=== PATIENT | male | born 1960 | race Caucasian/White ===

== ENCOUNTER 2023-08-02 09:00 | Outpatient (RCR) | payer MEDICARE, MEDICAID, SELFPAY ==
[2023-07-26 09:16] VITALS: BP 128/76; PULSE 76; TEMP 35.7; BMI 31.1
--- NOTE | 2023-07-26 10:10 | HP.PCM_ITS ---
History of Present Illness Date of Service: 07/26/23 Chief Complaint: Bilateral leg ulcerations History of Wound: Mr. Ramirez is a 63-year-old male presenting to the wound care center today at [facility] with a chief complaint of bilateral leg ulcerations. Patient resides at a nursing facility where he is cared for 24 hours a day. Patient has a bit of cognitive dysfunction and is well medicated today with 2 mg of Ativan. Patient has seen wound care in the past but presents with worsening larger wound to the left leg/ankle area. Patient denies of any trauma. Patient denies any constitutional symptoms. No other pedal complaints at this time. Progress of Wound: Mr. Ramirez is a 63-year-old male presenting for wound care center today visit for second opinion evaluation of his bilateral lower extremity ulcerations. Treatment has been done by outside wound care center with not much progress. Patient presents today for second opinion. He denies trauma. Denies constitutional symptoms. No other pedal complaints at this time. [facility] Home Medications albuterol sulfate 90 mcg/actuation breath activated powder inhaler 2 inh inhalation Q6H PRN shortness of breath 07/26/23 [History Last Taken Unknown] aripiprazole 5 mg tablet (Abilify) 5 mg PO QHS 07/26/23 [History Last Taken Unknown] buspirone 10 mg tablet 10 mg PO TID 07/26/23 [History Last Taken Unknown] donepezil 5 mg tablet (Aricept) 5 mg PO DAILY 07/26/23 [History Last Taken Unknown] hydroxyzine HCl 50 mg tablet 50 mg PO Q6H PRN agitation 07/26/23 [History Last Taken Unknown] lorazepam 1 mg tablet (Ativan) 1 mg PO BID 07/26/23 [History Last Taken Unknown] sertraline 100 mg tablet 100 mg PO DAILY 07/26/23 [History Last Taken Unknown] trazodone 50 mg tablet 50 mg PO DAILY 07/26/23 [History Last Taken Unknown] Allergy/AdvReac Type Severity Reaction Status Date / Time acetaminophen [From Tylenol] Allergy Intermediate unknown Verified 07/26/23 09:38 aspirin Allergy Intermediate unknown Verified 07/26/23 09:38 peanut Allergy Intermediate unknown Verified 07/26/23 09:38 Vital Signs Vital Signs Vital Signs: 07/26/23 09:16 Temperature 96.2 F L Temperature Source Temporal Pulse Rate 76 Blood Pressure 128/76 H Blood Pressure Mean 93 Blood Pressure Source Monitor Blood Pressure Position Sitting Blood Pressure Location Left Arm Oxygen Delivery Method Room Air Weight Weight: 107.048 kg Body Mass Index (BMI) 31.1 Physical Exam Narrative Vascular: DP and PT pulses are faintly palpable. CFT is brisk. Skin temperature is warm to warm from proximal ankle to distal digits. Neurological: Light touch intact. Patient responds to painful stimuli. Dermatological: Full-thickness ulceration appreciated to the right lateral ankle measuring 1.3 x 0.8 x 0.2 cm. Wound base is granular in nature. No sanguinous drainage is appreciated. No sign of infection. Full-thickness ulceration appreciated to the left lateral ankle measuring 11.0 x 3.0 x 0.2 cm. Wound base is fibrogranular nature. No sign of infection. Both wounds show no evidence of tunneling or undermining. No evidence of probe to bone bilateral. Toenails 1 through 5 bilateral are thickened, elongated, discolored with evidence of subungual debris. Excisional debridement down to and including subcutaneous tissue with a number 5 mm dermal curette to the right lateral ankle without incident. Predebridement measurement is 1.2 x 0.7 x 0.1 cm. Postdebridement measurement is 1.3 x 0.8 x 0.2 cm. Excision debridement down to and including subcutaneous tissue with a number 5 mm dermal curette to the left lateral ankle without incident. Predebridement measurement is 10.5 x 2.5 x 0.1 cm. Postdebridement measurement is 11.0 x 3.0 x 0.2 cm. Musculoskeletal: Mild posterior tenderness appreciated to both full-thickness ulcerations. No pain with calf compression. Debridement Note Debridement Note Debridement Free Text: Excisional debridement down to and including subcutaneous tissue with a number 5 mm dermal curette to the right lateral ankle without incident. Predebridement measurement is 1.2 x 0.7 x 0.1 cm. Postdebridement measurement is 1.3 x 0.8 x 0.2 cm. Excision debridement down to and including subcutaneous tissue with a number 5 mm dermal curette to the left lateral ankle without incident. Predebridement measurement is 10.5 x 2.5 x 0.1 cm. Postdebridement measurement is 11.0 x 3.0 x 0.2 cm. Post-Debridement Measurements and Additional Note: Post-Debridement Measurements/Treatment WC - Nurse 1 - General Ulcer Assessment Start: 07/26/23 09:16 Freq: Status: Active Protocol: SURY Activity Type Activity Date Activity User E-sign Co-sign Detail Recorded Client Recorded Date Recorded By Document 07/26/23 09:16 Desktop 07/26/23 09:32 GM 07/26/23 09:16 WC - Today's Visit Information Type of service Initial Visit Arrival Mode Wheelchair Transfer Assistance Manual Patient Identification Verified (Name & Yes ) Patient Requires Transmission-Based No Precautions Height and Weight Height 6 ft 1 in Weight 107.048 kg Weight in Pounds 236.0 lbs Weight Measurement Method Stated by Patient Body Mass Index (BMI) 31.1 BMI Classification Obese BSA - Calista 2.31 Vital Signs Temperature (97.8 F-99.1 F) 96.2 F L Temperature Source Temporal Pulse Rate (60-100) 76 Pulse Location Monitor Oxygen Delivery Method Room Air Blood Pressure (90/60-120/80) 128/76 H Blood Pressure Mean 93 Source Monitor Position Sitting Blood Pressure Location Left Arm History Since Last Visit- (Skip if this is Patient's initial visit) Left Footwear Regular Shoe Right Footwear Regular Shoe Pain Scale: 0-10 Numeric Is Patient Pain Free? Yes Lower Extremity Assessment/ Foot Assessment/ Toe Nail Assessment Left -Posterior Tibial Palpable No -Posterior Tibial Doppler Multiphasic -Dorsalis Pedis Palpable Yes -Dorsalis Pedis Doppler Multiphasic -Extremity Color Hyperpigmented -Hair Growth on Legs Yes -Hair Growth on Toes No -Temperature of Extremity Warm -Capillary Refill Less than 3 Seconds -Dependent Rubor No -Blanched when Elevated No -Lipodermatosclerosis No -Other Deformity No -Prior Foot Ulcer No -Charcot Joint No -Prior Amputation No -Thick Yes -Discolored Yes -Deformed No -Improper Length & Hygeine No Right -Posterior Tibial Palpable Yes -Posterior Tibial Doppler Multiphasic -Dorsalis Pedis Palpable Yes -Dorsalis Pedis Doppler Multiphasic -Extremity Color Hyperpigmented -Hair Growth on Legs Yes -Hair Growth on Toes No -Temperature of Extremity Warm -Capillary Refill Less than 3 Seconds -Dependent Rubor No -Other Deformity No -Prior Foot Ulcer No -Charcot Joint No -Prior Amputation No -Thick Yes -Discolored No -Deformed No -Improper Length & Hygeine Yes Communication Assessment Preferred language Turkish Administrative Officer Required No Able to Read Yes Able to Write Yes Right Hearing Abillity Normal Left Hearing Abillity Normal Visual Assistive Devices None Functional Assessment Recent Decline in Ability to Perform Bathing,Lower Body Dressing, Transferring, Upper Body Dressing Assistive Device With Patient Yes Culture/Mormonism/Audio Experience Expert Cultural/Mormonism Needs that may affect No Treatment Plan Would you allow our hospital currency exchange specialist to No meet you for the purpose of spiritual/ emotional support? Audio Experience Expert to contact place of restorationism No WC - Nurse 1 - General Ulcer Measurement Start: 07/26/23 09:16 Freq: Status: Active Protocol: Activity Type Activity Date Activity User E-sign Co-sign Detail Recorded Client Recorded Date Recorded By Document 07/26/23 09:16 Desktop 07/26/23 09:32 GM 07/26/23 09:16 Wound Center Nurse 1 Right lateral Ankle -Current Size (cm) - Length 1.5 -Current Size (cm) - Width 1.5 -Current Size (cm) - Depth 0.3 -Total Square Cm 2.25 -Date of Last Picture (Recall this 07/26/23 field) -Photo Taken Yes -Epithelialization Medium 34-66% -Tunneling No -Undermining/Tunneling No -Circular Undermining No -Exudate Amt Medium -Exudate Type Yellow/Green -Wound Margin Distinct, Outline Attached -Granulation Amt Medium (34-66%) -Necrosis Amt Small (1-33%) -Structure Exposed N/A -Texture (Reyna-wound Skin Appearance) Assessed -Moisture (Reyna-wound Skin Appearance) Assessed -Color (Reyna-wound Skin Appearance) Assessed -Temperature (Reyna-wound Skin No Abnormality Appearance) (Pt Warm) -Tenderness on Palpation (Reyna-wound No Skin Appearance) -Ulcer Cleansing Not Cleansed -Foul Odor after Cleansing No -Anesthetic Used 4% Lidocaine Solution Left Medial LE -Combined with other wound No -Current Size (cm) - Length 10.5 -Current Size (cm) - Width 3.9 -Current Size (cm) - Depth 0.2 -Total Square Cm 40.95 -Date of Last Picture (Recall this 07/26/23 field) -Photo Taken Yes -Epithelialization Medium 34-66% -Tunneling No -Undermining/Tunneling No -Circular Undermining No -Exudate Type Yellow/Green -Wound Margin Distinct, Outline Attached -Granulation Amt Medium (34-66%) -Granulation Quality N/A -Slough/Fibrin Yes -Necrosis Amt Large (67-100%) -Necrotic Tissue Type Adherent Slough -Structure Exposed N/A -Texture (Reyna-wound Skin Appearance) Assessed -Moisture (Reyna-wound Skin Appearance) Assessed -Color (Reyna-wound Skin Appearance) Assessed -Temperature (Reyna-wound Skin No Abnormality Appearance) (Pt Warm) -Tenderness on Palpation (Reyna-wound No Skin Appearance) -Ulcer Cleansing Soap and Water -Foul Odor after Cleansing No -Anesthetic Used 4% Lidocaine Solution Lower Limb Edema Present Yes Right Calf (cm) 40.2 Right Ankle (cm) 25.3 Left Calf (cm) 40.3 Left Ankle (cm) 26.7 WC - Nurse 2 - General Ulcer CM Notes Start: 07/26/23 09:16 Freq: Status: Active Protocol: Activity Type Activity Date Activity User E-sign Co-sign Detail Recorded Client Recorded Date Recorded By Document 07/26/23 10:05 PL Tablet 07/26/23 10:09 PL 07/26/23 10:05 Wound Center Nurse 2 Right lateral Ankle -Time 09:45 -Correct Patient Yes -Correct Side, Site, Position Yes -Correct Procedure Yes -Procedure Performed Yes -Type of Procedure Debridement -Clinical Debridement Subcutaneous -Tissue Removed Subcutaneous -Post Debridement (cm) - Length 1.3 -Post Debridement (cm) - Width 0.8 -Post Debridement (cm) - Depth 0.2 -Total Square (Post) (cm) 1.04 -Area of Debridement (cm) - Length 1.3 -Area of Debridement (cm) - Width 0.8 -Total Square (Area) (cm) 1.04 -Tunneling No -Undermining/Tunneling No -Circular Undermining No -Wound/Ulcer Outcome Not Healed -Ulcer Cleansing Rinsed/ Irrigated with Saline -Foul Odor after Cleansing No -Bioengineered Tissue No -Bleeding Controlled with Pressure -Treatment Response Procedure Tolerated Well -Debridement - Subq, 1st 20sq cm No Left Medial LE -Time 09:45 -Correct Patient Yes -Correct Side, Site, Position Yes -Correct Procedure Yes -Procedure Performed Yes -Type of Procedure Debridement -Clinical Debridement Subcutaneous -Tissue Removed Subcutaneous -Post Debridement (cm) - Length 11.0 -Post Debridement (cm) - Width 3.0 -Post Debridement (cm) - Depth 0.2 -Total Square (Post) (cm) 33.00 -Area of Debridement (cm) - Length 11.0 -Area of Debridement (cm) - Width 3.0 -Total Square (Area) (cm) 33.00 -Tunneling No -Undermining/Tunneling No -Circular Undermining No -Wound/Ulcer Outcome Not Healed -Ulcer Cleansing Rinsed/ Irrigated with Saline -Foul Odor after Cleansing No -Bioengineered Tissue No -Bleeding Controlled with Pressure -Treatment Response Procedure Tolerated Well -Debridement - Subq, 1st 20sq cm Yes -Debridement, SubQ, ea addt'l 20sq cm 1 or part thereof Pain Scale: 0-10 Numeric Is Patient Pain Free? Yes Assessment/Plan Assessment/Plan (1) Non-pressure ulcer of left lower extremity with fat layer exposed: CODE(S): L97.922 - Non-pressure chronic ulcer of unspecified part of left lower leg with fat layer exposed PLAN: Patient was examined evaluated. All findings were discussed with the patient. All questions were answered to the patient satisfaction. Excisional debridement down to and including subcutaneous tissue with a number 5 mm dermal curette to the right lateral ankle without incident. Predebridement measurement is 1.2 x 0.7 x 0.1 cm. Postdebridement measurement is 1.3 x 0.8 x 0.2 cm. Excision debridement down to and including subcutaneous tissue with a number 5 mm dermal curette to the left lateral ankle without incident. Predebridement measurement is 10.5 x 2.5 x 0.1 cm. Postdebridement measurement is 11.0 x 3.0 x 0.2 cm. At this time we will begin authorization for peripheral arterial disease as well as venous duplex studies for baseline evaluation. The patient is left ulceration was cultured and will be sent off for microbiology culture and sensitivity. We will give her antibiotic treatment when results return. The patient's toenails 1 through 5 bilateral were debrided down to and including normal levels with a sterile double-action nail nipper without incident. Patient expressed relief after debridement. The patient's bilateral legs were dressed with Xeroform and dry sterile dressing. No compression was applied. Bathing instructions: The patient is to wash from head to toe as regularly doing so daily. Nursing staff is to separately wash his wounds with warm water and orange Dial antibacterial soap, dry well and apply bilateral ulcerations with Xeroform and dry sterile dressing and secure with tape. Patient will follow-up in 1 week for Masonic's debridement to the left ankle with application of amnion skin graft substitute. (2) Non-pressure ulcer of right lower extremity with fat layer exposed: CODE(S): L97.912 - Non-pressure chronic ulcer of unspecified part of right lower leg with fat layer exposed (3) Peripheral arterial disease: CODE(S): I73.9 - Peripheral vascular disease, unspecified (4) Tinea unguium: CODE(S): B35.1 - Tinea unguium
--- NOTE | 2023-07-31 10:00 | WC ---
Torsten Devi from [facility] called inquiring about patient's positive wound culture which showed MRSA. Notified Dr Cadena regarding this and he prescribed Doxycycline 100mg PO BID x 14 days disp: 28 with no refills. Called Torsten at [phone] to give her a telephone order which she took. Patient is scheduled to be seen on by Dr Cadena.
[2023-08-02 08:44] VITALS: BP 162/73; PULSE 69; RESP 16; BMI 31.1
--- NOTE | 2023-08-02 09:21 | PCM.WC.PN ---
History of Present Illness Date of Service: 08/02/23 Chief Complaint: Bilateral leg ulcerations History of Wound: Mr. Ramirez is a 63-year-old male presenting to the wound care center today at with a chief complaint of bilateral leg ulcerations. Patient resides at a nursing facility where he is cared for 24 hours a day. Patient has a bit of cognitive dysfunction and is well medicated today with 2 mg of Ativan. Patient has seen wound care in the past but presents with worsening larger wound to the left leg/ankle area. Patient denies of any trauma. Patient denies any constitutional symptoms. No other pedal complaints at this time. Progress of Wound: Mr. Ramirez is a 63-year-old male presenting for wound care center today visit for second opinion evaluation of his bilateral lower extremity ulcerations. Treatment has been done by outside wound care center with not much progress. Patient presents today for second opinion. He denies trauma. Denies constitutional symptoms. No other pedal complaints at this time. Subjective Subjective Mr. Ramirez is a 63-year-old male presenting for follow-up of full-thickness ulceration to the bilateral lower extremity. He has kept his dressings clean dry and intact. He has been getting changed by the nursing facility that he currently resides at. He denies any trauma. Denies any pain. Denies any strikethrough to the dressing. He denies constitutional symptoms. No other pedal complaints at this time. Objective Data Objective Data Vital Signs: Vital Signs Temp Pulse Resp BP O2 Del Method 96.2 F L 69 16 162/73 H Room Air 07/26/23 09:16 08/02/23 08:44 08/02/23 08:44 08/02/23 08:44 08/02/23 08:44 Oxygen Delivery Method Room Air Weight: 107.048 kg Body Mass Index (BMI) 31.1 Lab / Micro Data Attestation: I reviewed the patient's lab results. Micro: Microbiology 07/26/23 09:55 Tissue Ulcer - Leg Gram Stain - Final 07/26/23 09:55 Tissue Ulcer - Leg Wound Culture - Final Meth. resistant Staph. aureus Corynebacterium striatum 07/26/23 09:55 Tissue Ulcer - Leg Anaerobic Culture - Final No anaerobic bacteria isolated. Physical Exam Narrative Vascular: DP and PT pulses are faintly palpable. CFT is brisk. Skin temperature is warm to warm from proximal ankle to distal digits. Neurological: Light touch intact. Patient responds to painful stimuli. Dermatological: Full-thickness ulceration appreciated to the right lateral ankle measuring 0.9 x 0.6 x 0.2 cm. Wound base is granular in nature. No sanguinous drainage is appreciated. No sign of infection. Full-thickness ulceration appreciated to the left lateral ankle measuring 11.5 x 2.5 x 0.4 cm. Wound base is fibrogranular nature. No sign of infection. Both wounds show no evidence of tunneling or undermining. No evidence of probe to bone bilateral. Toenails 1 through 5 bilateral are thickened, elongated, discolored with evidence of subungual debris. Excisional debridement down to and including subcutaneous tissue with a number 5 mm dermal curette to the right lateral ankle without incident. Predebridement measurement is 0.8 x 0.6 x 0.1 cm. Postdebridement measurement is 0.9 x 0.6 x 0.2 cm. Excisional debridement using the [employer]'s debrider down to and including muscle to the left medial full-thickness ulceration without incident. Predebridement measurement is 11.0 x 2.0 x 0.2 cm. Postdebridement measurement is 11.5 x 2.5 x 0.4 cm. EpiMesh 4 x 4.5 cm was applied to the left full-thickness ulceration with 100% use. First application. The graft site was free and clear of any infection. The wound/skin graft substitute was dressed with nonadherent bandage secured in place with Steri-Strips followed by bolster dressing as well as a double layer Tubigrip. Musculoskeletal: Mild posterior tenderness appreciated to both full-thickness ulcerations. No pain with calf compression. 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 ) Arrival Mode Wheelchair Ambulatory Transfer Assistance Manual None Accompanied by nurse Patient Identification Verified (Name & Yes Yes ) Patient Requires Transmission-Based No No Precautions Height and Weight Height 6 ft 1 in Weight 107.048 kg Weight in Pounds 236.0 lbs Weight Measurement Method Stated by Patient Body Mass Index (BMI) 31.1 31.1 BMI Classification Obese Obese BSA - Calista 2.31 Vital Signs Temperature (97.8 F-99.1 F) 96.2 F L Temperature Source Temporal Pulse Rate (60-100) 76 69 Pulse Location Monitor Monitor Respiratory Rate (12-18) 16 Respiratory rate source Observation Oxygen Delivery Method Room Air Room Air Blood Pressure (90/60-120/80) 128/76 H 162/73 H Blood Pressure Mean (mm Hg) 93 102 Source Monitor Monitor Position Sitting Sitting Blood Pressure Location Left Arm Left Arm History Since Last Visit- (Skip if this is Patient's initial visit) Have you changed medications since your No last visit? Any new allergies or adverse reactions No Had a fall/change in ADL's that may No increase risk of falls Signs or symptoms of abuse and/or No neglect since last visit Have you been in the hospital since your No last visit? Has dressing in place as prescribed Yes Has compression in place as prescribed N/A Has offloadiing in place as prescribed N/A Experienced any changes in pain level or No management Left Footwear Regular Shoe Regular Shoe Right Footwear Regular Shoe Regular Shoe Pain Scale: 0-10 Numeric Is Patient Pain Free? Yes Yes Lower Extremity Assessment/ Foot Assessment/ Toe Nail Assessment Left -Posterior Tibial Palpable No -Posterior Tibial Doppler Multiphasic -Dorsalis Pedis Palpable Yes -Dorsalis Pedis Doppler Multiphasic -Extremity Color Hyperpigmented -Hair Growth on Legs Yes -Hair Growth on Toes No -Temperature of Extremity Warm -Capillary Refill Less than 3 Seconds -Dependent Rubor No -Blanched when Elevated No -Lipodermatosclerosis No -Other Deformity No -Prior Foot Ulcer No -Charcot Joint No -Prior Amputation No -Thick Yes -Discolored Yes -Deformed No -Improper Length & Hygeine No Right -Posterior Tibial Palpable Yes -Posterior Tibial Doppler Multiphasic -Dorsalis Pedis Palpable Yes -Dorsalis Pedis Doppler Multiphasic -Extremity Color Hyperpigmented -Hair Growth on Legs Yes -Hair Growth on Toes No -Temperature of Extremity Warm -Capillary Refill Less than 3 Seconds -Dependent Rubor No -Other Deformity No -Prior Foot Ulcer No -Charcot Joint No -Prior Amputation No -Thick Yes -Discolored No -Deformed No -Improper Length & Hygeine Yes Communication Assessment Preferred language Salvadorean Geriatric Social Work Professor Required No Able to Read Yes Able to Write Yes Right Hearing Abillity Normal Left Hearing Abillity Normal Visual Assistive Devices None Functional Assessment Recent Decline in Ability to Perform Bathing,Lower Body Dressing, Transferring, Upper Body Dressing Assistive Device With Patient Yes Culture/Yazdanism/Casting Machine Control Board Operator Cultural/Yazdanism Needs that may affect No Treatment Plan Would you allow our hospital bilingual administrative assistant to No meet you for the purpose of spiritual/ emotional support? Casting Machine Control Board Operator to contact place of shinto No WC - Nurse 1 - General Ulcer Measurement Start: 07/26/23 09:16 Freq: Status: Active Protocol: Activity Type Activity Date Activity User E-sign Co-sign Detail Recorded Client Recorded Date Recorded By Document 07/26/23 09:16 Desktop 07/26/23 09:32 Document 08/02/23 08:44 [facility] Desktop 08/02/23 08:57 [facility] 07/26/23 08/02/23 09:16 08:44 Wound Center Nurse 1 Right lateral Ankle -Combined with other wound No -Current Size (cm) - Length 1.5 0.4 -Current Size (cm) - Width 1.5 0.4 -Current Size (cm) - Depth 0.3 0.2 -Total Square Cm 2.25 0.16 -Date of Last Picture (Recall this 07/26/23 08/02/23 field) -Photo Taken Yes Yes -Epithelialization Medium 34-66% None Present -Tunneling No No -Undermining/Tunneling No No -Circular Undermining No No -Exudate Amt Medium Medium -Exudate Type Yellow/Green Serosanguineous -Wound Margin Distinct, Distinct, Outline Outline Attached Attached -Granulation Amt Medium (34-66%) Medium (34-66%) -Granulation Quality Red -Slough/Fibrin Yes -Necrosis Amt Small (1-33%) Medium (34-66%) -Necrotic Tissue Type Adherent Slough -Structure Exposed N/A -Texture (Reyna-wound Skin Appearance) Assessed Assessed, Fluctuance -Moisture (Reyna-wound Skin Appearance) Assessed Assessed,Dry/ Scaly -Color (Reyna-wound Skin Appearance) Assessed Assessed -Temperature (Reyna-wound Skin No Abnormality No Abnormality Appearance) (Pt Warm) (Pt Warm) -Tenderness on Palpation (Reyna-wound No No Skin Appearance) -Ulcer Cleansing Not Cleansed Soap and Water -Foul Odor after Cleansing No No -Anesthetic Used 4% Lidocaine 5% Lidocaine Solution Gel Left Medial LE -Combined with other wound No No -Current Size (cm) - Length 10.5 11.2 -Current Size (cm) - Width 3.9 2.4 -Current Size (cm) - Depth 0.2 0.3 -Total Square Cm 40.95 26.88 -Date of Last Picture (Recall this 07/26/23 08/02/23 field) -Photo Taken Yes Yes -Epithelialization Medium 34-66% None Present -Tunneling No No -Undermining/Tunneling No No -Circular Undermining No No -Exudate Amt Large -Exudate Type Yellow/Green Serosanguineous -Wound Margin Distinct, Distinct, Outline Outline Attached Attached -Granulation Amt Medium (34-66%) Small (1-33%) -Granulation Quality N/A Red -Slough/Fibrin Yes Yes -Necrosis Amt Large (67-100%) Large (67-100%) -Necrotic Tissue Type Adherent Slough Adherent Slough -Structure Exposed N/A -Texture (Reyna-wound Skin Appearance) Assessed Assessed, Scarring -Moisture (Reyna-wound Skin Appearance) Assessed Assessed,Dry/ Scaly -Color (Reyna-wound Skin Appearance) Assessed Assessed, Erythema -Temperature (Reyna-wound Skin No Abnormality No Abnormality Appearance) (Pt Warm) (Pt Warm) -Tenderness on Palpation (Reyna-wound No No Skin Appearance) -Ulcer Cleansing Soap and Water Soap and Water -Foul Odor after Cleansing No No -Anesthetic Used 4% Lidocaine 5% Lidocaine Solution Gel Lower Limb Edema Present Yes Yes Right Calf (cm) 40.2 40.5 Right Ankle (cm) 25.3 25.7 Left Calf (cm) 40.3 41 Left Ankle (cm) 26.7 26.4 WC - Nurse 2 - General Ulcer CM Notes Start: 07/26/23 09:16 Freq: Status: Active Protocol: Activity Type Activity Date Activity User E-sign Co-sign Detail Recorded Client Recorded Date Recorded By Document 07/26/23 10:05 PL Tablet 07/26/23 10:09 PL Document 08/02/23 09:08 Laptop 08/02/23 09:18 07/26/23 08/02/23 10:05 09:08 Wound Center Nurse 2 Right lateral Ankle -Time 09:45 09:08 -Correct Patient Yes Yes -Correct Side, Site, Position Yes Yes -Correct Procedure Yes Yes -Procedure Performed Yes Yes -Type of Procedure Debridement Debridement -Clinical Debridement Subcutaneous Subcutaneous -Tissue Removed Subcutaneous Dermis -Post Debridement (cm) - Length 1.3 0.9 -Post Debridement (cm) - Width 0.8 0.6 -Post Debridement (cm) - Depth 0.2 0.2 -Total Square (Post) (cm) 1.04 0.54 -Area of Debridement (cm) - Length 1.3 0.9 -Area of Debridement (cm) - Width 0.8 0.6 -Total Square (Area) (cm) 1.04 0.54 -Tunneling No No -Undermining/Tunneling No No -Circular Undermining No No -Wound/Ulcer Outcome Not Healed Not Healed -Ulcer Cleansing Rinsed/ Rinsed/ Irrigated with Irrigated with Saline Saline -Foul Odor after Cleansing No No -Bioengineered Tissue No No -Bleeding Controlled with Pressure Pressure -Treatment Response Procedure Procedure Tolerated Well Tolerated Well -Offloading No -Debridement - Subq, 1st 20sq cm No Yes Left Medial LE -Time 09:45 09:08 -Correct Patient Yes Yes -Correct Side, Site, Position Yes Yes -Correct Procedure Yes Yes -Procedure Performed Yes Yes -Type of Procedure Debridement Debridement -Clinical Debridement Subcutaneous Muscle / Fascia -Tissue Removed Subcutaneous Muscle,Fascia -Post Debridement (cm) - Length 11.0 11.5 -Post Debridement (cm) - Width 3.0 2.5 -Post Debridement (cm) - Depth 0.2 0.4 -Total Square (Post) (cm) 33.00 28.75 -Area of Debridement (cm) - Length 11.0 11.5 -Area of Debridement (cm) - Width 3.0 2.5 -Total Square (Area) (cm) 33.00 28.75 -Tunneling No No -Undermining/Tunneling No No -Circular Undermining No No -Wound/Ulcer Outcome Not Healed Not Healed -Ulcer Cleansing Rinsed/ Rinsed/ Irrigated with Irrigated with Saline Saline -Foul Odor after Cleansing No No -Bioengineered Tissue No No -Type of Bioengineered Tissue Epifix Mesh -Expiration Date 03/04/28 -Product Lot Number [id number] -Percent Used 100 -Lot number of Saline Used [id number] -Bleeding Controlled with Pressure Pressure -Treatment Response Procedure Procedure Tolerated Well Tolerated Well -Offloading No -Debridement - Subq, 1st 20sq cm Yes -Debridement, SubQ, ea addt'l 20sq cm 1 or part thereof -Debridement - Muscle / Fascia, 1st No 20sq cm -Apply Skin Sub - 1st 25 sq cm - Legs 1 -Apply Skin Sub - each addt'l 25 sq cm 1 - Legs -Epifix Mesh (per sq cm) 11 Pain Scale: 0-10 Numeric Is Patient Pain Free? Yes Yes Assessment/Plan Assessment/Plan (1) Non-pressure chronic ulcer of other part of left lower leg with necrosis of muscle: CODE(S): L97.823 - Non-pressure chronic ulcer of other part of left lower leg with necrosis of muscle PLAN: Patient was examined and evaluated. All findings were discussed with the patient. All questions were answered to the patient's satisfaction. Excisional debridement down to and including subcutaneous tissue with a number 5 mm dermal curette to the right lateral ankle without incident. Predebridement measurement is 0.8 x 0.6 x 0.1 cm. Postdebridement measurement is 0.9 x 0.6 x 0.2 cm. Excisional debridement using the [employer]'s debrider down to and including muscle to the left medial full-thickness ulceration without incident. Predebridement measurement is 11.0 x 2.0 x 0.2 cm. Postdebridement measurement is 11.5 x 2.5 x 0.4 cm. EpiMesh 4 x 4.5 cm was applied to the left full-thickness ulceration with 100% use. First application. The graft site was free and clear of any infection. The wound/skin graft substitute was dressed with nonadherent bandage secured in place with Steri-Strips followed by bolster dressing as well as a double layer Tubigrip. Follow-up in 1 week for continued treatment and Masonic debridement. The patient will follow-up with vascular testing on 08/04. The patient's culture and sensitivity was reviewed today and shows sensitivity to doxycycline. Patient will be started on doxycycline to be taken twice daily for 2 weeks to control any soft tissue infection at the patient may have. The current ulcerations to the bilateral lower extremities show no evidence of sign of infection or deep infection at this time. (2) Non-pressure ulcer of right lower extremity with fat layer exposed: CODE(S): L97.912 - Non-pressure chronic ulcer of unspecified part of right lower leg with fat layer exposed (3) Peripheral vascular disease: CODE(S): I73.9 - Peripheral vascular disease, unspecified (4) Cellulitis of right leg: CODE(S): L03.115 - Cellulitis of right lower limb
== END 2023-08-03 23:59 | disposition home or self-care (01) ==
LOC: WC 09:00
PROVIDERS: PCP Internal Medicine Infectious Disease; Referring Provider Internal Medicine Infectious Disease; Visit Provider Podiatrist Foot & Ankle Surgery
DX: L97.823 Non-pressure chronic ulcer of other part of left lower leg with necrosis of muscle (principal); L97.912 Non-pressure chronic ulcer of unspecified part of right lower leg with fat layer exposed; I73.9 Peripheral vascular disease, unspecified; L03.115 Cellulitis of right lower limb; B35.1 Tinea unguium
CPT/HCPCS: 11042; 11045; 15271; 15272; 87070; 87075; 87077; 87101; 87186; 87205; 99213; Q4186; G0463

== ENCOUNTER 2023-08-30 09:00 | Outpatient (RCR) | payer MEDICARE, MEDICAID, SELFPAY ==
[2023-08-04 00:31] VITALS: BP 162/73; PULSE 69; RESP 16; TEMP 35.7; BMI 31.1
--- NOTE | 2023-08-04 08:56 | ART_ITS ---
Reason For Study: Edema Procedure A bilateral lower extremity continuous wave Doppler with analog waveform analysis,segmental pressures,and ankle brachial indexes without exercise. Left Segmental Pressures Left brachial= 104mmHg. Left dorsalis pedis artery = >254mmHg. Left digit = 58 mmHg. The left dorsalis pedis waveforms are triphasic. Unable to acquire LT HUMAN RELATIONS MANAGER waveform and pressure due to open wound. Right Segmental Pressures Right brachial= 91mmHg. Right posterior tibial artery = >254mmHg. Right dorsalis pedis artery = 126mmHg. Right digit = 74 mmHg. The right posterior tibial artery waveforms are triphasic. The right dorsalis pedis waveforms are triphasic. Indices The right ankle brachial index by the posterior tibial artery is N/C. The right ankle brachial index by the dorsalis pedis is 1.21. The right digital-brachial index is 0.71. The left ankle brachial index by the dorsalis pedis is N/C. The left digital-brachial index is 0.56. VL/Lower Ext Art Exam w/o Exercis Interpretation Summary Right NÉSTOR 1.21, normal. Doppler/PVR waveforms of the right leg normal at rest. TBI diminished, pedal/digit disease vs spasm Left NÉSTOR not able to be obtained due to non-compressible vessels. Doppler/PVR w aveforms of the left leg normal at rest. TBI diminished, pedal/digit disease vs spasm Ordering Physician: Gerry Cadena Referring Physician: Raj Dykes Performed By: Thomas Disla, RVT
--- NOTE | 2023-08-04 08:56 | VDLE_ITS ---
Reason For Study: Edema RIGHT LEFT CFV is compressible, phasic, and INCOMPETENT CFV is compressible, phasic, and INCOMPETENT for greater than 1.0 second. for greater than 1.0 second. FV is compressible, phasic, and INCOMPETENT FV is compressible, spontaneous, phasic, for greater than 1.0 second. competent and demonstrates normal POP V is compressible, phasic, and augmentation. INCOMPETENT for greater than 1.0 second. POP V is compressible, phasic, and SFJ is INCOMPETENT and measures 0.66 cm. INCOMPETENT for greater than 1.0 second. GSV proximal thigh measures 0.65 x 0.62 cm. SFJ is INCOMPETENT and measures 0.89 cm. GSV at knee measures 0.59 x 0.59 cm. GSV proximal thigh measures 0.98 x 0.90 cm. GSV INCOMPETENT throughout for greater than GSV at knee measures 0.96 x 1.01 cm. 0.5 seconds. GSV INCOMPETENT throughout for greater than ASV proximal calf is INCOMPETENT for greater 0.5 seconds. than 0.5 seconds and measures 0.34 x 0.31 cm. SSV proximal calf is INCOMPETENT for greater SSV proximal calf is competent and measures than 0.5 seconds and measures 0.40 x 0.44 cm. 0.29 x 0.27 cm. Perforating Vein Prox Thigh is INCOMPETENT for greater than 0.5 seconds and measures 0.37 cm. Perforating Vein Dist Calf is INCOMPETENT for greater than 0.5 seconds and measures 0.31 cm. Procedure This is a venous duplex using B-mode, color flow and spectral Doppler. Exam performed in department. The exam was diagnostic. VL/Venous Duplex US - Wagner Extrem Interpretation Summary Deep veins of the bilateral lower extremities are patent and compressible segme ntally. There is no evidence of right lower extremity deep vein thrombosis. The bilateral great sap henous veins appear patent and compressible segmentally. Positive for reflux in the right common femoral vein, femoral vein, popliteal v ein, saphenofemoral junction, great saphenous vein, accessory saphenous vein, thigh door trimmer, stephanie f door trimmer. Positive for reflux in the left common femoral vein, popliteal vein, saphenofem oral junction, great saphenous vein, small saphenous vein Ordering Physician: Gerry Cadena Referring Physician: Raj Dykes Performed By: Thomas Disla RVT
[2023-08-09 08:51] VITALS: BP 111/64; PULSE 74; RESP 18; TEMP 36.2; BMI 31.1
--- NOTE | 2023-08-09 09:55 | PN.PCM_ITS ---
History of Present Illness Date of Service: 08/09/23 Chief Complaint: Bilateral leg ulcerations History of Wound: Mr. Ramirez is a 63-year-old male presenting to the wound care center today at [facility] with a chief complaint of bilateral leg ulcerations. Patient resides at a nursing facility where he is cared for 24 hours a day. Patient has a bit of cognitive dysfunction and is well medicated today with 2 mg of Ativan. Patient has seen wound care in the past but presents with worsening larger wound to the left leg/ankle area. Patient denies of any trauma. Patient denies any constitutional symptoms. No other pedal complaints at this time. Subjective Subjective Mr. Ramirez is a 63-year-old male presenting to the wound care center for follow-up and evaluation for bilateral leg ulcerations. Patient is following up for graft placement left leg and debridement to the right ankle. Patient is nursing staff states that he took down his dressing yesterday after . Overall the patient denies any pain. He denies constitutional symptoms. No other pedal complaints at this time. Objective Data Objective Data Vital Signs: Vital Signs Temp Pulse Resp BP O2 Del Method 97.2 F L 74 18 111/64 Room Air 08/09/23 08:51 08/09/23 08:51 08/09/23 08:51 08/09/23 08:51 08/09/23 08:51 Oxygen Delivery Method Room Air Weight: 107.048 kg Body Mass Index (BMI) 31.1 Physical Exam Narrative Vascular: DP and PT pulses are faintly palpable. CFT is brisk. Skin temperature is warm to warm from proximal ankle to distal digits. Neurological: Light touch intact. Patient responds to painful stimuli. Dermatological: Full-thickness ulceration appreciated to the right lateral ankle measuring 0.9 x 0.6 x 0.2 cm. Wound base is granular in nature. No sanguinous drainage is appreciated. No sign of infection. Full-thickness ulceration appreciated to the left lateral ankle measuring 11.5 x 2.5 x 0.4 cm. Wound base is fibrogranular nature. No sign of infection. Both wounds show no evidence of tunneling or undermining. No evidence of probe to bone bilateral. Toenails 1 through 5 bilateral are thickened, elongated, discolored with evidence of subungual debris. Excisional debridement down to and including subcutaneous tissue with a number 5 mm dermal curette to the right lateral ankle without incident. Predebridement measurement is 0.9 x 0.5 x 0.1 cm. Postdebridement measurement is 0.9 x 0.6 x 0.2 cm. Excisional debridement using the [employer] debrider down to and including muscle to the left medial full-thickness ulceration without incident. Predebridement measurement is 11.2 x 2.2 x 0.2 cm. Postdebridement measurement is 11.5 x 2.5 x 0.4 cm. EpiMesh 4 x 4.5 cm was applied to the left full-thickness ulceration with 100% use. Second application. The graft site was free and clear of any infection. The wound/skin graft substitute was dressed with nonadherent bandage secured in place with Steri-Strips followed by bolster dressing as well as a double layer Tubigrip. Musculoskeletal: Mild posterior tenderness appreciated to both full-thickness ulcerations. No pain with calf compression. Debridement Note Debridement Note Debridement Free Text: Excisional debridement down to and including subcutaneous tissue with a number 5 mm dermal curette to the right lateral ankle without incident. Predebridement measurement is 0.9 x 0.5 x 0.1 cm. Postdebridement measurement is 0.9 x 0.6 x 0.2 cm. Excisional debridement using the [employer] debrider down to and including muscle to the left medial full-thickness ulceration without incident. Predebridement measurement is 11.2 x 2.2 x 0.2 cm. Postdebridement measurement is 11.5 x 2.5 x 0.4 cm. EpiMesh 4 x 4.5 cm was applied to the left full-thickness ulceration with 100% use. Second application. The graft site was free and clear of any infection. The wound/skin graft substitute was dressed with nonadherent bandage secured in place with Steri-Strips followed by bolster dressing as well as a double layer Tubigrip. Post-Debridement Measurements and Additional Note: Post-Debridement Measurements/Treatment WC - Nurse 1 - General Ulcer Assessment Start: 08/09/23 08:51 Freq: Status: Active Protocol: SURY Activity Type Activity Date Activity User E-sign Co-sign Detail Recorded Client Recorded Date Recorded By Document 08/09/23 08:51 KW Desktop 08/09/23 08:56 08/09/23 08:51 - Today's Visit Information Type of service Follow-up Visit (Physician/SEWER CONNECTOR ) Arrival Mode Ambulatory Accompanied by nurse Height and Weight Weight Measurement Method Estimated by Patient Body Mass Index (BMI) 31.1 BMI Classification Obese Vital Signs Temperature (97.8 F-99.1 F) 97.2 F L Temperature Source Temporal Pulse Rate (60-100) 74 Pulse Location Monitor Respiratory Rate (12-18) 18 Respiratory rate source Observation Oxygen Delivery Method Room Air Blood Pressure (90/60-120/80) 111/64 Blood Pressure Mean (mm Hg) 79 Position Semi-Fowlers Blood Pressure Location Left Arm History Since Last Visit- (Skip if this is Patient's initial visit) Have you changed medications since your No last visit? Any new allergies or adverse reactions No Had a fall/change in ADL's that may No increase risk of falls Signs or symptoms of abuse and/or No neglect since last visit Have you been in the hospital since your No last visit? Has dressing in place as prescribed Yes Has compression in place as prescribed Yes Has offloadiing in place as prescribed No Experienced any changes in pain level or No management Left Footwear Regular Shoe Right Footwear Regular Shoe Pain Scale: 0-10 Numeric Is Patient Pain Free? Yes - Nurse 1 - General Ulcer Measurement Start: 08/09/23 08:51 Freq: Status: Active Protocol: Activity Type Activity Date Activity User E-sign Co-sign Detail Recorded Client Recorded Date Recorded By Document 08/09/23 08:51 [employer] 08/09/23 08:56 08/09/23 08:51 Wound Center Nurse 1 Right lateral Ankle -Current Size (cm) - Length 0.9 -Current Size (cm) - Width 0.9 -Current Size (cm) - Depth 0.2 -Total Square Cm 0.81 -Wound Margin Thickened -Granulation Amt Small (1-33%) -Granulation Quality [place] -Necrosis Amt Large (67-100%) -Necrotic Tissue Type Adherent Slough -Texture (Reyna-wound Skin Appearance) Assessed -Moisture (Reyna-wound Skin Appearance) Assessed -Color (Reyna-wound Skin Appearance) Assessed -Temperature (Reyna-wound Skin No Abnormality Appearance) (Pt Warm) -Ulcer Cleansing Soap and Water -Anesthetic Used 4% Lidocaine Solution Left Medial LE -Current Size (cm) - Length 11.6 -Current Size (cm) - Width 2.9 -Current Size (cm) - Depth 0.3 -Total Square Cm 33.64 -Wound Margin Thickened -Granulation Quality [place] -Necrosis Amt Large (67-100%) -Necrotic Tissue Type Adherent Slough -Texture (Reyna-wound Skin Appearance) Assessed -Moisture (Reyna-wound Skin Appearance) Assessed -Color (Reyna-wound Skin Appearance) Not Assessed, Erythema -Temperature (Reyna-wound Skin No Abnormality Appearance) (Pt Warm) -Ulcer Cleansing Soap and Water -Anesthetic Used 4% Lidocaine Solution Right Calf (cm) 40.4 Right Ankle (cm) 24.8 Left Calf (cm) 41.3 Left Ankle (cm) 25.6 WC - Nurse 2 - General Ulcer CM Notes Start: 08/09/23 08:51 Freq: Status: Active Protocol: Activity Type Activity Date Activity User E-sign Co-sign Detail Recorded Client Recorded Date Recorded By Document 08/09/23 09:27 Laptop 08/09/23 09:32 08/09/23 09:27 Wound Center Nurse 2 Right lateral Ankle -Time 09:28 -Correct Patient Yes -Correct Side, Site, Position Yes -Correct Procedure Yes -Procedure Performed Yes -Type of Procedure Debridement -Clinical Debridement Subcutaneous -Tissue Removed Subcutaneous -Post Debridement (cm) - Length 1.0 -Post Debridement (cm) - Width 0.7 -Post Debridement (cm) - Depth 0.2 -Total Square (Post) (cm) 0.70 -Area of Debridement (cm) - Length 1.0 -Area of Debridement (cm) - Width 0.7 -Total Square (Area) (cm) 0.70 -Tunneling No -Undermining/Tunneling No -Circular Undermining No -Wound/Ulcer Outcome Not Healed -Ulcer Cleansing Rinsed/ Irrigated with Saline -Foul Odor after Cleansing No -Bioengineered Tissue No -Bleeding Controlled with Pressure -Treatment Response Procedure Tolerated Well -Offloading No -Debridement - Subq, 1st 20sq cm Yes Left Medial LE -Time 09:29 -Correct Patient Yes -Correct Side, Site, Position Yes -Correct Procedure Yes -Procedure Performed Yes -Type of Procedure Debridement -Clinical Debridement Muscle / Fascia -Tissue Removed Muscle -Post Debridement (cm) - Length 11.8 -Post Debridement (cm) - Width 2.5 -Post Debridement (cm) - Depth 0.2 -Total Square (Post) (cm) 29.50 -Area of Debridement (cm) - Length 11.8 -Area of Debridement (cm) - Width 2.5 -Total Square (Area) (cm) 29.50 -Tunneling No -Undermining/Tunneling No -Circular Undermining No -Wound/Ulcer Outcome Not Healed -Ulcer Cleansing Rinsed/ Irrigated with Saline -Foul Odor after Cleansing No -Bioengineered Tissue Yes -Type of Bioengineered Tissue Epifix Mesh -Expiration Date 04/04/28 -Product Lot Number [id number] -Percent Used 100 -Lot number of Saline Used [id number] -Bleeding Controlled with Pressure -Treatment Response Procedure Tolerated Well -Offloading No -Debridement - Subq, 1st 20sq cm No -Debridement - Muscle / Fascia, 1st No 20sq cm -Apply Skin Sub - 1st 25 sq cm - Legs 1 -Apply Skin Sub - each addt'l 25 sq cm 1 - Legs -Epifix Mesh (per sq cm) 11 Pain Scale: 0-10 Numeric Is Patient Pain Free? Yes - Nurse 3 - General Ulcer D/C NN Start: 08/09/23 08:51 Freq: Status: Active Protocol: Activity Type Activity Date Activity User E-sign Co-sign Detail Recorded Client Recorded Date Recorded By Document 08/09/23 09:40 KW Desktop 08/09/23 09:41 KW 08/09/23 09:40 Wound Care Center Nurse 3 Right lateral Ankle -Primary Dressing Applied Promogran Madeline Matter -Primary Dressing Covered/Secured with Dry Gauze & Roll Gauze, Secured with Tape -Promogran Madeline Matter 1 Left Medial LE -Primary Dressing Covered/Secured with Dry Gauze & Roll Gauze, Secured with Tape BLE -Tubular Bandage Single Layer -Size of Tubigrip Used Size F -Size F ($) 2 Pain Scale: 0-10 Numeric Is Patient Pain Free? Yes - Visit Discharge Discharge Condition Stable Ambulatory Status Ambulatory Transportation CUSTODIAL TRANSPORT Medication Reconcilliation completed & No provided to patient/care provider Clinical Summary of Care Provided Yes Assessment/Plan Assessment/Plan (1) Non-pressure chronic ulcer of other part of left lower leg with necrosis of muscle: CODE(S): L97.823 - Non-pressure chronic ulcer of other part of left lower leg with necrosis of muscle PLAN: Patient was examined and evaluated. All findings were discussed with the patient. All questions were answered to the patient satisfaction. Excisional debridement down to and including subcutaneous tissue with a number 5 mm dermal curette to the right lateral ankle without incident. Predebridement measurement is 0.9 x 0.5 x 0.1 cm. Postdebridement measurement is 0.9 x 0.6 x 0.2 cm. Excisional debridement using the [employer]'s debrider down to and including muscle to the left medial full-thickness ulceration without incident. Predebridement measurement is 11.2 x 2.2 x 0.2 cm. Postdebridement measurement is 11.5 x 2.5 x 0.4 cm. EpiMesh 4 x 4.5 cm was applied to the left full-thickness ulceration with 100% use. Second application. The graft site was free and clear of any infection. The wound/skin graft substitute was dressed with nonadherent bandage secured in place with Steri-Strips followed by bolster dressing as well as a double layer Tubigrip. Educated the patient as well as his nurse to keep the dressing clean dry and in tact. They were understanding of this. Follow-up in 1 week for Misonix debridement. After review of the patient's arterial studies there shows evidence of noncompressible vessels to the left lower extremity. The right lower extremity NÉSTOR is 1.21 which is normal Doppler and PVRs. We will make referral to the vascular surgeon at [facility] Dr. Gaston for consultation and possible evaluation. This was educated to the patient as well as the nursing staff. And they will follow-up with Dr. Gaston when appointment is made. (2) Non-pressure ulcer of right lower extremity with fat layer exposed: CODE(S): L97.912 - Non-pressure chronic ulcer of unspecified part of right lower leg with fat layer exposed (3) Peripheral vascular disease: CODE(S): I73.9 - Peripheral vascular disease, unspecified
[2023-08-16 09:02] VITALS: BP 111/70; PULSE 70; RESP 18; BMI 31.1
--- NOTE | 2023-08-16 09:57 | PCM.WC.PN ---
History of Present Illness Date of Service: 08/16/23 Chief Complaint: Bilateral leg ulcerations History of Wound: Mr. Ramirez is a 63-year-old male presenting to the wound care center today at [facility] with a chief complaint of bilateral leg ulcerations. Patient resides at a nursing facility where he is cared for 24 hours a day. Patient has a bit of cognitive dysfunction and is well medicated today with 2 mg of Ativan. Patient has seen wound care in the past but presents with worsening larger wound to the left leg/ankle area. Patient denies of any trauma. Patient denies any constitutional symptoms. No other pedal complaints at this time. Subjective Subjective Mr. Ramirez is a 63-year-old male presenting to the wound care center for follow-up and evaluation for bilateral leg ulcerations. Patient is following up for graft placement left leg and debridement to the right ankle. Patient is nursing staff states that he took down his dressing yesterday after . Overall the patient denies any pain. He denies constitutional symptoms. No other pedal complaints at this time. Objective Data Objective Data Vital Signs: Vital Signs Temp Pulse Resp BP O2 Del Method 97.2 F L 70 18 111/70 Room Air 08/09/23 08:51 08/16/23 09:02 08/16/23 09:02 08/16/23 09:02 08/16/23 09:02 Oxygen Delivery Method Room Air Weight: 107.048 kg Body Mass Index (BMI) 31.1 Physical Exam Narrative Vascular: DP and PT pulses are faintly palpable. CFT is brisk. Skin temperature is warm to warm from proximal ankle to distal digits. Neurological: Light touch intact. Patient responds to painful stimuli. Dermatological: Full-thickness ulceration appreciated to the right lateral ankle measuring 0.6 x 0.5 x 0.1 cm. Wound base is granular in nature. No sanguinous drainage is appreciated. No sign of infection. Full-thickness ulceration appreciated to the left lateral ankle measuring 11.5 x 2.8 x 0.1 cm. Wound base is fibrogranular nature. No sign of infection. Both wounds show no evidence of tunneling or undermining. No evidence of probe to bone bilateral. Excisional debridement down to and including subcutaneous tissue with a number 5 mm dermal curette to the right lateral ankle without incident. Predebridement measurement is 0.5 x 0.4 x 0.1 cm. Postdebridement measurement is 0.6 x 0.5 x 0.2 cm. Excisional debridement using the [employer] debrider down to and including muscle to the left medial full-thickness ulceration without incident. Predebridement measurement is 11.3 x 2.5 x 0.1 cm. Postdebridement measurement is 11.5 x 2.8 x 0.2 cm. EpiMesh 4 x 4.5 cm was applied to the left full-thickness ulceration with 100% use. Third application. The graft site was free and clear of any infection. The wound/skin graft substitute was dressed with nonadherent bandage secured in place with Steri-Strips followed by bolster dressing as well as a double layer Tubigrip. Musculoskeletal: Mild posterior tenderness appreciated to both full-thickness ulcerations. No pain with calf compression. Debridement Note Debridement Note Debridement Free Text: Excisional debridement down to and including subcutaneous tissue with a number 5 mm dermal curette to the right lateral ankle without incident. Predebridement measurement is 0.5 x 0.4 x 0.1 cm. Postdebridement measurement is 0.6 x 0.5 x 0.2 cm. Excisional debridement using the [employer] debrider down to and including muscle to the left medial full-thickness ulceration without incident. Predebridement measurement is 11.3 x 2.5 x 0.1 cm. Postdebridement measurement is 11.5 x 2.8 x 0.2 cm. EpiMesh 4 x 4.5 cm was applied to the left full-thickness ulceration with 100% use. Third application. The graft site was free and clear of any infection. The wound/skin graft substitute was dressed with nonadherent bandage secured in place with Steri-Strips followed by bolster dressing as well as a double layer Tubigrip. Post-Debridement Measurements and Additional Note: Post-Debridement Measurements/Treatment WC - Nurse 1 - General Ulcer Assessment Start: 08/09/23 08:51 Freq: Status: Active Protocol: RAINAEXConstanza Activity Type Activity Date Activity User E-sign Co-sign Detail Recorded Client Recorded Date Recorded By Document 08/09/23 08:51 KW Desktop 08/09/23 08:56 KW Document 08/16/23 09:02 BM Desktop 08/16/23 09:10 [facility] 08/09/23 08/16/23 08:51 09:02 - Today's Visit Information Type of service Follow-up Visit Follow-up Visit (Physician/FEDERAL AGENT (Physician/FEDERAL AGENT ) ) Arrival Mode Ambulatory Ambulatory Transfer Assistance None Accompanied by nurse caregiver Patient Identification Verified (Name & Yes ) Patient Requires Transmission-Based No Precautions Height and Weight Weight Measurement Method Estimated by Patient Body Mass Index (BMI) 31.1 31.1 BMI Classification Obese Obese Vital Signs Temperature (97.8 F-99.1 F) 97.2 F L Temperature Source Temporal Pulse Rate (60-100) 74 70 Pulse Location Monitor Monitor Respiratory Rate (12-18) 18 18 Respiratory rate source Observation Observation Oxygen Delivery Method Room Air Room Air Blood Pressure (90/60-120/80) 111/64 111/70 Blood Pressure Mean (mm Hg) 79 83 Source Monitor Position Semi-Fowlers Sitting Blood Pressure Location Left Arm Left Arm History Since Last Visit- (Skip if this is Patient's initial visit) Have you changed medications since your No Yes last visit? Any new allergies or adverse reactions No No Had a fall/change in ADL's that may No No increase risk of falls Signs or symptoms of abuse and/or No No neglect since last visit Have you been in the hospital since your No No last visit? Has dressing in place as prescribed Yes Yes Has compression in place as prescribed Yes Yes Has offloadiing in place as prescribed No No Experienced any changes in pain level or No No management Left Footwear Regular Shoe Regular Shoe Right Footwear Regular Shoe Regular Shoe Pain Scale: 0-10 Numeric Is Patient Pain Free? Yes Yes - Nurse 1 - General Ulcer Measurement Start: 08/09/23 08:51 Freq: Status: Active Protocol: Activity Type Activity Date Activity User E-sign Co-sign Detail Recorded Client Recorded Date Recorded By Document 08/09/23 08:51 KW [employer] 08/09/23 08:56 KW Document 08/16/23 09:02 [facility] Desktop 08/16/23 09:10 [facility] 08/09/23 08/16/23 08:51 09:02 Wound Center Nurse 1 Right lateral Ankle -Combined with other wound No -Current Size (cm) - Length 0.9 0.7 -Current Size (cm) - Width 0.9 0.4 -Current Size (cm) - Depth 0.2 0.2 -Total Square Cm 0.81 0.28 -Epithelialization Small 1-33% -Tunneling No -Undermining/Tunneling No -Circular Undermining No -Exudate Amt Medium -Exudate Type Serosanguineous -Wound Margin Thickened Distinct, Outline Attached -Granulation Amt Small (1-33%) Medium (34-66%) -Granulation Quality [place] Red -Slough/Fibrin Yes -Necrosis Amt Large (67-100%) Small (1-33%) -Necrotic Tissue Type Adherent Slough Adherent Slough -Texture (Reyna-wound Skin Appearance) Assessed Assessed, Scarring -Moisture (Reyna-wound Skin Appearance) Assessed Assessed,Dry/ Scaly -Color (Reyna-wound Skin Appearance) Assessed Assessed -Temperature (Reyna-wound Skin No Abnormality No Abnormality Appearance) (Pt Warm) (Pt Warm) -Tenderness on Palpation (Reyna-wound No Skin Appearance) -Ulcer Cleansing Soap and Water Soap and Water -Anesthetic Used 4% Lidocaine 4% Lidocaine Solution Solution Left Medial LE -Combined with other wound No -Current Size (cm) - Length 11.6 11.7 -Current Size (cm) - Width 2.9 2.8 -Current Size (cm) - Depth 0.3 0.3 -Total Square Cm 33.64 32.76 -Photo Taken No -Epithelialization Small 1-33% -Tunneling No -Undermining/Tunneling No -Circular Undermining No -Exudate Amt Large -Exudate Type Serosanguineous -Wound Margin Thickened Distinct, Outline Attached -Granulation Amt Medium (34-66%) -Granulation Quality [place] Red -Slough/Fibrin Yes -Necrosis Amt Large (67-100%) Medium (34-66%) -Necrotic Tissue Type Adherent Slough Adherent Slough -Texture (Reyna-wound Skin Appearance) Assessed Assessed, Scarring -Moisture (Reyna-wound Skin Appearance) Assessed Assessed,Dry/ Scaly -Color (Reyna-wound Skin Appearance) Not Assessed, Assessed Erythema -Temperature (Reyna-wound Skin No Abnormality No Abnormality Appearance) (Pt Warm) (Pt Warm) -Tenderness on Palpation (Reyna-wound No Skin Appearance) -Ulcer Cleansing Soap and Water Soap and Water -Anesthetic Used 4% Lidocaine 4% Lidocaine Solution Solution Right Calf (cm) 40.4 40.1 Right Ankle (cm) 24.8 24.3 Left Calf (cm) 41.3 39 Left Ankle (cm) 25.6 25.2 - Nurse 2 - General Ulcer CM Notes Start: 08/09/23 08:51 Freq: Status: Active Protocol: Activity Type Activity Date Activity User E-sign Co-sign Detail Recorded Client Recorded Date Recorded By Document 08/09/23 09:27 Laptop 08/09/23 09:32 Document 08/16/23 09:24 Laptop 08/16/23 09:27 08/09/23 08/16/23 09:27 09:24 Wound Center Nurse 2 Right lateral Ankle -Time 09:28 09:25 -Correct Patient Yes Yes -Correct Side, Site, Position Yes Yes -Correct Procedure Yes Yes -Procedure Performed Yes Yes -Type of Procedure Debridement Debridement -Clinical Debridement Subcutaneous Subcutaneous -Tissue Removed Subcutaneous Subcutaneous -Post Debridement (cm) - Length 1.0 0.6 -Post Debridement (cm) - Width 0.7 0.5 -Post Debridement (cm) - Depth 0.2 0.1 -Total Square (Post) (cm) 0.70 0.30 -Area of Debridement (cm) - Length 1.0 0.6 -Area of Debridement (cm) - Width 0.7 0.5 -Total Square (Area) (cm) 0.70 0.30 -Tunneling No No -Undermining/Tunneling No No -Circular Undermining No No -Wound/Ulcer Outcome Not Healed Not Healed -Ulcer Cleansing Rinsed/ Wound Cleanser Irrigated with Saline -Foul Odor after Cleansing No No -Bioengineered Tissue No No -Bleeding Controlled with Pressure Pressure -Treatment Response Procedure Procedure Tolerated Well Tolerated Well -Offloading No No -Debridement - Subq, 1st 20sq cm Yes Yes Left Medial LE -Time 09:29 09:25 -Correct Patient Yes Yes -Correct Side, Site, Position Yes Yes -Correct Procedure Yes Yes -Procedure Performed Yes Yes -Type of Procedure Debridement Debridement -Clinical Debridement Muscle / Fascia Subcutaneous -Tissue Removed Muscle Subcutaneous -Post Debridement (cm) - Length 11.8 11.5 -Post Debridement (cm) - Width 2.5 2.8 -Post Debridement (cm) - Depth 0.2 0.2 -Total Square (Post) (cm) 29.50 32.20 -Area of Debridement (cm) - Length 11.8 11.5 -Area of Debridement (cm) - Width 2.5 2.8 -Total Square (Area) (cm) 29.50 32.20 -Tunneling No No -Undermining/Tunneling No -Circular Undermining No No -Wound/Ulcer Outcome Not Healed Not Healed -Ulcer Cleansing Rinsed/ Wound Cleanser Irrigated with Saline -Foul Odor after Cleansing No No -Bioengineered Tissue Yes Yes -Type of Bioengineered Tissue Epifix Mesh Epifix Mesh -Expiration Date 04/04/28 03/04/28 -Product Lot Number [id number] -Percent Used 100 100 -Lot number of Saline Used [id number] -Bleeding Controlled with Pressure Pressure -Treatment Response Procedure Procedure Tolerated Well Tolerated Well -Offloading No No -Debridement - Subq, 1st 20sq cm No No -Debridement - Muscle / Fascia, 1st No 20sq cm -Apply Skin Sub - 1st 25 sq cm - Legs 1 1 -Apply Skin Sub - each addt'l 25 sq cm 1 1 - Legs -Epifix Mesh (per sq cm) 11 11 Pain Scale: 0-10 Numeric Is Patient Pain Free? Yes Yes WC - Nurse 3 - General Ulcer D/C NN Start: 08/09/23 08:51 Freq: Status: Active Protocol: Activity Type Activity Date Activity User E-sign Co-sign Detail Recorded Client Recorded Date Recorded By Document 08/09/23 09:40 Desktop 08/09/23 09:41 KW Document 08/16/23 09:39 [facility] Desktop 08/16/23 09:40 [facility] 08/09/23 08/16/23 09:40 09:39 Wound Care Center Nurse 3 Right lateral Ankle -Ulcer Cleansing Rinsed/ Irrigated with Saline -Foul Odor after Cleansing No -Primary Dressing Applied Promogran Promogran Madeline Matter Madeline Matter -Primary Dressing Covered/Secured with Dry Gauze & Dry Gauze & Roll Gauze, Roll Gauze, Secured with Secured with Tape Tape -Promogran Madeline Matter 1 1 Left Medial LE -Other Dressing epi -Primary Dressing Covered/Secured with Dry Gauze & Dry Gauze & Roll Gauze, Roll Gauze, Secured with Secured with Tape Tape -Other Covering abd BLE -Tubular Bandage Single Layer Single Layer -Size of Tubigrip Used Size F Size E -Size E ($) 2 -Size F ($) 2 Treatment Response Procedure Tolerated Well Pain Scale: 0-10 Numeric Is Patient Pain Free? Yes Yes WC - Visit Discharge Discharge Condition Stable Stable Ambulatory Status Ambulatory Ambulatory Transportation CORRECTION Private Auto TRANSPORT Accompanied by caregiver Medication Reconcilliation completed & No provided to patient/care provider Clinical Summary of Care Provided Yes Assessment/Plan Assessment/Plan (1) Non-pressure chronic ulcer of other part of left lower leg with necrosis of muscle: CODE(S): L97.823 - Non-pressure chronic ulcer of other part of left lower leg with necrosis of muscle PLAN: Patient was examined and evaluated. All findings were discussed with the patient. All questions were answered to the patient's satisfaction. Excisional debridement down to and including subcutaneous tissue with a number 5 mm dermal curette to the right lateral ankle without incident. Predebridement measurement is 0.5 x 0.4 x 0.1 cm. Postdebridement measurement is 0.6 x 0.5 x 0.2 cm. Excisional debridement using the [employer] debrider down to and including muscle to the left medial full-thickness ulceration without incident. Predebridement measurement is 11.3 x 2.5 x 0.1 cm. Postdebridement measurement is 11.5 x 2.8 x 0.2 cm. EpiMesh 4 x 4.5 cm was applied to the left full-thickness ulceration with 100% use. Third application. The graft site was free and clear of any infection. The wound/skin graft substitute was dressed with nonadherent bandage secured in place with Steri-Strips followed by bolster dressing as well as a double layer Tubigrip. Follow-up in 1 week. Patient will be seeing Dr. Gaston for appointment on 08/24/2023. (2) Non-pressure ulcer of right lower extremity with fat layer exposed: CODE(S): L97.912 - Non-pressure chronic ulcer of unspecified part of right lower leg with fat layer exposed (3) Peripheral arterial disease: CODE(S): I73.9 - Peripheral vascular disease, unspecified
[2023-08-23 08:58] VITALS: BP 110/69; PULSE 84; RESP 18; TEMP 36.4; BMI 31.1
--- NOTE | 2023-08-23 09:22 | PN.PCM_ITS ---
History of Present Illness Date of Service: 08/23/23 Chief Complaint: Bilateral leg ulcerations History of Wound: Mr. Ramirez is a 63-year-old male presenting to the wound care center today at [facility] with a chief complaint of bilateral leg ulcerations. Patient resides at a nursing facility where he is cared for 24 hours a day. Patient has a bit of cognitive dysfunction and is well medicated today with 2 mg of Ativan. Patient has seen wound care in the past but presents with worsening larger wound to the left leg/ankle area. Patient denies of any trauma. Patient denies any constitutional symptoms. No other pedal complaints at this time. Subjective Subjective Mr. Ramirez is a 63-year-old male presenting to the wound care center for follow-up and evaluation for bilateral leg ulcerations. Patient is following up for graft placement left leg and debridement to the right ankle. Patient is nursing staff states that he took down his dressing yesterday after . Overall the patient denies any pain. He denies constitutional symptoms. No other pedal complaints at this time. Objective Data Objective Data Vital Signs: Vital Signs Temp Pulse Resp BP O2 Del Method 97.6 F L 84 18 110/69 Room Air 08/23/23 08:58 08/23/23 08:58 08/23/23 08:58 08/23/23 08:58 08/23/23 08:58 Oxygen Delivery Method Room Air Weight: 107.048 kg Body Mass Index (BMI) 31.1 Physical Exam Narrative Vascular: DP and PT pulses are faintly palpable. CFT is brisk. Skin temperature is warm to warm from proximal ankle to distal digits. Neurological: Light touch intact. Patient responds to painful stimuli. Dermatological: Full-thickness ulceration appreciated to the right lateral ankle measuring 0.6 x 0.6 x 0.1 cm. Wound base is granular in nature. No sanguinous drainage is appreciated. No sign of infection. Full-thickness ulceration appreciated to the left lateral ankle measuring 11.6 x 2.5 x 0.1 cm. Wound base is fibrogranular nature. No sign of infection. Both wounds show no evidence of tunneling or undermining. No evidence of probe to bone bilateral. Excisional debridement down to and including subcutaneous tissue with a number 5 mm dermal curette to the right lateral ankle without incident. Predebridement measurement is 0.5 x 0.5 x 0.1 cm. Postdebridement measurement is 0.6 x 0.6 x 0.1 cm. Excisional debridement using the Masonic's debrider down to and including muscle to the left medial full-thickness ulceration without incident. Predebridement measurement is 11.2 x 2.3 x 0.1 cm. Postdebridement measurement is 11.6 x 2.5 x 0.2 cm. EpiMesh 4 x 4.5 cm was applied to the left full-thickness ulceration with 100% use. Fourth application. The graft site was free and clear of any infection. The wound/skin graft substitute was dressed with nonadherent bandage secured in place with Steri-Strips followed by bolster dressing as well as a double layer Tubigrip. Musculoskeletal: Mild posterior tenderness appreciated to both full-thickness ulcerations. No pain with calf compression. Debridement Note Debridement Note Debridement Free Text: Excisional debridement down to and including subcutaneous tissue with a number 5 mm dermal curette to the right lateral ankle without incident. Predebridement measurement is 0.5 x 0.5 x 0.1 cm. Postdebridement measurement is 0.6 x 0.6 x 0.1 cm. Excisional debridement using the Masonic's debrider down to and including muscle to the left medial full-thickness ulceration without incident. Predebridement measurement is 11.2 x 2.3 x 0.1 cm. Postdebridement measurement is 11.6 x 2.5 x 0.2 cm. EpiMesh 4 x 4.5 cm was applied to the left full-thickness ulceration with 100% use. Fourth application. The graft site was free and clear of any infection. The wound/skin graft substitute was dressed with nonadherent bandage secured in place with Steri-Strips followed by bolster dressing as well as a double layer Tubigrip. Post-Debridement Measurements and Additional Note: Post-Debridement Measurements/Treatment WC - Nurse 1 - General Ulcer Assessment Start: 08/09/23 08:51 Freq: Status: Active Protocol: [email or web address] Activity Type Activity Date Activity User E-sign Co-sign Detail Recorded Client Recorded Date Recorded By Document 08/09/23 08:51 KW Desktop 08/09/23 08:56 KW Document 08/16/23 09:02 BMF Desktop 08/16/23 09:10 BMF Document 08/23/23 08:58 KW Desktop 08/23/23 09:04 KW 08/09/23 08/16/23 08/23/23 08:51 09:02 08:58 - Today's Visit Information Type of service Follow-up Visit Follow-up Visit Follow-up Visit (Physician/BIG DATA SOLUTIONS ARCHITECT (Physician/BIG DATA SOLUTIONS ARCHITECT (Physician/BIG DATA SOLUTIONS ARCHITECT ) ) ) Arrival Mode Ambulatory Ambulatory Ambulatory Transfer Assistance None Accompanied by nurse caregiver nurse Patient Identification Verified (Name & Yes Yes ) Patient Requires Transmission-Based No Precautions Height and Weight Weight Measurement Method Estimated by Patient Body Mass Index (BMI) 31.1 31.1 31.1 BMI Classification Obese Obese Obese Vital Signs Temperature (97.8 F-99.1 F) 97.2 F L 97.6 F L Temperature Source Temporal Temporal Pulse Rate (60-100) 74 70 84 Pulse Location Monitor Monitor Monitor Respiratory Rate (12-18) 18 18 18 Respiratory rate source Observation Observation Observation Oxygen Delivery Method Room Air Room Air Room Air Blood Pressure (90/60-120/80) 111/64 111/70 110/69 Blood Pressure Mean (mm Hg) 79 83 82 Source Monitor Monitor Position Semi-Fowlers Sitting Sitting Blood Pressure Location Left Arm Left Arm Left Arm History Since Last Visit- (Skip if this is Patient's initial visit) Have you changed medications since your No Yes No last visit? Any new allergies or adverse reactions No No No Had a fall/change in ADL's that may No No No increase risk of falls Signs or symptoms of abuse and/or No No No neglect since last visit Have you been in the hospital since your No No No last visit? Has dressing in place as prescribed Yes Yes Yes Has compression in place as prescribed Yes Yes Yes Has offloadiing in place as prescribed No No No Experienced any changes in pain level or No No No management Left Footwear Regular Shoe Regular Shoe Regular Shoe Right Footwear Regular Shoe Regular Shoe Regular Shoe Pain Scale: 0-10 Numeric Is Patient Pain Free? Yes Yes Yes - Nurse 1 - General Ulcer Measurement Start: 08/09/23 08:51 Freq: Status: Active Protocol: Activity Type Activity Date Activity User E-sign Co-sign Detail Recorded Client Recorded Date Recorded By Document 08/09/23 08:51 KW Desktop 08/09/23 08:56 KW Document 08/16/23 09:02 [facility] Desktop 08/16/23 09:10 [facility] Document 08/23/23 08:58 KW Desktop 08/23/23 09:04 KW 08/09/23 08/16/23 08/23/23 08:51 09:02 08:58 Wound Center Nurse 1 Right lateral Ankle -Combined with other wound No -Current Size (cm) - Length 0.9 0.7 0.4 -Current Size (cm) - Width 0.9 0.4 0.5 -Current Size (cm) - Depth 0.2 0.2 0.3 -Total Square Cm 0.81 0.28 0.20 -Epithelialization Small 1-33% -Tunneling No -Undermining/Tunneling No -Circular Undermining No -Exudate Amt Medium Medium -Exudate Type Serosanguineous Serosanguineous -Wound Margin Thickened Distinct, Distinct, Outline Outline Attached Attached -Granulation Amt Small (1-33%) Medium (34-66%) Medium (34-66%) -Granulation Quality [employer] Red Red -Slough/Fibrin Yes -Necrosis Amt Large (67-100%) Small (1-33%) Small (1-33%) -Necrotic Tissue Type Adherent Slough Adherent Slough Adherent Slough -Texture (Reyna-wound Skin Appearance) Assessed Assessed, Assessed Scarring -Moisture (Reyna-wound Skin Appearance) Assessed Assessed,Dry/ Assessed Scaly -Color (Reyna-wound Skin Appearance) Assessed Assessed Assessed -Temperature (Reyna-wound Skin No Abnormality No Abnormality No Abnormality Appearance) (Pt Warm) (Pt Warm) (Pt Warm) -Tenderness on Palpation (Reyna-wound No Skin Appearance) -Ulcer Cleansing Soap and Water Soap and Water Soap and Water -Anesthetic Used 4% Lidocaine 4% Lidocaine 5% Lidocaine Solution Solution Gel Left Medial LE -Combined with other wound No -Current Size (cm) - Length 11.6 11.7 11.7 -Current Size (cm) - Width 2.9 2.8 2.5 -Current Size (cm) - Depth 0.3 0.3 0.3 -Total Square Cm 33.64 32.76 29.25 -Photo Taken No -Epithelialization Small 1-33% -Tunneling No -Undermining/Tunneling No -Circular Undermining No -Exudate Amt Large Medium -Exudate Type Serosanguineous Serosanguineous -Wound Margin Thickened Distinct, Distinct, Outline Outline Attached Attached -Granulation Amt Medium (34-66%) Large (67-100%) -Granulation Quality [employer] -Slough/Fibrin Yes -Necrosis Amt Large (67-100%) Medium (34-66%) Medium (34-66%) -Necrotic Tissue Type Adherent Slough Adherent Slough Adherent Slough -Texture (Reyna-wound Skin Appearance) Assessed Assessed, Assessed Scarring -Moisture (Reyna-wound Skin Appearance) Assessed Assessed,Dry/ Assessed Scaly -Color (Reyna-wound Skin Appearance) Not Assessed, Assessed Assessed Erythema -Temperature (Reyna-wound Skin No Abnormality No Abnormality No Abnormality Appearance) (Pt Warm) (Pt Warm) (Pt Warm) -Tenderness on Palpation (Reyna-wound No Skin Appearance) -Ulcer Cleansing Soap and Water Soap and Water Soap and Water -Anesthetic Used 4% Lidocaine 4% Lidocaine 4% Lidocaine Solution Solution Solution Right Calf (cm) 40.4 40.1 39 Right Ankle (cm) 24.8 24.3 23.8 Left Calf (cm) 41.3 39 39.4 Left Ankle (cm) 25.6 25.2 24.2 WC - Nurse 2 - General Ulcer CM Notes Start: 08/09/23 08:51 Freq: Status: Active Protocol: Activity Type Activity Date Activity User E-sign Co-sign Detail Recorded Client Recorded Date Recorded By Document 08/09/23 09:27 Laptop 08/09/23 09:32 Document 08/16/23 09:24 Laptop 08/16/23 09:27 Document 08/23/23 09:15 Laptop 08/23/23 09:19 08/09/23 08/16/23 08/23/23 09:27 09:24 09:15 Wound Center Nurse 2 Right lateral Ankle -Time 09:28 09:25 09:18 -Correct Patient Yes Yes Yes -Correct Side, Site, Position Yes Yes Yes -Correct Procedure Yes Yes Yes -Procedure Performed Yes Yes Yes -Type of Procedure Debridement Debridement Debridement -Clinical Debridement Subcutaneous Subcutaneous Subcutaneous -Tissue Removed Subcutaneous Subcutaneous Subcutaneous -Post Debridement (cm) - Length 1.0 0.6 0.6 -Post Debridement (cm) - Width 0.7 0.5 0.6 -Post Debridement (cm) - Depth 0.2 0.1 0.1 -Total Square (Post) (cm) 0.70 0.30 0.36 -Area of Debridement (cm) - Length 1.0 0.6 0.6 -Area of Debridement (cm) - Width 0.7 0.5 0.6 -Total Square (Area) (cm) 0.70 0.30 0.36 -Tunneling No No No -Undermining/Tunneling No No No -Circular Undermining No No No -Wound/Ulcer Outcome Not Healed Not Healed Not Healed -Ulcer Cleansing Rinsed/ Wound Cleanser Wound Cleanser Irrigated with Saline -Foul Odor after Cleansing No No No -Bioengineered Tissue No No No -Bleeding Controlled with Pressure Pressure Pressure -Treatment Response Procedure Procedure Procedure Tolerated Well Tolerated Well Tolerated Well -Offloading No No No -Debridement - Subq, 1st 20sq cm Yes Yes Yes Left Medial LE -Time 09:29 09:25 09:16 -Correct Patient Yes Yes Yes -Correct Side, Site, Position Yes Yes Yes -Correct Procedure Yes Yes Yes -Procedure Performed Yes Yes Yes -Type of Procedure Debridement Debridement Debridement -Clinical Debridement Muscle / Fascia Subcutaneous Muscle / Fascia -Tissue Removed Muscle Subcutaneous Muscle,Fascia -Post Debridement (cm) - Length 11.8 11.5 11.6 -Post Debridement (cm) - Width 2.5 2.8 2.5 -Post Debridement (cm) - Depth 0.2 0.2 0.2 -Total Square (Post) (cm) 29.50 32.20 29.00 -Area of Debridement (cm) - Length 11.8 11.5 11.6 -Area of Debridement (cm) - Width 2.5 2.8 2.5 -Total Square (Area) (cm) 29.50 32.20 29.00 -Tunneling No No No -Undermining/Tunneling No No -Circular Undermining No No No -Wound/Ulcer Outcome Not Healed Not Healed Not Healed -Ulcer Cleansing Rinsed/ Wound Cleanser Rinsed/ Irrigated with Irrigated with Saline Saline -Foul Odor after Cleansing No No No -Bioengineered Tissue Yes Yes Yes -Type of Bioengineered Tissue Epifix Mesh Epifix Mesh Epifix Mesh -Expiration Date 04/04/28 03/04/28 04/04/28 -Product Lot Number [id number] -Percent Used 100 100 100 -Lot number of Saline Used [id number] -Bleeding Controlled with Pressure Pressure Pressure -Treatment Response Procedure Procedure Procedure Tolerated Well Tolerated Well Tolerated Well -Offloading No No No -Debridement - Subq, 1st 20sq cm No No -Debridement - Muscle / Fascia, 1st No No 20sq cm -Apply Skin Sub - 1st 25 sq cm - Legs 1 1 1 -Apply Skin Sub - each addt'l 25 sq cm 1 1 1 - Legs -Epifix Mesh (per sq cm) 11 11 11 Pain Scale: 0-10 Numeric Is Patient Pain Free? Yes Yes Yes - Nurse 3 - General Ulcer D/C NN Start: 08/09/23 08:51 Freq: Status: Active Protocol: Activity Type Activity Date Activity User E-sign Co-sign Detail Recorded Client Recorded Date Recorded By Document 08/09/23 09:40 [employer] 08/09/23 09:41 [employer] Document 08/16/23 09:39 [facility] Desktop 08/16/23 09:40 [facility] 08/09/23 08/16/23 09:40 09:39 Wound Care Center Nurse 3 Right lateral Ankle -Ulcer Cleansing Rinsed/ Irrigated with Saline -Foul Odor after Cleansing No -Primary Dressing Applied Promogran Promogran Madeline Matter Madeline Matter -Primary Dressing Covered/Secured with Dry Gauze & Dry Gauze & Roll Gauze, Roll Gauze, Secured with Secured with Tape Tape -Promogran Madeline Matter 1 1 Left Medial LE -Other Dressing epi -Primary Dressing Covered/Secured with Dry Gauze & Dry Gauze & Roll Gauze, Roll Gauze, Secured with Secured with Tape Tape -Other Covering abd BLE -Tubular Bandage Single Layer Single Layer -Size of Tubigrip Used Size F Size E -Size E ($) 2 -Size F ($) 2 Treatment Response Procedure Tolerated Well Pain Scale: 0-10 Numeric Is Patient Pain Free? Yes Yes - Visit Discharge Discharge Condition Stable Stable Ambulatory Status Ambulatory Ambulatory Transportation SKILLED NURSING Private Auto TRANSPORT Accompanied by caregiver Medication Reconcilliation completed & No provided to patient/care provider Clinical Summary of Care Provided Yes Assessment/Plan Assessment/Plan (1) Non-pressure chronic ulcer of other part of left lower leg with necrosis of muscle: CODE(S): L97.823 - Non-pressure chronic ulcer of other part of left lower leg with necrosis of muscle PLAN: Patient was examined evaluated. All findings were discussed with the patient. All questions were answered to the patient's satisfaction. Excisional debridement down to and including subcutaneous tissue with a number 5 mm dermal curette to the right lateral ankle without incident. Predebridement measurement is 0.5 x 0.5 x 0.1 cm. Postdebridement measurement is 0.6 x 0.6 x 0.1 cm. Excisional debridement using the Kash's debrider down to and including muscle to the left medial full-thickness ulceration without incident. Predebridement measurement is 11.2 x 2.3 x 0.1 cm. Postdebridement measurement is 11.6 x 2.5 x 0.2 cm. EpiMesh 4 x 4.5 cm was applied to the left full-thickness ulceration with 100% use. Fourth application. The graft site was free and clear of any infection. The wound/skin graft substitute was dressed with nonadherent bandage secured in place with Steri-Strips followed by bolster dressing as well as a double layer Tubigrip. Right ulceration dressed with Madeline Betadine paint and dry sterile dressing with single-layer Tubigrip donned. Patient is finished his doxycycline at today's visit. The patient will be following up with Dr. Gaston for evaluation. Follow-up in 1 week (2) Non-pressure ulcer of right lower extremity with fat layer exposed: CODE(S): L97.912 - Non-pressure chronic ulcer of unspecified part of right lower leg with fat layer exposed (3) Peripheral vascular disease: CODE(S): I73.9 - Peripheral vascular disease, unspecified (4) Cellulitis of right leg: CODE(S): L03.115 - Cellulitis of right lower limb
[2023-08-30 08:51] VITALS: BP 129/77; PULSE 77; RESP 18; TEMP 36.6; BMI 31.1
--- NOTE | 2023-08-30 09:27 | PCM.WC.PN ---
History of Present Illness Date of Service: 08/30/23 Chief Complaint: Bilateral leg ulcerations History of Wound: Mr. Ramirez is a 63-year-old male presenting to the wound care center today at [facility] with a chief complaint of bilateral leg ulcerations. Patient resides at a nursing facility where he is cared for 24 hours a day. Patient has a bit of cognitive dysfunction and is well medicated today with 2 mg of Ativan. Patient has seen wound care in the past but presents with worsening larger wound to the left leg/ankle area. Patient denies of any trauma. Patient denies any constitutional symptoms. No other pedal complaints at this time. Progress of Wound: Bilateral chronic wounds. Subjective Subjective Mr. Ramirez is a 63-year-old male presenting to the wound care center for follow-up and evaluation for bilateral leg ulcerations. Patient is following up for graft placement left leg and debridement to the right ankle. Patient is nursing staff states that he took down his dressing yesterday after . Overall the patient denies any pain. He denies constitutional symptoms. No other pedal complaints at this time. Objective Data Objective Data Vital Signs: Vital Signs Temp Pulse Resp BP O2 Del Method 97.9 F 77 18 129/77 H Room Air 08/30/23 08:51 08/30/23 08:51 08/30/23 08:51 08/30/23 08:51 08/30/23 08:51 Oxygen Delivery Method Room Air Weight: 107.048 kg Body Mass Index (BMI) 31.1 Physical Exam Narrative Vascular: DP and PT pulses are faintly palpable. CFT is brisk. Skin temperature is warm to warm from proximal ankle to distal digits. Neurological: Light touch intact. Patient responds to painful stimuli. Dermatological: Full-thickness ulceration appreciated to the right lateral ankle measuring 0.4 x 0.3 x 0.1 cm. Wound base is granular in nature. No sanguinous drainage is appreciated. No sign of infection. Full-thickness ulceration appreciated to the left lateral ankle measuring 12.3 x 2.9 x 0.2 cm. Wound base is fibrogranular nature. No sign of infection. Both wounds show no evidence of tunneling or undermining. No evidence of probe to bone bilateral. Excisional debridement down to and including subcutaneous tissue with a number 5 mm dermal curette to the right lateral ankle without incident. Predebridement measurement is 0.3 x 0.3 x 0.1 cm. Postdebridement measurement is 0.4 x 0.3 x 0.1 cm. Excisional debridement using the Masonic's debrider down to and including muscle to the left medial full-thickness ulceration without incident. Predebridement measurement is 11.7 x 2.5 x 0.1 cm. Postdebridement measurement is 12.3 x 2.9 x 0.2 cm. EpiMesh 4 x 4.5 cm was applied to the left full-thickness ulceration with 100% use. Fifth application. The graft site was free and clear of any infection. The wound/skin graft substitute was dressed with nonadherent bandage secured in place with Steri-Strips followed by bolster dressing as well as a double layer Tubigrip. Musculoskeletal: Mild posterior tenderness appreciated to both full-thickness ulcerations. No pain with calf compression. Debridement Note Debridement Note Debridement Free Text: Excisional debridement down to and including subcutaneous tissue with a number 5 mm dermal curette to the right lateral ankle without incident. Predebridement measurement is 0.3 x 0.3 x 0.1 cm. Postdebridement measurement is 0.4 x 0.3 x 0.1 cm. Excisional debridement using the Masonic's debrider down to and including muscle to the left medial full-thickness ulceration without incident. Predebridement measurement is 11.7 x 2.5 x 0.1 cm. Postdebridement measurement is 12.3 x 2.9 x 0.2 cm. EpiMesh 4 x 4.5 cm was applied to the left full-thickness ulceration with 100% use. Fifth application. The graft site was free and clear of any infection. The wound/skin graft substitute was dressed with nonadherent bandage secured in place with Steri-Strips followed by bolster dressing as well as a double layer Tubigrip. Post-Debridement Measurements and Additional Note: Post-Debridement Measurements/Treatment WC - Nurse 1 - General Ulcer Assessment Start: 08/09/23 08:51 Freq: Status: Active Protocol: [email or web address] Activity Type Activity Date Activity User E-sign Co-sign Detail Recorded Client Recorded Date Recorded By Document 08/09/23 08:51 KW Desktop 08/09/23 08:56 KW Document 08/16/23 09:02 BMF Desktop 08/16/23 09:10 BMF Document 08/23/23 08:58 KW Desktop 08/23/23 09:04 KW Document 08/30/23 08:51 KW Desktop 08/30/23 09:03 KW 08/09/23 08/16/23 08/23/23 08:51 09:02 08:58 WC - Today's Visit Information Type of service Follow-up Visit Follow-up Visit Follow-up Visit (Physician/OFFICER CAPTAIN (Physician/OFFICER CAPTAIN (Physician/OFFICER CAPTAIN ) ) ) Arrival Mode Ambulatory Ambulatory Ambulatory Transfer Assistance None Accompanied by nurse caregiver nurse Patient Identification Verified (Name & Yes Yes ) Patient Requires Transmission-Based No Precautions Height and Weight Weight Measurement Method Estimated by Patient Body Mass Index (BMI) 31.1 31.1 31.1 BMI Classification Obese Obese Obese Vital Signs Temperature (97.8 F-99.1 F) 97.2 F L 97.6 F L Temperature Source Temporal Temporal Pulse Rate (60-100) 74 70 84 Pulse Location Monitor Monitor Monitor Respiratory Rate (12-18) 18 18 18 Respiratory rate source Observation Observation Observation Oxygen Delivery Method Room Air Room Air Room Air Blood Pressure (90/60-120/80) 111/64 111/70 110/69 Blood Pressure Mean (mm Hg) 79 83 82 Source Monitor Monitor Position Semi-Fowlers Sitting Sitting Blood Pressure Location Left Arm Left Arm Left Arm History Since Last Visit- (Skip if this is Patient's initial visit) Have you changed medications since your No Yes No last visit? Any new allergies or adverse reactions No No No Had a fall/change in ADL's that may No No No increase risk of falls Signs or symptoms of abuse and/or No No No neglect since last visit Have you been in the hospital since your No No No last visit? Has dressing in place as prescribed Yes Yes Yes Has compression in place as prescribed Yes Yes Yes Has offloadiing in place as prescribed No No No Experienced any changes in pain level or No No No management Left Footwear Regular Shoe Regular Shoe Regular Shoe Right Footwear Regular Shoe Regular Shoe Regular Shoe Pain Scale: 0-10 Numeric Is Patient Pain Free? Yes Yes Yes 08/30/23 08:51 WC - Today's Visit Information Type of service Follow-up Visit (Physician/OFFICER CAPTAIN ) Arrival Mode Ambulatory Transfer Assistance Accompanied by Patient Identification Verified (Name & Yes ) Patient Requires Transmission-Based Precautions Height and Weight Weight Measurement Method Body Mass Index (BMI) 31.1 BMI Classification Obese Vital Signs Temperature (97.8 F-99.1 F) 97.9 F Temperature Source Temporal Pulse Rate (60-100) 77 Pulse Location Monitor Respiratory Rate (12-18) 18 Respiratory rate source Observation Oxygen Delivery Method Room Air Blood Pressure (90/60-120/80) 129/77 H Blood Pressure Mean (mm Hg) 94 Source Monitor Position Sitting Blood Pressure Location Left Arm History Since Last Visit- (Skip if this is Patient's initial visit) Have you changed medications since your No last visit? Any new allergies or adverse reactions No Had a fall/change in ADL's that may No increase risk of falls Signs or symptoms of abuse and/or No neglect since last visit Have you been in the hospital since your No last visit? Has dressing in place as prescribed Yes Has compression in place as prescribed Yes Has offloadiing in place as prescribed No Experienced any changes in pain level or No management Left Footwear Regular Shoe Right Footwear Regular Shoe Pain Scale: 0-10 Numeric Is Patient Pain Free? Yes WC - Nurse 1 - General Ulcer Measurement Start: 08/09/23 08:51 Freq: Status: Active Protocol: Activity Type Activity Date Activity User E-sign Co-sign Detail Recorded Client Recorded Date Recorded By Document 08/09/23 08:51 KW Desktop 08/09/23 08:56 KW Document 08/16/23 09:02 [facility] Desktop 08/16/23 09:10 [facility] Document 08/23/23 08:58 KW Desktop 08/23/23 09:04 KW Document 08/30/23 08:51 KW Desktop 08/30/23 09:03 KW 08/09/23 08/16/23 08/23/23 08:51 09:02 08:58 Wound Center Nurse 1 Right lateral Ankle -Combined with other wound No -Current Size (cm) - Length 0.9 0.7 0.4 -Current Size (cm) - Width 0.9 0.4 0.5 -Current Size (cm) - Depth 0.2 0.2 0.3 -Total Square Cm 0.81 0.28 0.20 -Epithelialization Small 1-33% -Tunneling No -Undermining/Tunneling No -Circular Undermining No -Exudate Amt Medium Medium -Exudate Type Serosanguineous Serosanguineous -Wound Margin Thickened Distinct, Distinct, Outline Outline Attached Attached -Granulation Amt Small (1-33%) Medium (34-66%) Medium (34-66%) -Granulation Quality Kidder Red Red -Slough/Fibrin Yes -Necrosis Amt Large (67-100%) Small (1-33%) Small (1-33%) -Necrotic Tissue Type Adherent Slough Adherent Slough Adherent Slough -Texture (Reyna-wound Skin Appearance) Assessed Assessed, Assessed Scarring -Moisture (Reyna-wound Skin Appearance) Assessed Assessed,Dry/ Assessed Scaly -Color (Reyna-wound Skin Appearance) Assessed Assessed Assessed -Temperature (Reyna-wound Skin No Abnormality No Abnormality No Abnormality Appearance) (Pt Warm) (Pt Warm) (Pt Warm) -Tenderness on Palpation (Reyna-wound No Skin Appearance) -Ulcer Cleansing Soap and Water Soap and Water Soap and Water -Foul Odor after Cleansing -Anesthetic Used 4% Lidocaine 4% Lidocaine 5% Lidocaine Solution Solution Gel Left Medial LE -Combined with other wound No -Current Size (cm) - Length 11.6 11.7 11.7 -Current Size (cm) - Width 2.9 2.8 2.5 -Current Size (cm) - Depth 0.3 0.3 0.3 -Total Square Cm 33.64 32.76 29.25 -Photo Taken No -Epithelialization Small 1-33% -Tunneling No -Undermining/Tunneling No -Circular Undermining No -Exudate Amt Large Medium -Exudate Type Serosanguineous Serosanguineous -Wound Margin Thickened Distinct, Distinct, Outline Outline Attached Attached -Granulation Amt Medium (34-66%) Large (67-100%) -Granulation Quality Kidder Red Kidder -Slough/Fibrin Yes -Necrosis Amt Large (67-100%) Medium (34-66%) Medium (34-66%) -Necrotic Tissue Type Adherent Slough Adherent Slough Adherent Slough -Texture (Reyna-wound Skin Appearance) Assessed Assessed, Assessed Scarring -Moisture (Reyna-wound Skin Appearance) Assessed Assessed,Dry/ Assessed Scaly -Color (Reyna-wound Skin Appearance) Not Assessed, Assessed Assessed Erythema -Temperature (Reyna-wound Skin No Abnormality No Abnormality No Abnormality Appearance) (Pt Warm) (Pt Warm) (Pt Warm) -Tenderness on Palpation (Reyna-wound No Skin Appearance) -Ulcer Cleansing Soap and Water Soap and Water Soap and Water -Foul Odor after Cleansing -Anesthetic Used 4% Lidocaine 4% Lidocaine 4% Lidocaine Solution Solution Solution Right Calf (cm) 40.4 40.1 39 Right Ankle (cm) 24.8 24.3 23.8 Left Calf (cm) 41.3 39 39.4 Left Ankle (cm) 25.6 25.2 24.2 08/30/23 08:51 Wound Center Nurse 1 Right lateral Ankle -Combined with other wound -Current Size (cm) - Length 0.6 -Current Size (cm) - Width 0.7 -Current Size (cm) - Depth 0.2 -Total Square Cm 0.42 -Epithelialization -Tunneling -Undermining/Tunneling -Circular Undermining -Exudate Amt Small -Exudate Type Serosanguineous -Wound Margin Distinct, Outline Attached -Granulation Amt Small (1-33%) -Granulation Quality Kidder -Slough/Fibrin -Necrosis Amt Small (1-33%) -Necrotic Tissue Type Adherent Slough -Texture (Reyna-wound Skin Appearance) Assessed -Moisture (Reyna-wound Skin Appearance) Dry/Scaly -Color (Reyna-wound Skin Appearance) Assessed -Temperature (Reyna-wound Skin No Abnormality Appearance) (Pt Warm) -Tenderness on Palpation (Reyna-wound Skin Appearance) -Ulcer Cleansing Soap and Water -Foul Odor after Cleansing No -Anesthetic Used 4% Lidocaine Solution Left Medial LE -Combined with other wound -Current Size (cm) - Length 12 -Current Size (cm) - Width 3 -Current Size (cm) - Depth 0.5 -Total Square Cm 36 -Photo Taken -Epithelialization -Tunneling -Undermining/Tunneling -Circular Undermining -Exudate Amt -Exudate Type -Wound Margin -Granulation Amt Medium (34-66%) -Granulation Quality Kidder,Red -Slough/Fibrin -Necrosis Amt Medium (34-66%) -Necrotic Tissue Type Adherent Slough -Texture (Reyna-wound Skin Appearance) Assessed -Moisture (Reyna-wound Skin Appearance) Assessed -Color (Reyna-wound Skin Appearance) Erythema -Temperature (Reyna-wound Skin No Abnormality Appearance) (Pt Warm) -Tenderness on Palpation (Reyna-wound Skin Appearance) -Ulcer Cleansing Soap and Water -Foul Odor after Cleansing No -Anesthetic Used 4% Lidocaine Solution Right Calf (cm) 39.0 Right Ankle (cm) 24.5 Left Calf (cm) 39 Left Ankle (cm) 25.8 WC - Nurse 2 - General Ulcer CM Notes Start: 08/09/23 08:51 Freq: Status: Active Protocol: Activity Type Activity Date Activity User E-sign Co-sign Detail Recorded Client Recorded Date Recorded By Document 08/09/23 09:27 Laptop 08/09/23 09:32 Document 08/16/23 09:24 JF Laptop 08/16/23 09:27 Document 08/23/23 09:15 Laptop 08/23/23 09:19 Document 08/30/23 09:19 Laptop 08/30/23 09:21 08/09/23 08/16/23 08/23/23 09:27 09:24 09:15 Wound Center Nurse 2 Right lateral Ankle -Time 09:28 09:25 09:18 -Correct Patient Yes Yes Yes -Correct Side, Site, Position Yes Yes Yes -Correct Procedure Yes Yes Yes -Procedure Performed Yes Yes Yes -Type of Procedure Debridement Debridement Debridement -Clinical Debridement Subcutaneous Subcutaneous Subcutaneous -Tissue Removed Subcutaneous Subcutaneous Subcutaneous -Post Debridement (cm) - Length 1.0 0.6 0.6 -Post Debridement (cm) - Width 0.7 0.5 0.6 -Post Debridement (cm) - Depth 0.2 0.1 0.1 -Total Square (Post) (cm) 0.70 0.30 0.36 -Area of Debridement (cm) - Length 1.0 0.6 0.6 -Area of Debridement (cm) - Width 0.7 0.5 0.6 -Total Square (Area) (cm) 0.70 0.30 0.36 -Tunneling No No No -Undermining/Tunneling No No No -Circular Undermining No No No -Wound/Ulcer Outcome Not Healed Not Healed Not Healed -Ulcer Cleansing Rinsed/ Wound Cleanser Wound Cleanser Irrigated with Saline -Foul Odor after Cleansing No No No -Bioengineered Tissue No No No -Bleeding Controlled with Pressure Pressure Pressure -Treatment Response Procedure Procedure Procedure Tolerated Well Tolerated Well Tolerated Well -Offloading No No No -Debridement - Subq, 1st 20sq cm Yes Yes Yes Left Medial LE -Time 09: 09:25 09:16 -Correct Patient Yes Yes Yes -Correct Side, Site, Position Yes Yes Yes -Correct Procedure Yes Yes Yes -Procedure Performed Yes Yes Yes -Type of Procedure Debridement Debridement Debridement -Clinical Debridement Muscle / Fascia Subcutaneous Muscle / Fascia -Tissue Removed Muscle Subcutaneous Muscle,Fascia -Post Debridement (cm) - Length 11.8 11.5 11.6 -Post Debridement (cm) - Width 2.5 2.8 2.5 -Post Debridement (cm) - Depth 0.2 0.2 0.2 -Total Square (Post) (cm) 29.50 32.20 29.00 -Area of Debridement (cm) - Length 11.8 11.5 11.6 -Area of Debridement (cm) - Width 2.5 2.8 2.5 -Total Square (Area) (cm) 29.50 32.20 29.00 -Tunneling No No No -Undermining/Tunneling No No -Circular Undermining No No No -Wound/Ulcer Outcome Not Healed Not Healed Not Healed -Ulcer Cleansing Rinsed/ Wound Cleanser Rinsed/ Irrigated with Irrigated with Saline Saline -Foul Odor after Cleansing No No No -Bioengineered Tissue Yes Yes Yes -Type of Bioengineered Tissue Epifix Mesh Epifix Mesh Epifix Mesh -Expiration Date 04/04/28 03/04/28 04/04/28 -Product Lot Number [id number] -Percent Used 100 100 100 -Lot number of Saline Used [id number] -Bleeding Controlled with Pressure Pressure Pressure -Treatment Response Procedure Procedure Procedure Tolerated Well Tolerated Well Tolerated Well -Offloading No No No -Debridement - Subq, 1st 20sq cm No No -Debridement - Muscle / Fascia, 1st No No 20sq cm -Apply Skin Sub - 1st 25 sq cm - Legs 1 1 1 -Apply Skin Sub - each addt'l 25 sq cm 1 1 1 - Legs -Epifix Mesh (per sq cm) 11 11 11 Pain Scale: 0-10 Numeric Is Patient Pain Free? Yes Yes Yes 08/30/23 09:19 Wound Center Nurse 2 Right lateral Ankle -Time 09:19 -Correct Patient Yes -Correct Side, Site, Position Yes -Correct Procedure Yes -Procedure Performed Yes -Type of Procedure Debridement -Clinical Debridement Subcutaneous -Tissue Removed Subcutaneous -Post Debridement (cm) - Length 0.4 -Post Debridement (cm) - Width 0.3 -Post Debridement (cm) - Depth 0.1 -Total Square (Post) (cm) 0.12 -Area of Debridement (cm) - Length 0.4 -Area of Debridement (cm) - Width 0.3 -Total Square (Area) (cm) 0.12 -Tunneling No -Undermining/Tunneling No -Circular Undermining No -Wound/Ulcer Outcome Not Healed -Ulcer Cleansing Rinsed/ Irrigated with Saline -Foul Odor after Cleansing No -Bioengineered Tissue No -Bleeding Controlled with Pressure -Treatment Response Procedure Tolerated Well -Offloading No -Debridement - Subq, 1st 20sq cm Yes Left Medial LE -Time 09:20 -Correct Patient Yes -Correct Side, Site, Position Yes -Correct Procedure Yes -Procedure Performed Yes -Type of Procedure Debridement -Clinical Debridement Muscle / Fascia -Tissue Removed Muscle,Fascia -Post Debridement (cm) - Length 12.3 -Post Debridement (cm) - Width 2.9 -Post Debridement (cm) - Depth 0.2 -Total Square (Post) (cm) 35.67 -Area of Debridement (cm) - Length 12.3 -Area of Debridement (cm) - Width 2.9 -Total Square (Area) (cm) 35.67 -Tunneling No -Undermining/Tunneling No -Circular Undermining No -Wound/Ulcer Outcome Not Healed -Ulcer Cleansing Rinsed/ Irrigated with Saline -Foul Odor after Cleansing No -Bioengineered Tissue Yes -Type of Bioengineered Tissue Epifix Mesh -Expiration Date 05/05/28 -Product Lot Number [id number] -Percent Used 100 -Lot number of Saline Used [id number] -Bleeding Controlled with Pressure -Treatment Response Procedure Tolerated Well -Offloading No -Debridement - Subq, 1st 20sq cm -Debridement - Muscle / Fascia, 1st No 20sq cm -Apply Skin Sub - 1st 25 sq cm - Legs 1 -Apply Skin Sub - each addt'l 25 sq cm 1 - Legs -Epifix Mesh (per sq cm) 11 Pain Scale: 0-10 Numeric Is Patient Pain Free? Yes WC - Nurse 3 - General Ulcer D/C NN Start: 08/09/23 08:51 Freq: Status: Active Protocol: Activity Type Activity Date Activity User E-sign Co-sign Detail Recorded Client Recorded Date Recorded By Document 08/09/23 09:40 KW Desktop 08/09/23 09:41 KW Document 08/16/23 09:39 BMF Desktop 08/16/23 09:40 BMF Document 08/23/23 09:32 KW Desktop 08/23/23 09:32 KW 08/09/23 08/16/23 08/23/23 09:40 09:39 09:32 Wound Care Center Nurse 3 Right lateral Ankle -Ulcer Cleansing Rinsed/ Irrigated with Saline -Foul Odor after Cleansing No -Primary Dressing Applied Promogran Promogran Promogran Madeline Matter Madeline Matter Madeline Matter -Primary Dressing Covered/Secured with Dry Gauze & Dry Gauze & Dry Gauze & Roll Gauze, Roll Gauze, Roll Gauze, Secured with Secured with Secured with Tape Tape Tape -Promogran Madeline Matter 1 1 1 Left Medial LE -Other Dressing epi -Primary Dressing Covered/Secured with Dry Gauze & Dry Gauze & Dry Gauze & Roll Gauze, Roll Gauze, Roll Gauze, Secured with Secured with Secured with Tape Tape Tape -Other Covering abd BLE -Tubular Bandage Single Layer Single Layer -Size of Tubigrip Used Size F Size E Size E -Size E ($) 2 -Size F ($) 2 Treatment Response Procedure Tolerated Well Pain Scale: 0-10 Numeric Is Patient Pain Free? Yes Yes Yes WC - Visit Discharge Discharge Condition Stable Stable Stable Ambulatory Status Ambulatory Ambulatory Ambulatory Transportation [facility] TRANSPORT Accompanied by caregiver Medication Reconcilliation completed & No No provided to patient/care provider Clinical Summary of Care Provided Yes Yes Assessment/Plan Assessment/Plan (1) Non-pressure ulcer of right lower extremity with fat layer exposed: CODE(S): L97.912 - Non-pressure chronic ulcer of unspecified part of right lower leg with fat layer exposed PLAN: Patient was examined and evaluated. All findings were discussed with the patient. All questions were answered to the patient's satisfaction. Excisional debridement down to and including subcutaneous tissue with a number 5 mm dermal curette to the right lateral ankle without incident. Predebridement measurement is 0.3 x 0.3 x 0.1 cm. Postdebridement measurement is 0.4 x 0.3 x 0.1 cm. Excisional debridement using the Masonic's debrider down to and including muscle to the left medial full-thickness ulceration without incident. Predebridement measurement is 11.7 x 2.5 x 0.1 cm. Postdebridement measurement is 12.3 x 2.9 x 0.2 cm. EpiMesh 4 x 4.5 cm was applied to the left full-thickness ulceration with 100% use. Fifth application. The graft site was free and clear of any infection. The wound/skin graft substitute was dressed with nonadherent bandage secured in place with Steri-Strips followed by bolster dressing as well as a Unna boot.. Patient will be placed in bilateral Unna boots for compression control. Patient's clinical nursing instructor admits to a interventional date with Dr. Gaston in October 2023. Follow-up with the wound care center with Dr. Cadena in 1 week. (2) Non-pressure ulcer of left lower extremity with fat layer exposed: CODE(S): L97.922 - Non-pressure chronic ulcer of unspecified part of left lower leg with fat layer exposed (3) Peripheral vascular disease: CODE(S): I73.9 - Peripheral vascular disease, unspecified
== END 2023-09-03 23:59 ==
LOC: WC 09:00
PROVIDERS: PCP Internal Medicine Infectious Disease; Referring Provider Internal Medicine Infectious Disease; Visit Provider Podiatrist Foot & Ankle Surgery
DX: L97.912 Non-pressure chronic ulcer of unspecified part of right lower leg with fat layer exposed (principal); L97.823 Non-pressure chronic ulcer of other part of left lower leg with necrosis of muscle; L97.922 Non-pressure chronic ulcer of unspecified part of left lower leg with fat layer exposed; I73.9 Peripheral vascular disease, unspecified
CPT/HCPCS: 11042; 15271; 15272; 29580; 93923; 93970; Q4186

== ENCOUNTER 2023-09-13 08:25 | Day surgery (SDC) | payer MEDICARE, MEDICAID, SELFPAY ==
[2023-09-12 06:59] VITALS: BMI 31.9
[2023-09-13 08:45] LABS: Hematocrit 42.2 % (40-54); Hemoglobin 13.4 g/dL (13.0-16.5); Mean Corp Hgb Conc 31.8 g/dL (32-36); Mean Corpuscular Hgb 29.1 pg (27.0-32.0); Mean Corpuscular Volume 91.7 fL (80-94); Mean Platelet Vol. 10.2 fl (6.2-12.0); Platelet Count 254 K/mm3 (150-450); RBC Distribution Width SD 43.8 fl (35.1-43.9); White Blood Count 6.6 K/mm3 (4.4-11.0)
[2023-09-13 08:59] LABS: Anion Gap 3 (5-15); BUN 17 mg/dL (7-18); BUN/Creat Ratio 11.8 RATIO (10-20); Chloride 108 mmol/L (98-107); Creatinine, Serum 1.44 mg/dL (0.70-1.30); EST Glomerular Filtration Rate 52 mL/min (>60); Est Glom Filt Rate - Afr Amer 63 mL/min (>60); Estimated Creatinine Clearance 66.44 ml/min; Glucose 87 mg/dL (74-106); Potassium 4.3 mmol/L (3.5-5.1); Sodium Level 138 mmol/L (136-145)
--- NOTE | 2023-09-13 10:47 | PCM.OPRPT ---
Report of Operation Date of Procedure: 09/13/23 Pre-Operative Diagnosis: Venous insufficiency with ulceration Post-Operative Diagnosis: same Surgery/Procedure Performed:: Venogram IVC IVUS IVC, bilateral common/external iliac veins Angioplasty/stent right common/external iliac vein Type of Anesthesia: Local and Sedation,Conscious Estimated Blood Loss (mL): 5 Description of Procedure: HPI: Patient is a 63-year-old male with bilateral lower extremity venous insufficiency with ulcerations. He was found to have significant proximal and deep reflux as well as superficial reflux. Given the severity of his ulceration and venous disease as well as the proximal and deep reflux is felt to be appropriate for venogram to assess for central compression. He is taken now for venogram with possible invention. Description of procedure: Upon obtaining informed consent and verification correct patient procedure site patient taken to [facility] where he was positioned prepped and draped in usual fashion. Time was performed and sedation administered with fentanyl. Skin overlying the right common femoral vein anesthetized 1% lidocaine the vessel accessed antegrade fashion with a micropuncture needle wire. Through this a hand-injection ilio caval venogram was performed which revealed satisfactory position with extravasation dissection. Through the micropuncture sheath Bentson wire was advanced and the micropuncture sheath exchanged out for a 10 [place] sheath. Next skin overlying the left common femoral vein was has 1% lidocaine the vessel accessed under ultrasound guidance with micropuncture needle wire. This then extended for micropuncture sheath through which injection ilio caval venogram revealing satisfactory placement with no extravasation or dissection. This did reveal widened left common iliac vein. Through the micropuncture sheath a Bentson wire was advanced the micropuncture sheath exchanged over a 10 [place]ogolese sheath. Next intravascular sound probe was advanced via the right femoral access sheath and recorded pullback of the IVC, right common iliac vein, right external iliac vein was performed. This revealed a 58% compression of the right common iliac vein and a 33% compression of the right external leg vein. Ultrasound probe was then withdrawn and advanced to the left femoral access sheath and recorded pullback of the IVC, left common iliac vein, left external iliac vein was performed. This revealed 38% compression of the left common iliac vein. The compression on the left did not meet threshold for intervention however on the right and did. Patient was in heparinized allowed circuit for 3 minutes after which a Advanovalver Vena [id number] stent was brought in field prepped for manufactures instructions. This was advanced in the position just below the IVC confluence with satisfactory coverage of the length of compression. This was then deployed in position and postdilated with a 14 x 40 [place] XXL balloon. Intravascular sound probe was then readvanced and recorded pullback performed which revealed satisfactory stent positioning with no residual compression and good stent wall apposition. Completion venogram revealed brisk contrast transit no extravasation dissection. Wires and sheath were then withdrawn and pressure held for 5 minutes for which patient was taken recovery room for bedrest prior to discharge. Grafts/Implants Used: Cook Zilver Vena [id number]
== END 2023-09-13 13:45 | disposition home or self-care (01) ==
LOC: CLSP 08:29
PROVIDERS: PCP Internal Medicine Infectious Disease; Referring Provider Surgery Trauma Surgery; Visit Provider Surgery Trauma Surgery
DX: I73.9 Peripheral vascular disease, unspecified (principal); L97.919 Non-pressure chronic ulcer of unspecified part of right lower leg with unspecified severity; L97.929 Non-pressure chronic ulcer of unspecified part of left lower leg with unspecified severity; I83.019 Varicose veins of right lower extremity with ulcer of unspecified site; I83.029 Varicose veins of left lower extremity with ulcer of unspecified site; I87.1 Compression of vein; I87.2 Venous insufficiency (chronic) (peripheral); F41.9 Anxiety disorder, unspecified
CPT/HCPCS: 36010; 36415; 37238; 37252; 37253; 75825; 76937; 80048; 85027; 99152; 99153; C1753; C1769; C1894; J7040; C1725; C1876

== ENCOUNTER 2023-09-28 09:17 | Day surgery (SDC) | payer MEDICARE, MEDICAID, SELFPAY ==
[2023-09-28 09:48] VITALS: BMI 30.9
--- OUTSIDE RECORDS SUMMARY | 2023-09-28 09:52 | XMS RPT_ITS | CCD ---
Demographics Address [address] [place], [place] [id number] Preferred Language en Marital Status Single Orthodoxy Affiliation Unknown Race White Ethnic Group Not or Lati no Author Name Unknown Address [address] [place] [address] Organization [facility] Care Team Providers Care Crime Prevention Worker Name Role Phone Unavailable Primary Care Provider Laurie Grant MD, Oscar Dubose Primary Care Provider [phone] OSCAR GRANT Primary Care Unavailable PRESTON ROBERTS Admitting Unavailable PRESTON ROBERTS Referring Unavailable FANI SANTACRUZ Attending Unavailable SARAN DONG DO Admitting Unavailable KAYLANEREN OSORIO APRN Consulting Unavailabl e KAYLAN BENZENE WASHER OPERATOR, EREN Pacheco Primary Care Unavailabl e SARAN DONG DO Attending Unavailable SARAN DONG DO Consulting Unavailable HUYNH DO, REGLA K Consulting Unavailable BAYLEE REYNOLDS MD Consulting Unavailable KAYLANEREN OSORIO APRN Attending Unavailabl e KAYLAN BENZENE WASHER OPERATOR, EREN Pacheco Consulting Unavailabl e KAYLAN BENZENE WASHER OPERATOR, EREN A Primary Care Unavailabl e KAYLAN BENZENE WASHER OPERATOR, EREN A Admitting Unavailabl e KIRKHOPE BENZENE WASHER OPERATOR~[id number], KIRDALTONOPE ILEANA L Admitt ing Unavailable KIRKHOPE BENZENE WASHER OPERATOR~[id number], KIRDALTONOPE ILEANA L Attend ing Unavailable ARASH BECKFORD DR~[id number] ANGELES Mtz Primary Care U navailable ILEANA MUHAMMAD APRN Consulting Unavailkris e ILEANA MUHAMMAD APRN Consulting Unavailkris ANTOINE MD, DR ANGELES Mtz Consulting Unavailable ARASH BECKFORD, DR ANGELES Mtz Consulting Unavailable OSCAR NARAYAN~[id number] RUDY Admitting Unavailable OSCAR NARAYAN~[id number] RUDY Attending Unavailable ARASH BECKFORD DR~[id number] ANGELES Mtz Primary Care U navailable NONE, NONE Consulting Unavailable DECLINED, DR Consulting Unavailable MARIA ELENA ROSALES, OF [facility] Consulting [facility] RUDY OSCAR, OSCAR~[id number] RUDY Admitting Unavailable RUDY OSCAR, OSCAR~[id number] RUDY Attending Unavailable ARASH BECKFORD DR~[id number] ANGELES Mtz Primary Care [facility] [place] NONE, NONE Consulting Unavailable DECLINED, DR Consulting Unavailable MARIA ELENA ROSALES, OF [facility] Consulting [facility] poornima ANTOINE MD, DR~[id number] ANGELES Mtz Primary Care [facility] [place] RUDY OSCAR, OSCAR~[id number] RUDY Admitting Unavailable RDUY OSCAR, OSCAR~[id number] RUDY Attending Unavailable NONE, NONE Consulting Unavailable DECLINED, DR Consulting Unavailable MARIA ELENA ROSALES, OF [facility] Consulting [facility] poornima ANTOINE MD, DR~[id number] ANGELES Mtz Primary Care [facility] [place] RUDY OSCAR, OSCAR~[id number] RUDY Admitting Unavailable RUDY OSCAR, OSCAR~[id number] RUDY Attending Unavailable NONE, NONE Consulting Unavailable DECLINED, DR Consulting Unavailable MARIA ELENA ROSALES, OF [facility] NONE, NONE Consulting Unavailable RUDY OSCAR, OSCAR~[id number] RUDY Admitting Unavailable RUDY OSCAR, OSCAR~[id number] RUDY Attending Unavailable ARASH BECKFORD DR~[id number] ANGELES Mtz Primary Care [facility] [place] DECLINED, DR Consulting Unavailable RUDY OSCAR, OSCAR~[id number] RUDY Consulting Unavailable RUDY, OSCAR Consulting Unavailable NONE, NONE Consulting Unavailable RUDY OSCAR, OSCAR~[id number] RUDY Admitting Unavailable RUDY OSCAR, OSCAR~[id number] RUDY Attending Unavailable ARASH BECKFORD DR~[id number] ANGELES Mtz Primary Care [facility] [place] DECLINED, DR Consulting Unavailable MARIA ELENA ROSALES, OF [facility] Moraima CONTRERAS Cartwright MD Primary Care Unavailable CONTRERAS FLAHERTY MD Consulting Unavailable CONTRERAS FLAHERTY MD Attending Unavailable CONTRERAS FLAHERTY MD Admitting Unavailable PROVIDER, UNKNOWN Consulting Unavailable PROVIDER, UNKNOWN Consulting Unavailable PROVIDER, UNKNOWN Consulting Unavailable CONTRERAS FLAHERTY MD Consulting Unavailable CONTRERAS FLAHERTY MD Attending Unavailable CONTRERAS FLAHERTY MD Admitting Unavailable CONTRERAS FLAHERTY MD Primary Care Unavailable PROVIDER, UNKNOWN Consulting Unavailable PROVIDER, UNKNOWN Consulting Unavailable PROVIDER, UNKNOWN Consulting Unavailable SAMANTA RAZO DO Admitting Unavailable SAMANTA RAZO DO Primary Care Unavailable SAMANTA RAZO DO Attending Unavailable CONTRERAS FLAHERTY MD Consulting Unavailable CONTRERAS FLAHERTY MD Referring Unavailable PROVIDER, UNKNOWN Consulting Unavailable PROVIDER, UNKNOWN Consulting Unavailable PROVIDER, UNKNOWN Consulting Unavailable Allergies Allergy Classification Reported Allergen(s) Allergy Type Date of Onset Reaction(s) Facility (1 source) Aspirin Drug Allergy [facility] Repository (1 source) Codeine Drug Allergy [facility] Repository (1 source) peanut allergenic extract; Translations: [Peanut] Drug Allergy [facility] Repository Medications Current Medications Medication Drug Class(es) Dates Sig (Normalized) Sig (Original) 200 actuat albuterol 0.09 mg/actuat dry powder inhaler (1 source) beta2-Adrenergic Agonist take 180 ug by inhalation every four hours as needed albuterol sulfate (PROAIR RESPICLICK) 90 mcg/actuation AePB Inhale 2 (two) puffs (180 mcg total) every 4 to 6 hours as needed . 0 Active busPIRone hydrochloride 5 mg oral tablet (1 source) take 1 tablet by mouth twice daily busPIRone (BUSPAR) 5 MG tablet Take 1 (one) tablet (5 mg total) by mouth 2 (two) times a day . 0 Active lanolin ohwvuth-uo-z.pet-cere s (eucerin) Crea (1 source) lanolin qqnoxnt-lp-t.pet- ceres (eucerin) Crea Apply 5 (five) g topically daily 5-5% lotion . 0 Active LORazepam 1 mg oral tablet (1 source) Benzodiazepine take 1 tablet by mouth every six hours as needed for anxiety LORazepam (ATIVAN) 1 MG tablet Take 1 (one) tablet (1 mg total) by mouth every 6 (six) hours as needed for anxiety . 0 Active sertraline 100 mg oral tablet (1 source) Serotonin Reuptake Inhibitor take 1 tablet by mouth once daily sertraline (ZOLOFT) 100 MG tablet Take 1 (one) tablet (100 mg total) by mouth daily . 0 Active traZODone hydrochloride 50 mg oral tablet (1 source) Serotonin Reuptake Inhibitor take 1 tablet by mouth once daily as needed for sleep traZODone (DESYREL) 50 MG tablet Take 1 (one) tablet (50 mg total) by mouth nightly as needed for sleep . 0 Active Problems Active Problems Problem Classification Problem Date Documented Da te Episodic/Chronic Alcohol-related disorders (4 sources) Alcohol abuse with alcohol-induced mood disorder; Translations: [Other alcohol-induced mental disorders] Onset: 02-28-2023 12-09-2022 Chronic Alcohol-related disorders (1 source) Alcohol use, unspecified with alcohol-induced persisting dementia; Translations: [ALC USE UNS INDUCD PERSIST DEMENTIA] Onset: 02-01-2023 Episodic Bacterial infection; unspecified site (2 sources) Other specified bacterial agents as the cause of diseases classified elsewhere; Translations: [Methicillin susceptible Staphylococcus aureus infection as the cause of diseases classified elsewhere] Onset: 02-01-2023 Episodic Chronic ulcer of skin (10 sources) Non-pressure chronic ulcer of left ankle with fat layer exposed; Translations: [Non-pressure chronic ulcer of other part of left lower leg limited to breakdown of skin] Onset: 03-11-2022 Chronic Deficiency and other anemia (3 sources) Anemia, unspecified; Translations: [ANEMIA UNSPECIFIED] Onset: 11-19-2022 Episodic Delirium, dementia, and amnestic and other cognitive disorders (2 sources) Alzheimer's disease, unspecified; Translations: [Dementia in other diseases classified elsewhere without behavioral disturbance] Onset: 03-17-2022 Chronic Epilepsy; convulsions (1 source) Unspecified convulsions; Translations: [UNSPECIFIED CONVULSIONS] Onset: 02-01-2023 Episodic Essential hypertension (3 sources) Essential (primary) hypertension; Translations: [ESSENTIAL PRIMARY HYPERTENSION] Onset: 01-27-2023 Chronic Fluid and electrolyte disorders (3 sources) Hypo-osmolality and hyponatremia; Translations: [HYPO-OSMOLALITY AND HYPONATREMIA] Onset: 02-02-2023 Episodic Gout and other crystal arthropathies (1 source) Chronic gout, unspecified, without tophus (tophi); Translations: [CHRONIC GOUT UNSPECIFIED W/O TOPHUS] Onset: 02-01-2023 Chronic Miscellaneous mental health disorders (3 sources) Other dissociative and conversion disorders; Translations: [OTHER DISSOCIATIVE AND CONVERSION D/O] Onset: 03-09-2022 Chronic Other injuries and conditions due to external causes (3 sources) Other injury of unspecified body region, initial encounter; Translations: [OTHER INJURY UNS BODY REGION INIT] Onset: 02-03-2023 Episodic Other nervous system disorders (1 source) Cognitive deficit in communication skills; Translations: [Cognitive communication deficit] 12-09-2022 Chronic Other nervous system disorders (1 source) Impaired cognition; Translations: [Other symptoms and signs involving cognitive functions and awareness] 12-09-2022 Episodic Other nutritional; endocrine; and metabolic disorders (1 source) Obesity, unspecified; Translations: [OBESITY UNSPECIFIED] Onset: 01-27-2023 Chronic Peripheral and visceral atherosclerosis (1 source) Peripheral vascular disease, unspecified; Translations: [PERIPHERAL VASCULAR DISEASE UNS] Onset: 02-01-2023 Chronic Residual codes; unclassified (1 source) Amnesia; Translations: [Other amnesia] 02-24-2023 Episodic Residual codes; unclassified (2 sources) Other amnesia; Translations: [Other amnesia] Onset: 02-24-2023 Episodic Unclassified (1 source) PT NONCOMP OTH MED TX/REG UNS REASN; Translations: [PT NONCOMP OTH MED TX/REG UNS REASN] Onset: 02-01-2023 Past or Other Problems Problem Classification Problem Date Documented Date Episodic/Chronic Other aftercare (1 source) 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; Translations: [OTH CLOTH WINDING SUPERVISOR CURRENT DRUG THERAPY] Onset: 3 Episodic Other infections; including parasitic (1 source) Unspecified infectious disease; Translations: [UNSPECIFIED INFECTIOUS DISEASE] Onset: 3 Episodic Other screening for suspected conditions (not mental disorders or infectious disease) (4 sources) Abnormal electroencephalogram [EEG]; Translations: [Encounter for screening for malignant neoplasm of prostate] Onset: 2 Episodic Residual codes; unclassified (1 source) Patient's other noncompliance with medication regimen; Translations: [PT OTH NONCOMPLIANCE W/ MED REGIMEN] Onset: 2 Episodic Results Test Name Value Interpretation Reference Range Facil it Vital Signs Date Time Vital Sign Value Performing Clinician Dodie rojas 02-24-2023 08:03-0400 Diastolic blood pressure 78 mm[Hg] [facility] Work Phone: [facility] 02-24-2023 08:03-0400 Heart rate 72 /min Fani Marleyber PRINTING EQUIPMENT MECHANIC Work Phone: [facility] 02-24-2023 08:03-0400 Systolic blood pressure 117 mm[Hg] Fani Santacruz PRINTING EQUIPMENT MECHANIC Work Phone: [facility] Encounters Encounter Date Encounter Type Care Provider Facility Start: 09-04-2023 ambulatory CONTRERAS Stroud [facility] Start: 05-01-2023 End: 05-02-2023 Emergency department patient visit SAMANTA VAUGHAN [facility] Start: 03-20-2023 End: 09-03-2023 ambulatory CONTRERAS FLAHERTY [facility] Start: 02-28-2023 End: 03-01-2023 ambulatory [id number] ANGELES ANTOINE MD Facility:[facility] Start: 02-24-2023 End: 02-28-2023 ambulatory OSCAR DUBOSE RUDY [facility] Start: 02-24-2023 End: 02-24-2023 Office consultation new/estab patient 60 min Preston Roberts PRINTING EQUIPMENT MECHANIC Work Phone: [facility] Procedures Date Procedure Procedure Detail Performing Clinician Start: 03-20-2023 PSA screening CONTRERAS RIOS Plan of Treatment Date Care Activity Detail Author Start: 05-05-2023 Influenza vaccination Sequenti al Influenza Vaccine (Season Ended) [facility] Start: 2008 Administration of he rpes zoster vaccine Zoster Vaccines (1 of 2) [facility] Start: 2008 Screening for malign ant neoplasm of colon Flexible sigmoidoscopy [facility] Start: 1976 Hepatitis C screening Hepatitis C Sc reening [facility] Start: 1973 HIV screening HIV Screening [facility] Start: 1970 Depression screening using PHQ-9 (Patient Health Questionnaire 9) score Depression Screening (PHQ-2/9) [facility] Start: 1961 History and physical examination, annual for health maintenance Wellness Visit [facility] Start: 1958 COVID-19 Vaccine (#1) COVID-19 Vacci ne (#1) [facility] Start: 1958 Prostate specific an tigen measurement PSA Level [facility] Start: 1958 Screening for malign ant neoplasm of colon [facility] Start: 1958 Tetanus vaccination Tetanus: Every 1 0yrs [facility] Payers Date Payer Category Payer Medicaid [facility] MEDICAID [facility] MEDICAID [id number] 2013-Present [phone] [address] [place] [address] [id number] 1996 Self-pay 1959 Medicaid [id number] 1960 Unknown [id number] 1958 Unknown [id number] 1958 Unknown [id number] [id number] 1958 Unknown [id number] [id number] 1958 Unknown [id number] [id number] 1958 Unknown [id number] [id number] 1958 Unknown [id number] [id number] 1958 Unknown [id number] [id number] 1958 Unknown [id number] [id number] 1958 Unknown [id number] [id number] 1958 Unknown [id number] [id number] 1958 Unknown [id number] [id number] 1958 Unknown [id number] [id number] Unknown [id number] Social History Date Type Detail Facility Start: 02-24-2023 Tobacco smoking status NHIS To bacco smoking consumption unknown [facility] Start: 1960 Sex Assigned At Not on file [facility] Gender identity Not on file [facility] History of Present illness Narrative 02-24-2023 Kennedy Hopper MD - 02/24/2023 9:13 AM EDTFFani manzanares CNP - 02/24/2023 8:00 AM EDT Note Date & Type Note Facility 02-24-2023 History of Presen t illness Narrative I saw this patient with Fani Santacruz CNP today. I reviewed the history and physical exam findings with her and entered the room to discuss this with the patient. When I asked the patient if he noticed having any problems with memory he was very slow to respond and then said no. I asked him if he had any troubles keeping track of his finances or paying the bills and he said sometimes. Upon further questioning the patient refused to answer questions. I discussed with him that we would recommend MRI of the brain with TSH, B12 and methylmalonic acid level labs and he said that he would not undergo any of this testing. At that point the patient refused to speak with me or allow any physical examination and the appointment was ended. Please see the nurse practitioner's note for our recommendations. Images from the original note were not included. NEUROLOGY Outpatient CONSULT [facility] [address] [place] [phone] (office) / [phone] (fax) Patient Name: Barry Smith Date of Consult: 02/24/23 MR #: [id number] : 1960 Name of Neurologist: Fani Santacruz CNP Physicians: Oscar Grant MD (Family); Preston Roberts CNP (Referring) Assessment and Plan:Barry Smith is a 62 y.o. male patient of Dr. Hopper, with past medical history of asthma alcohol abuse, HTN, BPH, osteoarthritis, insomnia, anxiety/depression, presents with a several year history of memory loss. Unfortunately his POA did not accompany him to the visit today and he is a poor historian himself, so was unable to gather much detail. His MMSE score today was 18/30, and he does require assistance with medication management and other IADLs. I suspect that he has a dementing disease, of which type is not entirely clear. He does have a significant history of alcohol abuse and this could be contributing to his cognitive complaints. I recommended an MRI of the brain, labs and neuropsychological testing, however he refuses at this time. Discussed and formulated plan with collaborating clinic neurologist, Dr. Hopper who evaluated the patient in the room personally. Plan: Recommendations: Labs-TSH, vitamin B12, MMA. MRI brain without contrast, neuropsychological testing. Patient refuses at this time. 2. If he is interested in further evaluation or testing, I would recommend a referral to our dementia specialist who is currently located in [place], [place]. Signed, Fani Santacruz CNP Neurology This note was partially created using voice recognition software and is inherently subject to errors including those of syntax and sound-alike substitutions which may escape proofreading. In such instances, original meaning may be extrapolated by contextual derivation. Please call with questions. 60 minutes spent ghqd-ue-belr with the patient with greater than 50% spent in counseling and coordination of care. Chief Complaint Patient presents with Impaired memory History of Present Illness: Barry Smith is a 62 y.o. male on whom I have been asked to consult for evaluation and treatment of memory loss. He presents with staff from [facility]. He has been there less than a year. The aid reports they were told he has had memory problems for several years. He is a poor historian and is unable to tell me how he transitioned from living at home to the [facility]. They manage his medications but he is able to shower and dress himself. The aid mentions he get irritable and can get physical. He is eating and sleeping well. He socializes with other people but does not participate in any activities or exercise. He does try to wander out of the door. He recognizes family that comes to see him. He denies hallucinations. He feels his anxiety/depression is well managed. He denies any falls and does not drive. His aid mentions his family is wanting to move him to assisted living and he has never been diagnosed with dementia. POA: Devonte Franco ([id number]) Anxiety/depression/alcohol History: Past Medical History: Diagnosis Date Alcoholism (HCC) Anxiety and depression Asthma BPH (benign prostatic hyperplasia) Hypertension Osteoarthritis History reviewed. No pertinent surgical history. History reviewed. No pertinent family history. Social History Socioeconomic History Marital status: Single Social History Social History Narrative Not on file Allergy Information: I have reviewed the patient's allergies. Patient has no known allergies. Home Medications: has a current medication list which includes the following prescription(s): albuterol sulfate, buspirone, eucerin, lorazepam, sertraline, and trazodone. Review of Systems: The following system(s) were reviewed and pertinent findings noted: Ten systems were reviewed and all systems are negative other than mentioned in the HPI Physical Examination: BP 117/78 (BP Location: Right arm, Patient Position: Sitting, BP Cuff Size: X-large Adult) Pulse 72 GENERAL: General appearance: NAD and otherwise well, non-toxic appearing Extremities: No cyanosis Neck: supple EYES: Sclera clear EARS: Grossly intact RESPIRATORY: No accessory muscle use noted in respiratory effort SKIN: No rashes noted MENTAL STATUS/PSYCHIATRIC: Alertness, attention span & concentration: normal Speech: Minimal speaking and delayed responses. Recent and remote memory impaired Mood and affect normal MMSE testing Mini-Mental State Examination (MMS) - 02/24/23 0821 ORIENTATION What is the YEAR, SEASON, DATE, DAY, and MONTH? 1 Where are we? STATE, COUNTY, CITY, or TOWN, HOSPITAL, FLOOR? 5 Total for Orientation 6 REGISTRATION Name 3 common objects (APPLE, TABLE, and JOSE) 3 ATTENTION AND CALCULATION Spell WORLD backwards. 0 RECALL Ask for the 3 objects repeated above. 0 LANGUAGE Name a PENCIL and WATCH 2 Repeat the following: No ifs, ands, or buts. 1 Follow a 3 stage command: 3 Close your eyes 1 Write a sentence 1 Copying the design: (shown to patient) 1 (MMS) TOTAL SCORE 18 CRANIAL NERVES: III, IV, : Eye movements: normal (EOMI, No ptosis, No nystagmus) VII: Face symmetry & strength: normal Tongue midline with full movement Pupils PERRLA No nystagmus, no ptosis MOTOR - GROSS: Gait & stance: normal Gait aid used during exam: none or N/A Gait assistance required during exam: none or N/A Tone: normal Bulk: normal Abnormal movements: none Rapid alternating movements: normal Msnwav-jx-lqxk intact bilaterally Qrcm-wf-lggc intact bilaterally MOTOR - MUSCLE STRENGTH: Right Muscle Strength Left 5 Shoulder abduction 5 5 Elbow flexion 5 5 Elbow extension 5 5 Finger abduction 5 5 Hip flexion 5 5 Knee extension 5 5 Knee flexion 5 5 Dorsiflexion 5 5 Plantarflexion 5 REFLEXES: Right Reflexes Left 1+ Biceps 1+ 1+ Brachioradialis 1+ 1+ Patellar 1+ 1+ Achilles 1+ down Plantar response down Campbell's Carpal tunnel Jaw Jerk SENSORY: Fine Touch: normal DATA Review: documented in this encounter [facility] Evaluation note Note Date & Type Note Facility documented in this encounter [facility] Evaluation note Note Date & Type Note Facility documented in this encounter [facility] Reason for Referral Specialty Diagnoses / Procedures Referred By Sanaz hernandez Referred To Contact Neurology Diagnoses Cognitive deficits Cognitive communication deficit Alcohol abuse with alcohol-induced mood disorder (HCC) Preston Roberts, PRINTING EQUIPMENT MECHANIC [address] [place] [address] [facility] Neu[facility] Referral ID Status Reason Start Date Expiration Date V isits Requested Visits Authorized [id number] Authorized 12/09/2022 12/09/2023 1 1 Summary Purpose Family History No Family History Records FoundNo Family History Records FoundNo Family History Records Found Advance Directives No Advanced Directives Records FoundNo Advanced Directives Records FoundNo Advanced Directives Records Found Additional Source Comments Reason for Visit (unrecogniz ed section and content) Specialty Diagnoses / Procedures Referred By Sanaz t Referred To Contact Neurology Diagnoses Cognitive deficits Cognitive communication deficit Alcohol abuse with alcohol-induced mood disorder (HCC) Preston Roberts, PRINTING EQUIPMENT MECHANIC [address] [place] [address] [facility] [place] Referral ID Status Reason Start Date Expiration Date Visits Re quested Visits Authorized [id number] Closed 12/09/2022 12/09/2023 1 1 Care Teams (unrecognized sec tion and content) (unrecognized sect ion and content) No Status Records FoundNo Status Records FoundNo Status Records Found INFORMATION SOURCE (unrecogn ized section and content) DATE CREATED AUTHOR AUTHOR'S ORGANIZ ATION 03/01/2023 [facility] DATE CREATED AUTHOR AUTHOR'S ORGANIZ ATION 09/15/2023 [facility] FOR RECORDS PERTAINING TO PATIENTS WHO ARE OR HAVE BEEN ENROLLED IN A CHEMICAL DEPENDENCY/SUBSTANCEABUSE PROGRAM, SOME INFORMATION MAY BE OMITTED. This clinical summary was aggregated from multiple sources. Caution should be exercised in using it in the provision of clinical care. This summary normalizes information from multiple sources, and as a consequence, information in this document may materially change the coding, format and clinical context of patient data. In addition, data may be omitted in some cases. CLINICAL DECISIONS SHOULD BE BASED ON THE PRIMARY CLINICAL RECORDS. [employer] provides no warranty or guarantee of the accuracy or completeness of information in this document.
--- NOTE | 2023-09-28 11:00 | HP.PCM_ITS ---
HPI - General HPI Narrative BARRY SMITH, is a 63 M who presents with left lower extremity venous insufficiency with ulceration, refractory to compression and local wound care. He presents for chemical ablation [facility] Home Medications albuterol sulfate 90 mcg/actuation breath activated powder inhaler 2 inh inhalation Q6H PRN shortness of breath 07/26/23 [History Last Taken Unknown] aripiprazole 5 mg tablet (Abilify) 5 mg PO QHS 07/26/23 [History Last Taken Unknown] buspirone 10 mg tablet 10 mg PO TID 07/26/23 [History Last Taken 09/13/23] donepezil 5 mg tablet (Aricept) 5 mg PO DAILY 07/26/23 [History Last Taken Unknown] hydroxyzine HCl 50 mg tablet 50 mg PO Q6H PRN agitation 07/26/23 [History Last Taken Unknown] lorazepam 1 mg tablet (Ativan) 1 mg PO BID 07/26/23 [History Last Taken 09/13/23] sertraline 100 mg tablet 100 mg PO DAILY 07/26/23 [History Last Taken 09/13/23] trazodone 50 mg tablet 50 mg PO DAILY 07/26/23 [History Last Taken Unknown] Allergy/AdvReac Type Severity Reaction Status Date / Time acetaminophen [From Tylenol] Allergy Intermediate unknown Verified 08/24/23 15:41 aspirin Allergy Intermediate unknown Verified 08/24/23 15:41 peanut Allergy Intermediate unknown Verified 08/24/23 15:41 Social History Smoking Status: Never smoker ROS Review of Systems ROS Unobtainable: due to mental condition Vital Signs Vital Signs Vital Signs: Weight Weight: 234 lb 9.6 oz Body Mass Index (BMI) 30.9 Physical Exam Const alert, oriented x3, no apparent distress and healthy appearing General Appearance: cooperative; Negative for combative or lethargic Orientation / Consciousness: awake Exam Limitations: no limitations HEENT Head and Scalp: normocephalic and atraumatic Eyes EOMs intact bilaterally General Eye: normal appearance of both eyes Neck full ROM, no lymphadenopathy, thyroid normal and No no carotid bruits General: trachea midline; Negative for lymphadenopathy or tenderness Thyroid: thyroid normal Lymph Lymphatic: Negative for no lymphadenopathy noted Resp normal respiratory effort, no use of accessory muscles and clear to auscultation bilaterally Effort and Inspection: Negative for labored, stridor or audible wheezes Cardio regular rate, regular rhythm and no murmurs Peripheral Pulses: brachial pulses present, radial pulses present, femoral pulses present, popliteal pulses present, posterior tibial pulses present and dorsalis pedis pulses present Back/Spine Cervical Spine: cervical ROM normal Extremity full ROM, normal capillary refill and no clubbing, cyanosis or edema Skin no rashes or lesions noted Neuro oriented x3, CN's II-XII intact bilaterally, no focal motor deficits and no sensory deficits noted Psych thought process normal, cooperative, affect normal, speech normal and activity/motor behavior normal Assessment & Plan Assessment/Plan (1) Ulcer of extremity due to chronic venous insufficiency: PLAN: -left GSV chemical ablation
--- NOTE | 2023-09-28 11:59 | OP.PCM_ITS ---
Report of Operation Date of Procedure: 09/28/23 Pre-Operative Diagnosis: venous insufficiency with ulceration, left lower extre mity Post-Operative Diagnosis: same Surgery/Procedure Performed:: left great saphenous chemical ablation Surgeon: Aubrey Gaston Type of Anesthesia: Local and Sedation,Conscious Estimated Blood Loss (mL): 2
--- NOTE | 2023-09-28 11:59 | PCM.OPRPT ---
Report of Operation Date of Procedure: 09/28/23 Pre-Operative Diagnosis: venous insufficiency with ulceration, left lower extremity Post-Operative Diagnosis: same Surgery/Procedure Performed:: left great saphenous chemical ablation Surgeon: Aubrey Gaston Type of Anesthesia: Local and Sedation,Conscious Estimated Blood Loss (mL): 2 Description of Procedure: HPI: Patient is a 63-year-old male with longstanding venous insufficiency with severe ulceration of the left lower extremity refractory to local care and compression therapy. He is found to have significant great saphenous vein reflux throughout the extremity so is taken now for chemical ablation. Description of procedure: Upon obtaining form consent and verification correct patient procedure site patient taken to the Counter Manager where he was positioned prepped and draped in usual sterile fashion. Time was performed consultation administered with fentanyl; patient received Ativan at his care facility prior to arrival. Skin overlying the great saphenous vein was anesthetized and the vessel accessed at the ankle under ultrasound guidance with a micropuncture needle wire. This was then exchanged out for the glue delivery sheath which was advanced over the wire. Through the sheath a Anulex wire was advanced and under also guidance positioned at the saphenofemoral junction. The glue delivery guide was then advanced over the wire and positioned at the saphenofemoral junction after which the wire and dilator then withdrawn. The glue delivery catheter was advanced to the guide and positioned appropriately 5 cm below the saphenofemoral junction. Per oil inspector's instruction this was then deposited sequentially along the great saphenous vein down to the 5 cm above the sheath tip. After completion of glue deposition the guide and catheter withdrawn after which the sheath withdrawn a minute pressure held after which satisfactory stasis was noted. Dry sterile dressing and Kevin wrap then applied patient was taken recovery in the dissipated return to the [facility].
== END 2023-09-28 13:10 | disposition home or self-care (01) ==
PROVIDERS: PCP Internal Medicine Infectious Disease; Referring Provider Surgery Trauma Surgery; Visit Provider Surgery Trauma Surgery
DX: I83.028 Varicose veins of left lower extremity with ulcer other part of lower leg (principal); L97.829 Non-pressure chronic ulcer of other part of left lower leg with unspecified severity; I87.2 Venous insufficiency (chronic) (peripheral); I83.812 Varicose veins of left lower extremity with pain
CPT/HCPCS: 36482; 99152; 99153; C1894; J7040

== ENCOUNTER 2023-10-04 09:00 | Outpatient (RCR) | payer MEDICARE, MEDICAID, SELFPAY ==
[2023-09-04 00:40] VITALS: BP 129/77; PULSE 77; RESP 18; TEMP 36.6; BMI 31.1
[2023-09-06 08:59] VITALS: BP 133/83; PULSE 82; RESP 16; BMI 31.1
--- NOTE | 2023-09-06 09:44 | PCM.WC.PN ---
History of Present Illness Date of Service: 09/06/23 Chief Complaint: Bilateral leg ulcerations History of Wound: Mr. Ramirez is a 63-year-old male presenting to the wound care center today at [facility] with a chief complaint of bilateral leg ulcerations. Patient resides at a nursing facility where he is cared for 24 hours a day. Patient has a bit of cognitive dysfunction and is well medicated today with 2 mg of Ativan. Patient has seen wound care in the past but presents with worsening larger wound to the left leg/ankle area. Patient denies of any trauma. Patient denies any constitutional symptoms. No other pedal complaints at this time. Subjective Subjective Mr. Darby is a 63-year-old male presenting to wound care center today for follow-up evaluation of bilateral lower extremity leg ulcerations. Patient caregiver states that he was in his [place]na boot to left lower extremity for an additional 2 to 3 days secondary to the holiday. She states there is a bit of a odorous smell to the left leg. They are unsure if it is infected. Patient denies any constitutional symptoms. He denies trauma. No other pedal complaints at this time. Objective Data Objective Data Vital Signs: Vital Signs Temp Pulse Resp BP O2 Del Method 97.9 F 82 16 133/83 H Room Air 09/04/23 00:40 09/06/23 08:59 09/06/23 08:59 09/06/23 08:59 09/06/23 08:59 Oxygen Delivery Method Room Air Weight: 107.048 kg Body Mass Index (BMI) 31.1 Physical Exam Narrative Vascular: DP and PT pulses are faintly palpable. CFT is brisk. Skin temperature is warm to warm from proximal ankle to distal digits. Neurological: Light touch intact. Patient responds to painful stimuli. Dermatological: Full-thickness ulceration appreciated to the right lateral ankle is healed. Full-thickness ulceration appreciated to the left lateral ankle measuring 12.4 x 3.2 x 0.3 cm. Wound base is fibrogranular nature. Blanchable erythema appreciated to the periwound with mild proximal streaking is appreciated. No tunneling or undermining is appreciated to left lower extremity ankle wound. No evidence of probe to bone. Excisional debridement using number 5 mm dermal curette down to and including muscle to the left medial full-thickness ulceration without incident. Predebridement measurement is 12.0 x 3.0 x 0.2 cm. Postdebridement measurement is 12.4 x 3.2 x 0.3 cm. Musculoskeletal: Mild posterior tenderness appreciated to both full-thickness ulcerations. No pain with calf compression. Debridement Note Debridement Note Debridement Free Text: Excisional debridement using number 5 mm dermal curette down to and including muscle to the left medial full-thickness ulceration without incident. Predebridement measurement is 12.0 x 3.0 x 0.2 cm. Postdebridement measurement is 12.4 x 3.2 x 0.3 cm. Post-Debridement Measurements and Additional Note: Post-Debridement Measurements/Treatment - Nurse 1 - General Ulcer Assessment Start: 09/06/23 08:59 Freq: Status: Active Protocol: SURY Activity Type Activity Date Activity User E-sign Co-sign Detail Recorded Client Recorded Date Recorded By Document 09/06/23 08:59 [facility] Desktop 09/06/23 09:06 [facility] 09/06/23 08:59 - Today's Visit Information Type of service Follow-up Visit (Physician/[employer] ) Arrival Mode Ambulatory Transfer Assistance None Accompanied by 2 caregivers Patient Identification Verified (Name & Yes ) Patient Requires Transmission-Based No Precautions Height and Weight Body Mass Index (BMI) 31.1 BMI Classification Obese Vital Signs Pulse Rate (60-100) 82 Pulse Location Monitor Respiratory Rate (12-18) 16 Respiratory rate source Observation Oxygen Delivery Method Room Air Blood Pressure (90/60-120/80) 133/83 H Blood Pressure Mean (mm Hg) 99 Source Monitor Position Sitting Blood Pressure Location Right Arm History Since Last Visit- (Skip if this is Patient's initial visit) Have you changed medications since your No last visit? Any new allergies or adverse reactions No Had a fall/change in ADL's that may No increase risk of falls Signs or symptoms of abuse and/or No neglect since last visit Have you been in the hospital since your No last visit? Has dressing in place as prescribed Yes Has compression in place as prescribed Yes Has offloadiing in place as prescribed N/A Experienced any changes in pain level or No management Left Footwear Regular Shoe Right Footwear Regular Shoe Pain Scale: 0-10 Numeric Is Patient Pain Free? Yes - Nurse 1 - General Ulcer Measurement Start: 01/03/24 08:59 Freq: Status: Active Protocol: Activity Type Activity Date Activity User E-sign Co-sign Detail Recorded Client Recorded Date Recorded By Document 09/06/23 08:59 [facility] Desktop 09/06/23 09:06 [facility] 09/06/23 08:59 Wound Center Nurse 1 Right lateral Ankle -Combined with other wound No -Current Size (cm) - Length 0.1 -Current Size (cm) - Width 0.1 -Current Size (cm) - Depth 0.1 -Total Square Cm 0.01 -Date of Last Picture (Recall this 09/06/23 field) -Photo Taken Yes -Epithelialization None Present -Tunneling No -Undermining/Tunneling No -Circular Undermining No -Exudate Amt None Present -Wound Margin Distinct, Outline Attached -Granulation Amt None Present (0 %) -Slough/Fibrin Yes -Necrotic Tissue Type Eschar -Texture (Reyna-wound Skin Appearance) Assessed, Scarring -Moisture (Reyna-wound Skin Appearance) Assessed -Color (Reyna-wound Skin Appearance) Assessed -Temperature (Reyna-wound Skin No Abnormality Appearance) (Pt Warm) -Tenderness on Palpation (Reyna-wound No Skin Appearance) -Ulcer Cleansing Soap and Water -Foul Odor after Cleansing No -Anesthetic Used 4% Lidocaine Solution Left Medial LE -Combined with other wound No -Current Size (cm) - Length 13 -Current Size (cm) - Width 3 -Current Size (cm) - Depth 0.6 -Total Square Cm 39 -Date of Last Picture (Recall this 09/06/23 field) -Photo Taken No -Epithelialization None Present -Tunneling No -Undermining/Tunneling No -Circular Undermining No -Exudate Amt Large -Exudate Type Serosanguineous -Wound Margin Thickened -Granulation Amt Small (1-33%) -Granulation Quality Red -Slough/Fibrin Yes -Necrosis Amt Large (67-100%) -Necrotic Tissue Type Adherent Slough -Texture (Reyna-wound Skin Appearance) Assessed, Excoriation, Scarring -Moisture (Reyna-wound Skin Appearance) Assessed, Maceration -Color (Reyna-wound Skin Appearance) Assessed, Erythema -Temperature (Reyna-wound Skin No Abnormality Appearance) (Pt Warm) -Tenderness on Palpation (Reyna-wound No Skin Appearance) -Ulcer Cleansing Soap and Water -Foul Odor after Cleansing Yes -Anesthetic Used 4% Lidocaine Solution Right Calf (cm) 39.5 Right Ankle (cm) 24 Left Calf (cm) 41 Left Ankle (cm) 28 WC - Nurse 2 - General Ulcer CM Notes Start: 09/06/23 08:59 Freq: Status: Active Protocol: Activity Type Activity Date Activity User E-sign Co-sign Detail Recorded Client Recorded Date Recorded By Document 09/06/23 09:15 JF Laptop 09/06/23 09:22 09/06/23 09:15 Wound Center Nurse 2 Right lateral Ankle -Correct Patient No -Correct Side, Site, Position No -Correct Procedure No -Procedure Performed No -Tissue Removed Fascia -Post Debridement (cm) - Length 0 -Post Debridement (cm) - Width 0 -Post Debridement (cm) - Depth 0 -Total Square (Post) (cm) 0 -Area of Debridement (cm) - Length 0 -Area of Debridement (cm) - Width 0 -Total Square (Area) (cm) 0 -Wound/Ulcer Outcome Healed- Epithelialized Left Medial LE -Time 09:15 -Correct Patient Yes -Correct Side, Site, Position Yes -Correct Procedure Yes -Procedure Performed Yes -Type of Procedure Debridement -Clinical Debridement Muscle / Fascia -Tissue Removed Muscle,Fascia -Post Debridement (cm) - Length 12.4 -Post Debridement (cm) - Width 3.2 -Post Debridement (cm) - Depth 0.3 -Total Square (Post) (cm) 39.68 -Area of Debridement (cm) - Length 12.4 -Area of Debridement (cm) - Width 3.2 -Total Square (Area) (cm) 39.68 -Tunneling No -Undermining/Tunneling No -Circular Undermining No -Wound/Ulcer Outcome Not Healed -Ulcer Cleansing Rinsed/ Irrigated with Saline -Foul Odor after Cleansing No -Bioengineered Tissue No -Bleeding Controlled with Pressure -Treatment Response Procedure Tolerated Well -Offloading No -Debridement - Muscle / Fascia, 1st Yes 20sq cm -Debridement, Muscle/Fascia, ea addt'l 1 20sq cm or part thereof Pain Scale: 0-10 Numeric Is Patient Pain Free? Yes MARTA - Nurse 3 - General Ulcer D/C NN Start: 09/06/23 08:59 Freq: Status: Active Protocol: Activity Type Activity Date Activity User E-sign Co-sign Detail Recorded Client Recorded Date Recorded By Document 09/06/23 09:28 K[facility] Desktop 09/06/23 09:28 KW 09/06/23 09:28 Wound Care Center Nurse 3 Left Medial LE -Ulcer Cleansing Rinsed/ Irrigated with Saline -Primary Dressing Covered/Secured with Dry Gauze & Roll Gauze, Secured with Tape Pain Scale: 0-10 Numeric Is Patient Pain Free? Yes WC - Visit Discharge Discharge Condition Stable Ambulatory Status Ambulatory Medication Reconcilliation completed & No provided to patient/care provider Clinical Summary of Care Provided Yes Assessment/Plan Assessment/Plan (1) Non-pressure chronic ulcer of other part of left lower leg with necrosis of muscle: CODE(S): L97.823 - Non-pressure chronic ulcer of other part of left lower leg with necrosis of muscle PLAN: Patient was examined and evaluated. All findings were discussed with the patient. All questions were answered to the patient's satisfaction. Excisional debridement using number 5 mm dermal curette down to and including muscle to the left medial full-thickness ulceration without incident. Predebridement measurement is 12.0 x 3.0 x 0.2 cm. Postdebridement measurement is 12.4 x 3.2 x 0.3 cm. The left lower extremities were cleaned and patted dry. 4 x 4 soaked Dakin solution was applied to the full-thickness ulceration followed by a dry sterile dressing and double layer Tubigrip. Wound care orders were given to the long-term for daily dressing changes as well as as needed dressing changes secondary to drainage. Phone call made to the PA of the vascular surgeon at the hospital to see if we can move the patient's left lower extremity intervention. The vascular office will contact the patient's long-term to move up his appointment if able. Due to the concern of soft tissue cellulitis the patient will be placed on 2 antibiotics, doxycycline and Cipro to be taken twice daily for 2 weeks. Culture was also taken to make sure that correct antibiotics are geared to the specific bacteria that grow. Everything was to the patient's understanding as well as to the nursing staff understanding. Follow-up at the wound care center with Dr. Cadena in 1 week. (2) Peripheral vascular disease: CODE(S): I73.9 - Peripheral vascular disease, unspecified (3) Non-pressure ulcer of right lower extremity with fat layer exposed: CODE(S): L97.912 - Non-pressure chronic ulcer of unspecified part of right lower leg with fat layer exposed PLAN: Right lower extremity ulceration is now healed. (4) Cellulitis of left leg: CODE(S): L03.116 - Cellulitis of left lower limb
[2023-09-20 08:55] VITALS: BP 122/67; PULSE 82; RESP 16; TEMP 35.9; BMI 31.1
--- NOTE | 2023-09-20 09:26 | PCM.WC.PN ---
History of Present Illness Date of Service: 09/20/23 Chief Complaint: Bilateral leg ulcerations History of Wound: Mr. Ramirez is a 63-year-old male presenting to the wound care center today at [facility] with a chief complaint of bilateral leg ulcerations. Patient resides at a nursing facility where he is cared for 24 hours a day. Patient has a bit of cognitive dysfunction and is well medicated today with 2 mg of Ativan. Patient has seen wound care in the past but presents with worsening larger wound to the left leg/ankle area. Patient denies of any trauma. Patient denies any constitutional symptoms. No other pedal complaints at this time. Subjective Subjective Mr. Ramirez is a 63-year-old male presenting to the wound care center follow-up evaluation of left lower extremity full-thickness ulceration. Patient was seen by vascular surgery last week and had intervention on his right lower extremity. He has planned intervention for vein ablation to left lower extremity next . Patient's caregiver admits he has finished his oral antibiotic and has kept his dressing clean dry and intact with daily dressing changes as well as as needed dressing changes are needed. He presents today for graft placement since the infection is clear. Denies trauma. Denies constitutional symptoms. Other pedal complaint at this time. Objective Data Objective Data Vital Signs: Vital Signs Temp Pulse Resp BP O2 Del Method 96.7 F L 82 16 122/67 H Room Air 09/20/23 08:55 09/20/23 08:55 09/20/23 08:55 09/20/23 08:55 09/20/23 08:55 Oxygen Delivery Method Room Air Weight: 107.048 kg Body Mass Index (BMI) 31.1 Lab / Micro Data Micro: Microbiology 09/06/23 09:20 Wound - Leg, Left Gram Stain - Final 09/06/23 09:20 Wound - Leg, Left Wound Culture - Final Streptococcus group A 09/06/23 09:20 Wound - Leg, Left Anaerobic Culture - Final No anaerobic bacteria isolated. Physical Exam Narrative Vascular: DP and PT pulses are faintly palpable. CFT is brisk. Skin temperature is warm to warm from proximal ankle to distal digits. Neurological: Light touch intact. Patient responds to painful stimuli. Dermatological: Full-thickness ulceration appreciated to the left lateral ankle measuring 12.2 x 3.0 x 0.3 cm. Wound base is fibrogranular nature. No sign of infection. Both wounds show no evidence of tunneling or undermining. No evidence of probe to bone bilateral. Excisional debridement using the [employer] debrider down to and including muscle to the left medial full-thickness ulceration without incident. Predebridement measurement is 12.0x 2.8 x 0.2 cm. Postdebridement measurement is 12.2 x 3.0 x 0.3 cm. EpiMesh 4 x 4.5 cm was applied to the left full-thickness ulceration with 100% use. Sixth application. The graft site was free and clear of any infection. The wound/skin graft substitute was dressed with nonadherent bandage secured in place with Steri-Strips followed by bolster dressing as well as a double layer Tubigrip. Debridement Note Debridement Note Debridement Free Text: Excisional debridement using the [employer] debrider down to and including muscle to the left medial full-thickness ulceration without incident. Predebridement measurement is 12.0x 2.8 x 0.2 cm. Postdebridement measurement is 12.2 x 3.0 x 0.3 cm. EpiMesh 4 x 4.5 cm was applied to the left full-thickness ulceration with 100% use. Sixth application. The graft site was free and clear of any infection. The wound/skin graft substitute was dressed with nonadherent bandage secured in place with Steri-Strips followed by bolster dressing as well as a double layer Tubigrip. Post-Debridement Measurements and Additional Note: Post-Debridement Measurements/Treatment WC - Nurse 1 - General Ulcer Assessment Start: 09/06/23 08:59 Freq: Status: Active Protocol: [email or web address] Activity Type Activity Date Activity User E-sign Co-sign Detail Recorded Client Recorded Date Recorded By Document 09/06/23 08:[address] [facility] Desktop 09/06/23 09:06 BM Document 09/20/23 08:55 KW Desktop 09/20/23 09:10 KW 09/06/23 09/20/23 08:59 08:55 - Today's Visit Information Type of service Follow-up Visit Nurse-only (Physician/[employer]ERSON Visit ) Arrival Mode Ambulatory Ambulatory Transfer Assistance None Accompanied by 2 caregivers nursing staff Patient Identification Verified (Name & Yes Yes ) Patient Requires Transmission-Based No Precautions Height and Weight Body Mass Index (BMI) 31.1 31.1 BMI Classification Obese Obese Vital Signs Temperature (97.8 F-99.1 F) 96.7 F L Temperature Source Temporal Pulse Rate (60-100) 82 82 Pulse Location Monitor Monitor Respiratory Rate (12-18) 16 16 Respiratory rate source Observation Observation Oxygen Delivery Method Room Air Room Air Blood Pressure (90/60-120/80) 133/83 H 122/67 H Blood Pressure Mean (mm Hg) 99 85 Source Monitor Monitor Position Sitting Semi-Fowlers Blood Pressure Location Right Arm Right Forearm History Since Last Visit- (Skip if this is Patient's initial visit) Have you changed medications since your No Yes last visit? Any new allergies or adverse reactions No No Had a fall/change in ADL's that may No No increase risk of falls Signs or symptoms of abuse and/or No No neglect since last visit Have you been in the hospital since your No No last visit? Has dressing in place as prescribed Yes Yes Has compression in place as prescribed Yes Yes Has offloadiing in place as prescribed N/A No Experienced any changes in pain level or No No management Left Footwear Regular Shoe Regular Shoe Right Footwear Regular Shoe Regular Shoe Pain Scale: 0-10 Numeric Is Patient Pain Free? Yes Yes WC - Nurse 1 - General Ulcer Measurement Start: 09/06/23 08:59 Freq: Status: Active Protocol: Activity Type Activity Date Activity User E-sign Co-sign Detail Recorded Client Recorded Date Recorded By Document 09/06/23 08:[address] [facility] Desktop 09/06/23 09:06 BM Document 09/20/23 08:55 KW Desktop 09/20/23 09:10 KW 09/06/23 09/20/23 08:59 08:55 Wound Center Nurse 1 Right lateral Ankle -Combined with other wound No -Current Size (cm) - Length 0.1 -Current Size (cm) - Width 0.1 -Current Size (cm) - Depth 0.1 -Total Square Cm 0.01 -Date of Last Picture (Recall this 09/06/23 field) -Photo Taken Yes -Epithelialization None Present -Tunneling No -Undermining/Tunneling No -Circular Undermining No -Exudate Amt None Present -Wound Margin Distinct, Outline Attached -Granulation Amt None Present (0 %) -Slough/Fibrin Yes -Necrotic Tissue Type Eschar -Texture (Reyna-wound Skin Appearance) Assessed, Scarring -Moisture (Reyna-wound Skin Appearance) Assessed -Color (Reyna-wound Skin Appearance) Assessed -Temperature (Reyna-wound Skin No Abnormality Appearance) (Pt Warm) -Tenderness on Palpation (Reyna-wound No Skin Appearance) -Ulcer Cleansing Soap and Water -Foul Odor after Cleansing No -Anesthetic Used 4% Lidocaine Solution Left Medial LE -Combined with other wound No -Current Size (cm) - Length 13 12 -Current Size (cm) - Width 3 3.5 -Current Size (cm) - Depth 0.6 0.3 -Total Square Cm 39 42.0 -Date of Last Picture (Recall this 09/06/23 field) -Photo Taken No -Epithelialization None Present -Tunneling No -Undermining/Tunneling No -Circular Undermining No -Exudate Amt Large Medium -Exudate Type Serosanguineous Serosanguineous -Wound Margin Thickened Thickened -Granulation Amt Small (1-33%) Medium (34-66%) -Granulation Quality Red Red -Slough/Fibrin Yes -Necrosis Amt Large (67-100%) Medium (34-66%) -Necrotic Tissue Type Adherent Slough Adherent Slough -Texture (Reyna-wound Skin Appearance) Assessed, Assessed, Excoriation, Localized Edema Scarring -Moisture (Reyna-wound Skin Appearance) Assessed, Assessed Maceration -Color (Reyna-wound Skin Appearance) Assessed, Assessed, Erythema Erythema -Temperature (Reyna-wound Skin No Abnormality No Abnormality Appearance) (Pt Warm) (Pt Warm) -Tenderness on Palpation (Reyna-wound No Skin Appearance) -Ulcer Cleansing Soap and Water Soap and Water -Foul Odor after Cleansing Yes -Anesthetic Used 4% Lidocaine 4% Lidocaine Solution Solution Right Calf (cm) 39.5 Right Ankle (cm) 24 Left Calf (cm) 41 38.3 Left Ankle (cm) 28 26 - Nurse 2 - General Ulcer CM Notes Start: 09/06/23 08:59 Freq: Status: Active Protocol: Activity Type Activity Date Activity User E-sign Co-sign Detail Recorded Client Recorded Date Recorded By Document 09/06/23 09:15 Laptop 09/06/23 09:22 09/06/23 09:15 Wound Center Nurse 2 Right lateral Ankle -Correct Patient No -Correct Side, Site, Position No -Correct Procedure No -Procedure Performed No -Tissue Removed Fascia -Post Debridement (cm) - Length 0 -Post Debridement (cm) - Width 0 -Post Debridement (cm) - Depth 0 -Total Square (Post) (cm) 0 -Area of Debridement (cm) - Length 0 -Area of Debridement (cm) - Width 0 -Total Square (Area) (cm) 0 -Wound/Ulcer Outcome Healed- Epithelialized Left Medial LE -Time 09:15 -Correct Patient Yes -Correct Side, Site, Position Yes -Correct Procedure Yes -Procedure Performed Yes -Type of Procedure Debridement -Clinical Debridement Muscle / Fascia -Tissue Removed Muscle,Fascia -Post Debridement (cm) - Length 12.4 -Post Debridement (cm) - Width 3.2 -Post Debridement (cm) - Depth 0.3 -Total Square (Post) (cm) 39.68 -Area of Debridement (cm) - Length 12.4 -Area of Debridement (cm) - Width 3.2 -Total Square (Area) (cm) 39.68 -Tunneling No -Undermining/Tunneling No -Circular Undermining No -Wound/Ulcer Outcome Not Healed -Ulcer Cleansing Rinsed/ Irrigated with Saline -Foul Odor after Cleansing No -Bioengineered Tissue No -Bleeding Controlled with Pressure -Treatment Response Procedure Tolerated Well -Offloading No -Debridement - Muscle / Fascia, 1st Yes 20sq cm -Debridement, Muscle/Fascia, ea addt'l 1 20sq cm or part thereof Pain Scale: 0-10 Numeric Is Patient Pain Free? Yes - Nurse 3 - General Ulcer D/C NN Start: 09/06/23 08:59 Freq: Status: Active Protocol: Activity Type Activity Date Activity User E-sign Co-sign Detail Recorded Client Recorded Date Recorded By Document 09/06/23 09:28 KW Desktop 09/06/23 09:28 KW 09/06/23 09:28 Wound Care Center Nurse 3 Left Medial LE -Ulcer Cleansing Rinsed/ Irrigated with Saline -Primary Dressing Covered/Secured with Dry Gauze & Roll Gauze, Secured with Tape Pain Scale: 0-10 Numeric Is Patient Pain Free? Yes WC - Visit Discharge Discharge Condition Stable Ambulatory Status Ambulatory Medication Reconcilliation completed & No provided to patient/care provider Clinical Summary of Care Provided Yes Assessment/Plan Assessment/Plan (1) Non-pressure chronic ulcer of other part of left lower leg with necrosis of muscle: CODE(S): L97.823 - Non-pressure chronic ulcer of other part of left lower leg with necrosis of muscle PLAN: Patient was examined and evaluated. All findings were discussed with the patient. All questions were answered to the patient's satisfaction. Excisional debridement using the [employer]'s debrider down to and including muscle to the left medial full-thickness ulceration without incident. Predebridement measurement is 12.0x 2.8 x 0.2 cm. Postdebridement measurement is 12.2 x 3.0 x 0.3 cm. EpiMesh 4 x 4.5 cm was applied to the left full-thickness ulceration with 100% use. Sixth application. The graft site was free and clear of any infection. The wound/skin graft substitute was dressed with nonadherent bandage secured in place with Steri-Strips followed by bolster dressing as well as a double layer Tubigrip. Patient will follow-up next Monday for evaluation and replacement. Then on will see Dr. Gaston for intervention to left lower extremity. Wound care orders given to the nursing staff at the patient's home. Follow-up at the wound care center with Dr. Cadena in 1 week. (2) Peripheral vascular disease: CODE(S): I73.9 - Peripheral vascular disease, unspecified (3) Cellulitis of left leg: CODE(S): L03.116 - Cellulitis of left lower limb PLAN: Patient has finished his antibiotics and cellulitis is improved to left lower extremity.
[2023-09-27 08:49] VITALS: BP 108/67; PULSE 68; RESP 20; TEMP 36.2; BMI 31.1
--- NOTE | 2023-09-27 10:01 | PCM.WC.PN ---
History of Present Illness Date of Service: 09/27/23 Chief Complaint: Bilateral leg ulcerations History of Wound: Mr. Ramirez is a 63-year-old male presenting to the wound care center today at [facility] with a chief complaint of bilateral leg ulcerations. Patient resides at a nursing facility where he is cared for 24 hours a day. Patient has a bit of cognitive dysfunction and is well medicated today with 2 mg of Ativan. Patient has seen wound care in the past but presents with worsening larger wound to the left leg/ankle area. Patient denies of any trauma. Patient denies any constitutional symptoms. No other pedal complaints at this time. Progress of Wound: Mr. Ramirez is a 63-year-old male presenting to wound care center today for follow-up evaluation of left lower extremity leg ulceration. Patient's caregiver has been doing daily dressing changes as well as as needed dressing changes. She admits drainage and malodor is all improved. There is no sign of infection. Patient denies any constitutional symptoms. He denies trauma. No other pedal complaints at this time. Objective Data Objective Data Vital Signs: Vital Signs Temp Pulse Resp BP O2 Del Method 97.1 F L 68 20 H 108/67 Room Air 09/27/23 08:49 09/27/23 08:49 09/27/23 08:49 09/27/23 08:49 09/27/23 08:49 Oxygen Delivery Method Room Air Weight: 107.048 kg Body Mass Index (BMI) 31.1 Lab / Micro Data Micro: Microbiology 09/06/23 09:20 Wound - Leg, Left Gram Stain - Final 09/06/23 09:20 Wound - Leg, Left Wound Culture - Final Streptococcus group A 09/06/23 09:20 Wound - Leg, Left Anaerobic Culture - Final No anaerobic bacteria isolated. Physical Exam Narrative Vascular: DP and PT pulses are faintly palpable. CFT is brisk. Skin temperature is warm to warm from proximal ankle to distal digits. Neurological: Light touch intact. Patient responds to painful stimuli. Dermatological: Full-thickness ulceration appreciated to the left lateral ankle measuring 12.0 x 2.9 x 0.2 cm. Wound base is fibrogranular nature. No sign of infection. Both wounds show no evidence of tunneling or undermining. No evidence of probe to bone bilateral. Excisional debridement using the [employer]'s debrider down to and including muscle to the left medial full-thickness ulceration without incident. Predebridement measurement is 11.8 x 2.8 x 0.2 cm. Postdebridement measurement is 12.0 x 2.9 x 0.2 cm. EpiMesh 4 x 4.5 cm was applied to the left full-thickness ulceration with 100% use. Seventh application. The graft site was free and clear of any infection. The wound/skin graft substitute was dressed with nonadherent bandage secured in place with Steri-Strips followed by bolster dressing as well as a double layer Tubigrip. Debridement Note Debridement Note Debridement Free Text: Excisional debridement using the [employer]'s debrider down to and including muscle to the left medial full-thickness ulceration without incident. Predebridement measurement is 11.8 x 2.8 x 0.2 cm. Postdebridement measurement is 12.0 x 2.9 x 0.2 cm. EpiMesh 4 x 4.5 cm was applied to the left full-thickness ulceration with 100% use. Seventh application. The graft site was free and clear of any infection. The wound/skin graft substitute was dressed with nonadherent bandage secured in place with Steri-Strips followed by bolster dressing as well as a double layer Tubigrip. Post-Debridement Measurements and Additional Note: Post-Debridement Measurements/Treatment - Nurse 1 - General Ulcer Assessment Start: 09/06/23 08:59 Freq: Status: Active Protocol: WC.LOWSTALINT Activity Type Activity Date Activity User E-sign Co-sign Detail Recorded Client Recorded Date Recorded By Document 09/06/23 08:59 [facility] Desktop 09/06/23 09:06 [facility] Document 09/20/23 08:55 Desktop 09/20/23 09:10 KW Document 09/27/23 08:49 [id number] 09/27/23 08:58 09/06/23 09/20/23 09/27/23 08:59 08:55 08:49 - Today's Visit Information Type of service Follow-up Visit Nurse-only Follow-up Visit (Physician/VACUUM FRAME OPERATOR Visit (Physician/VACUUM FRAME OPERATOR ) ) Arrival Mode Ambulatory Ambulatory Ambulatory Transfer Assistance None None Accompanied by 2 caregivers nursing staff care home staff Patient Identification Verified (Name & Yes Yes Yes ) Patient Requires Transmission-Based No No Precautions Height and Weight Body Mass Index (BMI) 31.1 31.1 31.1 BMI Classification Obese Obese Obese Vital Signs Temperature (97.8 F-99.1 F) 96.7 F L 97.1 F L Temperature Source Temporal Temporal Pulse Rate (60-100) 82 82 68 Pulse Location Monitor Monitor Monitor Respiratory Rate (12-18) 16 16 20 H Respiratory rate source Observation Observation Observation Oxygen Delivery Method Room Air Room Air Room Air Blood Pressure (90/60-120/80) 133/83 H 122/67 H 108/67 Blood Pressure Mean (mm Hg) 99 85 80 Source Monitor Monitor Monitor Position Sitting Semi-Fowlers Semi-Fowlers Blood Pressure Location Right Arm Right Forearm Right Arm History Since Last Visit- (Skip if this is Patient's initial visit) Have you changed medications since your No Yes No last visit? Any new allergies or adverse reactions No No No Had a fall/change in ADL's that may No No No increase risk of falls Signs or symptoms of abuse and/or No No No neglect since last visit Have you been in the hospital since your No No No last visit? Has dressing in place as prescribed Yes Yes Yes Has compression in place as prescribed Yes Yes Yes Has offloadiing in place as prescribed N/A No No Experienced any changes in pain level or No No No management Left Footwear Regular Shoe Regular Shoe Regular Shoe Right Footwear Regular Shoe Regular Shoe Regular Shoe Pain Scale: 0-10 Numeric Is Patient Pain Free? Yes Yes Yes WC - Nurse 1 - General Ulcer Measurement Start: 09/06/23 08:59 Freq: Status: Active Protocol: Activity Type Activity Date Activity User E-sign Co-sign Detail Recorded Client Recorded Date Recorded By Document 09/06/23 08:59 [facility] Desktop 09/06/23 09:06 BM Document 09/20/23 08:55 KW Desktop 09/20/23 09:10 KW Document 09/27/23 08:49 [id number] 09/27/23 08:58 09/06/23 09/20/23 09/27/23 08:59 08:55 08:49 Wound Center Nurse 1 Right lateral Ankle -Combined with other wound No -Current Size (cm) - Length 0.1 -Current Size (cm) - Width 0.1 -Current Size (cm) - Depth 0.1 -Total Square Cm 0.01 -Date of Last Picture (Recall this 09/06/23 field) -Photo Taken Yes -Epithelialization None Present -Tunneling No -Undermining/Tunneling No -Circular Undermining No -Exudate Amt None Present -Wound Margin Distinct, Outline Attached -Granulation Amt None Present (0 %) -Slough/Fibrin Yes -Necrotic Tissue Type Eschar -Texture (Reyna-wound Skin Appearance) Assessed, Scarring -Moisture (Reyna-wound Skin Appearance) Assessed -Color (Reyna-wound Skin Appearance) Assessed -Temperature (Reyna-wound Skin No Abnormality Appearance) (Pt Warm) -Tenderness on Palpation (Reyna-wound No Skin Appearance) -Ulcer Cleansing Soap and Water -Foul Odor after Cleansing No -Anesthetic Used 4% Lidocaine Solution Left Medial LE -Combined with other wound No -Current Size (cm) - Length 13 12 11.5 -Current Size (cm) - Width 3 3.5 2.6 -Current Size (cm) - Depth 0.6 0.3 0.3 -Total Square Cm 39 42.0 29.90 -Date of Last Picture (Recall this 09/06/23 09/27/23 field) -Photo Taken No Yes -Epithelialization None Present Small 1-33% -Tunneling No No -Undermining/Tunneling No No -Circular Undermining No No -Exudate Amt Large Medium Medium -Exudate Type Serosanguineous Serosanguineous Yellow/Green -Wound Margin Thickened Thickened Distinct, Outline Attached -Granulation Amt Small (1-33%) Medium (34-66%) Medium (34-66%) -Granulation Quality Red Red Red -Slough/Fibrin Yes Yes -Necrosis Amt Large (67-100%) Medium (34-66%) Medium (34-66%) -Necrotic Tissue Type Adherent Slough Adherent Slough Adherent Slough -Structure Exposed N/A -Texture (Reyna-wound Skin Appearance) Assessed, Assessed, Assessed Excoriation, Localized Edema Scarring -Moisture (Reyna-wound Skin Appearance) Assessed, Assessed Assessed Maceration -Color (Reyna-wound Skin Appearance) Assessed, Assessed, Assessed Erythema Erythema -Temperature (Reyna-wound Skin No Abnormality No Abnormality No Abnormality Appearance) (Pt Warm) (Pt Warm) (Pt Warm) -Tenderness on Palpation (Reyna-wound No No Skin Appearance) -Ulcer Cleansing Soap and Water Soap and Water Soap and Water -Foul Odor after Cleansing Yes No -Anesthetic Used 4% Lidocaine 4% Lidocaine 4% Lidocaine Solution Solution Solution Right Calf (cm) 39.5 Right Ankle (cm) 24 Left Calf (cm) 41 38.3 38.5 Left Ankle (cm) 28 26 24.3 WC - Nurse 2 - General Ulcer CM Notes Start: 09/06/23 08:59 Freq: Status: Active Protocol: Activity Type Activity Date Activity User E-sign Co-sign Detail Recorded Client Recorded Date Recorded By Document 09/06/23 09:15 [facility] Laptop 09/06/23 09:22 [facility] Document 09/20/23 09:18 [facility] 09/20/23 09:28 [facility] Document 09/27/23 09:22 [facility] Laptop 09/27/23 09:24 JF 09/06/23 09/20/23 09/27/23 09:15 09:18 09:22 Wound Center Nurse 2 Right lateral Ankle -Correct Patient No -Correct Side, Site, Position No -Correct Procedure No -Procedure Performed No -Tissue Removed Fascia -Post Debridement (cm) - Length 0 -Post Debridement (cm) - Width 0 -Post Debridement (cm) - Depth 0 -Total Square (Post) (cm) 0 -Area of Debridement (cm) - Length 0 -Area of Debridement (cm) - Width 0 -Total Square (Area) (cm) 0 -Wound/Ulcer Outcome Healed- Epithelialized Left Medial LE -Time 09:15 09:18 09:22 -Correct Patient Yes Yes Yes -Correct Side, Site, Position Yes Yes Yes -Correct Procedure Yes Yes Yes -Procedure Performed Yes Yes Yes -Type of Procedure Debridement Debridement Debridement -Clinical Debridement Muscle / Fascia Bone Subcutaneous -Tissue Removed Muscle,Fascia Slough Subcutaneous -Post Debridement (cm) - Length 12.4 12.2 12.0 -Post Debridement (cm) - Width 3.2 3.0 2.9 -Post Debridement (cm) - Depth 0.3 0.3 0.2 -Total Square (Post) (cm) 39.68 36.60 34.80 -Area of Debridement (cm) - Length 12.4 12.2 12 -Area of Debridement (cm) - Width 3.2 3.0 2.9 -Total Square (Area) (cm) 39.68 36.60 34.8 -Tunneling No No No -Undermining/Tunneling No No -Circular Undermining No No No -Wound/Ulcer Outcome Not Healed Not Healed Not Healed -Ulcer Cleansing Rinsed/ Rinsed/ Rinsed/ Irrigated with Irrigated with Irrigated with Saline Saline Saline -Foul Odor after Cleansing No No No -Bioengineered Tissue No Yes Yes -Type of Bioengineered Tissue Epifix Mesh -Type of Bioengineered Tissue Epifix Mesh -Expiration Date 05/05/28 05/05/28 -Product Lot Number [id number] -Percent Used 100 100 -Lot number of Saline Used [id number] -Bleeding Controlled with Pressure Pressure NA -Treatment Response Procedure Procedure Procedure Tolerated Well Tolerated Well Tolerated Well -Offloading No No No -Debridement - Subq, 1st 20sq cm No -Debridement - Muscle / Fascia, 1st Yes 20sq cm -Debridement, Muscle/Fascia, ea addt'l 1 20sq cm or part thereof -Debridement - Bone, 1st 20sq cm Yes -Apply Skin Sub - 1st 25 sq cm - Legs 1 1 -Apply Skin Sub - each addt'l 25 sq cm 1 1 - Legs -Epifix Mesh (per sq cm) 11 11 Pain Scale: 0-10 Numeric Is Patient Pain Free? Yes Yes Yes WC - Nurse 3 - General Ulcer D/C NN Start: 09/06/23 08:59 Freq: Status: Active Protocol: Activity Type Activity Date Activity User E-sign Co-sign Detail Recorded Client Recorded Date Recorded By Document 09/06/23 09:28 KW Desktop 09/06/23 09:28 KW Document 09/20/23 09:29 KW Desktop 09/20/23 09:30 KW Document 09/27/23 09:20 KW Desktop 09/27/23 09:21 KW 09/06/23 09/20/23 09/27/23 09:28 09:29 09:20 Wound Care Center Nurse 3 Left Medial LE -Ulcer Cleansing Rinsed/ Irrigated with Saline -Primary Dressing Covered/Secured with Dry Gauze & Dry Gauze & Dry Gauze & Roll Gauze, Roll Gauze, Roll Gauze, Secured with Secured with Secured with Tape Tape Tape Left -Tubular Bandage Double Layer -Size of Tubigrip Used Size E -Size E ($) 2 Pain Scale: 0-10 Numeric Is Patient Pain Free? Yes Yes Yes WC - Visit Discharge Discharge Condition Stable Stable Stable Ambulatory Status Ambulatory Ambulatory Ambulatory Transportation care home transport Medication Reconcilliation completed & No No No provided to patient/care provider Clinical Summary of Care Provided Yes Yes Yes Assessment/Plan Assessment/Plan (1) Non-pressure chronic ulcer of other part of left lower leg with necrosis of muscle: CODE(S): L97.823 - Non-pressure chronic ulcer of other part of left lower leg with necrosis of muscle PLAN: Patient was examined and evaluated. All findings were discussed with the patient. All questions were answered to the patient's satisfaction. Excisional debridement using the [employer]'s debrider down to and including muscle to the left medial full-thickness ulceration without incident. Predebridement measurement is 11.8 x 2.8 x 0.2 cm. Postdebridement measurement is 12.0 x 2.9 x 0.2 cm. EpiMesh 4 x 4.5 cm was applied to the left full-thickness ulceration with 100% use. Seventh application. The graft site was free and clear of any infection. The wound/skin graft substitute was dressed with nonadherent bandage secured in place with Steri-Strips followed by bolster dressing as well as a double layer Tubigrip. Patient will see Dr. Gaston tomorrow for vein ablation to left lower extremity. Due to the chronicity of the full-thickness wound to the left leg we will book the patient for surgery consisting of surgical skin graft prep with application of skin graft substitute to the left leg to electric welder helper in speeding up his healing. After surgical delay application of skin graft substitute in the wound care center for approximately 2 weeks and then reapply if graft remained. Follow-up at the wound care center with Dr. Cadena in 1 week. (2) Peripheral vascular disease: CODE(S): I73.9 - Peripheral vascular disease, unspecified
[2023-10-04 08:50] VITALS: BP 118/68; PULSE 77; RESP 18; TEMP 36.4; BMI 31.1
--- NOTE | 2023-10-04 09:18 | PCM.WC.PN ---
History of Present Illness Date of Service: 10/04/23 Chief Complaint: Bilateral leg ulcerations History of Wound: Mr. Ramirez is a 63-year-old male presenting to the wound care center today at [facility] with a chief complaint of bilateral leg ulcerations. Patient resides at a nursing facility where he is cared for 24 hours a day. Patient has a bit of cognitive dysfunction and is well medicated today with 2 mg of Ativan. Patient has seen wound care in the past but presents with worsening larger wound to the left leg/ankle area. Patient denies of any trauma. Patient denies any constitutional symptoms. No other pedal complaints at this time. Progress of Wound: Mr. Ramirez is a 63-year-old male presenting to wound care center today for follow-up evaluation of left lower extremity leg ulceration. Patient's caregiver has been doing daily dressing changes as well as as needed dressing changes. She admits drainage and malodor is all improved. There is no sign of infection. Patient denies any constitutional symptoms. He denies trauma. No other pedal complaints at this time. Subjective Subjective Mr. Ramirez is a 63-year-old male presenting to wound care center today for follow-up evaluation of left lower extremity leg ulceration. Patient's caregiver has been doing daily dressing changes as well as as needed dressing changes. Patient is status post left great saphenous chemical ablation by Dr. Aubrey Gaston. Date of procedure was 09/28/2023. Patient has follow-up tomorrow with Dr. Gaston for evaluation and Doppler of the left lower extremity. Patient denies any constitutional symptoms. He denies trauma. No other pedal complaints at this time. Objective Data Objective Data Vital Signs: Vital Signs Temp Pulse Resp BP O2 Del Method 97.6 F L 77 18 118/68 Room Air 10/04/23 08:50 10/04/23 08:50 10/04/23 08:50 10/04/23 08:50 10/04/23 08:50 Oxygen Delivery Method Room Air Weight: 107.048 kg Body Mass Index (BMI) 31.1 Lab / Micro Data Micro: Microbiology 09/06/23 09:20 Wound - Leg, Left Gram Stain - Final 09/06/23 09:20 Wound - Leg, Left Wound Culture - Final Streptococcus group A 09/06/23 09:20 Wound - Leg, Left Anaerobic Culture - Final No anaerobic bacteria isolated. Physical Exam Narrative Vascular: DP and PT pulses are faintly palpable. CFT is brisk. Skin temperature is warm to warm from proximal ankle to distal digits. Blanchable erythema to periwound. No sign of infection. Neurological: Light touch intact. Patient responds to painful stimuli. Dermatological: Full-thickness ulceration appreciated to the left lateral ankle measuring 11.7 x 2.4 x 0.2 cm. Wound base is fibrogranular nature. No sign of infection. Both wounds show no evidence of tunneling or undermining. No evidence of probe to bone bilateral. Excisional debridement using the Masonic's debrider down to and including muscle to the left medial full-thickness ulceration without incident. Predebridement measurement is 11.5 x 2.3 x 0.2 cm. Postdebridement measurement is 11.7 x 2.4 x 0.2 cm. EpiMesh 4 x 4.5 cm was applied to the left full-thickness ulceration with 100% use. Eighth application. The graft site was free and clear of any infection. The wound/skin graft substitute was dressed with nonadherent bandage secured in place with Steri-Strips followed by bolster dressing as well as a double layer Tubigrip. Musculoskeletal: No pain to palpation of full-thickness ulceration with no pain with calf pressure. Debridement Note Debridement Note Debridement Free Text: Excisional debridement using the Masonic's debrider down to and including muscle to the left medial full-thickness ulceration without incident. Predebridement measurement is 11.5 x 2.3 x 0.2 cm. Postdebridement measurement is 11.7 x 2.4 x 0.2 cm. EpiMesh 4 x 4.5 cm was applied to the left full-thickness ulceration with 100% use. Eighth application. The graft site was free and clear of any infection. The wound/skin graft substitute was dressed with nonadherent bandage secured in place with Steri-Strips followed by bolster dressing as well as a double layer Tubigrip. Post-Debridement Measurements and Additional Note: Post-Debridement Measurements/Treatment MARTA - Nurse 1 - General Ulcer Assessment Start: 09/06/23 08:59 Freq: Status: Active Protocol: SURY Activity Type Activity Date Activity User E-sign Co-sign Detail Recorded Client Recorded Date Recorded By Document 09/06/23 08:59 BMF Desktop 09/06/23 09:06 BMF Document 09/20/23 08:55 KW Desktop 09/20/23 09:10 KW Document 09/27/23 08:49 GM [id number] 09/27/23 08:58 GM Document 10/04/23 08:50 KW Desktop 10/04/23 08:58 KW 09/06/23 09/20/23 09/27/23 08:59 08:55 08:49 WC - Today's Visit Information Type of service Follow-up Visit Nurse-only Follow-up Visit (Physician/DIRECTOR RADIATION ONCOLOGY Visit (Physician/DIRECTOR RADIATION ONCOLOGY ) ) Arrival Mode Ambulatory Ambulatory Ambulatory Transfer Assistance None None Accompanied by 2 caregivers nursing staff intermediate staff Patient Identification Verified (Name & Yes Yes Yes ) Patient Requires Transmission-Based No No Precautions Height and Weight Body Mass Index (BMI) 31.1 31.1 31.1 BMI Classification Obese Obese Obese Vital Signs Temperature (97.8 F-99.1 F) 96.7 F L 97.1 F L Temperature Source Temporal Temporal Pulse Rate (60-100) 82 82 68 Pulse Location Monitor Monitor Monitor Respiratory Rate (12-18) 16 16 20 H Respiratory rate source Observation Observation Observation Oxygen Delivery Method Room Air Room Air Room Air Blood Pressure (90/60-120/80) 133/83 H 122/67 H 108/67 Blood Pressure Mean (mm Hg) 99 85 80 Source Monitor Monitor Monitor Position Sitting Semi-Fowlers Semi-Fowlers Blood Pressure Location Right Arm Right Forearm Right Arm History Since Last Visit- (Skip if this is Patient's initial visit) Have you changed medications since your No Yes No last visit? Any new allergies or adverse reactions No No No Had a fall/change in ADL's that may No No No increase risk of falls Signs or symptoms of abuse and/or No No No neglect since last visit Have you been in the hospital since your No No No last visit? Has dressing in place as prescribed Yes Yes Yes Has compression in place as prescribed Yes Yes Yes Has offloadiing in place as prescribed N/A No No Experienced any changes in pain level or No No No management Left Footwear Regular Shoe Regular Shoe Regular Shoe Right Footwear Regular Shoe Regular Shoe Regular Shoe Pain Scale: 0-10 Numeric Is Patient Pain Free? Yes Yes Yes 10/04/23 08:50 - Today's Visit Information Type of service Follow-up Visit (Physician/DIRECTOR RADIATION ONCOLOGY ) Arrival Mode Ambulatory Transfer Assistance Accompanied by nurse Patient Identification Verified (Name & Yes ) Patient Requires Transmission-Based Precautions Height and Weight Body Mass Index (BMI) 31.1 BMI Classification Obese Vital Signs Temperature (97.8 F-99.1 F) 97.6 F L Temperature Source Temporal Pulse Rate (60-100) 77 Pulse Location Monitor Respiratory Rate (12-18) 18 Respiratory rate source Observation Oxygen Delivery Method Room Air Blood Pressure (90/60-120/80) 118/68 Blood Pressure Mean (mm Hg) 84 Source Monitor Position Sitting Blood Pressure Location Left Arm History Since Last Visit- (Skip if this is Patient's initial visit) Have you changed medications since your No last visit? Any new allergies or adverse reactions No Had a fall/change in ADL's that may No increase risk of falls Signs or symptoms of abuse and/or No neglect since last visit Have you been in the hospital since your No last visit? Has dressing in place as prescribed Yes Has compression in place as prescribed Yes Has offloadiing in place as prescribed N/A Experienced any changes in pain level or No management Left Footwear Regular Shoe Right Footwear Regular Shoe Pain Scale: 0-10 Numeric Is Patient Pain Free? Yes - Nurse 1 - General Ulcer Measurement Start: 09/06/23 08:59 Freq: Status: Active Protocol: Activity Type Activity Date Activity User E-sign Co-sign Detail Recorded Client Recorded Date Recorded By Document 09/06/23 08:59 [facility] Desktop 09/06/23 09:06 [facility] Document 09/20/23 08:55 KW Desktop 09/20/23 09:10 KW Document 09/27/23 08:49 [id number] 09/27/23 08:58 GM Document 10/04/23 08:50 KW Desktop 10/04/23 08:58 KW 09/06/23 09/20/23 09/27/23 08:59 08:55 08:49 Wound Center Nurse 1 Right lateral Ankle -Combined with other wound No -Current Size (cm) - Length 0.1 -Current Size (cm) - Width 0.1 -Current Size (cm) - Depth 0.1 -Total Square Cm 0.01 -Date of Last Picture (Recall this 09/06/23 field) -Photo Taken Yes -Epithelialization None Present -Tunneling No -Undermining/Tunneling No -Circular Undermining No -Exudate Amt None Present -Wound Margin Distinct, Outline Attached -Granulation Amt None Present (0 %) -Slough/Fibrin Yes -Necrotic Tissue Type Eschar -Texture (Reyna-wound Skin Appearance) Assessed, Scarring -Moisture (Reyna-wound Skin Appearance) Assessed -Color (Reyna-wound Skin Appearance) Assessed -Temperature (Reyna-wound Skin No Abnormality Appearance) (Pt Warm) -Tenderness on Palpation (Reyna-wound No Skin Appearance) -Ulcer Cleansing Soap and Water -Foul Odor after Cleansing No -Anesthetic Used 4% Lidocaine Solution Left Medial LE -Combined with other wound No -Current Size (cm) - Length 13 12 11.5 -Current Size (cm) - Width 3 3.5 2.6 -Current Size (cm) - Depth 0.6 0.3 0.3 -Total Square Cm 39 42.0 29.90 -Date of Last Picture (Recall this 09/06/23 09/27/23 field) -Photo Taken No Yes -Epithelialization None Present Small 1-33% -Tunneling No No -Undermining/Tunneling No No -Circular Undermining No No -Exudate Amt Large Medium Medium -Exudate Type Serosanguineous Serosanguineous Yellow/Green -Wound Margin Thickened Thickened Distinct, Outline Attached -Granulation Amt Small (1-33%) Medium (34-66%) Medium (34-66%) -Granulation Quality Red Red Red -Slough/Fibrin Yes Yes -Necrosis Amt Large (67-100%) Medium (34-66%) Medium (34-66%) -Necrotic Tissue Type Adherent Slough Adherent Slough Adherent Slough -Structure Exposed N/A -Texture (Reyna-wound Skin Appearance) Assessed, Assessed, Assessed Excoriation, Localized Edema Scarring -Moisture (Reyna-wound Skin Appearance) Assessed, Assessed Assessed Maceration -Color (Reyna-wound Skin Appearance) Assessed, Assessed, Assessed Erythema Erythema -Temperature (Reyna-wound Skin No Abnormality No Abnormality No Abnormality Appearance) (Pt Warm) (Pt Warm) (Pt Warm) -Tenderness on Palpation (Reyna-wound No No Skin Appearance) -Ulcer Cleansing Soap and Water Soap and Water Soap and Water -Foul Odor after Cleansing Yes No -Anesthetic Used 4% Lidocaine 4% Lidocaine 4% Lidocaine Solution Solution Solution Right Calf (cm) 39.5 Right Ankle (cm) 24 Left Calf (cm) 41 38.3 38.5 Left Ankle (cm) 28 26 24.3 10/04/23 08:50 Wound Center Nurse 1 Right lateral Ankle -Combined with other wound -Current Size (cm) - Length -Current Size (cm) - Width -Current Size (cm) - Depth -Total Square Cm -Date of Last Picture (Recall this field) -Photo Taken -Epithelialization -Tunneling -Undermining/Tunneling -Circular Undermining -Exudate Amt -Wound Margin -Granulation Amt -Slough/Fibrin -Necrotic Tissue Type -Texture (Reyna-wound Skin Appearance) -Moisture (Reyna-wound Skin Appearance) -Color (Reyna-wound Skin Appearance) -Temperature (Reyna-wound Skin Appearance) -Tenderness on Palpation (Reyna-wound Skin Appearance) -Ulcer Cleansing -Foul Odor after Cleansing -Anesthetic Used Left Medial LE -Combined with other wound -Current Size (cm) - Length 11.7 -Current Size (cm) - Width 2.4 -Current Size (cm) - Depth 0.3 -Total Square Cm 28.08 -Date of Last Picture (Recall this 10/04/23 field) -Photo Taken Yes -Epithelialization -Tunneling -Undermining/Tunneling -Circular Undermining -Exudate Amt -Exudate Type -Wound Margin -Granulation Amt Medium (34-66%) -Granulation Quality [place],Red -Slough/Fibrin -Necrosis Amt Medium (34-66%) -Necrotic Tissue Type Adherent Slough -Structure Exposed -Texture (Reyna-wound Skin Appearance) Assessed -Moisture (Reyna-wound Skin Appearance) Assessed -Color (Reyna-wound Skin Appearance) Assessed, Erythema -Temperature (Reyna-wound Skin No Abnormality Appearance) (Pt Warm) -Tenderness on Palpation (Reyna-wound Skin Appearance) -Ulcer Cleansing Soap and Water -Foul Odor after Cleansing No -Anesthetic Used 4% Lidocaine Solution Right Calf (cm) Right Ankle (cm) Left Calf (cm) 39.2 Left Ankle (cm) 24.6 WC - Nurse 2 - General Ulcer CM Notes Start: 09/06/23 08:59 Freq: Status: Active Protocol: Activity Type Activity Date Activity User E-sign Co-sign Detail Recorded Client Recorded Date Recorded By Document 09/06/23 09:15 Laptop 09/06/23 09:22 Document 09/20/23 09:18 Laptop 09/20/23 09:28 Document 09/27/23 09:22 JF Laptop 09/27/23 09:24 Document 10/04/23 09:12 Laptop 10/04/23 09:16 09/06/23 09/20/23 09/27/23 09:15 09:18 09:22 Wound Center Nurse 2 Right lateral Ankle -Correct Patient No -Correct Side, Site, Position No -Correct Procedure No -Procedure Performed No -Tissue Removed Fascia -Post Debridement (cm) - Length 0 -Post Debridement (cm) - Width 0 -Post Debridement (cm) - Depth 0 -Total Square (Post) (cm) 0 -Area of Debridement (cm) - Length 0 -Area of Debridement (cm) - Width 0 -Total Square (Area) (cm) 0 -Wound/Ulcer Outcome Healed- Epithelialized Left Medial LE -Time 09:15 09:18 09:22 -Correct Patient Yes Yes Yes -Correct Side, Site, Position Yes Yes Yes -Correct Procedure Yes Yes Yes -Procedure Performed Yes Yes Yes -Type of Procedure Debridement Debridement Debridement -Clinical Debridement Muscle / Fascia Bone Subcutaneous -Tissue Removed Muscle,Fascia Slough Subcutaneous -Post Debridement (cm) - Length 12.4 12.2 12.0 -Post Debridement (cm) - Width 3.2 3.0 2.9 -Post Debridement (cm) - Depth 0.3 0.3 0.2 -Total Square (Post) (cm) 39.68 36.60 34.80 -Area of Debridement (cm) - Length 12.4 12.2 12 -Area of Debridement (cm) - Width 3.2 3.0 2.9 -Total Square (Area) (cm) 39.68 36.60 34.8 -Tunneling No No No -Undermining/Tunneling No No -Circular Undermining No No No -Wound/Ulcer Outcome Not Healed Not Healed Not Healed -Ulcer Cleansing Rinsed/ Rinsed/ Rinsed/ Irrigated with Irrigated with Irrigated with Saline Saline Saline -Foul Odor after Cleansing No No No -Bioengineered Tissue No Yes Yes -Type of Bioengineered Tissue Epifix Mesh -Type of Bioengineered Tissue Epifix Mesh -Expiration Date 05/05/28 05/05/28 -Product Lot Number [id number] -Percent Used 100 100 -Lot number of Saline Used [id number] -Bleeding Controlled with Pressure Pressure NA -Treatment Response Procedure Procedure Procedure Tolerated Well Tolerated Well Tolerated Well -Offloading No No No -Debridement - Subq, 1st 20sq cm No -Debridement - Muscle / Fascia, 1st Yes 20sq cm -Debridement, Muscle/Fascia, ea addt'l 1 20sq cm or part thereof -Debridement - Bone, 1st 20sq cm Yes -Apply Skin Sub - 1st 25 sq cm - Legs 1 1 -Apply Skin Sub - each addt'l 25 sq cm 1 1 - Legs -Epifix Mesh (per sq cm) 11 11 Pain Scale: 0-10 Numeric Is Patient Pain Free? Yes Yes Yes 10/04/23 09:12 Wound Center Nurse 2 Right lateral Ankle -Correct Patient -Correct Side, Site, Position -Correct Procedure -Procedure Performed -Tissue Removed -Post Debridement (cm) - Length -Post Debridement (cm) - Width -Post Debridement (cm) - Depth -Total Square (Post) (cm) -Area of Debridement (cm) - Length -Area of Debridement (cm) - Width -Total Square (Area) (cm) -Wound/Ulcer Outcome Left Medial LE -Time 09:14 -Correct Patient Yes -Correct Side, Site, Position Yes -Correct Procedure Yes -Procedure Performed Yes -Type of Procedure Debridement -Clinical Debridement Subcutaneous -Tissue Removed Subcutaneous -Post Debridement (cm) - Length 11.7 -Post Debridement (cm) - Width 2.4 -Post Debridement (cm) - Depth 0.2 -Total Square (Post) (cm) 28.08 -Area of Debridement (cm) - Length 11.7 -Area of Debridement (cm) - Width 2.4 -Total Square (Area) (cm) 28.08 -Tunneling No -Undermining/Tunneling No -Circular Undermining No -Wound/Ulcer Outcome Not Healed -Ulcer Cleansing Rinsed/ Irrigated with Saline -Foul Odor after Cleansing No -Bioengineered Tissue Yes -Type of Bioengineered Tissue Epifix Mesh -Type of Bioengineered Tissue -Expiration Date 05/05/28 -Product Lot Number [id number] -Percent Used 100 -Lot number of Saline Used [id number] -Bleeding Controlled with Pressure -Treatment Response Procedure Tolerated Well -Offloading No -Debridement - Subq, 1st 20sq cm No -Debridement - Muscle / Fascia, 1st 20sq cm -Debridement, Muscle/Fascia, ea addt'l 20sq cm or part thereof -Debridement - Bone, 1st 20sq cm -Apply Skin Sub - 1st 25 sq cm - Legs 1 -Apply Skin Sub - each addt'l 25 sq cm 1 - Legs -Epifix Mesh (per sq cm) 11 Pain Scale: 0-10 Numeric Is Patient Pain Free? Yes - Nurse 3 - General Ulcer D/C NN Start: 09/06/23 08:59 Freq: Status: Active Protocol: Activity Type Activity Date Activity User E-sign Co-sign Detail Recorded Client Recorded Date Recorded By Document 09/06/23 09:28 KW Desktop 09/06/23 09:28 KW Document 09/20/23 09:29 KW Desktop 09/20/23 09:30 KW Document 09/27/23 09:20 KW Desktop 09/27/23 09:21 KW Document 10/04/23 09:17 KW Desktop 10/04/23 09:18 KW 09/06/23 09/20/23 09/27/23 09:28 09:29 09:20 Wound Care Center Nurse 3 Left Medial LE -Ulcer Cleansing Rinsed/ Irrigated with Saline -Primary Dressing Covered/Secured with Dry Gauze & Dry Gauze & Dry Gauze & Roll Gauze, Roll Gauze, Roll Gauze, Secured with Secured with Secured with Tape Tape Tape Left -Tubular Bandage Double Layer -Size of Tubigrip Used Size E -Size E ($) 2 Pain Scale: 0-10 Numeric Is Patient Pain Free? Yes Yes Yes WC - Visit Discharge Discharge Condition Stable Stable Stable Ambulatory Status Ambulatory Ambulatory Ambulatory Transportation intermediate transport Medication Reconcilliation completed & No No No provided to patient/care provider Clinical Summary of Care Provided Yes Yes Yes 10/04/23 09:17 Wound Care Center Nurse 3 Left Medial LE -Ulcer Cleansing -Primary Dressing Covered/Secured with Dry Gauze & Roll Gauze, Secured with Tape Left -Tubular Bandage Double Layer -Size of Tubigrip Used Size E -Size E ($) 2 Pain Scale: 0-10 Numeric Is Patient Pain Free? Yes WC - Visit Discharge Discharge Condition Stable Ambulatory Status Ambulatory Transportation Medication Reconcilliation completed & No provided to patient/care provider Clinical Summary of Care Provided Yes Assessment/Plan Assessment/Plan (1) Non-pressure chronic ulcer of other part of left lower leg with necrosis of muscle: CODE(S): L97.823 - Non-pressure chronic ulcer of other part of left lower leg with necrosis of muscle PLAN: Patient was examined and evaluated. All findings were discussed with the patient. All questions were answered to the patient's satisfaction. Excisional debridement using the webme's debrider down to and including muscle to the left medial full-thickness ulceration without incident. Predebridement measurement is 11.5 x 2.3 x 0.2 cm. Postdebridement measurement is 11.7 x 2.4 x 0.2 cm. EpiMesh 4 x 4.5 cm was applied to the left full-thickness ulceration with 100% use. Eighth application. The graft site was free and clear of any infection. The wound/skin graft substitute was dressed with nonadherent bandage secured in place with Steri-Strips followed by bolster dressing as well as a double layer Tubigrip. Follow-up at the wound care center with Dr. Cadena in 1 week. (2) Peripheral vascular disease: CODE(S): I73.9 - Peripheral vascular disease, unspecified PLAN: Patient is status post left great saphenous chemical ablation with vascular surgery. Date of procedure was 09/28/2023. He will follow-up with vascular for evaluation secondary to surgery tomorrow and office.
== END 2023-10-04 23:59 | disposition home or self-care (01) ==
LOC: WC 09:00
PROVIDERS: PCP Internal Medicine Infectious Disease; Referring Provider Internal Medicine Infectious Disease; Visit Provider Podiatrist Foot & Ankle Surgery
DX: L97.823 Non-pressure chronic ulcer of other part of left lower leg with necrosis of muscle (principal); I73.9 Peripheral vascular disease, unspecified; L03.116 Cellulitis of left lower limb
CPT/HCPCS: 11043; 11044; 11046; 15271; 15272; 87070; 87075; 87077; 87102; 87205; 87206; Q4186

== ENCOUNTER 2023-11-01 09:00 | Outpatient (RCR) | payer MEDICARE, MEDICAID, SELFPAY ==
[2023-10-05 00:25] VITALS: BP 118/68; PULSE 77; RESP 18; TEMP 36.4; BMI 31.1
[2023-10-11 09:00] VITALS: BP 120/70; PULSE 74; RESP 18; TEMP 36.6; BMI 31.1
--- NOTE | 2023-10-11 09:24 | PCM.WC.PN ---
History of Present Illness Date of Service: 10/11/23 Chief Complaint: Bilateral leg ulcerations History of Wound: Mr. Ramirez is a 63-year-old male presenting to the wound care center today at [facility] with a chief complaint of bilateral leg ulcerations. Patient resides at a nursing facility where he is cared for 24 hours a day. Patient has a bit of cognitive dysfunction and is well medicated today with 2 mg of Ativan. Patient has seen wound care in the past but presents with worsening larger wound to the left leg/ankle area. Patient denies of any trauma. Patient denies any constitutional symptoms. No other pedal complaints at this time. Subjective Subjective Mr. Ramirez is a 63-year-old male presenting to wound care center today for follow-up evaluation of left lower extremity leg ulceration. Patient's caregiver has been doing daily dressing changes as well as as needed dressing changes. Patient has been scheduled to follow-up with Dr. Gaston next week. He is still pending surgical approval for debridement of the left lower extremity full-thickness ulceration. He has kept his dressing clean dry and intact. Denies trauma. Denies constitutional symptoms. Other pedal complaints at this time. Objective Data Objective Data Vital Signs: Vital Signs Temp Pulse Resp BP 97.8 F 74 18 120/70 10/11/23 09:00 10/11/23 09:00 10/11/23 09:00 10/11/23 09:00 Weight: 107.048 kg Body Mass Index (BMI) 31.1 Physical Exam Narrative Vascular: DP and PT pulses are faintly palpable. CFT is brisk. Skin temperature is warm to warm from proximal ankle to distal digits. Blanchable erythema to periwound. No sign of infection. Neurological: Light touch intact. Patient responds to painful stimuli. Dermatological: Full-thickness ulceration appreciated to the left lateral ankle measuring 12.0 x 2.0 x 0.3 cm. Wound base is fibrogranular nature. No sign of infection. Both wounds show no evidence of tunneling or undermining. No evidence ofprobe to bone bilateral. Excisional debridement using the [employer]'s debrider down to and including muscle to the left medial full-thickness ulceration without incident. Predebridement measurement is 11.6 x 1.9 x 0.2 cm. Postdebridement measurement is 12.0 x 2.0 x 0.3 cm. EpiMesh 4 x 4.5 cm was applied to the left full-thickness ulceration with 100% use. Gwen application. The graft site was free and clear of any infection. The wound/skin graft substitute was dressed with nonadherent bandage secured in place with Steri-Strips followed by bolster dressing as well as a double layer Tubigrip. Musculoskeletal: No pain to palpation of full-thickness ulceration with no pain with calf pressure. Debridement Note Debridement Note Debridement Free Text: Excisional debridement using the [employer]'s debrider down to and including muscle to the left medial full-thickness ulceration without incident. Predebridement measurement is 11.6 x 1.9 x 0.2 cm. Postdebridement measurement is 12.0 x 2.0 x 0.3 cm. EpiMesh 4 x 4.5 cm was applied to the left full-thickness ulceration with 100% use. Gwen application. The graft site was free and clear of any infection. The wound/skin graft substitute was dressed with nonadherent bandage secured in place with Steri-Strips followed by bolster dressing as well as a double layer Tubigrip. 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 Any new allergies or adverse reactions No Had a fall/change in ADL's that may No increase risk of falls Signs or symptoms of abuse and/or No neglect since last visit Have you been in the hospital since your No last visit? Has dressing in place as prescribed Yes Has compression in place as prescribed Yes Has offloadiing in place as prescribed N/A Experienced any changes in pain level or No management Pain Scale: 0-10 Numeric Is Patient Pain Free? Yes WC - Nurse 1 - General Ulcer Measurement Start: 10/11/23 09:00 Freq: Status: Active Protocol: Activity Type Activity Date Activity User E-sign Co-sign Detail Recorded Client Recorded Date Recorded By Document 10/11/23 09:00 PL Tablet 10/11/23 09:09 PL 10/11/23 09:00 Wound Center Nurse 1 Left Medial LE -Combined with other wound No -Current Size (cm) - Length 12.0 -Current Size (cm) - Width 2.0 -Current Size (cm) - Depth 0.3 -Total Square Cm 24.00 -Photo Taken No -Epithelialization Medium 34-66% -Tunneling No -Undermining/Tunneling No -Circular Undermining No -Classification - Thickness Full Thickness without Exposed Support Structure -Exudate Amt Medium -Exudate Type Serosanguineous -Granulation Amt Medium (34-66%) -Granulation Quality [place] -Slough/Fibrin Yes -Necrosis Amt Medium (34-66%) -Necrotic Tissue Type Adherent Slough -Ulcer Cleansing Soap and Water -Anesthetic Used 5% Lidocaine Gel Assessment/Plan Assessment/Plan (1) Non-pressure chronic ulcer of other part of left lower leg with necrosis of muscle: CODE(S): L97.823 - Non-pressure chronic ulcer of other part of left lower leg with necrosis of muscle PLAN: Patient was examined and evaluated. All findings were discussed with the patient. All questions were answered to the patient's satisfaction. Excisional debridement using the [employer]'s debrider down to and including muscle to the left medial full-thickness ulceration without incident. Predebridement measurement is 11.6 x 1.9 x 0.2 cm. Postdebridement measurement is 12.0 x 2.0 x 0.3 cm. EpiMesh 4 x 4.5 cm was applied to the left full-thickness ulceration with 100% use. Gwen application. The graft site was free and clear of any infection. The wound/skin graft substitute was dressed with nonadherent bandage secured in place with Steri-Strips followed by bolster dressing as well as a double layer Tubigrip. Follow-up at the wound care center with Dr. Cadena in 1 week. (2) Peripheral vascular disease: CODE(S): I73.9 - Peripheral vascular disease, unspecified
[2023-10-18 09:12] VITALS: BP 116/65; PULSE 67; RESP 16; TEMP 36.1; BMI 31.1
--- NOTE | 2023-10-18 09:34 | PCM.WC.PN ---
History of Present Illness Date of Service: 10/18/23 Chief Complaint: Bilateral leg ulcerations History of Wound: Mr. Ramirez is a 63-year-old male presenting to the wound care center today at [facility] with a chief complaint of bilateral leg ulcerations. Patient resides at a nursing facility where he is cared for 24 hours a day. Patient has a bit of cognitive dysfunction and is well medicated today with 2 mg of Ativan. Patient has seen wound care in the past but presents with worsening larger wound to the left leg/ankle area. Patient denies of any trauma. Patient denies any constitutional symptoms. No other pedal complaints at this time. Subjective Subjective Mr. Ramirez is a 63-year-old male presenting to wound care center today for follow-up evaluation of left lower extremity leg ulceration. Patient's caregiver has been doing daily dressing changes as well as as needed dressing changes. He is still pending surgical approval for debridement of the left lower extremity full-thickness ulceration. He has kept his dressing clean dry and intact. Denies trauma. Denies constitutional symptoms. Other pedal complaints at this time. Objective Data Objective Data Vital Signs: Vital Signs Temp Pulse Resp BP O2 Del Method 97.0 F L 67 16 116/65 Room Air 10/18/23 09:12 10/18/23 09:12 10/18/23 09:12 10/18/23 09:12 10/18/23 09:12 Oxygen Delivery Method Room Air Weight: 107.048 kg Body Mass Index (BMI) 31.1 Physical Exam Narrative Vascular: DP and PT pulses are faintly palpable. CFT is brisk. Skin temperature is warm to warm from proximal ankle to distal digits. Blanchable erythema to periwound. No sign of infection. Neurological: Light touch intact. Patient responds to painful stimuli. Dermatological: Full-thickness ulceration appreciated to the left lateral ankle measuring 11.5 x 1.9 x 0.2 cm. Wound base is fibrogranular nature. No sign of infection. Both wounds show no evidence of tunneling or undermining. No evidence ofprobe to bone bilateral. Excisional debridement using the [employer]'s debrider down to and including muscle to the left medial full-thickness ulceration without incident. Predebridement measurement is 11.7 x 1.7 x 0.2 cm. Postdebridement measurement is 11.5 x 1.9 x 0.2 cm EpiMesh 4 x 4.5 cm was applied to the left full-thickness ulceration with 100% use. 10th application. The graft site was free and clear of any infection. The wound/skin graft substitute was dressed with nonadherent bandage secured in place with Steri-Strips followed by bolster dressing as well as a double layer Tubigrip. Musculoskeletal: No pain to palpation of full-thickness ulceration with no pain with calf pressure. Debridement Note Debridement Note Debridement Free Text: Excisional debridement using the [employer]'s debrider down to and including muscle to the left medial full-thickness ulceration without incident. Predebridement measurement is 11.7 x 1.7 x 0.2 cm. Postdebridement measurement is 11.5 x 1.9 x 0.2 cm EpiMesh 4 x 4.5 cm was applied to the left full-thickness ulceration with 100% use. 10th application. The graft site was free and clear of any infection. The wound/skin graft substitute was dressed with nonadherent bandage secured in place with Steri-Strips followed by bolster dressing as well as a double layer Tubigrip. 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 (Physician/TANK HOUSE OPERATOR HELPER ) ) Arrival Mode Ambulatory Ambulatory Transfer Assistance None Accompanied by nurse Patient Identification Verified (Name & Yes Yes ) Patient Requires Transmission-Based No Precautions Safety Precautions NA Height and Weight Body Mass Index (BMI) 31.1 31.1 BMI Classification Obese Obese Vital Signs Temperature (97.8 F-99.1 F) 97.8 F 97.0 F L Temperature Source Temporal Temporal Pulse Rate (60-100) 74 67 Pulse Location Monitor Respiratory Rate (12-18) 18 16 Respiratory rate source Observation Oxygen Delivery Method Room Air Blood Pressure (90/60-120/80) 120/70 116/65 Blood Pressure Mean (mm Hg) 86 82 Source Monitor Position Semi-Fowlers Blood Pressure Location Left Arm History Since Last Visit- (Skip if this is Patient's initial visit) Have you changed medications since your No No last visit? Any new allergies or adverse reactions No No Had a fall/change in ADL's that may No No increase risk of falls Signs or symptoms of abuse and/or No No neglect since last visit Have you been in the hospital since your No No last visit? Has dressing in place as prescribed Yes Yes Has compression in place as prescribed Yes Yes Has offloadiing in place as prescribed N/A N/A Experienced any changes in pain level or No No management Left Footwear Regular Shoe Right Footwear Regular Shoe Pain Scale: 0-10 Numeric Is Patient Pain Free? Yes Yes WC - Nurse 1 - General Ulcer Measurement Start: 10/11/23 09:00 Freq: Status: Active Protocol: Activity Type Activity Date Activity User E-sign Co-sign Detail Recorded Client Recorded Date Recorded By Document 10/11/23 09:00 PL Tablet 10/11/23 09:09 PL Document 10/18/23 09:12 KW Desktop 10/18/23 09:21 KW 10/11/23 10/18/23 09:00 09:12 Wound Center Nurse 1 Left Medial LE -Combined with other wound No -Current Size (cm) - Length 12.0 11.7 -Current Size (cm) - Width 2.0 1.9 -Current Size (cm) - Depth 0.3 0.3 -Total Square Cm 24.00 22.23 -Date of Last Picture (Recall this 10/18/23 field) -Photo Taken No Yes -Epithelialization Medium 34-66% -Tunneling No -Undermining/Tunneling No -Circular Undermining No -Classification - Thickness Full Thickness without Exposed Support Structure -Exudate Amt Medium Medium -Exudate Type Serosanguineous Serosanguineous -Wound Margin Distinct, Outline Attached -Granulation Amt Medium (34-66%) Medium (34-66%) -Granulation Quality [place] Red -Slough/Fibrin Yes -Necrosis Amt Medium (34-66%) Small (1-33%) -Necrotic Tissue Type Adherent Slough Adherent Slough -Texture (Reyna-wound Skin Appearance) Assessed -Moisture (Reyan-wound Skin Appearance) Assessed -Color (Reyna-wound Skin Appearance) Assessed -Temperature (Reyna-wound Skin No Abnormality Appearance) (Pt Warm) -Ulcer Cleansing Soap and Water Soap and Water -Foul Odor after Cleansing No -Anesthetic Used 5% Lidocaine 5% Lidocaine Gel Gel Left Calf (cm) 38.5 Left Ankle (cm) 24.5 WC - Nurse 2 - General Ulcer CM Notes Start: 10/11/23 09:00 Freq: Status: Active Protocol: Activity Type Activity Date Activity User E-sign Co-sign Detail Recorded Client Recorded Date Recorded By Document 10/11/23 09:20 JF Laptop 10/11/23 09:26 JF Edit Result 10/11/23 09:20 JF (1) [id number] 10/12/23 06:43 PL Document 10/18/23 09:31 JF Laptop 10/18/23 09:32 JF (1) Right lateral Ankle - Apply Skin Sub - 1st 25 sq cm - Legs 1 => - Epifix Mesh (per sq cm) 11 => 10/11/23 10/18/23 09:20 09:31 Wound Center Nurse 2 Right lateral Ankle -Time 09:21 -Correct Patient No -Correct Side, Site, Position No -Correct Procedure No -Procedure Performed No -Tunneling No -Undermining/Tunneling No -Circular Undermining No -Wound/Ulcer Outcome Not Healed -Ulcer Cleansing Rinsed/ Irrigated with Saline -Foul Odor after Cleansing No -Bioengineered Tissue Yes -Type of Bioengineered Tissue Epifix Mesh -Expiration Date 05/05/28 -Product Lot Number [id number] -Percent Used 100 -Bleeding Controlled with Pressure -Treatment Response Procedure Tolerated Well -Offloading No -Debridement - Subq, 1st 20sq cm No Left Medial LE -Time 09:25 09:31 -Correct Patient Yes Yes -Correct Side, Site, Position Yes Yes -Correct Procedure Yes Yes -Procedure Performed Yes Yes -Type of Procedure Debridement Debridement -Clinical Debridement Subcutaneous Muscle / Fascia -Tissue Removed Subcutaneous Muscle -Post Debridement (cm) - Length 12 11.5 -Post Debridement (cm) - Width 2 1.9 -Post Debridement (cm) - Depth 0.3 0.2 -Total Square (Post) (cm) 24 21.85 -Area of Debridement (cm) - Length 12 11.5 -Area of Debridement (cm) - Width 2.0 1.9 -Total Square (Area) (cm) 24.0 21.85 -Tunneling No No -Undermining/Tunneling No No -Circular Undermining No No -Wound/Ulcer Outcome Not Healed Not Healed -Ulcer Cleansing Rinsed/ Rinsed/ Irrigated with Irrigated with Saline Saline -Foul Odor after Cleansing No No -Bioengineered Tissue Yes Yes -Type of Bioengineered Tissue Epifix Mesh Epifix Mesh -Expiration Date 05/05/28 05/05/28 -Product Lot Number [id number] -Percent Used 100 100 -Lot number of Saline Used [id number] -Bleeding Controlled with Pressure Pressure -Treatment Response Procedure Procedure Tolerated Well Tolerated Well -Offloading No No -Debridement - Subq, 1st 20sq cm No No -Debridement - Muscle / Fascia, 1st No 20sq cm -Apply Skin Sub - 1st 25 sq cm - Legs 1 1 -Epifix Mesh (per sq cm) 11 11 Pain Scale: 0-10 Numeric Is Patient Pain Free? Yes Yes - Nurse 3 - General Ulcer D/C NN Start: 10/11/23 09:00 Freq: Status: Active Protocol: Activity Type Activity Date Activity User E-sign Co-sign Detail Recorded Client Recorded Date Recorded By Document 10/11/23 09:37 PL Tablet 10/11/23 09:39 PL 10/11/23 09:37 Wound Care Center Nurse 3 Left Medial LE -Ulcer Cleansing Not Cleansed -Foul Odor after Cleansing No -Other Dressing ABD,Kerlix -Primary Dressing Covered/Secured with Secured with Tape Left -Tubular Bandage Double Layer -Size of Tubigrip Used Size F -Size F ($) 2 Pain Scale: 0-10 Numeric Is Patient Pain Free? Yes WC - Visit Discharge Discharge Condition Stable Ambulatory Status Ambulatory Transportation Private Auto Assessment/Plan Assessment/Plan (1) Non-pressure chronic ulcer of other part of left lower leg with necrosis of muscle: CODE(S): L97.823 - Non-pressure chronic ulcer of other part of left lower leg with necrosis of muscle PLAN: Patient was examined and evaluated. All findings were discussed with the patient. All questions were answered to the patient's satisfaction. Excisional debridement using the [employer]'s debrider down to and including muscle to the left medial full-thickness ulceration without incident. Predebridement measurement is 11.7 x 1.7 x 0.2 cm. Postdebridement measurement is 11.5 x 1.9 x 0.2 cm EpiMesh 4 x 4.5 cm was applied to the left full-thickness ulceration with 100% use. 10th application. The graft site was free and clear of any infection. The wound/skin graft substitute was dressed with nonadherent bandage secured in place with Steri-Strips followed by bolster dressing as well as a double layer Tubigrip. Still waiting on approval for surgical intervention to left lower extremity. Educated the patient to have his caregiver call the office for scheduled appointment time for the case. I recommended Monday mornings. They are understanding of this. We are all done with the application skin graft substitute as we have shown improvement with ulceration. We will plan for surgical debridement with application of skin graft substitute in the operating room when approved. Patient will continue to follow the wound care center weekly. He was Pleased with this. Follow-up at the wound care center with Dr. Cadena in 1 week. (2) Ulcer of extremity due to chronic venous insufficiency: CODE(S): L98.499 - Non-pressure chronic ulcer of skin of other sites with unspecified severity; I87.2 - Venous insufficiency (chronic) (peripheral) (3) Peripheral vascular disease: CODE(S): I73.9 - Peripheral vascular disease, unspecified
[2023-10-25 09:06] VITALS: BP 148/86; PULSE 75; RESP 18; TEMP 35.8; BMI 31.1
--- NOTE | 2023-10-25 09:39 | PCM.WC.PN ---
History of Present Illness Date of Service: 10/25/23 Chief Complaint: Bilateral leg ulcerations History of Wound: Mr. Ramirez is a 63-year-old male presenting to the wound care center today at [facility] with a chief complaint of bilateral leg ulcerations. Patient resides at a nursing facility where he is cared for 24 hours a day. Patient has a bit of cognitive dysfunction and is well medicated today with 2 mg of Ativan. Patient has seen wound care in the past but presents with worsening larger wound to the left leg/ankle area. Patient denies of any trauma. Patient denies any constitutional symptoms. No other pedal complaints at this time. Progress of Wound: Left lower extremity wound is stable with no infection. Subjective Subjective Mr. Ramirez is a 63-year-old male presenting to wound care center today for follow-up evaluation of left lower extremity leg ulceration. Patient's caregiver has been doing daily dressing changes as well as as needed dressing changes. Surgery is planned for November 05, 2023. He has kept his dressing clean dry and intact. Denies trauma. Denies constitutional symptoms. Other pedal complaints at this time. Objective Data Objective Data Vital Signs: Vital Signs Temp Pulse Resp BP O2 Del Method 96.4 F L 75 18 148/86 H Room Air 10/25/23 09:06 10/25/23 09:06 10/25/23 09:06 10/25/23 09:06 10/25/23 09:06 Oxygen Delivery Method Room Air Weight: 107.048 kg Body Mass Index (BMI) 31.1 Physical Exam Narrative Vascular: DP and PT pulses are faintly palpable. CFT is brisk. Skin temperature is warm to warm from proximal ankle to distal digits. Blanchable erythema to periwound. No sign of infection. Neurological: Light touch intact. Patient responds to painful stimuli. Dermatological: Full-thickness ulceration appreciated to the left lateral ankle measuring 11.4 x 1.9 x 0.2 cm. Wound base is fibrogranular nature. No sign of infection. Both wounds show no evidence of tunneling or undermining. No evidence ofprobe to bone bilateral. Excisional debridement using a #7 mm dermal curette down to and including muscle to the left medial full-thickness ulceration without incident. Predebridement measurement is 11.0 x 1.8 x 0.2 cm. Postdebridement measurement is 11.4 x 1.9 x 0.2 cm. Musculoskeletal: No pain to palpation of full-thickness ulceration with no pain with calf pressure Debridement Note Debridement Note Debridement Free Text: Excisional debridement using a #7 mm dermal curette down to and including muscle to the left medial full-thickness ulceration without incident. Predebridement measurement is 11.0 x 1.8 x 0.2 cm. Postdebridement measurement is 11.4 x 1.9 x 0.2 cm. Post-Debridement Measurements and Additional Note: Post-Debridement Measurements/Treatment - Nurse 1 - General Ulcer Assessment Start: 10/11/23 09:00 Freq: Status: Active Protocol: [email or web address] Activity Type Activity Date Activity User E-sign Co-sign Detail Recorded Client Recorded Date Recorded By Document 10/11/23 09:00 PL Tablet 10/11/23 09:09 PL Document 10/18/23 09:12 KW Desktop 10/18/23 09:21 KW Document 10/25/23 09:06 KW Desktop 10/25/23 09:11 KW 10/11/23 10/18/23 10/25/23 09:00 09:12 09:06 - Today's Visit Information Type of service Follow-up Visit Follow-up Visit Follow-up Visit (Physician/HIGH VOLTAGE ELECTRICIAN (Physician/HIGH VOLTAGE ELECTRICIAN (Physician/HIGH VOLTAGE ELECTRICIAN ) ) ) Arrival Mode Ambulatory Ambulatory Ambulatory Transfer Assistance None Accompanied by nurse nurse Patient Identification Verified (Name & Yes Yes Yes ) Patient Requires Transmission-Based No Precautions Safety Precautions NA Height and Weight Body Mass Index (BMI) 31.1 31.1 31.1 BMI Classification Obese Obese Obese Vital Signs Temperature (97.8 F-99.1 F) 97.8 F 97.0 F L 96.4 F L Temperature Source Temporal Temporal Temporal Pulse Rate (60-100) 74 67 75 Pulse Location Monitor Monitor Respiratory Rate (12-18) 18 16 18 Respiratory rate source Observation Observation Oxygen Delivery Method Room Air Room Air Blood Pressure (90/60-120/80) 120/70 116/65 148/86 H Blood Pressure Mean (mm Hg) 86 82 106 Source Monitor Monitor Position Semi-Fowlers Semi-Fowlers Blood Pressure Location Left Arm Left Arm History Since Last Visit- (Skip if this is Patient's initial visit) Have you changed medications since your No No No last visit? Any new allergies or adverse reactions No No No Had a fall/change in ADL's that may No No No increase risk of falls Signs or symptoms of abuse and/or No No No neglect since last visit Have you been in the hospital since your No No No last visit? Has dressing in place as prescribed Yes Yes Yes Has compression in place as prescribed Yes Yes Yes Has offloadiing in place as prescribed N/A N/A N/A Experienced any changes in pain level or No No No management Left Footwear Regular Shoe Regular Shoe Right Footwear Regular Shoe Regular Shoe Pain Scale: 0-10 Numeric Is Patient Pain Free? Yes Yes Yes WC - Nurse 1 - General Ulcer Measurement Start: 10/11/23 09:00 Freq: Status: Active Protocol: Activity Type Activity Date Activity User E-sign Co-sign Detail Recorded Client Recorded Date Recorded By Document 10/11/23 09:00 PL Tablet 10/11/23 09:09 PL Document 10/18/23 09:12 KW Desktop 10/18/23 09:21 KW Document 10/25/23 09:06 KW Desktop 10/25/23 09:11 KW 10/11/23 10/18/23 10/25/23 09:00 09:12 09:06 Wound Center Nurse 1 Left Medial LE -Combined with other wound No -Current Size (cm) - Length 12.0 11.7 12 -Current Size (cm) - Width 2.0 1.9 2 -Current Size (cm) - Depth 0.3 0.3 0.3 -Total Square Cm 24.00 22.23 24 -Date of Last Picture (Recall this 10/18/23 10/25/23 field) -Photo Taken No Yes Yes -Epithelialization Medium 34-66% Small 1-33% -Tunneling No -Undermining/Tunneling No -Circular Undermining No -Classification - Thickness Full Thickness without Exposed Support Structure -Exudate Amt Medium Medium Medium -Exudate Type Serosanguineous Serosanguineous Serosanguineous -Wound Margin Distinct, Distinct, Outline Outline Attached Attached -Granulation Amt Medium (34-66%) Medium (34-66%) Medium (34-66%) -Granulation Quality Revloc Red Red -Slough/Fibrin Yes -Necrosis Amt Medium (34-66%) Small (1-33%) Small (1-33%) -Necrotic Tissue Type Adherent Slough Adherent Slough Adherent Slough -Texture (Reyna-wound Skin Appearance) Assessed Assessed -Moisture (Reyna-wound Skin Appearance) Assessed Assessed -Color (Reyna-wound Skin Appearance) Assessed Assessed -Temperature (Reyna-wound Skin No Abnormality No Abnormality Appearance) (Pt Warm) (Pt Warm) -Ulcer Cleansing Soap and Water Soap and Water Soap and Water -Foul Odor after Cleansing No No -Anesthetic Used 5% Lidocaine 5% Lidocaine 4% Lidocaine Gel Gel Solution Right Calf (cm) 39.2 Right Ankle (cm) 24 Left Calf (cm) 38.5 Left Ankle (cm) 24.5 WC - Nurse 2 - General Ulcer CM Notes Start: 10/11/23 09:00 Freq: Status: Active Protocol: Activity Type Activity Date Activity User E-sign Co-sign Detail Recorded Client Recorded Date Recorded By Document 10/11/23 09:20 JF Laptop 10/11/23 09:26 JF Edit Result 10/11/23 09:20 JF (1) [id number] 10/12/23 06:43 PL Document 10/18/23 09:31 JF Laptop 10/18/23 09:32 JF Document 10/25/23 09:19 JF Laptop 10/25/23 09:21 JF (1) Right lateral Ankle - Apply Skin Sub - 1st 25 sq cm - Legs 1 => - Epifix Mesh (per sq cm) 11 => 10/11/23 10/18/23 10/25/23 09:20 09:31 09:19 Wound Center Nurse 2 Right lateral Ankle -Time 09:21 -Correct Patient No -Correct Side, Site, Position No -Correct Procedure No -Procedure Performed No -Tunneling No -Undermining/Tunneling No -Circular Undermining No -Wound/Ulcer Outcome Not Healed -Ulcer Cleansing Rinsed/ Irrigated with Saline -Foul Odor after Cleansing No -Bioengineered Tissue Yes -Type of Bioengineered Tissue Epifix Mesh -Expiration Date 05/05/28 -Product Lot Number [id number] -Percent Used 100 -Bleeding Controlled with Pressure -Treatment Response Procedure Tolerated Well -Offloading No -Debridement - Subq, 1st 20sq cm No Left Medial LE -Time 09:25 09:31 09:20 -Correct Patient Yes Yes Yes -Correct Side, Site, Position Yes Yes Yes -Correct Procedure Yes Yes Yes -Procedure Performed Yes Yes Yes -Type of Procedure Debridement Debridement Debridement -Clinical Debridement Subcutaneous Muscle / Fascia Subcutaneous -Tissue Removed Subcutaneous Muscle Subcutaneous -Post Debridement (cm) - Length 12 11.5 11.4 -Post Debridement (cm) - Width 2 1.9 1.9 -Post Debridement (cm) - Depth 0.3 0.2 0.2 -Total Square (Post) (cm) 24 21.85 21.66 -Area of Debridement (cm) - Length 12 11.5 11.4 -Area of Debridement (cm) - Width 2.0 1.9 1.9 -Total Square (Area) (cm) 24.0 21.85 21.66 -Tunneling No No No -Undermining/Tunneling No No No -Circular Undermining No No No -Wound/Ulcer Outcome Not Healed Not Healed Not Healed -Ulcer Cleansing Rinsed/ Rinsed/ Rinsed/ Irrigated with Irrigated with Irrigated with Saline Saline Saline -Foul Odor after Cleansing No No No -Bioengineered Tissue Yes Yes No -Type of Bioengineered Tissue Epifix Mesh Epifix Mesh -Expiration Date 05/05/28 05/05/28 -Product Lot Number [id number] -Percent Used 100 100 -Lot number of Saline Used [id number] -Bleeding Controlled with Pressure Pressure Pressure -Treatment Response Procedure Procedure Procedure Tolerated Well Tolerated Well Tolerated Well -Offloading No No No -Debridement - Subq, 1st 20sq cm No No Yes -Debridement, SubQ, ea addt'l 20sq cm 1 or part thereof -Debridement - Muscle / Fascia, 1st No 20sq cm -Apply Skin Sub - 1st 25 sq cm - Legs 1 1 -Epifix Mesh (per sq cm) 11 11 Pain Scale: 0-10 Numeric Is Patient Pain Free? Yes Yes Yes WC - Nurse 3 - General Ulcer D/C NN Start: 10/11/23 09:00 Freq: Status: Active Protocol: Activity Type Activity Date Activity User E-sign Co-sign Detail Recorded Client Recorded Date Recorded By Document 10/11/23 09:37 PL Tablet 10/11/23 09:39 PL Document 10/18/23 09:44 KW Desktop 10/18/23 09:45 KW Document 10/25/23 09:33 JF Laptop 10/25/23 09:34 JF 10/11/23 10/18/23 10/25/23 09:37 09:44 09:33 Wound Care Center Nurse 3 Left Medial LE -Ulcer Cleansing Not Cleansed Rinsed/ Irrigated with Saline -Foul Odor after Cleansing No No -Primary Dressing Applied Promogran Madeline Matter -Other Dressing ABD,Kerlix betadine- periulcer -Primary Dressing Covered/Secured with Secured with Dry Gauze & Dry Gauze & Tape Roll Gauze, Roll Gauze Secured with Tape -Promogran Madeline Matter 1 Left -Tubular Bandage Double Layer Double Layer Double Layer -Size of Tubigrip Used Size F Size E Size E -Size E ($) 2 2 -Size F ($) 2 Pain Scale: 0-10 Numeric Is Patient Pain Free? 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 All findings were discussed with the patient. All questions were answered to the patient's satisfaction. Excisional debridement using a #7 mm dermal curette down to and including muscle to the left medial full-thickness ulceration without incident. Predebridement measurement is 11.0 x 1.8 x 0.2 cm. Postdebridement measurement is 11.4 x 1.9 x 0.2 cm. Left lower extremities were cleaned and patted dry. The ulceration was dressed with Madeline, Betadine paint periwound, dry sterile dressing and double layer Tubigrip was donned to left lower extremity. Wound care orders were given to the her daily dressing changes as at as well as as needed changes. Will plan for OR debridement and application of skin graft substitute left lower extremity on November 05, 2023. Follow-up at the wound care center with Dr. Cadena in 1 week. (2) Peripheral vascular disease: CODE(S): I73.9 - Peripheral vascular disease, unspecified
[2023-11-01 09:05] VITALS: BP 107/70; PULSE 69; RESP 18; TEMP 36.1; BMI 31.1
--- NOTE | 2023-11-01 09:33 | PN.PCM_ITS ---
History of Present Illness Date of Service: 11/01/23 Chief Complaint: Bilateral leg ulcerations History of Wound: Mr. Ramirez is a 63-year-old male presenting to the wound care center today at [facility] with a chief complaint of bilateral leg ulcerations. Patient resides at a nursing facility where he is cared for 24 hours a day. Patient has a bit of cognitive dysfunction and is well medicated today with 2 mg of Ativan. Patient has seen wound care in the past but presents with worsening larger wound to the left leg/ankle area. Patient denies of any trauma. Patient denies any constitutional symptoms. No other pedal complaints at this time. Progress of Wound: Left lower extremity wound is stable with no infection. Subjective Subjective Mr. Ramirez is a 63-year-old male presenting to wound care center today for follow- up evaluation of left lower extremity leg ulceration. Patient's caregiver has been doing daily dressing changes as well as as needed dressing changes. Surgery is planned for November 05, 2023. He has kept his dressing clean dry and intact. Denies trauma. Denies constitutional symptoms. Other pedal complaints at this time. Objective Data Objective Data Vital Signs: Vital Signs Temp Pulse Resp BP O2 Del Method 96.9 F L 69 18 107/70 Room Air 11/01/23 09:05 11/01/23 09:05 11/01/23 09:05 11/01/23 09:05 11/01/23 09:05 Oxygen Delivery Method Room Air Weight: 107.048 kg Body Mass Index (BMI) 31.1 Physical Exam Narrative Vascular: DP and PT pulses are faintly palpable. CFT is brisk. Skin temperature is warm to warm from proximal ankle to distal digits. Blanchable erythema to periwound. No sign of infection. Neurological: Light touch intact. Patient responds to painful stimuli. Dermatological: Full-thickness ulceration appreciated to the left lateral ankle measuring 11.3 x 1.5 x 0.2 cm. Wound base is fibrogranular nature. No sign of infection. Both wounds show no evidence of tunneling or undermining. No evidence ofprobe to bone bilateral. Excisional debridement using a #7 mm dermal curette down to and including muscle to the left medial full-thickness ulceration without incident. Predebridement measurement is 11.1 x 1.3 x 0.2 cm. Postdebridement measurement is 11.3 x 1.5 x 0.2 cm. Musculoskeletal: No pain to palpation of full-thickness ulceration with no pain with calf pressure Debridement Note Debridement Note Debridement Free Text: Excisional debridement using a #7 mm dermal curette down to and including muscle to the left medial full-thickness ulceration without incident. Predebridement measurement is 11.1 x 1.3 x 0.2 cm. Postdebridement measurement is 11.3 x 1.5 x 0.2 cm. Post-Debridement Measurements and Additional Note: Post-Debridement Measurements/Treatment WC - Nurse 1 - General Ulcer Assessment Start: 10/11/23 09:00 Freq: Status: Active Protocol: WC.[employer] Activity Type Activity Date Activity User E-sign Co-sign Detail Recorded Client Recorded Date Recorded By Document 10/11/23 09:00 PL Tablet 10/11/23 09:09 PL Document 10/18/23 09:12 KW Desktop 10/18/23 09:21 KW Document 10/25/23 09:06 KW Desktop 10/25/23 09:11 KW Document 11/01/23 09:05 KW Desktop 11/01/23 09:11 KW 10/11/23 10/18/23 10/25/23 09:00 09:12 09:06 WC - Today's Visit Information Type of service Follow-up Visit Follow-up Visit Follow-up Visit (Physician/EXTERIOR DOOR INSTALLER (Physician/EXTERIOR DOOR INSTALLER (Physician/EXTERIOR DOOR INSTALLER ) ) ) Arrival Mode Ambulatory Ambulatory Ambulatory Transfer Assistance None Accompanied by nurse nurse Patient Identification Verified (Name & Yes Yes Yes ) Patient Requires Transmission-Based No Precautions Safety Precautions NA Height and Weight Body Mass Index (BMI) 31.1 31.1 31.1 BMI Classification Obese Obese Obese Vital Signs Temperature (97.8 F-99.1 F) 97.8 F 97.0 F L 96.4 F L Temperature Source Temporal Temporal Temporal Pulse Rate (60-100) 74 67 75 Pulse Location Monitor Monitor Respiratory Rate (12-18) 18 16 18 Respiratory rate source Observation Observation Oxygen Delivery Method Room Air Room Air Blood Pressure (90/60-120/80) 120/70 116/65 148/86 H Blood Pressure Mean (mm Hg) 86 82 106 Source Monitor Monitor Position Semi-Fowlers Semi-Fowlers Blood Pressure Location Left Arm Left Arm History Since Last Visit- (Skip if this is Patient's initial visit) Have you changed medications since your No No No last visit? Any new allergies or adverse reactions No No No Had a fall/change in ADL's that may No No No increase risk of falls Signs or symptoms of abuse and/or No No No neglect since last visit Have you been in the hospital since your No No No last visit? Has dressing in place as prescribed Yes Yes Yes Has compression in place as prescribed Yes Yes Yes Has offloadiing in place as prescribed N/A N/A N/A Experienced any changes in pain level or No No No management Left Footwear Regular Shoe Regular Shoe Right Footwear Regular Shoe Regular Shoe Pain Scale: 0-10 Numeric Is Patient Pain Free? Yes Yes Yes 11/01/23 09:05 WC - Today's Visit Information Type of service Follow-up Visit (Physician/EXTERIOR DOOR INSTALLER ) Arrival Mode Ambulatory Transfer Assistance Accompanied by nurse Patient Identification Verified (Name & Yes ) Patient Requires Transmission-Based Precautions Safety Precautions Height and Weight Body Mass Index (BMI) 31.1 BMI Classification Obese Vital Signs Temperature (97.8 F-99.1 F) 96.9 F L Temperature Source Temporal Pulse Rate (60-100) 69 Pulse Location Monitor Respiratory Rate (12-18) 18 Respiratory rate source Observation Oxygen Delivery Method Room Air Blood Pressure (90/60-120/80) 107/70 Blood Pressure Mean (mm Hg) 82 Source Monitor Position Semi-Fowlers Blood Pressure Location Left Arm History Since Last Visit- (Skip if this is Patient's initial visit) Have you changed medications since your No last visit? Any new allergies or adverse reactions No Had a fall/change in ADL's that may No increase risk of falls Signs or symptoms of abuse and/or No neglect since last visit Have you been in the hospital since your No last visit? Has dressing in place as prescribed Yes Has compression in place as prescribed Yes Has offloadiing in place as prescribed N/A Experienced any changes in pain level or No management Left Footwear Regular Shoe Right Footwear Regular Shoe Pain Scale: 0-10 Numeric Is Patient Pain Free? Yes WC - Nurse 1 - General Ulcer Measurement Start: 10/11/23 09:00 Freq: Status: Active Protocol: Activity Type Activity Date Activity User E-sign Co-sign Detail Recorded Client Recorded Date Recorded By Document 10/11/23 09:00 PL Tablet 10/11/23 09:09 PL Document 10/18/23 09:12 KW Desktop 10/18/23 09:21 KW Document 10/25/23 09:06 KW Desktop 10/25/23 09:11 KW Document 11/01/23 09:05 KW Desktop 11/01/23 09:11 KW 10/11/23 10/18/23 10/25/23 09:00 09:12 09:06 Wound Center Nurse 1 Left Medial LE -Combined with other wound No -Current Size (cm) - Length 12.0 11.7 12 -Current Size (cm) - Width 2.0 1.9 2 -Current Size (cm) - Depth 0.3 0.3 0.3 -Total Square Cm 24. 24 -Date of Last Picture (Recall this 10/18/23 10/25/23 field) -Photo Taken No Yes Yes -Epithelialization Medium 34-66% Small 1-33% -Tunneling No -Undermining/Tunneling No -Circular Undermining No -Classification - Thickness Full Thickness without Exposed Support Structure -Exudate Amt Medium Medium Medium -Exudate Type Serosanguineous Serosanguineous Serosanguineous -Wound Margin Distinct, Distinct, Outline Outline Attached Attached -Granulation Amt Medium (34-66%) Medium (34-66%) Medium (34-66%) -Granulation Quality [place] Red Red -Slough/Fibrin Yes -Necrosis Amt Medium (34-66%) Small (1-33%) Small (1-33%) -Necrotic Tissue Type Adherent Slough Adherent Slough Adherent Slough -Texture (Reyna-wound Skin Appearance) Assessed Assessed -Moisture (Reyna-wound Skin Appearance) Assessed Assessed -Color (Reyna-wound Skin Appearance) Assessed Assessed -Temperature (Reyna-wound Skin No Abnormality No Abnormality Appearance) (Pt Warm) (Pt Warm) -Ulcer Cleansing Soap and Water Soap and Water Soap and Water -Foul Odor after Cleansing No No -Anesthetic Used 5% Lidocaine 5% Lidocaine 4% Lidocaine Gel Gel Solution Right Calf (cm) 39.2 Right Ankle (cm) 24 Left Calf (cm) 38.5 Left Ankle (cm) 24.5 11/01/23 09:05 Wound Center Nurse 1 Left Medial LE -Combined with other wound -Current Size (cm) - Length 11.2 -Current Size (cm) - Width 1.4 -Current Size (cm) - Depth 0.2 -Total Square Cm 15.68 -Date of Last Picture (Recall this 11/01/23 field) -Photo Taken Yes -Epithelialization -Tunneling -Undermining/Tunneling -Circular Undermining -Classification - Thickness -Exudate Amt Medium -Exudate Type Serosanguineous -Wound Margin Distinct, Outline Attached -Granulation Amt Large (67-100%) -Granulation Quality Red -Slough/Fibrin -Necrosis Amt Small (1-33%) -Necrotic Tissue Type Adherent Slough -Texture (Reyna-wound Skin Appearance) Assessed -Moisture (Reyna-wound Skin Appearance) Assessed -Color (Reyna-wound Skin Appearance) Assessed -Temperature (Reyna-wound Skin No Abnormality Appearance) (Pt Warm) -Ulcer Cleansing Soap and Water -Foul Odor after Cleansing No -Anesthetic Used 5% Lidocaine Gel Right Calf (cm) Right Ankle (cm) Left Calf (cm) 38.5 Left Ankle (cm) 23.6 WC - Nurse 2 - General Ulcer CM Notes Start: 10/11/23 09:00 Freq: Status: Active Protocol: Activity Type Activity Date Activity User E-sign Co-sign Detail Recorded Client Recorded Date Recorded By Document 10/11/23 09:20 Laptop 10/11/23 09:26 JF Edit Result 10/11/23 09:20 JF (1) [id number] 10/12/23 06:43 PL Document 10/18/23 09:31 JF Laptop 10/18/23 09:32 JF Document 10/25/23 09:19 JF Laptop 10/25/23 09:21 JF Document 11/01/23 09:19 JF Laptop 11/01/23 09:20 JF (1) Right lateral Ankle - Apply Skin Sub - 1st 25 sq cm - Legs 1 => - Epifix Mesh (per sq cm) 11 => 10/11/23 10/18/23 10/25/23 09:20 09:31 09:19 Wound Center Nurse 2 Right lateral Ankle -Time 09:21 -Correct Patient No -Correct Side, Site, Position No -Correct Procedure No -Procedure Performed No -Tunneling No -Undermining/Tunneling No -Circular Undermining No -Wound/Ulcer Outcome Not Healed -Ulcer Cleansing Rinsed/ Irrigated with Saline -Foul Odor after Cleansing No -Bioengineered Tissue Yes -Type of Bioengineered Tissue Epifix Mesh -Expiration Date 05/05/28 -Product Lot Number [id number] -Percent Used 100 -Bleeding Controlled with Pressure -Treatment Response Procedure Tolerated Well -Offloading No -Debridement - Subq, 1st 20sq cm No Left Medial LE -Time 09:25 09:31 09:20 -Correct Patient Yes Yes Yes -Correct Side, Site, Position Yes Yes Yes -Correct Procedure Yes Yes Yes -Procedure Performed Yes Yes Yes -Type of Procedure Debridement Debridement Debridement -Clinical Debridement Subcutaneous Muscle / Fascia Subcutaneous -Tissue Removed Subcutaneous Muscle Subcutaneous -Post Debridement (cm) - Length 12 11.5 11.4 -Post Debridement (cm) - Width 2 1.9 1.9 -Post Debridement (cm) - Depth 0.3 0.2 0.2 -Total Square (Post) (cm) 24 21.85 21.66 -Area of Debridement (cm) - Length 12 11.5 11.4 -Area of Debridement (cm) - Width 2.0 1.9 1.9 -Total Square (Area) (cm) 24.0 21.85 21.66 -Tunneling No No No -Undermining/Tunneling No No No -Circular Undermining No No No -Wound/Ulcer Outcome Not Healed Not Healed Not Healed -Ulcer Cleansing Rinsed/ Rinsed/ Rinsed/ Irrigated with Irrigated with Irrigated with Saline Saline Saline -Foul Odor after Cleansing No No No -Bioengineered Tissue Yes Yes No -Type of Bioengineered Tissue Epifix Mesh Epifix Mesh -Expiration Date 05/05/28 05/05/28 -Product Lot Number [id number] -Percent Used 100 100 -Lot number of Saline Used [id number] -Bleeding Controlled with Pressure Pressure Pressure -Treatment Response Procedure Procedure Procedure Tolerated Well Tolerated Well Tolerated Well -Offloading No No No -Debridement - Subq, 1st 20sq cm No No Yes -Debridement, SubQ, ea addt'l 20sq cm 1 or part thereof -Debridement - Muscle / Fascia, 1st No 20sq cm -Apply Skin Sub - 1st 25 sq cm - Legs 1 1 -Epifix Mesh (per sq cm) 11 11 Pain Scale: 0-10 Numeric Is Patient Pain Free? Yes Yes Yes 11/01/23 09:19 Wound Center Nurse 2 Right lateral Ankle -Time -Correct Patient -Correct Side, Site, Position -Correct Procedure -Procedure Performed -Tunneling -Undermining/Tunneling -Circular Undermining -Wound/Ulcer Outcome -Ulcer Cleansing -Foul Odor after Cleansing -Bioengineered Tissue -Type of Bioengineered Tissue -Expiration Date -Product Lot Number -Percent Used -Bleeding Controlled with -Treatment Response -Offloading -Debridement - Subq, 1st 20sq cm Left Medial LE -Time 09:20 -Correct Patient Yes -Correct Side, Site, Position Yes -Correct Procedure Yes -Procedure Performed Yes -Type of Procedure Debridement -Clinical Debridement Subcutaneous -Tissue Removed Subcutaneous -Post Debridement (cm) - Length 11.3 -Post Debridement (cm) - Width 1.5 -Post Debridement (cm) - Depth 0.2 -Total Square (Post) (cm) 16.95 -Area of Debridement (cm) - Length 11.3 -Area of Debridement (cm) - Width 1.5 -Total Square (Area) (cm) 16.95 -Tunneling No -Undermining/Tunneling No -Circular Undermining No -Wound/Ulcer Outcome Not Healed -Ulcer Cleansing Rinsed/ Irrigated with Saline -Foul Odor after Cleansing No -Bioengineered Tissue No -Type of Bioengineered Tissue -Expiration Date -Product Lot Number -Percent Used -Lot number of Saline Used -Bleeding Controlled with Pressure -Treatment Response Procedure Tolerated Well -Offloading No -Debridement - Subq, 1st 20sq cm Yes -Debridement, SubQ, ea addt'l 20sq cm or part thereof -Debridement - Muscle / Fascia, 1st 20sq cm -Apply Skin Sub - 1st 25 sq cm - Legs -Epifix Mesh (per sq cm) Pain Scale: 0-10 Numeric Is Patient Pain Free? Yes - Nurse 3 - General Ulcer D/C NN Start: 10/11/23 09:00 Freq: Status: Active Protocol: Activity Type Activity Date Activity User E-sign Co-sign Detail Recorded Client Recorded Date Recorded By Document 10/11/23 09:37 PL Tablet 10/11/23 09:39 PL Document 10/18/23 09:44 KW Desktop 10/18/23 09:45 KW Document 10/25/23 09:33 JF Laptop 10/25/23 09:34 JF Document 11/01/23 09:27 KW Desktop 11/01/23 09:28 KW 10/11/23 10/18/23 10/25/23 09:37 09:44 09:33 Wound Care Center Nurse 3 Left Medial LE -Ulcer Cleansing Not Cleansed Rinsed/ Irrigated with Saline -Foul Odor after Cleansing No No -Primary Dressing Applied Promogran Madeline Matter -Other Dressing ABD,Kerlix betadine- periulcer -Primary Dressing Covered/Secured with Secured with Dry Gauze & Dry Gauze & Tape Roll Gauze, Roll Gauze Secured with Tape -Promogran Madeline Matter 1 Left -Tubular Bandage Double Layer Double Layer Double Layer -Size of Tubigrip Used Size F Size E Size E -Size E ($) 2 2 -Size F ($) 2 Pain Scale: 0-10 Numeric Is Patient Pain Free? Yes Yes Yes WC - Visit Discharge Discharge Condition Stable Stable Stable Ambulatory Status Ambulatory Ambulatory Ambulatory Transportation Private Auto Private Auto Accompanied by Medication Reconcilliation completed & No Yes provided to patient/care provider Clinical Summary of Care Provided Yes Yes 11/01/23 09:27 Wound Care Center Nurse 3 Left Medial LE -Ulcer Cleansing -Foul Odor after Cleansing -Primary Dressing Applied Promogran Madeline Matter -Other Dressing -Primary Dressing Covered/Secured with Dry Gauze & Roll Gauze, Secured with Tape -Promogran Madeline Matter 1 Left -Tubular Bandage Double Layer -Size of Tubigrip Used Size E -Size E ($) 2 -Size F ($) Pain Scale: 0-10 Numeric Is Patient Pain Free? Yes WC - Visit Discharge Discharge Condition Stable Ambulatory Status Ambulatory Transportation Accompanied by nurse Medication Reconcilliation completed & No provided to patient/care provider Clinical Summary of Care Provided Yes Assessment/Plan Assessment/Plan (1) Non-pressure chronic ulcer of other part of left lower leg with necrosis of muscle: CODE(S): L97.823 - Non-pressure chronic ulcer of other part of left lower leg with necrosis of muscle PLAN: Patient was examined and evaluated. All findings were discussed with the patient. All questions were answered to the patient's satisfaction. Excisional debridement using a #7 mm dermal curette down to and including muscle to the left medial full-thickness ulceration without incident. Predebridement measurement is 11.1 x 1.3 x 0.2 cm. Postdebridement measurement is 11.3 x 1.5 x 0.2 cm. Left lower extremity ulcer was white clean and patted dry. The ulceration was dressed with Madeline, dry sterile dressing and a double layer Tubigrip. Patient will follow-up next Monday in the operating room for surgical debridement and graft placement. Follow-up at the wound care center with Dr. Cadena in 1 week. (2) Peripheral vascular disease: CODE(S): I73.9 - Peripheral vascular disease, unspecified
--- NOTE | 2023-11-10 13:22 | WC ---
2.28.24 LT MED LE
== END 2023-11-02 23:59 | disposition home or self-care (01) ==
LOC: WC 09:00
PROVIDERS: PCP Internal Medicine Infectious Disease; Referring Provider Internal Medicine Infectious Disease; Visit Provider Podiatrist Foot & Ankle Surgery
DX: L97.823 Non-pressure chronic ulcer of other part of left lower leg with necrosis of muscle (principal); I73.9 Peripheral vascular disease, unspecified
CPT/HCPCS: 11042; 11045; 15271; Q4186

== ENCOUNTER → 2023-11-07 | Outpatient (CLI) | payer MEDICARE, MEDICAID, SELFPAY ==
--- NOTE | 2023-11-07 08:46 | VDLE_ITS ---
Reason For Study: HX Lt GSV chemical ablation RIGHT LEFT CFV is compressible, spontaneous, phasic, GSV is dilated and NONCOMPRESSIBLE with competent and demonstrates normal intraluminal echoes noted from ankle to augmentation. approximately 4.75cm distal to SFJ. Finding Procedure is consistent with recent chemical ablation. This is a venous duplex using B-mode, color CFV is compressible, spontaneous, phasic, flow and spectral Doppler. competent, and demonstrates normal Exam performed in department. augmentation. The exam was diagnostic. FV is compressible, phasic, and INCOMPETENT for greater than 1.0 second. POP V is compressible, phasic, and INCOMPETENT for greater than 1.0 second. T/P Trunk is compressible. PTV is compressible. LT PerV is compressible. VL/Venous Duplex US, Unilateral Interpretation Summary Deep veins of the left lower extremity are patent and compressible segmentally. There is no evidence of left lower extremity deep vein thrombosis. Left great saphenous vein occluded consistent with recent ablation Ordering Physician: Bianca Schmitz Referring Physician: Madhu Fitzgerald Performed By: Thomas Disla, RVT
--- OUTSIDE RECORDS SUMMARY | 2023-11-07 09:16 | XMS RPT_ITS | CCD ---
Demographics Address [address] [place], [place] [id number] Preferred Language en Marital Status Single Tenriism Affiliation Unknown Race White Ethnic Group Not or Lati no Author Name Unknown Address [address] [place] [address] Organization [facility] Care Team Providers Care Blacking Wheel Tender Name Role Phone Unavailable Primary Care Provider Laurie Grant MD, Oscar Dubose Primary Care Provider [phone] OSCAR GRANT Primary Care Unavailable PRESTON ROBERTS Admitting Unavailable PRESTON ROBERTS Referring Unavailable FANI SANTACRUZ Attending Unavailable SARAN DONG DO Admitting Unavailable KAYLANEREN OSORIO APRN Consulting Unavailabl e KAYLAN STOCK CONTROL CLERK, EREN Pacheco Primary Care Unavailabl e SARAN DONG DO Attending Unavailable SARAN DONG DO Consulting Unavailable HUYNH DO, REGLA K Consulting Unavailable BAYLEE REYNOLDS MD Consulting Unavailable KAYLANEREN OSORIO APRN Attending Unavailabl e KAYLAN STOCK CONTROL CLERK, EREN Pacheco Consulting Unavailabl e KAYLAN STOCK CONTROL CLERK, EREN A Primary Care Unavailabl e KAYLAN STOCK CONTROL CLERK, EREN A Admitting Unavailabl e KIRKHOPE STOCK CONTROL CLERK~[id number], KIRDALTONOPE ILEANA L Admitt ing Unavailable KIRKHOPE STOCK CONTROL CLERK~[id number], KIRDALTONOPE ILEANA L Attend ing Unavailable ARASH BECKFORD DR~[id number] ANGELES Mtz Primary Care U navailable ILEANA MUHAMMAD APRN Consulting Unavailkris e ILEANA MUHAMMAD APRN Consulting Unavailkris ANTOINE MD, DR ANGELES Mtz Consulting Unavailable ARASH BECKFORD, DR ANGELES Mtz Consulting Unavailable OSCAR NARAYAN~[id number] RUDY Admitting Unavailable OSCAR NARAYAN~[id number] RUDY Attending Unavailable ARASH BECKFORD DR~[id number] ANGELES Mtz Primary Care U navailable NONE, NONE Consulting Unavailable DECLINED, DR Consulting Unavailable MARIA ELENA ROSALES, OF [facility] Consulting [facility] RUDY OSCAR, OSCAR~[id number] RUDY Admitting Unavailable RUDY OSCAR, OSCAR~[id number] RUDY Attending Unavailable ARASH BECKFORD DR~[id number] ANGELES Mtz Primary Care [facility] NONE, NONE Consulting Unavailable DECLINED, DR Consulting Unavailable MARIA ELENA ROSALES, OF [facility] Consulting [facility] poornima ANTOINE MD, DR~[id number] ANGELES Mtz Primary Care [facility] RUDY OSCAR, OSCAR~[id number] RUDY Admitting Unavailable RUDY OSCAR, OSCAR~[id number] RUDY Attending Unavailable NONE, NONE Consulting Unavailable DECLINED, DR Consulting Unavailable MARIA ELENA ROSALES, OF [facility] Consulting [facility] poornima ANTOINE MD, DR~[id number] ANGELES Mtz Primary Care [facility] RUDY OSCAR, OSCAR~[id number] RUDY Admitting Unavailable RUDY OSCAR, OSCAR~[id number] RUDY Attending Unavailable NONE, NONE Consulting Unavailable DECLINED, DR Consulting Unavailable MARIA ELENA ROSALES, OF [facility] NONE, NONE Consulting Unavailable RUDY OSCAR, OSCAR~[id number] RUDY Admitting Unavailable RUDY OSCAR, OSCAR~[id number] RUDY Attending Unavailable ARASH BECKFORD DR~[id number] ANGELES Mtz Primary Care [facility] DECLINED, DR Consulting Unavailable RUDY OSCAR, OSCAR~[id number] RUDY Consulting Unavailable RUDY, OSCAR Consulting Unavailable NONE, NONE Consulting Unavailable RUDY OSCAR, OSCAR~[id number] RUDY Admitting Unavailable RDUY OSCAR, OSCAR~[id number] RUDY Attending Unavailable ARASH BECKFORD DR~[id number] ANGELES Mtz Primary Care [facility] DECLINED, DR Consulting Unavailable MARIA ELENA ROSALES, OF [facility] Moraima CONTRERAS Cartwright MD Primary Care [...] Reaction(s) Facility (1 source) Aspirin Drug Allergy [facility] Repository (1 source) Codeine Drug Allergy [facility] Repository (1 source) peanut allergenic extract; Translations: [Peanut] Drug Allergy [facility] Repository Medications Current Medications Medication Drug Class(es) [...] times a day . 0 Active lanolin gjofgym-tq-n.pet-cere s (eucerin) Crea (1 source) lanolin uyrctet-wf-z.pet- ceres (eucerin) Crea Apply 5 (five) g [...] Date Episodic/Chronic Other aftercare (1 source) Other usp (current) drug therapy; Translations: [[employer] CURRENT DRUG THERAPY] Onset: 3 Episodic Other [...] 02-24-2023 08:03-0400 Diastolic blood pressure 78 mm[Hg] [facility] Work Phone: [facility] 02-24-2023 08:03-0400 Heart rate 72 /min Fani Marleyber BOILER CONTROL ROOM OPERATOR Work Phone: [facility] 02-24-2023 08:03-0400 Systolic blood pressure 117 mm[Hg] Fani Santacruz BOILER CONTROL ROOM OPERATOR Work Phone: [facility] Encounters Encounter Date Encounter Type Care Provider Facility Start: 09-04-2023 ambulatory CONTRERAS Struod [facility] Start: 05-01-2023 End: 05-02-2023 Emergency department patient visit SAMANTA VAUGHAN [facility] Start: 03-20-2023 End: 09-03-2023 ambulatory CONTRERAS FLAHERTY [facility] Start: 02-28-2023 End: 03-01-2023 ambulatory [id number] ANGELES ANTOINE MD Facility:[facility] Start: 02-24-2023 End: 02-28-2023 ambulatory OSCAR DUBOSE RUDY [facility] Start: 02-24-2023 End: 02-24-2023 Office consultation new/estab patient 60 min Preston Roberts BOILER CONTROL ROOM OPERATOR Work Phone: [facility] Procedures Date Procedure Procedure Detail Performing Clinician Start: 03-20-2023 PSA screening CONTRERAS RIOS Plan of Treatment Date Care Activity Detail Author Start: 05-05-2023 Influenza vaccination Sequenti al Influenza Vaccine (Season Ended) [facility] Start: 2008 Administration of he rpes zoster vaccine Zoster Vaccines (1 of 2) [facility] Start: 2008 Screening for malign ant neoplasm of colon Flexible sigmoidoscopy [facility] Start: 1976 Hepatitis C screening Hepatitis C Sc reening [facility] Start: 1973 HIV screening HIV Screening [facility] Start: 1970 Depression screening using PHQ-9 (Patient Health Questionnaire 9) score Depression Screening (PHQ-2/9) [facility] Start: 1961 History and physical examination, annual for health maintenance Wellness Visit [facility] Start: 1958 COVID-19 Vaccine (#1) COVID-19 Vacci ne (#1) [facility] Start: 1958 Prostate specific an tigen measurement PSA Level [facility] Start: 1958 Screening for malign ant neoplasm of colon [facility] Start: 1958 Tetanus vaccination Tetanus: Every 1 0yrs [facility] Payers Date Payer Category Payer [facility] MEDICA[facility] MEDICAID [id number] 2013-Present [phone] [address] [place] [address] [id number] 1996 Self-pay 1959 Medicaid [id number] 1958 Unknown [id number] 1958 Unknown [id number] [id number] 1958 Unknown [id number] 2.16.840.1.169305.3.579.2.419 1958 Unknown [id number] 2.16.840.1.483004.3.579.2.419 1958 Unknown [id number] 2.16.840.1.401806.3.579.2.419 1958 Unknown [id number] 2.16.840.1.953920.3.579.2.419 1958 Unknown [id number] 2.16.840.1.556292.3.579.2.419 1958 Unknown [id number] 2.16.840.1.864101.3.579.2.419 1958 Unknown [id number] 2.16.840.1.260668.3.579.2.419 1958 Unknown [id number] 2.16.840.1.253746.3.579.2.419 1958 Unknown [id number] 2.16.840.1.244921.3.579.2.651 1958 Unknown [id number] 2.16.840.1.212457.3.579.2.651 1958 Unknown [id number] 2.16.840.1.586325.3.579.2.651 Unknown [id number] Social History Date Type Detail Facility Start: 02-24-2023 Tobacco smoking status NHIS To bacco smoking consumption unknown [facility] Start: 1960 Sex Assigned At Not on file [facility] Gender identity Not on file [facility] History of Present illness Narrative 02-24-2023 [...] note were not included. NEUROLOGY Outpatient CONSULT [facility] [address] [place] [id number] (office) / [phone] (fax) Patient Name: Barry Smith Date of Consult: 02/24/23 MR #: [id number] : 1960 Name of Neurologist: Fani Santacruz [...] dementia specialist who is currently located in [place], [place]. Signed, Fani Santacruz CNP Neurology This note was partially created using voice recognition software and is inherently subject to errors including those of syntax and sound-alike substitutions which may escape proofreading. In such instances, original meaning may be extrapolated by contextual derivation. Please call with questions. 60 minutes spent qeke-ec-wyfp with the patient with greater than 50% spent in counseling and coordination of care. Chief Complaint Patient presents with Impaired memory History of Present Illness: Barry Smith is a 62 y.o. male on whom I have been asked to consult for evaluation and treatment of memory loss. He presents with staff from [facility]. He has been there less than a year. The aid reports they were told he has had memory problems for several years. He is a poor historian and is unable to tell me how he transitioned from living at home to the [facility]. They manage his medications but he is [...] been diagnosed with dementia. POA: Devonte Franco ([id number]) Anxiety/depression/alcohol History: Past Medical History: Diagnosis Date [...] Abnormal movements: none Rapid alternating movements: normal Fluuuv-lq-ggze intact bilaterally Nlgp-gw-sieb intact bilaterally MOTOR - MUSCLE STRENGTH: Right [...] normal DATA Review: documented in this encounter [facility] Evaluation note Note Date & Type Note Facility documented in this encounter [facility] Evaluation note Note Date & Type Note Facility documented in this encounter [facility] Reason for Referral Specialty Diagnoses / Procedures Referred By Sanaz hernandez Referred To Contact Neurology Diagnoses Cognitive deficits Cognitive communication deficit Alcohol abuse with alcohol-induced mood disorder (HCC) Preston Roberts, BOILER CONTROL ROOM OPERATOR [address] [place] [address] [facility] Referral ID Status Reason Start Date Expiration Date V isits Requested Visits Authorized [id number] Authorized 12/09/2022 12/09/2023 1 1 Summary Purpose [...] with alcohol-induced mood disorder (HCC) Preston Roberts, BOILER CONTROL ROOM OPERATOR [address] [place] [address] [facility] [place] Referral ID Status Reason Start Date Expiration Date Visits Re quested Visits Authorized [id number] Closed 12/09/2022 12/09/2023 1 1 Care Teams (unrecognized sec tion and content) (unrecognized sect ion and content) No Status Records FoundNo Status Records FoundNo Status Records Found INFORMATION SOURCE (unrecogn ized section and content) DATE CREATED AUTHOR AUTHOR'S ORGANIZ ATION 03/01/2023 [facility] DATE CREATED AUTHOR AUTHOR'S ORGANIZ ATION 09/15/2023 [facility] FOR RECORDS PERTAINING TO PATIENTS WHO ARE [...] BE BASED ON THE PRIMARY CLINICAL RECORDS. [employer] provides no warranty or guarantee of the accuracy or completeness of information in this document.
== END | disposition home or self-care (01) ==
PROVIDERS: PCP Internal Medicine Infectious Disease; Referring Provider Physician Assistant; Visit Provider Physician Assistant
DX: I73.9 Peripheral vascular disease, unspecified (principal); L97.823 Non-pressure chronic ulcer of other part of left lower leg with necrosis of muscle; M79.605 Pain in left leg
CPT/HCPCS: 93971

== ENCOUNTER 2023-11-08 05:42 | Day surgery (SDC) | payer MEDICARE, MEDICAID, SELFPAY ==
[2023-11-08] VITALS (7 sets, daily range): BP systolic 86–110; BP diastolic 61–76; PULSE 49–60; RESP 16–18; TEMP 36.4–36.6; O2SAT 96–99; BMI 31.4
[2023-11-08] MEDS: Lactated Ringers 1,000 ML 15 ML IV (06:41)
--- NOTE | 2023-11-08 06:57 | EKG12_ITS ---
Test Reason : PREOP Blood Pressure : / mmHG Vent. Rate : 050 BPM Atrial Rate : 050 BPM P-R Int : 206 ms QRS Dur : 102 ms QT Int : 462 ms P-R-T Axes : 061 -47 005 degrees QTc Int : 421 ms Sinus bradycardia Left axis deviation Abnormal ECG Confirmed by Eliseo Espinoza ([id number]), food expeditor DEANDRA RAMOS ([id number]) on 11/14/2023 8:20:31 AM Referred By: Gerry Cadena Confirmed By:Eliseo Espinoza
[2023-11-08] MEDS: Cefazolin 2 GM in 0.9% Normal Saline (100mL Bag) 100 ML IV (07:26)
--- NOTE | 2023-11-08 07:27 | PCM.OPRPT ---
Problems Associated Problem List Diagnoses (1) Non-pressure chronic ulcer of other part of left lower leg with necrosis of muscle: (2) Peripheral vascular disease: Report of Operation Date of Procedure: 11/08/23 Pre-Operative Diagnosis: 1. Nonpressure ulcer with exposed muscle, left lower extremity 2. Peripheral vascular disease, left lower extremity Post-Operative Diagnosis: 1. Nonpressure ulcer with exposed muscle, left lower extremity 2. Peripheral vascular disease, left lower extremity Surgery/Procedure Performed:: 1. Surgical skin graft site preparation, left lower extremity 2. Application of skin graft substitute, left lower extremity Description of Surgical Findings:: Indications For Operation: Mr. Ramirez is a 63-year-old male who was admitted to [facility] for elective left lower extremity surgery consisting of surgical skin graft site preparation with application of skin graft substitute. Patient currently resides in a facility and has been cleared for elective surgery today. His brother has agreed for elective surgery to the patient's chronic ulceration as the brother is the patient's current POA. Chart reviewed consent signed. Everything was explained to the patient's brother, the patient caregiver in great detail and they will agree to move forward with elective surgery. Patient is well-known to me from the wound care center at [facility] patient has been participating in outpatient treatment and has exhausted all outpatient conservative treatment consisting of excision debridement down to muscle and bone with application of skin graft substitute which has been a great deal of help to get the patient's full-thickness ulceration to left lower extremity improved. Due to chronicity of the wound it had deemed necessary at this time to take the patient to the operating room to perform the above procedure to help speed the process of healing the patient's wound and relieve his constant pain. The nature of the problem, anticipated procedures, postop recovery/convalences and risk/complications include but not limited to infection, wound healing complications, digital amputation, hypertrophic scarring, numbness, tingling, chronic pain, CRPS, over and under correction, recurrence of deformity, DVT and or PE and the need for further surgery have been discussed in great detail with the patient. All questions have been answered to the patient's satisfaction. There are no guarantees given as to the outcome of the procedure. Description of Procedure: Under mild sedation, the patient was brought into the operating room and placed on the operating table in supine position. Once the patient was under monitored anesthesia care anesthesia, the left lower extremity was blocked using approximately 10 cc 0.5% Marcaine plain. No tourniquet was used for this case. Next, the left lower extremity was prepped and draped in normal aseptic manner. Next, a timeout was then undertaken verifying the correct patient, extremity, visibility of preoperative markings, availability of the equipment. Procedure #1, surgical skin graft site preparation, left lower extremity Next, attention was directed to the full-thickness ulceration of the left lower extremity. The predebridement measurements are 11.2 x 1.3 x 0.2 cm. There is evidence of exposed muscle with no sign of infection at this time. Using the Dragon [employer] ultrasonic debrider the full-thickness ulceration was surgically prepped down to and including muscle with no evidence of exposed bone after debridement. Postdebridement measurements are 12.4 x 2.0 x 0.3 cm. There is evidence of sanguinous drainage. No malodor. No probe to bone. The left lower extremity ulceration was flushed with copious months normal saline. The left lower extremities were cleaned and patted dry. Procedure #2, application of skin graft substitute, left lower extremity Next, attention was directed to the postdebridement full-thickness ulceration to the left lower extremity. Using 1000 mg of axiofill, a slurry was made using sterile saline on the back table. Once a slurry was prepared, application of skin graft substitute was applied to the full-thickness ulceration of the left lower extremity. The left lower extremity was wiped clean and patted dry. The skin graft substitute was covered with Adaptic followed by Steri-Strips, moist saline gauze was applied over the Adaptic, followed by 4 x 4 and Kerlix, followed by a single layer Jose compression bandage at 90 degrees. The patient tolerated the procedure and anesthesia well and apparent satisfactory condition and was transported to the PACU for further monitoring prior to discharge [home / back to the floor]. Vital signs stable and vascular status intact to all digits bilateral. Post Operative Plan: Weightbearing: Patient may be full weightbearing to bilateral lower extremity. Antibiotics: 2 g Ancef through the IV DVT Prophylaxis: None needed for this case Rodriguez: None Dressin mg axiofill, Adaptic, Steri-Strips, saline moist gauze, 4 x 4's, Kerlix single-layer Jose compression bandage left lower extremity. Pain Medication: Pain medication on board at facility Follow-up: Patient will follow-up with Dr. Cadena 1 week post surgery at the wound care center next Monday. Surgeon: Gerry Cadena instructional technology teacher: None Type of Anesthesia: Local and MAC Anesthesiologist: Alden Yeboah Special Medications: Per anesthesia Specimen's removed: None Drains: None Estimated Blood Loss (mL): 10 mL Fluids Replaced: Per anesthesia Grafts/Implants Used: 1000 mg Axiofill Complications None Admit VTE Documentation VTE Present on Admission: No VTE Mechan Device Prophylaxis: SCD's VTE Pharm Prophylaxis ordered?: No Reason prophylaxis not ordered:: Procedure Not Indicated
[2023-11-08] MEDS: Bupivacaine Mpf 0.5% 30 ML VIAL (07:41)
== END 2023-11-08 09:00 | disposition intermediate care facility (04) ==
LOC: SDC 05:44 → AC 05:45
PROVIDERS: PCP Internal Medicine Infectious Disease; Referring Provider Podiatrist Foot & Ankle Surgery; Visit Provider Podiatrist Foot & Ankle Surgery
PROC: (CPT 15002; principal; 2023-11-08 07:15)
DX: L97.823 Non-pressure chronic ulcer of other part of left lower leg with necrosis of muscle (principal); I73.9 Peripheral vascular disease, unspecified; F41.9 Anxiety disorder, unspecified; I10 Essential (primary) hypertension; Z87.448 Personal history of other diseases of urinary system
CPT/HCPCS: 00400; 15002 ×2; 15271; 93005; J7120; J2405

== ENCOUNTER 2023-11-22 10:00 | Outpatient (RCR) | payer MEDICARE, MEDICAID, SELFPAY ==
[2023-11-03 00:12] VITALS: BP 107/70; PULSE 69; RESP 18; TEMP 36.1; BMI 31.1
[2023-11-15 10:06] VITALS: BP 117/73; PULSE 76; RESP 18; BMI 31.1
--- NOTE | 2023-11-15 12:06 | PCM.WC.PN ---
History of Present Illness Date of Service: 11/15/23 Chief Complaint: Bilateral leg ulcerations History of Wound: Mr. Ramirez is a 63-year-old male presenting to the wound care center today at [facility] with a chief complaint of bilateral leg ulcerations. Patient resides at a nursing facility where he is cared for 24 hours a day. Patient has a bit of cognitive dysfunction and is well medicated today with 2 mg of Ativan. Patient has seen wound care in the past but presents with worsening larger wound to the left leg/ankle area. Patient denies of any trauma. Patient denies any constitutional symptoms. No other pedal complaints at this time. Subjective Subjective Mr. Ramirez is a 63-year-old male presenting to the wound care center for follow-up and evaluation of surgical skin graft prep site with application of skin graft substitute to the left lower extremity approximately 1 week ago. After surgery the patient removed his dressing the left the graft clean dry and intact. He has been getting dressing changes by his facility. He denies any pain to the area. Denies trauma. Denies constitutional symptoms. No other pedal complaints at this time. Objective Data Objective Data Vital Signs: Vital Signs Temp Pulse Resp BP O2 Del Method 96.9 F L 76 18 117/73 Room Air 11/03/23 00:12 11/15/23 10:06 11/15/23 10:06 11/15/23 10:06 11/15/23 10:06 Oxygen Delivery Method Room Air Weight: 107.048 kg Body Mass Index (BMI) 31.1 Physical Exam Narrative Vascular: DP and PT pulses are faintly palpable. CFT is brisk. Skin temperature is warm to warm from proximal ankle to distal digits. Blanchable erythema to periwound. No sign of infection. Neurological: Light touch intact. Patient responds to painful stimuli. Dermatological: Full-thickness ulceration appreciated to the left lateral ankle measuring 12.0 x 2.0 x 0.2 cm. Wound base is fibrogranular nature. No sign of infection. Both wounds show no evidence of tunneling or undermining. No evidence ofprobe to bone bilateral. Excisional debridement using a #7 mm dermal curette down to and including muscle to the left medial full-thickness ulceration without incident. Predebridement measurement is 11.8 x 1.7 x 0.2 cm. Postdebridement measurement is 12.0 x 2.0 x 0.2 cm. Musculoskeletal: No pain to palpation of full-thickness ulceration with no pain with calf pressure Debridement Note Debridement Note Debridement Free Text: Excisional debridement using a #7 mm dermal curette down to and including muscle to the left medial full-thickness ulceration without incident. Predebridement measurement is 11.8 x 1.7 x 0.2 cm. Postdebridement measurement is 12.0 x 2.0 x 0.2 cm. Post-Debridement Measurements and Additional Note: Post-Debridement Measurements/Treatment - Nurse 1 - General Ulcer Assessment Start: 11/15/23 10:05 Freq: Status: Active Protocol: SURY Activity Type Activity Date Activity User E-sign Co-sign Detail Recorded Client Recorded Date Recorded By Document 11/15/23 10:06 Desktop 11/15/23 10:09 11/15/23 10:06 - Today's Visit Information Type of service Follow-up Visit (Physician/PEDIATRIC DENTAL HYGIENIST ) Arrival Mode Ambulatory Transfer Assistance None Accompanied by [facility] staff Patient Identification Verified (Name & Yes ) Patient Requires Transmission-Based No Precautions Height and Weight Body Mass Index (BMI) 31.1 BMI Classification Obese Vital Signs Pulse Rate (60-100) 76 Pulse Location Monitor Respiratory Rate (12-18) 18 Respiratory rate source Observation Oxygen Delivery Method Room Air Blood Pressure (90/60-120/80) 117/73 Blood Pressure Mean (mm Hg) 87 Source Monitor Position Sitting Blood Pressure Location Left Arm History Since Last Visit- (Skip if this is Patient's initial visit) Have you changed medications since your No last visit? Any new allergies or adverse reactions No Had a fall/change in ADL's that may No increase risk of falls Signs or symptoms of abuse and/or No neglect since last visit Has dressing in place as prescribed No Has compression in place as prescribed No Has offloadiing in place as prescribed N/A Experienced any changes in pain level or Yes management Left Footwear Surgical Shoe with pressure relief insole Right Footwear Surgical Shoe with pressure relief insole Pain Scale: 0-10 Numeric Is Patient Pain Free? Yes - Nurse 1 - General Ulcer Measurement Start: 11/15/23 10:05 Freq: Status: Active Protocol: Activity Type Activity Date Activity User E-sign Co-sign Detail Recorded Client Recorded Date Recorded By Document 11/15/23 10:06 Desktop 11/15/23 10:09 11/15/23 10:06 Wound Center Nurse 1 Left Medial LE -Current Size (cm) - Length 12.3 -Current Size (cm) - Width 2.5 -Current Size (cm) - Depth 0.1 -Total Square Cm 30.75 -Photo Taken No -Tunneling No -Undermining/Tunneling No -Circular Undermining No -Exudate Amt Medium -Exudate Type Serous -Wound Margin Distinct, Outline Attached -Granulation Amt Medium (34-66%) -Granulation Quality Red -Slough/Fibrin Yes -Necrosis Amt Medium (34-66%) -Necrotic Tissue Type Adherent Slough -Structure Exposed N/A -Texture (Reyna-wound Skin Appearance) Assessed -Moisture (Reyna-wound Skin Appearance) Assessed -Color (Reyna-wound Skin Appearance) Assessed, Erythema -Temperature (Reyna-wound Skin No Abnormality Appearance) (Pt Warm) -Tenderness on Palpation (Reyna-wound No Skin Appearance) -Ulcer Cleansing Soap and Water -Foul Odor after Cleansing No -Anesthetic Used 4% Lidocaine Solution Left Calf (cm) 40 Left Ankle (cm) 25 WC - Nurse 2 - General Ulcer CM Notes Start: 11/15/23 10:05 Freq: Status: Active Protocol: Activity Type Activity Date Activity User E-sign Co-sign Detail Recorded Client Recorded Date Recorded By Document 11/15/23 10:35 Laptop 11/15/23 10:35 11/15/23 10:35 Wound Center Nurse 2 Left Medial LE -Time 10:35 -Correct Patient Yes -Correct Side, Site, Position Yes -Correct Procedure Yes -Procedure Performed Yes -Type of Procedure Debridement -Clinical Debridement Subcutaneous -Tissue Removed Subcutaneous -Post Debridement (cm) - Length 12 -Post Debridement (cm) - Width 2 -Post Debridement (cm) - Depth 0.2 -Total Square (Post) (cm) 24 -Area of Debridement (cm) - Length 12 -Area of Debridement (cm) - Width 2 -Total Square (Area) (cm) 24 -Tunneling No -Undermining/Tunneling No -Circular Undermining No -Wound/Ulcer Outcome Not Healed -Ulcer Cleansing Rinsed/ Irrigated with Saline -Foul Odor after Cleansing No -Bioengineered Tissue No -Bleeding Controlled with Pressure -Treatment Response Procedure Tolerated Well -Offloading No -Debridement - Subq, 1st 20sq cm Yes -Debridement, SubQ, ea addt'l 20sq cm 1 or part thereof Pain Scale: 0-10 Numeric Is Patient Pain Free? Yes - Nurse 3 - General Ulcer D/C NN Start: 11/15/23 10:05 Freq: Status: Active Protocol: Activity Type Activity Date Activity User E-sign Co-sign Detail Recorded Client Recorded Date Recorded By Document 11/15/23 10:40 KW Desktop 11/15/23 10:41 KW 11/15/23 10:40 Wound Care Center Nurse 3 Left Medial LE -Primary Dressing Applied Promogran Madeline Matter -Primary Dressing Covered/Secured with Dry Gauze & Roll Gauze, Secured with Tape -Promogran Madeline Matter 1 Left -Tubular Bandage Double Layer -Size of Tubigrip Used Size F -Size F ($) 2 Pain Scale: 0-10 Numeric Is Patient Pain Free? 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 All findings were discussed with the patient. All questions were answered to the patient's satisfaction. Excisional debridement using a #7 mm dermal curette down to and including muscle to the left medial full-thickness ulceration without incident. Predebridement measurement is 11.8 x 1.7 x 0.2 cm. Postdebridement measurement is 12.0 x 2.0 x 0.2 cm. Patient left lower extremities were cleaned and patted dry. Madeline was applied to the full-thickness ulceration followed by dry sterile dressing and double layer Tubigrip. Orders given for the nursing staff at the patient's facility to change his dressing daily as well as as needed if needed. Follow-up at the wound care center with Dr. Cadena in 1 week. (2) Peripheral vascular disease: CODE(S): I73.9 - Peripheral vascular disease, unspecified
[2023-11-22 10:15] VITALS: BP 122/79; PULSE 71; RESP 18; TEMP 35.8; BMI 31.1
--- NOTE | 2023-11-22 13:07 | PN.PCM_ITS ---
History of Present Illness Date of Service: 11/22/23 Chief Complaint: Bilateral leg ulcerations History of Wound: Mr. Ramirez is a 63-year-old male presenting to the wound care center today at [facility] with a chief complaint of bilateral leg ulcerations. Patient resides at a nursing facility where he is cared for 24 hours a day. Patient has a bit of cognitive dysfunction and is well medicated today with 2 mg of Ativan. Patient has seen wound care in the past but presents with worsening larger wound to the left leg/ankle area. Patient denies of any trauma. Patient denies any constitutional symptoms. No other pedal complaints at this time. Subjective Subjective Mr. Ramirez is a 63-year-old male presenting to the wound care center for follow-up and evaluation of surgical skin graft prep site with application of skin graft substitute to the left lower extremity approximately 1 week ago. After surgery the patient removed his dressing the left the graft clean dry and intact. He has been getting dressing changes by his facility. He denies any pain to the area. Denies trauma. Denies constitutional symptoms. No other pedal complaints at this time. Objective Data Objective Data Vital Signs: Vital Signs Temp Pulse Resp BP O2 Del Method 96.4 F L 71 18 122/79 H Room Air 11/22/23 10:15 11/22/23 10:15 11/22/23 10:15 11/22/23 10:15 11/22/23 10:15 Oxygen Delivery Method Room Air Weight: 107.048 kg Body Mass Index (BMI) 31.1 Physical Exam Narrative Vascular: DP and PT pulses are faintly palpable. CFT is brisk. Skin temperature is warm to warm from proximal ankle to distal digits. Blanchable erythema to periwound. No sign of infection. Neurological: Light touch intact. Patient responds to painful stimuli. Dermatological: Full-thickness ulceration appreciated to the left lateral ankle measuring 12.0 x 2.0 x 0.2 cm. Wound base is fibrogranular nature. No sign of infection. Both wounds show no evidence of tunneling or undermining. No evidence ofprobe to bone bilateral. Excisional debridement using a #5 mm dermal curette down to and including muscle to the left medial full-thickness ulceration without incident. Predebridement measurement is 11.9 x 1.9 x 0.2 cm. Postdebridement measurement is 12.0 x 2.0 x 0.2 cm. Musculoskeletal: No pain to palpation of full-thickness ulceration with no pain with calf pressure Debridement Note Debridement Note Debridement Free Text: Excisional debridement using a #5 mm dermal curette down to and including muscle to the left medial full-thickness ulceration without incident. Predebridement measurement is 11.9 x 1.9 x 0.2 cm. Postdebridement measurement is 12.0 x 2.0 x 0.2 cm. Post-Debridement Measurements and Additional Note: Post-Debridement Measurements/Treatment - Nurse 1 - General Ulcer Assessment Start: 11/15/23 10:05 Freq: Status: Active Protocol: [email or web address] Activity Type Activity Date Activity User E-sign Co-sign Detail Recorded Client Recorded Date Recorded By Document 11/15/23 10:06 Desktop 11/15/23 10:09 GM Document 11/22/23 10:15 KW Desktop 11/22/23 10:23 KW 11/15/23 11/22/23 10:06 10:15 - Today's Visit Information Type of service Follow-up Visit Nurse-only (Physician/IT INTEGRATION ARCHITECT Visit ) Arrival Mode Ambulatory Ambulatory Transfer Assistance None Accompanied by [facility] staff nurse Patient Identification Verified (Name & Yes Yes ) Patient Requires Transmission-Based No Precautions Height and Weight Body Mass Index (BMI) 31.1 31.1 BMI Classification Obese Obese Vital Signs Temperature (97.8 F-99.1 F) 96.4 F L Temperature Source Temporal Pulse Rate (60-100) 76 71 Pulse Location Monitor Monitor Respiratory Rate (12-18) 18 18 Respiratory rate source Observation Observation Oxygen Delivery Method Room Air Room Air Blood Pressure (90/60-120/80) 117/73 122/79 H Blood Pressure Mean (mm Hg) 87 93 Source Monitor Monitor Position Sitting Semi-Fowlers Blood Pressure Location Left Arm Left Forearm History Since Last Visit- (Skip if this is Patient's initial visit) Have you changed medications since your No No last visit? Any new allergies or adverse reactions No No Had a fall/change in ADL's that may No No increase risk of falls Signs or symptoms of abuse and/or No No neglect since last visit Have you been in the hospital since your No last visit? Has dressing in place as prescribed No Yes Has compression in place as prescribed No Yes Has offloadiing in place as prescribed N/A Yes Experienced any changes in pain level or Yes No management Left Footwear Surgical Shoe Surgical Shoe with pressure with pressure relief insole relief insole Right Footwear Surgical Shoe Surgical Shoe with pressure with pressure relief insole relief insole Pain Scale: 0-10 Numeric Is Patient Pain Free? Yes Yes WC - Nurse 1 - General Ulcer Measurement Start: 11/15/23 10:05 Freq: Status: Active Protocol: Activity Type Activity Date Activity User E-sign Co-sign Detail Recorded Client Recorded Date Recorded By Document 11/15/23 10:06 GM Desktop 11/15/23 10:09 GM Document 11/22/23 10:15 KW Desktop 11/22/23 10:23 KW 11/15/23 11/22/23 10:06 10:15 Wound Center Nurse 1 Left Medial LE -Current Size (cm) - Length 12.3 12.5 -Current Size (cm) - Width 2.5 2.3 -Current Size (cm) - Depth 0.1 0.2 -Total Square Cm 30.75 28.75 -Photo Taken No -Tunneling No -Undermining/Tunneling No -Circular Undermining No -Exudate Amt Medium Medium -Exudate Type Serous Serosanguineous -Wound Margin Distinct, Thickened Outline Attached -Granulation Amt Medium (34-66%) Small (1-33%) -Granulation Quality Red Red -Slough/Fibrin Yes -Necrosis Amt Medium (34-66%) Large (67-100%) -Necrotic Tissue Type Adherent Slough Adherent Slough -Structure Exposed N/A -Texture (Reyna-wound Skin Appearance) Assessed Assessed, Localized Edema -Moisture (Reyna-wound Skin Appearance) Assessed Assessed -Color (Reyna-wound Skin Appearance) Assessed, Assessed, Erythema Erythema -Temperature (Reyna-wound Skin No Abnormality No Abnormality Appearance) (Pt Warm) (Pt Warm) -Tenderness on Palpation (Reyna-wound No No Skin Appearance) -Ulcer Cleansing Soap and Water Soap and Water -Foul Odor after Cleansing No No -Anesthetic Used 4% Lidocaine 4% Lidocaine Solution Solution Left Calf (cm) 40 37.8 Left Ankle (cm) 25 25 WC - Nurse 2 - General Ulcer CM Notes Start: 11/15/23 10:05 Freq: Status: Active Protocol: Activity Type Activity Date Activity User E-sign Co-sign Detail Recorded Client Recorded Date Recorded By Document 11/15/23 10:35 Laptop 11/15/23 10:35 Document 11/22/23 10:34 Laptop 11/22/23 10:35 11/15/23 11/22/23 10:35 10:34 Wound Center Nurse 2 Left Medial LE -Time 10:35 10:34 -Correct Patient Yes Yes -Correct Side, Site, Position Yes Yes -Correct Procedure Yes Yes -Procedure Performed Yes Yes -Type of Procedure Debridement Debridement -Clinical Debridement Subcutaneous Subcutaneous -Tissue Removed Subcutaneous Subcutaneous -Post Debridement (cm) - Length 12 12 -Post Debridement (cm) - Width 2 2 -Post Debridement (cm) - Depth 0.2 0.2 -Total Square (Post) (cm) 24 24 -Area of Debridement (cm) - Length 12 12 -Area of Debridement (cm) - Width 2 2 -Total Square (Area) (cm) 24 24 -Tunneling No No -Undermining/Tunneling No No -Circular Undermining No No -Wound/Ulcer Outcome Not Healed Not Healed -Ulcer Cleansing Rinsed/ Rinsed/ Irrigated with Irrigated with Saline Saline -Foul Odor after Cleansing No No -Bioengineered Tissue No No -Bleeding Controlled with Pressure Pressure -Treatment Response Procedure Procedure Tolerated Well Tolerated Well -Offloading No No -Debridement - Subq, 1st 20sq cm Yes Yes -Debridement, SubQ, ea addt'l 20sq cm 1 1 or part thereof Pain Scale: 0-10 Numeric Is Patient Pain Free? Yes Yes WC - Nurse 3 - General Ulcer D/C NN Start: 11/15/23 10:05 Freq: Status: Active Protocol: Activity Type Activity Date Activity User E-sign Co-sign Detail Recorded Client Recorded Date Recorded By Document 11/15/23 10:40 KW [employer] 11/15/23 10:41 KW Document 11/22/23 10:53 Desktop 11/22/23 10:54 11/15/23 11/22/23 10:40 10:53 Wound Care Center Nurse 3 Left Medial LE -Ulcer Cleansing Not Cleansed -Foul Odor after Cleansing No -Primary Dressing Applied Promogran Madeline Matter -Other Dressing betadine soaked gauze, abd and kerlix -Primary Dressing Covered/Secured with Dry Gauze & Dry Gauze & Roll Gauze, Roll Gauze, Secured with Secured with Tape Tape -Promogran Madeline Matter 1 Left -Lotion applied to leg before No compression wrap -Tubular Bandage Double Layer Double Layer -Size of Tubigrip Used Size F Size E -Size E ($) 2 -Size F ($) 2 Pain Scale: 0-10 Numeric Is Patient Pain Free? Yes Yes Teaching: Wound Center Compression -Person Taught Patient -Teaching Method Discussion -Response to teaching Verbalize understanding Dressing Your Wound -Person Taught Patient -Teaching Method Discussion -Response to teaching Verbalize understanding WC - Visit Discharge Discharge Condition Stable Stable Ambulatory Status Ambulatory Ambulatory Transportation Private Auto Accompanied by [facility] staff Medication Reconcilliation completed & No Yes provided to patient/care provider Clinical Summary of Care Provided Yes Yes Assessment/Plan Assessment/Plan (1) Non-pressure ulcer of right lower extremity with fat layer exposed: CODE(S): L97.912 - Non-pressure chronic ulcer of unspecified part of right lower leg with fat layer exposed PLAN: Patient was examined and evaluated. All findings were discussed with the patient. All questions were answered to the patient's satisfaction. Excisional debridement using a #5 mm dermal curette down to and including muscle to the left medial full-thickness ulceration without incident. Predebridement measurement is 11.9 x 1.9 x 0.2 cm. Postdebridement measurement is 12.0 x 2.0 x 0.2 cm. Ulceration was dressed with Betadine wet-to-dry dry sterile dressing and a double layer Tubigrip. Orders were given to be changed every other day as well as as needed dressing changes if needed. Follow-up at the wound care center with Dr. Cadena in 2 week. (2) Peripheral vascular disease: CODE(S): I73.9 - Peripheral vascular disease, unspecified
== END 2023-12-03 23:59 | disposition home or self-care (01) ==
LOC: WC 10:00
PROVIDERS: PCP Internal Medicine Infectious Disease; Referring Provider Internal Medicine Infectious Disease; Visit Provider Podiatrist Foot & Ankle Surgery
DX: L97.922 Non-pressure chronic ulcer of unspecified part of left lower leg with fat layer exposed (principal); L97.912 Non-pressure chronic ulcer of unspecified part of right lower leg with fat layer exposed; I73.9 Peripheral vascular disease, unspecified
CPT/HCPCS: 11042; 11045

== ENCOUNTER 2023-12-20 09:00 | Outpatient (RCR) | payer MEDICARE, MEDICAID, SELFPAY ==
[2023-12-04 00:37] VITALS: BP 122/79; PULSE 71; RESP 18; TEMP 35.8; BMI 31.1
[2023-12-06 09:05] VITALS: BP 117/68; PULSE 94; RESP 18; BMI 31.1
--- NOTE | 2023-12-06 09:33 | PCM.WC.PN ---
History of Present Illness Date of Service: 12/06/23 Chief Complaint: Bilateral leg ulcerations History of Wound: Mr. Ramirez is a 63-year-old male presenting to the wound care center today at [facility] with a chief complaint of bilateral leg ulcerations. Patient resides at a nursing facility where he is cared for 24 hours a day. Patient has a bit of cognitive dysfunction and is well medicated today with 2 mg of Ativan. Patient has seen wound care in the past but presents with worsening larger wound to the left leg/ankle area. Patient denies of any trauma. Patient denies any constitutional symptoms. No other pedal complaints at this time. Subjective Subjective Mr. Ramirez is a 63-year-old male presenting to the wound care center for follow-up and evaluation of surgical skin graft prep site with application of skin graft substitute to the left lower extremity approximately 1 week ago. After surgery the patient removed his dressing the left the graft clean dry and intact. He has been getting dressing changes by his facility. He denies any pain to the area. Denies trauma. Denies constitutional symptoms. No other pedal complaints at this time. Objective Data Objective Data Vital Signs: Vital Signs Temp Pulse Resp BP O2 Del Method 96.4 F L 94 18 117/68 Room Air 12/04/23 00:37 12/06/23 09:05 12/06/23 09:05 12/06/23 09:05 12/06/23 09:05 Oxygen Delivery Method Room Air Weight: 107.048 kg Body Mass Index (BMI) 31.1 Physical Exam Narrative Vascular: DP and PT pulses are faintly palpable. CFT is brisk. Skin temperature is warm to warm from proximal ankle to distal digits. Blanchable erythema to periwound. No sign of infection. Neurological: Light touch intact. Patient responds to painful stimuli. Dermatological: Full-thickness ulceration appreciated to the left lateral ankle measuring 12.0 x 2.0 x 0.2 cm. Wound base is fibrogranular nature. No sign of infection. Both wounds show no evidence of tunneling or undermining. No evidence ofprobe to bone bilateral. Excisional debridement using the Misonix ultrasonic debridement down to and including muscle to the left medial full-thickness ulceration without incident. Predebridement measurement is 11.3 x 1.3 x 0.2 cm. Postdebridement measurement is 11.6 x 1.5 x 0.2 cm. Musculoskeletal: No pain to palpation of full-thickness ulceration with no pain with calf pressure Debridement Note Debridement Note Debridement Free Text: Excisional debridement using the Misonix ultrasonic debridement down to and including muscle to the left medial full-thickness ulceration without incident. Predebridement measurement is 11.3 x 1.3 x 0.2 cm. Postdebridement measurement is 11.6 x 1.5 x 0.2 cm. Post-Debridement Measurements and Additional Note: Post-Debridement Measurements/Treatment - Nurse 1 - General Ulcer Assessment Start: 12/06/23 09:05 Freq: Status: Active Protocol: SURY Activity Type Activity Date Activity User E-sign Co-sign Detail Recorded Client Recorded Date Recorded By Document 12/06/23 09:05 Soundvampop 12/06/23 09:09 KW 12/06/23 09:05 WC - Today's Visit Information Type of service Follow-up Visit (Physician/SOFTWARE DEVELOPMENT TEST ENGINEER ) Arrival Mode Ambulatory Accompanied by nurse Patient Identification Verified (Name & Yes ) Height and Weight Body Mass Index (BMI) 31.1 BMI Classification Obese Vital Signs Pulse Rate (60-100) 94 Pulse Location Monitor Respiratory Rate (12-18) 18 Respiratory rate source Observation Oxygen Delivery Method Room Air Blood Pressure (90/60-120/80) 117/68 Blood Pressure Mean (mm Hg) 84 Source Monitor Position Semi-Fowlers Blood Pressure Location Right Arm History Since Last Visit- (Skip if this is Patient's initial visit) Have you changed medications since your No last visit? Any new allergies or adverse reactions No Had a fall/change in ADL's that may No increase risk of falls Signs or symptoms of abuse and/or No neglect since last visit Have you been in the hospital since your No last visit? Has dressing in place as prescribed Yes Has compression in place as prescribed No Has offloadiing in place as prescribed N/A Experienced any changes in pain level or No management Left Footwear Regular Shoe Right Footwear Regular Shoe Pain Scale: 0-10 Numeric Is Patient Pain Free? Yes - Nurse 1 - General Ulcer Measurement Start: 12/06/23 09:05 Freq: Status: Active Protocol: Activity Type Activity Date Activity User E-sign Co-sign Detail Recorded Client Recorded Date Recorded By Document 12/06/23 09:05 KW Desktop 12/06/23 09:09 KW 12/06/23 09:05 Wound Center Nurse 1 Left Medial LE -Current Size (cm) - Length 11.5 -Current Size (cm) - Width 2 -Current Size (cm) - Depth 0.3 -Total Square Cm 23.0 -Exudate Amt Small -Exudate Type Serosanguineous -Wound Margin Thickened & Rolled Under -Granulation Amt Medium (34-66%) -Granulation Quality Red -Necrosis Amt Medium (34-66%) -Necrotic Tissue Type Adherent Slough -Texture (Reyna-wound Skin Appearance) Assessed -Moisture (Reyna-wound Skin Appearance) Assessed -Color (Reyna-wound Skin Appearance) Assessed -Temperature (Reyna-wound Skin No Abnormality Appearance) (Pt Warm) -Ulcer Cleansing Soap and Water -Foul Odor after Cleansing No -Anesthetic Used 4% Lidocaine Solution Left Calf (cm) 38.5 Left Ankle (cm) 24.1 WC - Nurse 2 - General Ulcer CM Notes Start: 12/06/23 09:05 Freq: Status: Active Protocol: Activity Type Activity Date Activity User E-sign Co-sign Detail Recorded Client Recorded Date Recorded By Document 12/06/23 09:17 Laptop 12/06/23 09:19 12/06/23 09:17 Wound Center Nurse 2 Left Medial LE -Time 09:17 -Correct Patient Yes -Correct Side, Site, Position Yes -Correct Procedure Yes -Procedure Performed Yes -Type of Procedure Debridement -Clinical Debridement Subcutaneous -Tissue Removed Subcutaneous -Post Debridement (cm) - Length 11.6 -Post Debridement (cm) - Width 1.5 -Post Debridement (cm) - Depth 0.2 -Total Square (Post) (cm) 17.40 -Area of Debridement (cm) - Length 11.6 -Area of Debridement (cm) - Width 1.5 -Total Square (Area) (cm) 17.40 -Tunneling No -Undermining/Tunneling No -Circular Undermining No -Wound/Ulcer Outcome Not Healed -Ulcer Cleansing Rinsed/ Irrigated with Saline -Foul Odor after Cleansing No -Bioengineered Tissue No -Bleeding Controlled with Pressure -Treatment Response Procedure Tolerated Well -Offloading No -Debridement - Subq, 1st 20sq cm Yes Pain Scale: 0-10 Numeric Is Patient Pain Free? Yes WC - Nurse 3 - General Ulcer D/C NN Start: 12/06/23 09:05 Freq: Status: Active Protocol: Activity Type Activity Date Activity User E-sign Co-sign Detail Recorded Client Recorded Date Recorded By Document 12/06/23 09:28 KW Desktop 12/06/23 09:29 KW 12/06/23 09:28 Wound Care Center Nurse 3 Left Medial LE -Primary Dressing Applied Other -Other Dressing betadine -Primary Dressing Covered/Secured with Dry Gauze & Roll Gauze, Secured with Tape Left -Tubular Bandage Double Layer -Size of Tubigrip Used Size E -Size E ($) 2 Pain Scale: 0-10 Numeric Is Patient Pain Free? 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 All findings were discussed with the patient. All questions were answered to the patient's satisfaction. Excisional debridement using the Misonix ultrasonic debridement down to and including muscle to the left medial full-thickness ulceration without incident. Predebridement measurement is 11.3 x 1.3 x 0.2 cm. Postdebridement measurement is 11.6 x 1.5 x 0.2 cm. The ulceration of the left extremity were cleaned and patted dry. The ulceration was dressed with Betadine soaked Adaptic dry sterile dressing and single-layer Tubigrip was donned to the left extremity. Wound care instructions were given to the facility to change the dressing daily as well as as needed if needed. The patient will follow-up in 2 weeks or for nursing visit in 1 week intervals if needed. All of this was expressed and I discussed to the patient's caregiver and she was understanding. Follow-up at the wound care center with Dr. Cadena in 2 week. (2) Ulcer of extremity due to chronic venous insufficiency: CODE(S): L98.499 - Non-pressure chronic ulcer of skin of other sites with unspecified severity; I87.2 - Venous insufficiency (chronic) (peripheral)
[2023-12-20 08:56] VITALS: BP 126/75; PULSE 78; RESP 18; TEMP 36.6; BMI 31.1
--- NOTE | 2023-12-20 09:19 | PCM.WC.PN ---
History of Present Illness Date of Service: 12/20/23 Chief Complaint: Bilateral leg ulcerations History of Wound: Mr. Ramirez is a 63-year-old male presenting to the wound care center today at [facility] with a chief complaint of bilateral leg ulcerations. Patient resides at a nursing facility where he is cared for 24 hours a day. Patient has a bit of cognitive dysfunction and is well medicated today with 2 mg of Ativan. Patient has seen wound care in the past but presents with worsening larger wound to the left leg/ankle area. Patient denies of any trauma. Patient denies any constitutional symptoms. No other pedal complaints at this time. Subjective Subjective Mr. Ramirez is a 63-year-old male presenting to clinic today at the wound care center for follow-up evaluation of the full-thickness ulceration to the left ankle. Patient has been getting dressing changes per nursing staff. Things have been uneventful. He admits improvement to the wound. He denies any trauma. Denies constitutional symptoms. No other complaints at this time. Objective Data Objective Data Vital Signs: Vital Signs Temp Pulse Resp BP O2 Del Method 97.8 F 78 18 126/75 H Room Air 12/20/23 08:56 12/20/23 08:56 12/20/23 08:56 12/20/23 08:56 12/06/23 09:05 Oxygen Delivery Method Room Air Weight: 107.048 kg Body Mass Index (BMI) 31.1 Physical Exam Narrative Vascular: DP and PT pulses are faintly palpable. CFT is brisk. Skin temperature is warm to warm from proximal ankle to distal digits. Blanchable erythema to periwound. No sign of infection. Neurological: Light touch intact. Patient responds to painful stimuli. Dermatological: Full-thickness ulceration appreciated to the left lateral ankle measuring 11.1 x 1.1 x 0.2 cm. Wound base is fibrogranular nature. No sign of infection. Both wounds show no evidence of tunneling or undermining. No evidence of probe to bone bilateral. Excisional debridement using the number 5 mm dermal curette down to and including subcutaneous tissue to the left medial full-thickness ulceration without incident. Predebridement measurement is 10.9 x 0.9 x 0.2 cm. Postdebridement measurement is 11.1 x 1.1 x 0.2 cm. Musculoskeletal: No pain to palpation of full-thickness ulceration with no pain with calf pressure Debridement Note Debridement Note Debridement Free Text: Excisional debridement using the number 5 mm dermal curette down to and including subcutaneous tissue to the left medial full-thickness ulceration without incident. Predebridement measurement is 10.9 x 0.9 x 0.2 cm. Postdebridement measurement is 11.1 x 1.1 x 0.2 cm. Post-Debridement Measurements and Additional Note: Post-Debridement Measurements/Treatment WC - Nurse 1 - General Ulcer Assessment Start: 12/06/23 09:05 Freq: Status: Active Protocol: [email or web address] Activity Type Activity Date Activity User E-sign Co-sign Detail Recorded Client Recorded Date Recorded By Document 12/06/23 09:05 KW Desktop 12/06/23 09:09 KW Document 12/20/23 08:56 RB Desktop 12/20/23 08:59 RB 12/06/23 12/20/23 09:05 08:56 WC - Today's Visit Information Type of service Follow-up Visit Follow-up Visit (Physician/SENIOR SERVICE TECHNICIAN (Physician/SENIOR SERVICE TECHNICIAN ) ) Arrival Mode Ambulatory Ambulatory Transfer Assistance None Accompanied by nurse Patient Identification Verified (Name & Yes Yes ) Patient Requires Transmission-Based No Precautions Height and Weight Body Mass Index (BMI) 31.1 31.1 BMI Classification Obese Obese Vital Signs Temperature (97.8 F-99.1 F) 97.8 F Temperature Source Oral Pulse Rate (60-100) 94 78 Pulse Location Monitor Monitor Respiratory Rate (12-18) 18 18 Respiratory rate source Observation Observation Oxygen Delivery Method Room Air Blood Pressure (90/60-120/80) 117/68 126/75 H Blood Pressure Mean (mm Hg) 84 92 Source Monitor Monitor Position Semi-Fowlers Sitting Blood Pressure Location Right Arm Left Arm History Since Last Visit- (Skip if this is Patient's initial visit) Have you changed medications since your No No last visit? Any new allergies or adverse reactions No No Had a fall/change in ADL's that may No No increase risk of falls Signs or symptoms of abuse and/or No No neglect since last visit Have you been in the hospital since your No No last visit? Has dressing in place as prescribed Yes Yes Has compression in place as prescribed No Yes Has offloadiing in place as prescribed N/A No Experienced any changes in pain level or No No management Left Footwear Regular Shoe Regular Shoe Right Footwear Regular Shoe Regular Shoe Pain Scale: 0-10 Numeric Is Patient Pain Free? Yes Yes WC - Nurse 1 - General Ulcer Measurement Start: 12/06/23 09:05 Freq: Status: Active Protocol: Activity Type Activity Date Activity User E-sign Co-sign Detail Recorded Client Recorded Date Recorded By Document 12/06/23 09:05 KW Desktop 12/06/23 09:09 KW Document 12/20/23 08:56 RB Desktop 12/20/23 08:59 RB 12/06/23 12/20/23 09:05 08:56 Wound Center Nurse 1 Left Medial LE -Combined with other wound No -Current Size (cm) - Length 11.5 10.4 -Current Size (cm) - Width 2 0.9 -Current Size (cm) - Depth 0.3 0.1 -Total Square Cm 23.0 9.36 -Tunneling No -Undermining/Tunneling No -Circular Undermining No -Exudate Amt Small Medium -Exudate Type Serosanguineous Serosanguineous -Wound Margin Thickened & Thickened & Rolled Under Rolled Under -Granulation Amt Medium (34-66%) Large (67-100%) -Granulation Quality Red Red -Slough/Fibrin Yes -Necrosis Amt Medium (34-66%) Small (1-33%) -Necrotic Tissue Type Adherent Slough Adherent Slough -Structure Exposed N/A -Texture (Reyna-wound Skin Appearance) Assessed Assessed -Moisture (Reyna-wound Skin Appearance) Assessed Dry/Scaly -Color (Reyna-wound Skin Appearance) Assessed Assessed -Temperature (Reyna-wound Skin No Abnormality No Abnormality Appearance) (Pt Warm) (Pt Warm) -Tenderness on Palpation (Reyna-wound No Skin Appearance) -Ulcer Cleansing Soap and Water Wound Cleanser -Foul Odor after Cleansing No No -Anesthetic Used 4% Lidocaine 5% Lidocaine Solution Gel Left Calf (cm) 38.5 38.1 Left Ankle (cm) 24.1 24.5 WC - Nurse 2 - General Ulcer CM Notes Start: 12/06/23 09:05 Freq: Status: Active Protocol: Activity Type Activity Date Activity User E-sign Co-sign Detail Recorded Client Recorded Date Recorded By Document 12/06/23 09:17 Laptop 12/06/23 09:19 JF Document 12/20/23 09:12 JF Laptop 12/20/23 09:14 JF 12/06/23 12/20/23 09:17 09:12 Wound Center Nurse 2 Left Medial LE -Time 09:17 09:13 -Correct Patient Yes Yes -Correct Side, Site, Position Yes Yes -Correct Procedure Yes Yes -Procedure Performed Yes Yes -Type of Procedure Debridement Debridement -Clinical Debridement Subcutaneous Subcutaneous -Tissue Removed Subcutaneous Subcutaneous -Post Debridement (cm) - Length 11.6 11.1 -Post Debridement (cm) - Width 1.5 1.1 -Post Debridement (cm) - Depth 0.2 0.2 -Total Square (Post) (cm) 17.40 12.21 -Area of Debridement (cm) - Length 11.6 11.1 -Area of Debridement (cm) - Width 1.5 1.1 -Total Square (Area) (cm) 17.40 12.21 -Tunneling No No -Undermining/Tunneling No No -Circular Undermining No No -Wound/Ulcer Outcome Not Healed Not Healed -Ulcer Cleansing Rinsed/ Rinsed/ Irrigated with Irrigated with Saline Saline -Foul Odor after Cleansing No No -Bioengineered Tissue No No -Bleeding Controlled with Pressure Pressure -Treatment Response Procedure Procedure Tolerated Well Tolerated Well -Offloading No No -Debridement - Subq, 1st 20sq cm Yes Yes Pain Scale: 0-10 Numeric Is Patient Pain Free? Yes Yes - Nurse 3 - General Ulcer D/C NN Start: 12/06/23 09:05 Freq: Status: Active Protocol: Activity Type Activity Date Activity User E-sign Co-sign Detail Recorded Client Recorded Date Recorded By Document 12/06/23 09:28 KW Desktop 12/06/23 09:29 KW 12/06/23 09:28 Wound Care Center Nurse 3 Left Medial LE -Primary Dressing Applied Other -Other Dressing betadine -Primary Dressing Covered/Secured with Dry Gauze & Roll Gauze, Secured with Tape Left -Tubular Bandage Double Layer -Size of Tubigrip Used Size E -Size E ($) 2 Pain Scale: 0-10 Numeric Is Patient Pain Free? 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 All findings were discussed with the patient. All questions were answered to the patient's satisfaction. Excisional debridement using the number 5 mm dermal curette down to and including subcutaneous tissue to the left medial full-thickness ulceration without incident. Predebridement measurement is 10.9 x 0.9 x 0.2 cm. Postdebridement measurement is 11.1 x 1.1 x 0.2 cm. Left extremity were cleaned and patted dry. Madeline/collagen was applied to the full-thickness ulceration followed by dry sterile dressing and Kevin wrap. [facility] will change daily and as needed. Follow-up at the wound care center with Dr. Cadena in 1 week.
== END 2024-01-02 23:59 | disposition home or self-care (01) ==
LOC: WC 09:00
PROVIDERS: PCP Internal Medicine Infectious Disease; Referring Provider Internal Medicine Infectious Disease; Visit Provider Podiatrist Foot & Ankle Surgery
DX: L97.922 Non-pressure chronic ulcer of unspecified part of left lower leg with fat layer exposed (principal); I87.2 Venous insufficiency (chronic) (peripheral)
CPT/HCPCS: 11042

== ENCOUNTER 2024-01-31 09:00 | Outpatient (RCR) | payer MEDICARE, MEDICAID, SELFPAY ==
[2024-01-03 00:23] VITALS: BP 126/75; PULSE 78; RESP 18; TEMP 36.6; BMI 31.1
[2024-01-03 09:12] VITALS: BP 125/70; PULSE 72; RESP 18; BMI 31.1
--- NOTE | 2024-01-03 09:23 | PN.PCM_ITS ---
History of Present Illness Date of Service: 01/03/24 Chief Complaint: Bilateral leg ulcerations History of Wound: Mr. Ramirez is a 63-year-old male presenting to the wound care center today at [facility] with a chief complaint of bilateral leg ulcerations. Patient resides at a nursing facility where he is cared for 24 hours a day. Patient has a bit of cognitive dysfunction and is well medicated today with 2 mg of Ativan. Patient has seen wound care in the past but presents with worsening larger wound to the left leg/ankle area. Patient denies of any trauma. Patient denies any constitutional symptoms. No other pedal complaints at this time. Subjective Subjective Mr. Ramirez is a 63-year-old male presenting to clinic today at the wound care center for follow-up evaluation of the full-thickness ulceration to the left ankle. Patient has been getting dressing changes per nursing staff. Things have been uneventful. He admits improvement to the wound. He denies any trauma. Denies constitutional symptoms. No other complaints at this time. Objective Data Objective Data Vital Signs: Vital Signs Temp Pulse Resp BP 97.8 F 72 18 125/70 H 01/03/24 00:23 01/03/24 09:12 01/03/24 09:12 01/03/24 09:12 Weight: 107.048 kg Body Mass Index (BMI) 31.1 Physical Exam Narrative Vascular: DP and PT pulses are faintly palpable. CFT is brisk. Skin temperature is warm to warm from proximal ankle to distal digits. Blanchable erythema to periwound. No sign of infection. Neurological: Light touch intact. Patient responds to painful stimuli. Dermatological: Full-thickness ulceration appreciated to the left lateral ankle measuring 10.0 x 0.8 x 0.2 cm. Wound base is fibrogranular nature. No sign of infection. Both wounds show no evidence of tunneling or undermining. No evidence of probe to bone bilateral. Excisional debridement using the ultrasonic Misonix debrider down to and including subcutaneous tissue to the left medial full-thickness ulceration without incident. Predebridement measurement is 9.8 x 0.5 x 0.1 cm. Postdebridement measurement is 10.0 x 0.8 x 0.2 cm. Musculoskeletal: No pain to palpation of full-thickness ulceration with no pain with calf pressure Debridement Note Debridement Note Debridement Free Text: Excisional debridement using the ultrasonic Misonix debrider down to and including subcutaneous tissue to the left medial full- thickness ulceration without incident. Predebridement measurement is 9.8 x 0.5 x 0.1 cm. Postdebridement measurement is 10.0 x 0.8 x 0.2 cm. Post-Debridement Measurements and Additional Note: Post-Debridement Measurements/Treatment MARTA - Nurse 1 - General Ulcer Assessment Start: 01/03/24 09:12 Freq: Status: Active Protocol: SURY Activity Type Activity Date Activity User E-sign Co-sign Detail Recorded Client Recorded Date Recorded By Document 01/03/24 09:12 Laptop 01/03/24 09:17 01/03/24 09:12 - Today's Visit Information Type of service Follow-up Visit (Physician/GARMENT SEWER HAND ) Arrival Mode Ambulatory Patient Identification Verified (Name & Yes ) Patient Requires Transmission-Based No Precautions Height and Weight Body Mass Index (BMI) 31.1 BMI Classification Obese Vital Signs Pulse Rate (60-100) 72 Pulse Location Monitor Respiratory Rate (12-18) 18 Respiratory rate source Observation Blood Pressure (90/60-120/80) 125/70 H Blood Pressure Mean (mm Hg) 88 Source Monitor Position Sitting Blood Pressure Location Right Arm History Since Last Visit- (Skip if this is Patient's initial visit) Have you changed medications since your No last visit? Any new allergies or adverse reactions No Had a fall/change in ADL's that may No increase risk of falls Signs or symptoms of abuse and/or No neglect since last visit Have you been in the hospital since your No last visit? Has dressing in place as prescribed Yes Has compression in place as prescribed Yes Has offloadiing in place as prescribed N/A Experienced any changes in pain level or No management Left Footwear Regular Shoe Right Footwear Regular Shoe Pain Scale: 0-10 Numeric Is Patient Pain Free? Yes - Nurse 1 - General Ulcer Measurement Start: 01/03/24 09:12 Freq: Status: Active Protocol: Activity Type Activity Date Activity User E-sign Co-sign Detail Recorded Client Recorded Date Recorded By Document 01/03/24 09:12 Laptop 01/03/24 09:17 01/03/24 09:12 Wound Center Nurse 1 Left Medial LE -Combined with other wound No -Current Size (cm) - Length 9.8 -Current Size (cm) - Width 0.5 -Current Size (cm) - Depth 0.1 -Total Square Cm 4.90 -Photo Taken Yes -Epithelialization Medium 34-66% -Tunneling No -Undermining/Tunneling No -Circular Undermining No -Exudate Amt Small -Exudate Type Serosanguineous -Wound Margin Flat & Intact -Granulation Amt Large (67-100%) -Granulation Quality Red -Slough/Fibrin Yes -Necrosis Amt Small (1-33%) -Necrotic Tissue Type Adherent Slough -Structure Exposed N/A -Texture (Reyna-wound Skin Appearance) Assessed, Localized Edema ,Scarring -Moisture (Reyna-wound Skin Appearance) Assessed, Weeping -Color (Reyna-wound Skin Appearance) Assessed -Temperature (Reyna-wound Skin No Abnormality Appearance) (Pt Warm) -Tenderness on Palpation (Reyna-wound No Skin Appearance) -Ulcer Cleansing Rinsed/ Irrigated with Saline -Foul Odor after Cleansing No -Anesthetic Used 5% Lidocaine Gel Lower Limb Edema Present Yes Left Calf (cm) 38.5 Left Ankle (cm) 23.3 WC - Nurse 2 - General Ulcer CM Notes Start: 01/03/24 09:12 Freq: Status: Active Protocol: Activity Type Activity Date Activity User E-sign Co-sign Detail Recorded Client Recorded Date Recorded By Document 01/03/24 09:18 Laptop 01/03/24 09:20 01/03/24 09:18 Wound Center Nurse 2 Left Medial LE -Time 09:19 -Correct Patient Yes -Correct Side, Site, Position Yes -Correct Procedure Yes -Procedure Performed Yes -Type of Procedure Debridement -Clinical Debridement Subcutaneous -Tissue Removed Subcutaneous -Post Debridement (cm) - Length 10 -Post Debridement (cm) - Width 0.8 -Post Debridement (cm) - Depth 0.2 -Total Square (Post) (cm) 8.0 -Area of Debridement (cm) - Length 10 -Area of Debridement (cm) - Width 0.8 -Total Square (Area) (cm) 8.0 -Tunneling No -Undermining/Tunneling No -Circular Undermining No -Wound/Ulcer Outcome Not Healed -Ulcer Cleansing Rinsed/ Irrigated with Saline -Foul Odor after Cleansing No -Bioengineered Tissue No -Bleeding Controlled with Pressure -Treatment Response Procedure Tolerated Well -Offloading No -Debridement - Subq, 1st 20sq cm Yes Pain Scale: 0-10 Numeric Is Patient Pain Free? Yes WC - Nurse 3 - General Ulcer D/C NN Start: 01/03/24 09:12 Freq: Status: Active Protocol: Activity Type Activity Date Activity User E-sign Co-sign Detail Recorded Client Recorded Date Recorded By Document 01/03/24 09:20 Laptop 01/03/24 09:21 01/03/24 09:20 Wound Care Center Nurse 3 Left Medial LE -Ulcer Cleansing Rinsed/ Irrigated with Saline -Foul Odor after Cleansing No -Primary Dressing Applied Promogran Madeline Matter -Primary Dressing Covered/Secured with Dry Gauze & Roll Gauze, Secured with Tape -Promogran Madeline Matter 1 Left -Compression Wrap Kevin Wrap Pain Scale: 0-10 Numeric Is Patient Pain Free? Yes WC - Visit Discharge Discharge Condition Stable Ambulatory Status Ambulatory Transportation Private Auto Accompanied by caregiver Medication Reconcilliation completed & Yes provided to patient/care provider Clinical Summary of Care Provided Yes Assessment/Plan Assessment/Plan (1) Non-pressure ulcer of right lower extremity with fat layer exposed: CODE(S): L97.912 - Non-pressure chronic ulcer of unspecified part of right lower leg with fat layer exposed PLAN: Patient was examined and evaluated. All findings were discussed with the patient. All questions were answered to the patient's satisfaction. Excisional debridement using the ultrasonic Misonix debrider down to and including subcutaneous tissue to the left medial full-thickness ulceration without incident. Predebridement measurement is 9.8 x 0.5 x 0.1 cm. Postdebridement measurement is 10.0 x 0.8 x 0.2 cm. Left lower extremities were cleaned patted dry. Madeline was applied followed by dry sterile dressing and Kevin bandage. Patient nursing staff will do daily or every other day dressing changes as well as as needed changes when needed. Patient has been grateful for his care and is showing great improvement. Follow-up at the wound care center with Dr. Cadena in 2 week for ultrasonic debridement.
--- NOTE | 2024-01-04 11:47 | WC ---
01/03/2024 LEFT LOWER LEG
[2024-01-17 09:20] VITALS: BP 112/72; PULSE 75; RESP 16; TEMP 36.9; BMI 31.1
--- NOTE | 2024-01-17 10:07 | PCM.WC.PN ---
History of Present Illness Date of Service: 01/17/24 Chief Complaint: Bilateral leg ulcerations History of Wound: Mr. Ramirez is a 63-year-old male presenting to the wound care center today at [facility] with a chief complaint of bilateral leg ulcerations. Patient resides at a nursing facility where he is cared for 24 hours a day. Patient has a bit of cognitive dysfunction and is well medicated today with 2 mg of Ativan. Patient has seen wound care in the past but presents with worsening larger wound to the left leg/ankle area. Patient denies of any trauma. Patient denies any constitutional symptoms. No other pedal complaints at this time. Subjective Subjective Mr. Ramirez is a 63-year-old male presenting to clinic today at the wound care center for follow-up evaluation of the full-thickness ulceration to the left ankle. Patient has been getting dressing changes per nursing staff. Things have been uneventful. He admits improvement to the wound. He denies any trauma. Denies constitutional symptoms. No other complaints at this time. Objective Data Objective Data Vital Signs: Vital Signs Temp Pulse Resp BP O2 Del Method 98.5 F 75 16 112/72 Room Air 01/17/24 09:20 01/17/24 09:20 01/17/24 09:20 01/17/24 09:20 01/17/24 09:20 Oxygen Delivery Method Room Air Weight: 107.048 kg Body Mass Index (BMI) 31.1 Physical Exam Narrative Vascular: DP and PT pulses are faintly palpable. CFT is brisk. Skin temperature is warm to warm from proximal ankle to distal digits. Blanchable erythema to periwound. No sign of infection. Neurological: Light touch intact. Patient responds to painful stimuli. Dermatological: Full-thickness ulceration appreciated to the left lateral ankle measuring 10.2 x 1.0 x 0.2 cm. Wound base is fibrogranular nature. No sign of infection. Both wounds show no evidence of tunneling or undermining. No evidence of probe to bone bilateral. Excisional debridement using the ultrasonic Misonix debrider down to and including subcutaneous tissue to the left medial full-thickness ulceration without incident. Predebridement measurement is 10. x 0.8 x 0.1 cm. Postdebridement measurement is 10.2 x 1.0 x 0.2 cm. Musculoskeletal: No pain to palpation of full-thickness ulceration with no pain with calf pressure Debridement Note Debridement Note Debridement Free Text: Excisional debridement using the ultrasonic Misonix debrider down to and including subcutaneous tissue to the left medial full-thickness ulceration without incident. Predebridement measurement is 10. x 0.8 x 0.1 cm. Postdebridement measurement is 10.2 x 1.0 x 0.2 cm. Post-Debridement Measurements and Additional Note: Post-Debridement Measurements/Treatment - Nurse 1 - General Ulcer Assessment Start: 01/03/24 09:12 Freq: Status: Active Protocol: SUYR Activity Type Activity Date Activity User E-sign Co-sign Detail Recorded Client Recorded Date Recorded By Document 01/03/24 09:12 Laptop 01/03/24 09:17 Document 01/17/24 09:20 [id number] 01/17/24 09:22 01/03/24 01/17/24 09:12 09:20 - Today's Visit Information Type of service Follow-up Visit Follow-up Visit (Physician/SCHOOL SECRETARY (Physician/SCHOOL SECRETARY ) ) Arrival Mode Ambulatory Ambulatory Transfer Assistance None Accompanied by long term staff Patient Identification Verified (Name & Yes Yes ) Patient Requires Transmission-Based No Precautions Height and Weight Body Mass Index (BMI) 31.1 31.1 BMI Classification Obese Obese Vital Signs Temperature (97.8 F-99.1 F) 98.5 F Temperature Source Temporal Pulse Rate (60-100) 72 75 Pulse Location Monitor Monitor Respiratory Rate (12-18) 18 16 Respiratory rate source Observation Oxygen Delivery Method Room Air Blood Pressure (90/60-120/80) 125/70 H 112/72 Blood Pressure Mean (mm Hg) 88 85 Source Monitor Monitor Position Sitting Sitting Blood Pressure Location Right Arm Left Arm History Since Last Visit- (Skip if this is Patient's initial visit) Have you changed medications since your No No last visit? Any new allergies or adverse reactions No No Had a fall/change in ADL's that may No No increase risk of falls Signs or symptoms of abuse and/or No No neglect since last visit Have you been in the hospital since your No last visit? Has dressing in place as prescribed Yes Yes Has compression in place as prescribed Yes Yes Has offloadiing in place as prescribed N/A N/A Experienced any changes in pain level or No No management Left Footwear Regular Shoe Regular Shoe Right Footwear Regular Shoe Regular Shoe Pain Scale: 0-10 Numeric Is Patient Pain Free? Yes Yes WC - Nurse 1 - General Ulcer Measurement Start: 01/03/24 09:12 Freq: Status: Active Protocol: Activity Type Activity Date Activity User E-sign Co-sign Detail Recorded Client Recorded Date Recorded By Document 01/03/24 09:12 JF Laptop 01/03/24 09:17 JF Document 01/17/24 09:20 [id number] 01/17/24 09:22 01/03/24 01/17/24 09:12 09:20 Wound Center Nurse 1 Left Medial LE -Combined with other wound No No -Current Size (cm) - Length 9.8 10.5 -Current Size (cm) - Width 0.5 0.8 -Current Size (cm) - Depth 0.1 0.2 -Total Square Cm 4.90 8.40 -Photo Taken Yes No -Epithelialization Medium 34-66% Small 1-33% -Tunneling No No -Undermining/Tunneling No No -Circular Undermining No No -Exudate Amt Small Small -Exudate Type Serosanguineous Yellow/Green -Wound Margin Flat & Intact Distinct, Outline Attached -Granulation Amt Large (67-100%) Medium (34-66%) -Granulation Quality Red Red -Slough/Fibrin Yes Yes -Necrosis Amt Small (1-33%) Small (1-33%) -Necrotic Tissue Type Adherent Slough Adherent Slough -Structure Exposed N/A -Texture (Reyna-wound Skin Appearance) Assessed, Assessed Localized Edema ,Scarring -Moisture (Reyna-wound Skin Appearance) Assessed, Assessed Weeping -Color (Reyna-wound Skin Appearance) Assessed Assessed -Temperature (Reyna-wound Skin No Abnormality No Abnormality Appearance) (Pt Warm) (Pt Warm) -Tenderness on Palpation (Reyna-wound No No Skin Appearance) -Ulcer Cleansing Rinsed/ Soap and Water Irrigated with Saline -Foul Odor after Cleansing No No -Anesthetic Used 5% Lidocaine 5% Lidocaine Gel Gel Lower Limb Edema Present Yes No Left Calf (cm) 38.5 39 Left Ankle (cm) 23.3 25.5 WC - Nurse 2 - General Ulcer CM Notes Start: 01/03/24 09:12 Freq: Status: Active Protocol: Activity Type Activity Date Activity User E-sign Co-sign Detail Recorded Client Recorded Date Recorded By Document 01/03/24 09:18 Laptop 01/03/24 09:20 JF Document 01/17/24 09:30 [place] [id number] 01/17/24 09:31 DS 01/03/24 01/17/24 09:18 09:30 Wound Center Nurse 2 Left Medial LE -Time 09:19 09:30 -Correct Patient Yes Yes -Correct Side, Site, Position Yes Yes -Correct Procedure Yes Yes -Procedure Performed Yes Yes -Type of Procedure Debridement Debridement -Clinical Debridement Subcutaneous Subcutaneous -Tissue Removed Subcutaneous Subcutaneous -Post Debridement (cm) - Length 10 10.2 -Post Debridement (cm) - Width 0.8 1.0 -Post Debridement (cm) - Depth 0.2 0.2 -Total Square (Post) (cm) 8.0 10.20 -Area of Debridement (cm) - Length 10 10.2 -Area of Debridement (cm) - Width 0.8 1.0 -Total Square (Area) (cm) 8.0 10.20 -Tunneling No No -Undermining/Tunneling No No -Circular Undermining No No -Wound/Ulcer Outcome Not Healed Not Healed -Ulcer Cleansing Rinsed/ Rinsed/ Irrigated with Irrigated with Saline Saline -Foul Odor after Cleansing No -Bioengineered Tissue No -Bleeding Controlled with Pressure Pressure -Treatment Response Procedure Procedure Tolerated Well Tolerated Well -Offloading No -Debridement - Subq, 1st 20sq cm Yes Yes Pain Scale: 0-10 Numeric Is Patient Pain Free? Yes Yes WC - Nurse 3 - General Ulcer D/C NN Start: 01/03/24 09:12 Freq: Status: Active Protocol: Activity Type Activity Date Activity User E-sign Co-sign Detail Recorded Client Recorded Date Recorded By Document 01/03/24 09:20 Laptop 01/03/24 09:21 Document 01/17/24 09:41 [id number] 01/17/24 09:41 01/03/24 01/17/24 09:20 09:41 Wound Care Center Nurse 3 Left Medial LE -Ulcer Cleansing Rinsed/ Rinsed/ Irrigated with Irrigated with Saline Saline -Foul Odor after Cleansing No No -Primary Dressing Applied Promogran Promogran Madeline Matter Madeline Matter -Primary Dressing Covered/Secured with Dry Gauze & Dry Gauze & Roll Gauze, Roll Gauze, Secured with Secured with Tape Tape -Promogran Madeline Matter 1 1 Left -Compression Wrap Kevin Wrap Kevin Wrap Pain Scale: 0-10 Numeric Is Patient Pain Free? Yes Yes WC - Visit Discharge Discharge Condition Stable Stable Ambulatory Status Ambulatory Ambulatory Transportation Private Auto Private Auto Accompanied by caregiver Medication Reconcilliation completed & Yes Yes provided to patient/care provider Clinical Summary of Care Provided Yes Yes Assessment/Plan Assessment/Plan (1) Non-pressure ulcer of right lower extremity with fat layer exposed: CODE(S): L97.912 - Non-pressure chronic ulcer of unspecified part of right lower leg with fat layer exposed PLAN: Patient was examined and evaluated. All findings were discussed with the patient. All questions were answered to the patient's satisfaction. Excisional debridement using the ultrasonic Misonix debrider down to and including subcutaneous tissue to the left medial full-thickness ulceration without incident. Predebridement measurement is 10. x 0.8 x 0.1 cm. Postdebridement measurement is 10.2 x 1.0 x 0.2 cm. Left lower extremities were cleaned patted dry. Madeline was applied followed by dry sterile dressing and Kevin bandage. Patient nursing staff will do daily or every other day dressing changes as well as as needed changes when needed. Patient has been grateful for his care and is showing great improvement. Follow-up at the wound care center with Dr. Cadena in 2 week for ultrasonic debridement. (2) Ulcer of extremity due to chronic venous insufficiency: CODE(S): L98.499 - Non-pressure chronic ulcer of skin of other sites with unspecified severity; I87.2 - Venous insufficiency (chronic) (peripheral) (3) Peripheral vascular disease: CODE(S): I73.9 - Peripheral vascular disease, unspecified (4) Dermatitis: CODE(S): L30.9 - Dermatitis, unspecified
[2024-01-31 08:56] VITALS: BP 123/64; PULSE 78; RESP 18; TEMP 36; BMI 31.1
--- NOTE | 2024-01-31 09:39 | PN.PCM_ITS ---
History of Present Illness Date of Service: 01/31/24 Chief Complaint: Bilateral leg ulcerations History of Wound: Mr. Ramirez is a 63-year-old male presenting to the wound care center today at [facility] with a chief complaint of bilateral leg ulcerations. Patient resides at a nursing facility where he is cared for 24 hours a day. Patient has a bit of cognitive dysfunction and is well medicated today with 2 mg of Ativan. Patient has seen wound care in the past but presents with worsening larger wound to the left leg/ankle area. Patient denies of any trauma. Patient denies any constitutional symptoms. No other pedal complaints at this time. Subjective Subjective Mr. Ramirez is a 63-year-old male presenting to clinic today at the wound care center for follow-up evaluation of the full-thickness ulceration to the left ankle. Patient has been getting dressing changes per nursing staff. Things have been uneventful. He admits improvement to the wound. He denies any trauma. Denies constitutional symptoms. No other complaints at this time. Objective Data Objective Data Vital Signs: Vital Signs Temp Pulse Resp BP O2 Del Method 96.8 F L 78 18 123/64 H Room Air 01/31/24 08:56 01/31/24 08:56 01/31/24 08:56 01/31/24 08:56 01/31/24 08:56 Oxygen Delivery Method Room Air Weight: 107.048 kg Body Mass Index (BMI) 31.1 Physical Exam Narrative Vascular: DP and PT pulses are faintly palpable. CFT is brisk. Skin temperature is warm to warm from proximal ankle to distal digits. Blanchable erythema to periwound. No sign of infection. Neurological: Light touch intact. Patient responds to painful stimuli. Dermatological: Full-thickness ulceration appreciated to the left lateral ankle measuring 10.6 x 1.4 x 0.2 cm. Wound base is fibrogranular nature. No sign of infection. Both wounds show no evidence of tunneling or undermining. No evidence of probe to bone bilateral. Excisional debridement using the ultrasonic Misonix debrider down to and including subcutaneous tissue to the left medial full-thickness ulceration without incident. Predebridement measurement is 9.7 x 1.0 x 0.1 cm. Postdebridement measurement is 10.6 x 1.4 x 0.2 cm. Musculoskeletal: No pain to palpation of full-thickness ulceration with no pain with calf pressure Debridement Note Debridement Note Debridement Free Text: Excisional debridement using the ultrasonic Misonix debrider down to and including subcutaneous tissue to the left medial full- thickness ulceration without incident. Predebridement measurement is 9.7 x 1.0 x 0.1 cm. Postdebridement measurement is 10.6 x 1.4 x 0.2 cm. Post-Debridement Measurements and Additional Note: Post-Debridement Measurements/Treatment - Nurse 1 - General Ulcer Assessment Start: 01/03/24 09:12 Freq: Status: Active Protocol: SURY Activity Type Activity Date Activity User E-sign Co-sign Detail Recorded Client Recorded Date Recorded By Document 01/03/24 09:12 Laptop 01/03/24 09:17 Document 01/17/24 09:20 [id number] 01/17/24 09:22 Document 01/31/24 08:56 [facility] 01/31/24 09:11 01/03/24 01/17/24 01/31/24 09:12 09:20 08:56 - Today's Visit Information Type of service Follow-up Visit Follow-up Visit (Physician/SYSTEMS DESIGN ENGINEER (Physician/SYSTEMS DESIGN ENGINEER ) ) Arrival Mode Ambulatory Ambulatory Ambulatory Transfer Assistance None Accompanied by [facility] staff nurse Patient Identification Verified (Name & Yes Yes Yes ) Patient Requires Transmission-Based No No Precautions Height and Weight Body Mass Index (BMI) 31.1 31.1 31.1 BMI Classification Obese Obese Obese Vital Signs Temperature (97.8 F-99.1 F) 98.5 F 96.8 F L Temperature Source Temporal Temporal Pulse Rate (60-100) 72 75 78 Pulse Location Monitor Monitor Monitor Respiratory Rate (12-18) 18 16 18 Respiratory rate source Observation Observation Oxygen Delivery Method Room Air Room Air Blood Pressure (90/60-120/80) 125/70 H 112/72 123/64 H Blood Pressure Mean (mm Hg) 88 85 83 Source Monitor Monitor Monitor Position Sitting Sitting Sitting Blood Pressure Location Right Arm Left Arm Left Arm History Since Last Visit- (Skip if this is Patient's initial visit) Have you changed medications since your No No No last visit? Any new allergies or adverse reactions No No No Had a fall/change in ADL's that may No No No increase risk of falls Signs or symptoms of abuse and/or No No No neglect since last visit Have you been in the hospital since your No last visit? Has dressing in place as prescribed Yes Yes Yes Has compression in place as prescribed Yes Yes Yes Has offloadiing in place as prescribed N/A N/A Experienced any changes in pain level or No No management Left Footwear Regular Shoe Regular Shoe Regular Shoe Right Footwear Regular Shoe Regular Shoe Regular Shoe Pain Scale: 0-10 Numeric Is Patient Pain Free? Yes Yes Yes - Nurse 1 - General Ulcer Measurement Start: 01/03/24 09:12 Freq: Status: Active Protocol: Activity Type Activity Date Activity User E-sign Co-sign Detail Recorded Client Recorded Date Recorded By Document 01/03/24 09:12 Laptop 01/03/24 09:17 JF Document 01/17/24 09:20 [id number] 01/17/24 09:22 Document 01/31/24 08:56 [facility] 01/31/24 09:11 01/03/24 01/17/24 01/31/24 09:12 09:20 08:56 Wound Center Nurse 1 Left Medial LE -Combined with other wound No No -Current Size (cm) - Length 9.8 10.5 9.7 -Current Size (cm) - Width 0.5 0.8 1.0 -Current Size (cm) - Depth 0.1 0.2 0.4 -Total Square Cm 4.90 8.40 9.70 -Photo Taken Yes No No -Epithelialization Medium 34-66% Small 1-33% Small 1-33% -Tunneling No No No -Undermining/Tunneling No No No -Circular Undermining No No -Exudate Amt Small Small Medium -Exudate Type Serosanguineous Yellow/Green Purulent -Wound Margin Flat & Intact Distinct, Distinct, Outline Outline Attached Attached -Granulation Amt Large (67-100%) Medium (34-66%) Medium (34-66%) -Granulation Quality Red Red [place] -Slough/Fibrin Yes Yes Yes -Necrosis Amt Small (1-33%) Small (1-33%) Small (1-33%) -Necrotic Tissue Type Adherent Slough Adherent Slough Adherent Slough -Structure Exposed N/A -Texture (Reyna-wound Skin Appearance) Assessed, Assessed Assessed Localized Edema ,Scarring -Moisture (Reyna-wound Skin Appearance) Assessed, Assessed Assessed Weeping -Color (Reyna-wound Skin Appearance) Assessed Assessed Assessed, Erythema -Temperature (Reyna-wound Skin No Abnormality No Abnormality No Abnormality Appearance) (Pt Warm) (Pt Warm) (Pt Warm) -Tenderness on Palpation (Reyna-wound No No No Skin Appearance) -Ulcer Cleansing Rinsed/ Soap and Water Soap and Water Irrigated with Saline -Foul Odor after Cleansing No No No -Anesthetic Used 5% Lidocaine 5% Lidocaine 4% Lidocaine Gel Gel Solution Lower Limb Edema Present Yes No Left Calf (cm) 38.5 39 Left Ankle (cm) 23.3 25.5 WC - Nurse 2 - General Ulcer CM Notes Start: 01/03/24 09:12 Freq: Status: Active Protocol: Activity Type Activity Date Activity User E-sign Co-sign Detail Recorded Client Recorded Date Recorded By Document 01/03/24 09:18 [employer] Laptop 01/03/24 09:20 JF Document 01/17/24 09:30 [place] [id number] 01/17/24 09:31 DS Document 01/31/24 09:22 JF [id number] 01/31/24 09:23 JF 01/03/24 01/17/24 01/31/24 09:18 09:30 09:22 Wound Center Nurse 2 Left Medial LE -Time 09:19 09:30 09:22 -Correct Patient Yes Yes Yes -Correct Side, Site, Position Yes Yes Yes -Correct Procedure Yes Yes Yes -Procedure Performed Yes Yes Yes -Type of Procedure Debridement Debridement Debridement -Clinical Debridement Subcutaneous Subcutaneous Subcutaneous -Tissue Removed Subcutaneous Subcutaneous Subcutaneous -Post Debridement (cm) - Length 10 10.2 10.6 -Post Debridement (cm) - Width 0.8 1.0 1.4 -Post Debridement (cm) - Depth 0.2 0.2 0.2 -Total Square (Post) (cm) 8.0 10.20 14.84 -Area of Debridement (cm) - Length 10 10.2 10.6 -Area of Debridement (cm) - Width 0.8 1.0 1.4 -Total Square (Area) (cm) 8.0 10.20 14.84 -Tunneling No No No -Undermining/Tunneling No No No -Circular Undermining No No No -Wound/Ulcer Outcome Not Healed Not Healed Not Healed -Ulcer Cleansing Rinsed/ Rinsed/ Rinsed/ Irrigated with Irrigated with Irrigated with Saline Saline Saline -Foul Odor after Cleansing No No -Bioengineered Tissue No No -Bleeding Controlled with Pressure Pressure Pressure -Treatment Response Procedure Procedure Procedure Tolerated Well Tolerated Well Tolerated Well -Offloading No No -Debridement - Subq, 1st 20sq cm Yes Yes Yes Pain Scale: 0-10 Numeric Is Patient Pain Free? Yes Yes Yes - Nurse 3 - General Ulcer D/C NN Start: 01/03/24 09:12 Freq: Status: Active Protocol: Activity Type Activity Date Activity User E-sign Co-sign Detail Recorded Client Recorded Date Recorded By Document 01/03/24 09:20 Laptop 01/03/24 09:21 Document 01/17/24 09:41 [id number] 01/17/24 09:41 Document 01/31/24 09:26 wound center 01/31/24 09:27 01/03/24 01/17/24 01/31/24 09:20 09:41 09:26 Wound Care Center Nurse 3 Left Medial LE -Ulcer Cleansing Rinsed/ Rinsed/ Irrigated with Irrigated with Saline Saline -Foul Odor after Cleansing No No -Primary Dressing Applied Promogran Promogran Madeline Matter Madeline Matter -Other Dressing DAKINS -Primary Dressing Covered/Secured with Dry Gauze & Dry Gauze & Dry Gauze & Roll Gauze, Roll Gauze, Roll Gauze, Secured with Secured with Secured with Tape Tape Tape -Promogran Madeline Matter 1 1 Left -Compression Wrap Kevin Wrap Kevin Wrap Kevin Wrap Pain Scale: 0-10 Numeric Is Patient Pain Free? Yes Yes Yes - Visit Discharge Discharge Condition Stable Stable Stable Ambulatory Status Ambulatory Ambulatory Ambulatory Transportation Private Auto Private Auto Accompanied by caregiver Medication Reconcilliation completed & Yes Yes No provided to patient/care provider Clinical Summary of Care Provided Yes Yes Yes Assessment/Plan Assessment/Plan (1) Non-pressure ulcer of right lower extremity with fat layer exposed: CODE(S): L97.912 - Non-pressure chronic ulcer of unspecified part of right lower leg with fat layer exposed PLAN: Patient was examined and evaluated. All findings were discussed with the patient. All questions were answered to the patient's satisfaction. Excisional debridement using the ultrasonic Misonix debrider down to and including subcutaneous tissue to the left medial full-thickness ulceration without incident. Predebridement measurement is 9.7 x 1.0 x 0.1 cm. Postdebridement measurement is 10.6 x 1.4 x 0.2 cm. Left extremity were cleaned and patted dry. Patient wound was packed with 0.25% Dakin solution dry sterile dressing and Tubigrip. Dressing changes will be done at the [facility] with Dakin's dry sterile dressing and compression wrap. Prior to debridement there was discussion regarding increased drainage. After debridement culture was taken. Will follow microbiology culture and sensitivity and will give antibiotics if necessary. Follow-up at the wound care center with Dr. Cadena in 1 week. (2) Peripheral vascular disease: CODE(S): I73.9 - Peripheral vascular disease, unspecified
== END 2024-02-02 23:59 | disposition home or self-care (01) ==
LOC: WC 09:00
PROVIDERS: PCP Internal Medicine Infectious Disease; Referring Provider Internal Medicine Infectious Disease; Visit Provider Podiatrist Foot & Ankle Surgery
DX: L97.822 Non-pressure chronic ulcer of other part of left lower leg with fat layer exposed (principal); L97.912 Non-pressure chronic ulcer of unspecified part of right lower leg with fat layer exposed; L98.499 Non-pressure chronic ulcer of skin of other sites with unspecified severity; I87.2 Venous insufficiency (chronic) (peripheral); L30.9 Dermatitis, unspecified; I73.9 Peripheral vascular disease, unspecified
CPT/HCPCS: 11042; 87070; 87075; 87077; 87101; 87186; 87205

== ENCOUNTER 2024-02-21 09:00 | Outpatient (RCR) | payer MEDICARE, MEDICAID, SELFPAY ==
[2024-02-03 01:48] VITALS: BP 126/75; PULSE 78; RESP 18; TEMP 36.6; BMI 31.1
[2024-02-07 09:05] VITALS: BP 120/66; PULSE 93; RESP 18; TEMP 36.2; BMI 31.1
--- NOTE | 2024-02-07 11:49 | PN.PCM_ITS ---
History of Present Illness Date of Service: 02/07/24 Chief Complaint: Bilateral leg ulcerations History of Wound: Mr. Ramirez is a 63-year-old male presenting to the wound care center today at [facility] with a chief complaint of bilateral leg ulcerations. Patient resides at a nursing facility where he is cared for 24 hours a day. Patient has a bit of cognitive dysfunction and is well medicated today with 2 mg of Ativan. Patient has seen wound care in the past but presents with worsening larger wound to the left leg/ankle area. Patient denies of any trauma. Patient denies any constitutional symptoms. No other pedal complaints at this time. Subjective Subjective Mr. Ramirez is a 63-year-old male presenting to clinic today at the wound care center for follow-up evaluation of the full-thickness ulceration to the left ankle. Patient has been getting dressing changes per nursing staff. Things have been uneventful. His last cultures were MRSA on doxycycline as tolerated. He admits improvement to the wound. He denies any trauma. Denies constitutional symptoms. No other complaints at this time. Objective Data Objective Data Vital Signs: Vital Signs Temp Pulse Resp BP O2 Del Method 97.1 F L 93 18 120/66 Room Air 02/07/24 09:05 02/07/24 09:05 02/07/24 09:05 02/07/24 09:05 02/07/24 09:05 Oxygen Delivery Method Room Air Weight: 107.048 kg Body Mass Index (BMI) 31.1 Physical Exam Narrative Vascular: DP and PT pulses are faintly palpable. CFT is brisk. Skin temperature is warm to warm from proximal ankle to distal digits. Blanchable erythema to periwound. No sign of infection. Neurological: Light touch intact. Patient responds to painful stimuli. Dermatological: Full-thickness ulceration appreciated to the left lateral ankle measuring 10.3 x 1.7 x 0.2 cm. Wound base is fibrogranular nature. No sign of infection. Both wounds show no evidence of tunneling or undermining. No evidence of probe to bone bilateral. Excisional debridement using the ultrasonic Misonix debrider down to and including subcutaneous tissue to the left medial full-thickness ulceration without incident. Predebridement measurement is 10.0 x 1.5 x 0.1 cm. Postdebridement measurement is 10.3 x 1.7 x 0.2 cm Musculoskeletal: No pain to palpation of full-thickness ulceration with no pain with calf pressure Debridement Note Debridement Note Debridement Free Text: Excisional debridement using the ultrasonic Misonix debrider down to and including subcutaneous tissue to the left medial full-thickness ulceration without incident. Predebridement measurement is 10.0 x 1.5 x 0.1 cm. Postdebridement measurement is 10.3 x 1.7 x 0.2 cm Post-Debridement Measurements and Additional Note: Post-Debridement Measurements/Treatment - Nurse 1 - General Ulcer Assessment Start: 02/07/24 09:05 Freq: Status: Active Protocol: SURY Activity Type Activity Date Activity User E-sign Co-sign Detail Recorded Client Recorded Date Recorded By Document 02/07/24 09:05 [facility] 02/07/24 09:17 02/07/24 09:05 - Today's Visit Information Type of service Follow-up Visit (Physician/HAND TOOL FILER ) Arrival Mode Ambulatory Accompanied by nurse from [place] Patient Identification Verified (Name & Yes ) Height and Weight Body Mass Index (BMI) 31.1 BMI Classification Obese Vital Signs Temperature (97.8 F-99.1 F) 97.1 F L Temperature Source Temporal Pulse Rate (60-100) 93 Pulse Location Monitor Respiratory Rate (12-18) 18 Respiratory rate source Observation Oxygen Delivery Method Room Air Blood Pressure (90/60-120/80) 120/66 Blood Pressure Mean (mm Hg) 84 Source Monitor Position Sitting Blood Pressure Location Left Arm History Since Last Visit- (Skip if this is Patient's initial visit) Have you changed medications since your Yes last visit? Any new allergies or adverse reactions No Had a fall/change in ADL's that may No increase risk of falls Signs or symptoms of abuse and/or No neglect since last visit Have you been in the hospital since your No last visit? Has dressing in place as prescribed Yes Has compression in place as prescribed Yes Has offloadiing in place as prescribed N/A Experienced any changes in pain level or No management Pain Scale: 0-10 Numeric Is Patient Pain Free? Yes - Nurse 1 - General Ulcer Measurement Start: 02/07/24 09:05 Freq: Status: Active Protocol: Activity Type Activity Date Activity User E-sign Co-sign Detail Recorded Client Recorded Date Recorded By Document 02/07/24 09:05 [facility] 02/07/24 09:17 02/07/24 09:05 Wound Center Nurse 1 Left Medial LE -Current Size (cm) - Length 10.5 -Current Size (cm) - Width 1.4 -Current Size (cm) - Depth 0.2 -Total Square Cm 14.70 -Date of Last Picture (Recall this 02/07/24 field) -Photo Taken Yes -Epithelialization Small 1-33% -Tunneling No -Undermining/Tunneling No -Exudate Amt Medium -Exudate Type Yellow/Green -Wound Margin Distinct, Outline Attached -Granulation Amt Large (67-100%) -Granulation Quality Red -Slough/Fibrin Yes -Necrosis Amt Small (1-33%) -Texture (Reyna-wound Skin Appearance) Assessed -Moisture (Reyna-wound Skin Appearance) Assessed -Color (Reyna-wound Skin Appearance) Assessed -Temperature (Reyna-wound Skin No Abnormality Appearance) (Pt Warm) -Ulcer Cleansing Soap and Water -Foul Odor after Cleansing No -Anesthetic Used 5% Lidocaine Gel Left Calf (cm) 39.7 Left Ankle (cm) 26.0 WC - Nurse 2 - General Ulcer CM Notes Start: 02/07/24 09:05 Freq: Status: Active Protocol: Activity Type Activity Date Activity User E-sign Co-sign Detail Recorded Client Recorded Date Recorded By Document 02/07/24 09:38 [id number] 02/07/24 09:40 02/07/24 09:38 Wound Center Nurse 2 Left [facility] LE -Time 09:38 -Correct Patient Yes -Correct Side, Site, Position Yes -Correct Procedure Yes -Procedure Performed Yes -Type of Procedure Debridement -Clinical Debridement Subcutaneous -Tissue Removed Subcutaneous -Post Debridement (cm) - Length 10.3 -Post Debridement (cm) - Width 1.7 -Post Debridement (cm) - Depth 0.2 -Total Square (Post) (cm) 17.51 -Area of Debridement (cm) - Length 10.3 -Area of Debridement (cm) - Width 1.7 -Total Square (Area) (cm) 17.51 -Tunneling No -Undermining/Tunneling No -Circular Undermining No -Wound/Ulcer Outcome Not Healed -Ulcer Cleansing Rinsed/ Irrigated with Saline -Foul Odor after Cleansing No -Bioengineered Tissue No -Bleeding Controlled with Pressure -Treatment Response Procedure Tolerated Well -Offloading No -Debridement - Subq, 1st 20sq cm Yes Pain Scale: 0-10 Numeric Is Patient Pain Free? Yes WC - Nurse 3 - General Ulcer D/C NN Start: 02/07/24 09:05 Freq: Status: Active Protocol: Activity Type Activity Date Activity User E-sign Co-sign Detail Recorded Client Recorded Date Recorded By Document 02/07/24 09:51 Wound center 02/07/24 09:53 02/07/24 09:51 Wound Care Center Nurse 3 Left Medial LE -Other Dressing ATB OINTMENT -Primary Dressing Covered/Secured with Secured with Tape Left -Tubular Bandage Single Layer -Size of Tubigrip Used Size D -Size D ($) 1 Pain Scale: 0-10 Numeric Is Patient Pain Free? Yes WC - Visit Discharge Discharge Condition Stable Ambulatory Status Ambulatory Accompanied by NURSE Medication Reconcilliation completed & No provided to patient/care provider Clinical Summary of Care Provided Yes Assessment/Plan Assessment/Plan (1) Non-pressure ulcer of right lower extremity with fat layer exposed: CODE(S): L97.912 - Non-pressure chronic ulcer of unspecified part of right lower leg with fat layer exposed PLAN: Patient was examined and evaluated. All findings were discussed with the patient. All questions were answered to the patient's satisfaction. Excisional debridement using the ultrasonic Misonix debrider down to and including subcutaneous tissue to the left medial full-thickness ulceration without incident. Predebridement measurement is 10.0 x 1.5 x 0.1 cm. Postdebridement measurement is 10.3 x 1.7 x 0.2 cm. Ulceration was dressed with Dakin's dry sterile dressing and Tubigrip. Patient will use mupirocin ointment with dressing changes at the alf facility followed by dry sterile dressing and Tubigrip. Follow-up at the wound care center with Dr. Cadena in 2 week. (2) Peripheral vascular disease: CODE(S): I73.9 - Peripheral vascular disease, unspecified
--- NOTE | 2024-02-09 09:08 | WC ---
02/07/2024 LEFT MEDIAL ANKLE
[2024-02-21 09:12] VITALS: BP 122/79; PULSE 82; RESP 18; TEMP 36.4; BMI 31.1
--- NOTE | 2024-02-21 11:02 | PN.PCM_ITS ---
History of Present Illness Date of Service: 02/21/24 Chief Complaint: Bilateral leg ulcerations History of Wound: Mr. Ramirez is a 63-year-old male presenting to the wound care center today at [facility] with a chief complaint of bilateral leg ulcerations. Patient resides at a nursing facility where he is cared for 24 hours a day. Patient has a bit of cognitive dysfunction and is well medicated today with 2 mg of Ativan. Patient has seen wound care in the past but presents with worsening larger wound to the left leg/ankle area. Patient denies of any trauma. Patient denies any constitutional symptoms. No other pedal complaints at this time. Subjective Subjective Mr. Ramirez is a 63-year-old male presenting to clinic today at the wound care center for follow-up evaluation of the full-thickness ulceration to the left ankle. Patient has been getting dressing changes per nursing staff. He admits improvement to the wound. He denies any trauma. Denies constitutional symptoms. No other complaints at this time Objective Data Objective Data Vital Signs: Vital Signs Temp Pulse Resp BP O2 Del Method 97.6 F L 82 18 122/79 H Room Air 02/21/24 09:12 02/21/24 09:12 02/21/24 09:12 02/21/24 09:12 02/21/24 09:12 Oxygen Delivery Method Room Air Weight: 107.048 kg Body Mass Index (BMI) 31.1 Physical Exam Narrative scular: DP and PT pulses are faintly palpable. CFT is brisk. Skin temperature is warm to warm from proximal ankle to distal digits. Blanchable erythema to periwound. No sign of infection. Neurological: Light touch intact. Patient responds to painful stimuli. Dermatological: Full-thickness ulceration appreciated to the left lateral ankle measuring 9.3 x 1.5 x 0.2 cm. Wound base is fibrogranular nature. No sign of infection. Both wounds show no evidence of tunneling or undermining. No evidence of probe to bone bilateral. Excisional debridement using the ultrasonic Misonix debrider down to and including subcutaneous tissue to the left medial full-thickness ulceration without incident. Predebridement measurement is 9.2 x 0.7 x 0.1 cm. Postdebridement measurement is 9.3 x 1.5 x 0.2 cm Musculoskeletal: No pain to palpation of full-thickness ulceration with no pain with calf pressure Debridement Note Debridement Note Debridement Free Text: Excisional debridement using the ultrasonic Misonix debrider down to and including subcutaneous tissue to the left medial full- thickness ulceration without incident. Predebridement measurement is 9.2 x 0.7 x 0.1 cm. Postdebridement measurement is 9.3 x 1.5 x 0.2 cm Post-Debridement Measurements and Additional Note: Post-Debridement Measurements/Treatment - Nurse 1 - General Ulcer Assessment Start: 02/07/24 09:05 Freq: Status: Active Protocol: SURY Activity Type Activity Date Activity User E-sign Co-sign Detail Recorded Client Recorded Date Recorded By Document 02/07/24 09:05 [facility] 02/07/24 09:17 Document 02/21/24 09:12 [facility] 02/21/24 09:14 02/07/24 02/21/24 09:05 09:12 - Today's Visit Information Type of service Follow-up Visit Follow-up Visit (Physician/[facility] (Physician/[facility] ) ) Arrival Mode Ambulatory Ambulatory Transfer Assistance None Accompanied by nurse from [facility] Nurse Patient Identification Verified (Name & Yes Yes ) Height and Weight Body Mass Index (BMI) 31.1 31.1 BMI Classification Obese Obese Vital Signs Temperature (97.8 F-99.1 F) 97.1 F L 97.6 F L Temperature Source Temporal Temporal Pulse Rate (60-100) 93 82 Pulse Location Monitor Respiratory Rate (12-18) 18 18 Respiratory rate source Observation Observation Oxygen Delivery Method Room Air Room Air Blood Pressure (90/60-120/80) 120/66 122/79 H Blood Pressure Mean (mm Hg) 84 93 Source Monitor Monitor Position Sitting Sitting Blood Pressure Location Left Arm Left Arm History Since Last Visit- (Skip if this is Patient's initial visit) Have you changed medications since your Yes No last visit? Any new allergies or adverse reactions No No Had a fall/change in ADL's that may No No increase risk of falls Signs or symptoms of abuse and/or No No neglect since last visit Have you been in the hospital since your No No last visit? Has dressing in place as prescribed Yes Yes Has compression in place as prescribed Yes Yes Has offloadiing in place as prescribed N/A N/A Experienced any changes in pain level or No No management Right Footwear Regular Shoe Pain Scale: 0-10 Numeric Is Patient Pain Free? Yes Yes WC - Nurse 1 - General Ulcer Measurement Start: 02/07/24 09:05 Freq: Status: Active Protocol: Activity Type Activity Date Activity User E-sign Co-sign Detail Recorded Client Recorded Date Recorded By Document 02/07/24 09:05 [facility] 02/07/24 09:17 Document 02/21/24 09:12 [facility] 02/21/24 09:14 02/07/24 02/21/24 09:05 09:12 Wound Center Nurse 1 Left Medial LE -Current Size (cm) - Length 10.5 9.2 -Current Size (cm) - Width 1.4 0.7 -Current Size (cm) - Depth 0.2 0.3 -Total Square Cm 14.70 6.44 -Date of Last Picture (Recall this 02/07/24 02/21/24 field) -Photo Taken Yes Yes -Epithelialization Small 1-33% None Present -Tunneling No No -Undermining/Tunneling No No -Circular Undermining No -Exudate Amt Medium -Exudate Type Yellow/Green -Wound Margin Distinct, Distinct, Outline Outline Attached Attached -Granulation Amt Large (67-100%) Medium (34-66%) -Granulation Quality Red [place] -Slough/Fibrin Yes -Necrosis Amt Small (1-33%) Medium (34-66%) -Necrotic Tissue Type Adherent Slough -Texture (Reyna-wound Skin Appearance) Assessed Assessed -Moisture (Reyna-wound Skin Appearance) Assessed Assessed -Color (Reyna-wound Skin Appearance) Assessed Assessed -Temperature (Reyna-wound Skin No Abnormality No Abnormality Appearance) (Pt Warm) (Pt Warm) -Ulcer Cleansing Soap and Water Soap and Water -Foul Odor after Cleansing No -Anesthetic Used 5% Lidocaine 5% Lidocaine Gel Gel Lower Limb Edema Present No Left Calf (cm) 39.7 37 Left Ankle (cm) 26.0 23.5 WC - Nurse 2 - General Ulcer CM Notes Start: 02/07/24 09:05 Freq: Status: Active Protocol: Activity Type Activity Date Activity User E-sign Co-sign Detail Recorded Client Recorded Date Recorded By Document 02/07/24 09:38 JF [id number] 02/07/24 09:40 JF Document 02/21/24 09:23 DS 1 06/19/24 09:24 DS 02/07/24 02/21/24 09:38 09:23 Wound Center Nurse 2 Left Medial LE -Time 09:38 09:23 -Correct Patient Yes Yes -Correct Side, Site, Position Yes Yes -Correct Procedure Yes Yes -Procedure Performed Yes Yes -Type of Procedure Debridement Debridement -Clinical Debridement Subcutaneous Subcutaneous -Tissue Removed Subcutaneous Subcutaneous -Post Debridement (cm) - Length 10.3 9.3 -Post Debridement (cm) - Width 1.7 1.5 -Post Debridement (cm) - Depth 0.2 0.2 -Total Square (Post) (cm) 17.51 13.95 -Area of Debridement (cm) - Length 10.3 9.3 -Area of Debridement (cm) - Width 1.7 1.5 -Total Square (Area) (cm) 17.51 13.95 -Tunneling No No -Undermining/Tunneling No No -Circular Undermining No No -Wound/Ulcer Outcome Not Healed Not Healed -Ulcer Cleansing Rinsed/ Rinsed/ Irrigated with Irrigated with Saline Saline -Foul Odor after Cleansing No -Bioengineered Tissue No -Bleeding Controlled with Pressure Pressure -Treatment Response Procedure Procedure Tolerated Well Tolerated Well -Offloading No -Debridement - Subq, 1st 20sq cm Yes Yes Pain Scale: 0-10 Numeric Is Patient Pain Free? Yes Yes - Nurse 3 - General Ulcer D/C NN Start: 02/07/24 09:05 Freq: Status: Active Protocol: Activity Type Activity Date Activity User E-sign Co-sign Detail Recorded Client Recorded Date Recorded By Document 02/07/24 09:51 Wound center 02/07/24 09:53 KW Document 02/21/24 10:02 KW j 02/21/24 10:02 KW 02/07/24 02/21/24 09:51 10:02 Wound Care Center Nurse 3 Left Medial LE -Other Dressing ATB OINTMENT dakins soaked gauze -Primary Dressing Covered/Secured with Secured with Dry Gauze & Tape Roll Gauze, Secured with Tape Left -Compression Wrap Kevin Wrap -Tubular Bandage Single Layer -Size of Tubigrip Used Size D -Size D ($) 1 Pain Scale: 0-10 Numeric Is Patient Pain Free? Yes Yes - Visit Discharge Discharge Condition Stable Ambulatory Status Ambulatory Accompanied by NURSE Medication Reconcilliation completed & No provided to patient/care provider Clinical Summary of Care Provided Yes Assessment/Plan Assessment/Plan (1) Non-pressure chronic ulcer of other part of left lower leg with fat layer exposed: CODE(S): L97.822 - Non-pressure chronic ulcer of other part of left lower leg with fat layer exposed PLAN: Patient was examined and evaluated. All findings were discussed with the patient. All questions were answered to the patient's satisfaction. Excisional debridement using the ultrasonic Misonix debrider down to and including subcutaneous tissue to the left medial full-thickness ulceration without incident. Predebridement measurement is 9.2 x 0.7 x 0.1 cm. Postdebridement measurement is 9.3 x 1.5 x 0.2 cm. Patient will continue hydrocortisone periwound cream. Ulceration was dressed with Dakin's dry sterile dressing and Tubigrip. Patient will continue daily dressing changes as well as as needed dressing changes at the [facility] facility. Follow-up at the wound care center with Dr. Cadena in 2 week.
== END 2024-03-03 23:59 | disposition home or self-care (01) ==
LOC: WC 09:00
PROVIDERS: PCP Internal Medicine Infectious Disease; Referring Provider Internal Medicine Infectious Disease; Visit Provider Podiatrist Foot & Ankle Surgery
DX: L97.822 Non-pressure chronic ulcer of other part of left lower leg with fat layer exposed (principal); I73.9 Peripheral vascular disease, unspecified
CPT/HCPCS: 11042

== ENCOUNTER → 2024-04-01 | Outpatient (CLI) | payer MEDICARE, MEDICAID, SELFPAY ==
--- NOTE | 2024-04-01 09:03 | AAVD_ITS ---
Reason For Study: s/p Rt Iliac Vein Stent Inferior Vena Cava Proximal inferior vena cava measures 1.30cm x 1.30 cm. in the cross-sectional axis. Proximal inferior vena cava measures 1.04 cm. in the longitudinal axis. Mid inferior vena cava measures 1.43cm x 1.96 cm. in the cross-sectional axis. Mid inferior vena cava measures 1.31 cm. in the longitudinal axis. Distal inferior vena cava measures 1.59cm x 2.27 cm. in the cross-sectional axis. Distal inferior vena cava measures 1.57 cm. in the longitudinal axis. Left Common Iliac Vein Left common iliac vein measures 1.11cm x 1.29 cm. in the cross-sectional axis. Left common iliac vein measures 1.13 cm. in the longitudinal axis. The left common iliac vein has spontaneous, phasic flow throughout. Right Common Iliac Vein Right common iliac vein measures 1.22cm x 1.24 cm. in the cross-sectional axis. Right common iliac vein measures 1.17 cm. in the longitudinal axis. The right common iliac vein has spontaneous, phasic flow throughout. VL/Abd Aortic/IVC Duplex scan Interpretation Summary Patent inferior vena cava and bilateral iliac veins with normal venous flow pat tern. Ordering Physician: Bianca Schmitz Referring Physician: Raj Dykes Performed By: Marie Barreto, BRAYAN, RVT
== END | disposition home or self-care (01) ==
PROVIDERS: PCP Internal Medicine Infectious Disease; Referring Provider Surgery Trauma Surgery; Visit Provider Surgery Trauma Surgery
DX: Z48.812 Encounter for surgical aftercare following surgery on the circulatory system (principal); I87.1 Compression of vein
CPT/HCPCS: 93978

== ENCOUNTER 2024-04-03 09:00 | Outpatient (RCR) | payer MEDICARE, MEDICAID, SELFPAY ==
[2024-03-04 00:20] VITALS: BP 126/75; PULSE 78; RESP 18; TEMP 36.6; BMI 31.1
[2024-03-06 09:15] VITALS: BP 119/68; PULSE 67; RESP 18; TEMP 36.7; BMI 31.1
--- NOTE | 2024-03-06 10:01 | PCM.WC.PN ---
History of Present Illness Date of Service: 03/06/24 Chief Complaint: Bilateral leg ulcerations History of Wound: Mr. Ramirez is a 63-year-old male presenting to the wound care center today at [facility] with a chief complaint of bilateral leg ulcerations. Patient resides at a nursing facility where he is cared for 24 hours a day. Patient has a bit of cognitive dysfunction and is well medicated today with 2 mg of Ativan. Patient has seen wound care in the past but presents with worsening larger wound to the left leg/ankle area. Patient denies of any trauma. Patient denies any constitutional symptoms. No other pedal complaints at this time. Subjective Subjective Mr. Ramirez is a 63-year-old male presenting to clinic today at the wound care center for follow-up evaluation of the full-thickness ulceration to the left ankle. Patient has been getting dressing changes per nursing staff. He admits improvement to the wound. He denies any trauma. Denies constitutional symptoms. No other complaints at this time Objective Data Objective Data Vital Signs: Vital Signs Temp Pulse Resp BP O2 Del Method 98.1 F 67 18 119/68 Room Air 03/06/24 09:15 03/06/24 09:15 03/06/24 09:15 03/06/24 09:15 03/06/24 09:15 Oxygen Delivery Method Room Air Weight: 107.048 kg Body Mass Index (BMI) 31.1 Physical Exam Narrative Vascular: DP and PT pulses are faintly palpable. CFT is brisk. Skin temperature is warm to warm from proximal ankle to distal digits. Blanchable erythema to periwound. No sign of infection. Neurological: Light touch intact. Patient responds to painful stimuli. Dermatological: Full-thickness ulceration appreciated to the left lateral ankle measuring 8.8 x 0.9 x 0.2 cm. Wound base is fibrogranular nature. No sign of infection. Both wounds show no evidence of tunneling or undermining. No evidence of probe to bone bilateral. Excisional debridement using a number 5 mm dermal curette down to and including subcutaneous tissue to the left medial full-thickness ulceration without incident. Predebridement measurement is 8.5 x 0.7 x 0.1 cm. Postdebridement measurement is 8.8 x 0.9 x 0.2 cm Musculoskeletal: No pain to palpation of full-thickness ulceration with no pain with calf pressure Debridement Note Debridement Note Debridement Free Text: Excisional debridement using a number 5 mm dermal curette down to and including subcutaneous tissue to the left medial full-thickness ulceration without incident. Predebridement measurement is 8.5 x 0.7 x 0.1 cm. Postdebridement measurement is 8.8 x 0.9 x 0.2 cm Post-Debridement Measurements and Additional Note: Post-Debridement Measurements/Treatment MARTA - Nurse 1 - General Ulcer Assessment Start: 03/06/24 09:15 Freq: Status: Active Protocol: SURY Activity Type Activity Date Activity User E-sign Co-sign Detail Recorded Client Recorded Date Recorded By Document 03/06/24 09:15 [facility] 03/06/24 09:26 03/06/24 09:15 MARTA - Today's Visit Information Type of service Follow-up Visit (Physician/[facility] ) Arrival Mode Ambulatory Accompanied by [facility] home nurse Patient Identification Verified (Name & Yes ) Height and Weight Body Mass Index (BMI) 31.1 BMI Classification Obese Vital Signs Temperature (97.8 F-99.1 F) 98.1 F Temperature Source Temporal Pulse Rate (60-100) 67 Pulse Location Monitor Respiratory Rate (12-18) 18 Respiratory rate source Observation Oxygen Delivery Method Room Air Blood Pressure (90/60-120/80) 119/68 Blood Pressure Mean (mm Hg) 85 Source Monitor Position Sitting Blood Pressure Location Left Arm History Since Last Visit- (Skip if this is Patient's initial visit) Have you changed medications since your No last visit? Any new allergies or adverse reactions No Had a fall/change in ADL's that may No increase risk of falls Signs or symptoms of abuse and/or No neglect since last visit Have you been in the hospital since your No last visit? Has dressing in place as prescribed Yes Has compression in place as prescribed Yes Has offloadiing in place as prescribed No Experienced any changes in pain level or No management Right Footwear Regular Shoe Pain Scale: 0-10 Numeric Is Patient Pain Free? Yes MARTA - Nurse 1 - General Ulcer Measurement Start: 03/06/24 09:15 Freq: Status: Active Protocol: Activity Type Activity Date Activity User E-sign Co-sign Detail Recorded Client Recorded Date Recorded By Document 03/06/24 09:15 [facility] 03/06/24 09:26 03/06/24 09:15 Wound Center Nurse 1 Left Medial LE -Combined with other wound No -Current Size (cm) - Length 9.1 -Current Size (cm) - Width 1.3 -Current Size (cm) - Depth 0.3 -Total Square Cm 11.83 -Date of Last Picture (Recall this 03/06/24 field) -Photo Taken Yes -Epithelialization Small 1-33% -Tunneling No -Undermining/Tunneling No -Circular Undermining No -Change in Wound Grade/Stage No -Exudate Amt Small -Exudate Type Yellow/Green -Wound Margin Distinct, Outline Attached -Granulation Amt Medium (34-66%) -Granulation Quality Red -Slough/Fibrin Yes -Necrosis Amt Small (1-33%) -Necrotic Tissue Type Adherent Slough -Texture (Reyna-wound Skin Appearance) Assessed -Moisture (Reyna-wound Skin Appearance) Assessed -Color (Reyna-wound Skin Appearance) Assessed -Temperature (Reyna-wound Skin No Abnormality Appearance) (Pt Warm) -Tenderness on Palpation (Reyna-wound No Skin Appearance) -Ulcer Cleansing Soap and Water -Foul Odor after Cleansing No -Anesthetic Used 4% Lidocaine Solution Left Ankle (cm) 37 Left Foot (cm) 24.5 WC - Nurse 2 - General Ulcer CM Notes Start: 03/06/24 09:15 Freq: Status: Active Protocol: Activity Type Activity Date Activity User E-sign Co-sign Detail Recorded Client Recorded Date Recorded By Document 03/06/24 09:42 JF 0000 03/06/24 09:45 JF 03/06/24 09:42 Wound Center Nurse 2 Left Medial LE -Time 09:44 -Correct Patient Yes -Correct Side, Site, Position Yes -Correct Procedure Yes -Type of Procedure Debridement -Clinical Debridement Subcutaneous -Tissue Removed Subcutaneous -Post Debridement (cm) - Length 8.8 -Post Debridement (cm) - Width 0.9 -Post Debridement (cm) - Depth 0.2 -Total Square (Post) (cm) 7.92 -Area of Debridement (cm) - Length 8.8 -Area of Debridement (cm) - Width 0.9 -Total Square (Area) (cm) 7.92 -Tunneling No -Undermining/Tunneling No -Circular Undermining No -Wound/Ulcer Outcome Not Healed -Ulcer Cleansing Rinsed/ Irrigated with Saline -Foul Odor after Cleansing No -Bioengineered Tissue No -Bleeding Controlled with Pressure -Treatment Response Procedure Tolerated Well -Offloading No -Debridement - Subq, 1st 20sq cm Yes Pain Scale: 0-10 Numeric Is Patient Pain Free? Yes - Nurse 3 - General Ulcer D/C NN Start: 03/06/24 09:15 Freq: Status: Active Protocol: Activity Type Activity Date Activity User E-sign Co-sign Detail Recorded Client Recorded Date Recorded By Document 03/06/24 09:54 GM 03/06/24 09:55 GM 03/06/24 09:54 Wound Care Center Nurse 3 Left Medial LE -Ulcer Cleansing Not Cleansed -Primary Dressing Applied Promogran -Primary Dressing Covered/Secured with Dry Gauze & Roll Gauze, Secured with Tape -Promogran 1 Left -Lotion applied to leg before No compression wrap -Compression Wrap Kevin Wrap Pain Scale: 0-10 Numeric Is Patient Pain Free? Yes WC - Visit Discharge Discharge Condition Stable Ambulatory Status Ambulatory Transportation Private Auto Clinical Summary of Care Provided Yes Assessment/Plan Assessment/Plan (1) Non-pressure chronic ulcer of other part of left lower leg with fat layer exposed: CODE(S): L97.822 - Non-pressure chronic ulcer of other part of left lower leg with fat layer exposed PLAN: Patient was examined and evaluated. All findings were discussed with the patient. All questions were answered to the patient's satisfaction. Excisional debridement using a number 5 mm dermal curette down to and including subcutaneous tissue to the left medial full-thickness ulceration without incident. Predebridement measurement is 8.5 x 0.7 x 0.1 cm. Postdebridement measurement is 8.8 x 0.9 x 0.2 cm. The patient's left lower extremities were cleaned and patted dry. Moist Madeline was applied followed by dry sterile dressing and Tubigrip to left lower extremity. Nursing staff at SNF will do every other dressing changes and as needed when needed secondary to drainage. Follow-up at the wound care center with Dr. Cadena in 1 week. (2) Peripheral vascular disease: CODE(S): I73.9 - Peripheral vascular disease, unspecified
[2024-03-20 09:07] VITALS: BP 107/67; PULSE 73; RESP 18; TEMP 36.8; BMI 31.1
--- NOTE | 2024-03-20 10:16 | PCM.WC.PN ---
History of Present Illness Date of Service: 03/20/24 Chief Complaint: Bilateral leg ulcerations History of Wound: Mr. Ramirez is a 63-year-old male presenting to the wound care center today at [facility] with a chief complaint of bilateral leg ulcerations. Patient resides at a nursing facility where he is cared for 24 hours a day. Patient has a bit of cognitive dysfunction and is well medicated today with 2 mg of Ativan. Patient has seen wound care in the past but presents with worsening larger wound to the left leg/ankle area. Patient denies of any trauma. Patient denies any constitutional symptoms. No other pedal complaints at this time. Subjective Subjective Mr. Ramirez is a 63-year-old male presenting to clinic today at the wound care center for follow-up evaluation of the full-thickness ulceration to the left ankle. Patient has been getting dressing changes per nursing staff. He admits improvement to the wound. He denies any trauma. Denies constitutional symptoms. No other complaints at this time Objective Data Objective Data Vital Signs: Vital Signs Temp Pulse Resp BP O2 Del Method 98.2 F 73 18 107/67 Room Air 03/20/24 09:07 03/20/24 09:07 03/20/24 09:07 03/20/24 09:07 03/20/24 09:07 Oxygen Delivery Method Room Air Weight: 107.048 kg Body Mass Index (BMI) 31.1 Physical Exam Narrative Vascular: DP and PT pulses are faintly palpable. CFT is brisk. Skin temperature is warm to warm from proximal ankle to distal digits. Blanchable erythema to periwound. No sign of infection. Neurological: Light touch intact. Patient responds to painful stimuli. Dermatological: Full-thickness ulceration appreciated to the left lateral ankle measuring 8.6 x 0.7 x 0.2 cm. Wound base is fibrogranular nature. No sign of infection. Wound show no evidence of tunneling or undermining. No evidence of probe to bone bilateral. Excisional debridement using a number 5 mm dermal curette down to and including subcutaneous tissue to the left medial full-thickness ulceration without incident. Predebridement measurement is 8.0 x 0.5 x 0.1 cm. Postdebridement measurement is 8.6 x 0.7 x 0.2 cm Musculoskeletal: No pain to palpation of full-thickness ulceration with no pain with calf pressure Debridement Note Debridement Note Debridement Free Text: Excisional debridement using a number 5 mm dermal curette down to and including subcutaneous tissue to the left medial full-thickness ulceration without incident. Predebridement measurement is 8.0 x 0.5 x 0.1 cm. Postdebridement measurement is 8.6 x 0.7 x 0.2 cm Post-Debridement Measurements and Additional Note: Post-Debridement Measurements/Treatment - Nurse 1 - General Ulcer Assessment Start: 03/06/24 09:15 Freq: Status: Active Protocol: SURY Activity Type Activity Date Activity User E-sign Co-sign Detail Recorded Client Recorded Date Recorded By Document 03/06/24 09:15 GM wc 03/06/24 09:26 GM Document 03/20/24 09:07 KW ; 03/20/24 09:14 KW 03/06/24 03/20/24 09:15 09:07 - Today's Visit Information Type of service Follow-up Visit Follow-up Visit (Physician/SITE OPERATIONS MANAGER (Physician/SITE OPERATIONS MANAGER ) ) Arrival Mode Ambulatory Ambulatory Accompanied by [facility] home nurse NURSE Patient Identification Verified (Name & Yes Yes ) Height and Weight Body Mass Index (BMI) 31.1 31.1 BMI Classification Obese Obese Vital Signs Temperature (97.8 F-99.1 F) 98.1 F 98.2 F Temperature Source Temporal Temporal Pulse Rate (60-100) 67 73 Pulse Location Monitor Monitor Respiratory Rate (12-18) 18 18 Respiratory rate source Observation Observation Oxygen Delivery Method Room Air Room Air Blood Pressure (90/60-120/80) 119/68 107/67 Blood Pressure Mean (mm Hg) 85 80 Source Monitor Monitor Position Sitting Semi-Fowlers Blood Pressure Location Left Arm Left Arm History Since Last Visit- (Skip if this is Patient's initial visit) Have you changed medications since your No No last visit? Any new allergies or adverse reactions No No Had a fall/change in ADL's that may No No increase risk of falls Signs or symptoms of abuse and/or No No neglect since last visit Have you been in the hospital since your No No last visit? Has dressing in place as prescribed Yes Yes Has compression in place as prescribed Yes Yes Has offloadiing in place as prescribed No N/A Experienced any changes in pain level or No No management Left Footwear Regular Shoe Right Footwear Regular Shoe Regular Shoe Pain Scale: 0-10 Numeric Is Patient Pain Free? Yes Yes MARTA - Nurse 1 - General Ulcer Measurement Start: 03/06/24 09:15 Freq: Status: Active Protocol: Activity Type Activity Date Activity User E-sign Co-sign Detail Recorded Client Recorded Date Recorded By Document 03/06/24 09:15 GM wc 03/06/24 09:26 GM Document 03/20/24 09:07 KW ; 03/20/24 09:14 KW 03/06/24 03/20/24 09:15 09:07 Wound Center Nurse 1 Left Medial LE -Combined with other wound No -Current Size (cm) - Length 9.1 8 -Current Size (cm) - Width 1.3 0.4 -Current Size (cm) - Depth 0.3 0.3 -Total Square Cm 11.83 3.2 -Date of Last Picture (Recall this 03/06/24 field) -Photo Taken Yes -Epithelialization Small 1-33% Medium 34-66% -Tunneling No -Undermining/Tunneling No -Circular Undermining No -Change in Wound Grade/Stage No -Exudate Amt Small Medium -Exudate Type Yellow/Green Serosanguineous -Wound Margin Distinct, Distinct, Outline Outline Attached Attached -Granulation Amt Medium (34-66%) Medium (34-66%) -Granulation Quality Red [place] -Slough/Fibrin Yes -Necrosis Amt Small (1-33%) Medium (34-66%) -Necrotic Tissue Type Adherent Slough Adherent Slough -Texture (Reyna-wound Skin Appearance) Assessed Assessed -Moisture (Reyna-wound Skin Appearance) Assessed Assessed -Color (Reyna-wound Skin Appearance) Assessed Assessed -Temperature (Reyna-wound Skin No Abnormality No Abnormality Appearance) (Pt Warm) (Pt Warm) -Tenderness on Palpation (Reyna-wound No No Skin Appearance) -Ulcer Cleansing Soap and Water Rinsed/ Irrigated with Saline -Foul Odor after Cleansing No No -Anesthetic Used 4% Lidocaine 5% Lidocaine Solution Gel Left Calf (cm) 39.3 Left Ankle (cm) 37 23.5 Left Foot (cm) 24.5 MARTA - Nurse 2 - General Ulcer CM Notes Start: 03/06/24 09:15 Freq: Status: Active Protocol: Activity Type Activity Date Activity User E-sign Co-sign Detail Recorded Client Recorded Date Recorded By Document 03/06/24 09:42 0000 03/06/24 09:45 JF Document 03/20/24 09:31 [facility] 03/20/24 09:32 03/06/24 03/20/24 09:42 09:31 Wound Center Nurse 2 Left Medial LE -Time 09:44 09:31 -Correct Patient Yes Yes -Correct Side, Site, Position Yes Yes -Correct Procedure Yes Yes -Procedure Performed Yes -Type of Procedure Debridement Debridement -Clinical Debridement Subcutaneous Subcutaneous -Tissue Removed Subcutaneous Subcutaneous -Post Debridement (cm) - Length 8.8 8.6 -Post Debridement (cm) - Width 0.9 0.7 -Post Debridement (cm) - Depth 0.2 0.2 -Total Square (Post) (cm) 7.92 6.02 -Area of Debridement (cm) - Length 8.8 8.6 -Area of Debridement (cm) - Width 0.9 0.7 -Total Square (Area) (cm) 7.92 6.02 -Tunneling No No -Undermining/Tunneling No No -Circular Undermining No No -Wound/Ulcer Outcome Not Healed Not Healed -Ulcer Cleansing Rinsed/ Rinsed/ Irrigated with Irrigated with Saline Saline -Foul Odor after Cleansing No No -Bioengineered Tissue No No -Bleeding Controlled with Pressure Pressure -Treatment Response Procedure Procedure Tolerated Well Tolerated Well -Offloading No -Debridement - Subq, 1st 20sq cm Yes Yes Pain Scale: 0-10 Numeric Is Patient Pain Free? Yes Yes - Nurse 3 - General Ulcer D/C NN Start: 03/06/24 09:15 Freq: Status: Active Protocol: Activity Type Activity Date Activity User E-sign Co-sign Detail Recorded Client Recorded Date Recorded By Document 03/06/24 09:54 [facility] 03/06/24 09:55 Document 03/20/24 09:35 [place] [id number] 03/20/24 09:37 [place] 03/06/24 03/20/24 09:54 09:35 Wound Care Center Nurse 3 Left Medial LE -Ulcer Cleansing Not Cleansed -Primary Dressing Applied Promogran Promogran Madeline Matter -Other Dressing ABD -Primary Dressing Covered/Secured with Dry Gauze & Dry Gauze & Roll Gauze, Roll Gauze, Secured with Secured with Tape Tape -Promogran 1 -Promogran Madeline Matter 1 Left -Lotion applied to leg before No compression wrap -Compression Wrap Kevin Wrap Kevin Wrap Pain Scale: 0-10 Numeric Is Patient Pain Free? Yes Yes WC - Visit Discharge Discharge Condition Stable Ambulatory Status Ambulatory Transportation Private Auto Clinical Summary of Care Provided Yes Assessment/Plan Assessment/Plan (1) Non-pressure chronic ulcer of other part of left lower leg with fat layer exposed: CODE(S): L97.822 - Non-pressure chronic ulcer of other part of left lower leg with fat layer exposed PLAN: Patient was examined and evaluated. All findings were discussed with the patient. All questions were answered to the patient's satisfaction. Excisional debridement using a number 5 mm dermal curette down to and including subcutaneous tissue to the left medial full-thickness ulceration without incident. Predebridement measurement is 8.0 x 0.5 x 0.1 cm. Postdebridement measurement is 8.6 x 0.7 x 0.2 cm. Of extremities were cleaned patted dry. Moist Madeline was applied to the full-thickness wound left lower extremity followed by dry sterile dressing and Tubigrip. Nursing staff updated on dressing changes. In 2 weeks we will follow-up with the patient and we will do a Misonix debridement in the wound care center. Follow-up at the wound care center with Dr. Cadena in 2 week. (2) Peripheral vascular disease: CODE(S): I73.9 - Peripheral vascular disease, unspecified
[2024-04-03 09:15] VITALS: BP 115/66; PULSE 77; RESP 18; TEMP 36.6; BMI 31.1
--- NOTE | 2024-04-03 09:48 | PCM.WC.PN ---
History of Present Illness Date of Service: 04/03/24 Chief Complaint: Bilateral leg ulcerations History of Wound: Mr. Ramirez is a 63-year-old male presenting to the wound care center today at [facility] with a chief complaint of bilateral leg ulcerations. Patient resides at a nursing facility where he is cared for 24 hours a day. Patient has a bit of cognitive dysfunction and is well medicated today with 2 mg of Ativan. Patient has seen wound care in the past but presents with worsening larger wound to the left leg/ankle area. Patient denies of any trauma. Patient denies any constitutional symptoms. No other pedal complaints at this time. Subjective Subjective Mr. Ramirez is a 63-year-old male presenting to clinic today at the wound care center for follow-up evaluation of the full-thickness ulceration to the left ankle. Patient has been getting dressing changes per nursing staff. He admits improvement to the wound. He denies any trauma. Denies constitutional symptoms. No other complaints at this time Objective Data Objective Data Vital Signs: Vital Signs Temp Pulse Resp BP O2 Del Method 97.8 F 77 18 115/66 Room Air 04/03/24 09:15 04/03/24 09:15 04/03/24 09:15 04/03/24 09:15 03/20/24 09:07 Oxygen Delivery Method Room Air Weight: 107.048 kg Body Mass Index (BMI) 31.1 Physical Exam Narrative Vascular: DP and PT pulses are faintly palpable. CFT is brisk. Skin temperature is warm to warm from proximal ankle to distal digits. Blanchable erythema to periwound. No sign of infection. Neurological: Light touch intact. Patient responds to painful stimuli. Dermatological: Full-thickness ulceration appreciated to the left lateral ankle measuring 8.5 x 0.6 x 0.2 cm. Wound base is fibrogranular nature. No sign of infection. Wound show no evidence of tunneling or undermining. No evidence of probe to bone bilateral. Excisional debridement using a number 3 mm dermal curette down to and including subcutaneous tissue to the left medial full-thickness ulceration without incident. Predebridement measurement is 7.8 x 0.3 x 0.1 cm. Postdebridement measurement is 8.5 x 0.6 x 0.2 cm Musculoskeletal: No pain to palpation of full-thickness ulceration with no pain with calf pressure Debridement Note Debridement Note Debridement Free Text: Excisional debridement using a number 3 mm dermal curette down to and including subcutaneous tissue to the left medial full-thickness ulceration without incident. Predebridement measurement is 7.8 x 0.3 x 0.1 cm. Postdebridement measurement is 8.5 x 0.6 x 0.2 cm Post-Debridement Measurements and Additional Note: Post-Debridement Measurements/Treatment - Nurse 1 - General Ulcer Assessment Start: 03/06/24 09:15 Freq: Status: Active Protocol: SURY Activity Type Activity Date Activity User E-sign Co-sign Detail Recorded Client Recorded Date Recorded By Document 03/06/24 09:15 wc 03/06/24 09:26 GM Document 03/20/24 09:07 KW ; 03/20/24 09:14 KW Document 04/03/24 09:15 JF 0000 04/03/24 09:20 JF 03/06/24 03/20/24 04/03/24 09:15 09:07 09:15 - Today's Visit Information Type of service Follow-up Visit Follow-up Visit Follow-up Visit (Physician/ENTRY LEVEL PARALEGAL (Physician/ENTRY LEVEL PARALEGAL (Physician/ENTRY LEVEL PARALEGAL ) ) ) Arrival Mode Ambulatory Ambulatory Ambulatory Accompanied by [facility] nurse NURSE Patient Identification Verified (Name & Yes Yes Yes ) Patient Requires Transmission-Based No Precautions Height and Weight Body Mass Index (BMI) 31.1 31.1 31.1 BMI Classification Obese Obese Obese Vital Signs Temperature (97.8 F-99.1 F) 98.1 F 98.2 F 97.8 F Temperature Source Temporal Temporal Temporal Pulse Rate (60-100) 67 73 77 Pulse Location Monitor Monitor Monitor Respiratory Rate (12-18) 18 18 18 Respiratory rate source Observation Observation Observation Oxygen Delivery Method Room Air Room Air Blood Pressure (90/60-120/80) 119/68 107/67 115/66 Blood Pressure Mean (mm Hg) 85 80 82 Source Monitor Monitor Monitor Position Sitting Semi-Fowlers Semi-Fowlers Blood Pressure Location Left Arm Left Arm Left Arm History Since Last Visit- (Skip if this is Patient's initial visit) Have you changed medications since your No No No last visit? Any new allergies or adverse reactions No No No Had a fall/change in ADL's that may No No No increase risk of falls Signs or symptoms of abuse and/or No No No neglect since last visit Have you been in the hospital since your No No No last visit? Has dressing in place as prescribed Yes Yes Yes Has compression in place as prescribed Yes Yes Yes Has offloadiing in place as prescribed No N/A N/A Experienced any changes in pain level or No No No management Left Footwear Regular Shoe Regular Shoe Right Footwear Regular Shoe Regular Shoe Regular Shoe Pain Scale: 0-10 Numeric Is Patient Pain Free? Yes Yes Yes - Nurse 1 - General Ulcer Measurement Start: 03/06/24 09:15 Freq: Status: Active Protocol: Activity Type Activity Date Activity User E-sign Co-sign Detail Recorded Client Recorded Date Recorded By Document 03/06/24 09:15 [facility] 03/06/24 09:26 Document 03/20/24 09:07 KW ; 03/20/24 09:14 KW Document 04/03/24 09:15 JF 0000 04/03/24 09:20 JF 03/06/24 03/20/24 04/03/24 09:15 09:07 09:15 Wound Center Nurse 1 Left Medial LE -Combined with other wound No No -Current Size (cm) - Length 9.1 8 7.8 -Current Size (cm) - Width 1.3 0.4 0.5 -Current Size (cm) - Depth 0.3 0.3 0.2 -Total Square Cm 11.83 3.2 3.90 -Date of Last Picture (Recall this 03/06/24 field) -Photo Taken Yes No -Epithelialization Small 1-33% Medium 34-66% Medium 34-66% -Tunneling No No -Undermining/Tunneling No No -Circular Undermining No No -Change in Wound Grade/Stage No -Exudate Amt Small Medium Medium -Exudate Type Yellow/Green Serosanguineous Serosanguineous -Wound Margin Distinct, Distinct, Flat & Intact Outline Outline Attached Attached -Granulation Amt Medium (34-66%) Medium (34-66%) Medium (34-66%) -Granulation Quality Red [place] -Slough/Fibrin Yes Yes -Necrosis Amt Small (1-33%) Medium (34-66%) Small (1-33%) -Necrotic Tissue Type Adherent Slough Adherent Slough Adherent Slough -Structure Exposed N/A -Texture (Reyna-wound Skin Appearance) Assessed Assessed Assessed, Localized Edema -Moisture (Reyna-wound Skin Appearance) Assessed Assessed Assessed,Dry/ Scaly -Color (Reyna-wound Skin Appearance) Assessed Assessed Assessed -Temperature (Reyna-wound Skin No Abnormality No Abnormality No Abnormality Appearance) (Pt Warm) (Pt Warm) (Pt Warm) -Tenderness on Palpation (Reyna-wound No No No Skin Appearance) -Ulcer Cleansing Soap and Water Rinsed/ Rinsed/ Irrigated with Irrigated with Saline Saline -Foul Odor after Cleansing No No No -Anesthetic Used 4% Lidocaine 5% Lidocaine 5% Lidocaine Solution Gel Gel Lower Limb Edema Present Yes Left Calf (cm) 39.3 39.3 Left Ankle (cm) 37 23.5 24.0 Left Foot (cm) 24.5 - Nurse 2 - General Ulcer CM Notes Start: 03/06/24 09:15 Freq: Status: Active Protocol: Activity Type Activity Date Activity User E-sign Co-sign Detail Recorded Client Recorded Date Recorded By Document 03/06/24 09:42 0000 03/06/24 09:45 Document 03/20/24 09:31 [facility] 03/20/24 09:32 Document 04/03/24 09:22 0000 04/03/24 09:25 03/06/24 03/20/24 04/03/24 09:42 09:31 09:22 Wound Center Nurse 2 Left Medial LE -Time 09:44 09:31 09:23 -Correct Patient Yes Yes Yes -Correct Side, Site, Position Yes Yes Yes -Correct Procedure Yes Yes Yes -Procedure Performed Yes Yes -Type of Procedure Debridement Debridement Debridement -Clinical Debridement Subcutaneous Subcutaneous Subcutaneous -Tissue Removed Subcutaneous Subcutaneous Subcutaneous -Post Debridement (cm) - Length 8.8 8.6 8.5 -Post Debridement (cm) - Width 0.9 0.7 0.6 -Post Debridement (cm) - Depth 0.2 0.2 0.2 -Total Square (Post) (cm) 7.92 6.02 5.10 -Area of Debridement (cm) - Length 8.8 8.6 8.5 -Area of Debridement (cm) - Width 0.9 0.7 0.6 -Total Square (Area) (cm) 7.92 6.02 5.10 -Tunneling No No No -Undermining/Tunneling No No No -Circular Undermining No No No -Wound/Ulcer Outcome Not Healed Not Healed Not Healed -Ulcer Cleansing Rinsed/ Rinsed/ Rinsed/ Irrigated with Irrigated with Irrigated with Saline Saline Saline -Foul Odor after Cleansing No No No -Bioengineered Tissue No No No -Bleeding Controlled with Pressure Pressure Pressure -Treatment Response Procedure Procedure Procedure Tolerated Well Tolerated Well Tolerated Well -Offloading No No -Debridement - Subq, 1st 20sq cm Yes Yes Yes Pain Scale: 0-10 Numeric Is Patient Pain Free? Yes Yes Yes - Nurse 3 - General Ulcer D/C NN Start: 03/06/24 09:15 Freq: Status: Active Protocol: Activity Type Activity Date Activity User E-sign Co-sign Detail Recorded Client Recorded Date Recorded By Document 03/06/24 09:54 GM 03/06/24 09:55 Document 03/20/24 09:35 [place] [id number] 03/20/24 09:37 MT Document 04/03/24 09:44 CP 04/03/24 09:45 CP 03/06/24 03/20/24 04/03/24 09:54 09:35 09:44 Wound Care Center Nurse 3 Left Medial LE -Ulcer Cleansing Not Cleansed Rinsed/ Irrigated with Saline -Foul Odor after Cleansing No -Primary Dressing Applied Promogran Promogran Promogran Madeline Matter Madeline Matter -Other Dressing ABD -Primary Dressing Covered/Secured with Dry Gauze & Dry Gauze & Dry Gauze & Roll Gauze, Roll Gauze, Roll Gauze, Secured with Secured with Secured with Tape Tape Tape -Promogran 1 -Promogran Madeline Matter 1 1 Left -Lotion applied to leg before No compression wrap -Compression Wrap Kevin Wrap Kevin Wrap Kevin Wrap Treatment Response Procedure Tolerated Well Pain Scale: 0-10 Numeric Is Patient Pain Free? Yes Yes Yes - Visit Discharge Discharge Condition Stable Stable Ambulatory Status Ambulatory Ambulatory Transportation Private Auto Private Auto Clinical Summary of Care Provided Yes Yes Facility Type Title Department Manager Care Facility Orders Sent Yes Assessment/Plan Assessment/Plan (1) Non-pressure chronic ulcer of other part of left lower leg with fat layer exposed: CODE(S): L97.822 - Non-pressure chronic ulcer of other part of left lower leg with fat layer exposed PLAN: Patient was examined and evaluated. All findings were discussed with the patient. All questions were answered to the patient's satisfaction. Excisional debridement using a number 3 mm dermal curette down to and including subcutaneous tissue to the left medial full-thickness ulceration without incident. Predebridement measurement is 7.8 x 0.3 x 0.1 cm. Postdebridement measurement is 8.5 x 0.6 x 0.2 cm. Left lower extremity were cleaned patted dry. Moist Madeline was applied to the ulceration site with dry sterile dressing and compression wrap. Patient will continue dressing as changes every other day at the nursing facility. He will follow-up in 2 weeks Follow-up at the wound care center with Dr. Cadena in 2 week. (2) Peripheral vascular disease: CODE(S): I73.9 - Peripheral vascular disease, unspecified
== END 2024-04-03 23:59 | disposition home or self-care (01) ==
LOC: WC 09:00
PROVIDERS: PCP Internal Medicine Infectious Disease; Referring Provider Internal Medicine Infectious Disease; Visit Provider Podiatrist Foot & Ankle Surgery
DX: L97.822 Non-pressure chronic ulcer of other part of left lower leg with fat layer exposed (principal); I73.9 Peripheral vascular disease, unspecified
CPT/HCPCS: 11042

== ENCOUNTER 2024-05-01 09:00 | Outpatient (RCR) | payer MEDICARE, MEDICAID, SELFPAY ==
[2024-04-04 00:38] VITALS: BP 126/75; PULSE 78; RESP 18; TEMP 36.6; BMI 31.1
[2024-04-17 09:07] VITALS: BP 136/54; PULSE 85; RESP 16; TEMP 36.2; BMI 31.1
--- NOTE | 2024-04-17 10:14 | PN.PCM_ITS ---
History of Present Illness Date of Service: 04/17/24 Chief Complaint: Bilateral leg ulcerations History of Wound: Mr. Ramirez is a 63-year-old male presenting to the wound care center today at [facility] with a chief complaint of bilateral leg ulcerations. Patient resides at a nursing facility where he is cared for 24 hours a day. Patient has a bit of cognitive dysfunction and is well medicated today with 2 mg of Ativan. Patient has seen wound care in the past but presents with worsening larger wound to the left leg/ankle area. Patient denies of any trauma. Patient denies any constitutional symptoms. No other pedal complaints at this time. Subjective Subjective Mr. Ramirez is a 63-year-old male presented wound care center today for follow-up evaluation of full-thickness wound to the left leg. Patient has been compliant with dressing changes and nursing staff. He admits to being compliant with everything that has been expected during his wound healing. He denies trauma. Denies constitutional symptoms. No other pedal complaints at this time. Objective Data Objective Data Vital Signs: Vital Signs Temp Pulse Resp BP 97.1 F L 85 16 136/54 H 04/17/24 09:07 04/17/24 09:07 04/17/24 09:07 04/17/24 09:07 Weight: 107.048 kg Body Mass Index (BMI) 31.1 Physical Exam Narrative Vascular: DP and PT pulses are faintly palpable. CFT is brisk. Skin temperature is warm to warm from proximal ankle to distal digits. Blanchable erythema to periwound. No sign of infection. Neurological: Light touch intact. Patient responds to painful stimuli. Dermatological: Full-thickness ulceration appreciated to the left lateral ankle measuring 8.0 x 0.5 x 0.2 cm. Wound base is fibrogranular nature. No sign of infection. Wound show no evidence of tunneling or undermining. No evidence of probe to bone bilateral. Excisional debridement using a number 3 mm dermal curette down to and including subcutaneous tissue to the left medial full-thickness ulceration without incident. Predebridement measurement is 7.8 x 0.4 x 0.2 cm. Postdebridement measurement is 8.0 x 0.5 x 0.2 cm Musculoskeletal: No pain to palpation of full-thickness ulceration with no pain with calf pressure Debridement Note Debridement Note Debridement Free Text: Excisional debridement using a number 3 mm dermal curette down to and including subcutaneous tissue to the left medial full-thickness ulceration without incident. Predebridement measurement is 7.8 x 0.4 x 0.2 cm. Postdebridement measurement is 8.0 x 0.5 x 0.2 cm Post-Debridement Measurements and Additional Note: Post-Debridement Measurements/Treatment MARTA - Nurse 1 - General Ulcer Assessment Start: 04/17/24 09:07 Freq: Status: Active Protocol: SURY Activity Type Activity Date Activity User E-sign Co-sign Detail Recorded Client Recorded Date Recorded By Document 04/17/24 09:07 JULIETA 04/17/24 09:15 04/17/24 09:07 - Today's Visit Information Type of service Follow-up Visit (Physician/GEOSCIENCE LABORATORY TECHNICIAN ) Arrival Mode Ambulatory Height and Weight Body Mass Index (BMI) 31.1 BMI Classification Obese Vital Signs Temperature (97.8 F-99.1 F) 97.1 F L Temperature Source Temporal Pulse Rate (60-100) 85 Pulse Location Monitor Respiratory Rate (12-18) 16 Respiratory rate source Observation Blood Pressure (90/60-120/80) 136/54 H Blood Pressure Mean (mm Hg) 81 Source Monitor Position Semi-Fowlers Blood Pressure Location Right Arm History Since Last Visit- (Skip if this is Patient's initial visit) Have you changed medications since your No last visit? Any new allergies or adverse reactions No Had a fall/change in ADL's that may No increase risk of falls Signs or symptoms of abuse and/or No neglect since last visit Have you been in the hospital since your No last visit? Has dressing in place as prescribed Yes Has compression in place as prescribed Yes Has offloadiing in place as prescribed N/A Experienced any changes in pain level or No management Pain Scale: 0-10 Numeric Is Patient Pain Free? Yes - Nurse 1 - General Ulcer Measurement Start: 04/17/24 09:07 Freq: Status: Active Protocol: Activity Type Activity Date Activity User E-sign Co-sign Detail Recorded Client Recorded Date Recorded By Document 04/17/24 09:07 JULIETA 04/17/24 09:15 JULIETA 04/17/24 09:07 Wound Center Nurse 1 Left Medial LE -Current Size (cm) - Length 8 -Current Size (cm) - Width 0.4 -Current Size (cm) - Depth 0.2 -Total Square Cm 3.2 -Epithelialization Small 1-33% -Exudate Amt Small -Exudate Type Serous -Wound Margin Flat & Intact -Granulation Amt Medium (34-66%) -Granulation Quality [place] -Necrosis Amt Medium (34-66%) -Necrotic Tissue Type Adherent Slough -Structure Exposed N/A -Texture (Reyna-wound Skin Appearance) No Abnormality -Moisture (Reyna-wound Skin Appearance) No Abnormality -Color (Reyna-wound Skin Appearance) No Abnormality -Temperature (Reyna-wound Skin No Abnormality Appearance) (Pt Warm) -Tenderness on Palpation (Reyna-wound No Skin Appearance) -Ulcer Cleansing Soap and Water -Foul Odor after Cleansing No -Anesthetic Used 4% Lidocaine Solution Left Calf (cm) 36 Left Ankle (cm) 22.5 - Nurse 2 - General Ulcer CM Notes Start: 04/17/24 09:07 Freq: Status: Active Protocol: Activity Type Activity Date Activity User E-sign Co-sign Detail Recorded Client Recorded Date Recorded By Document 04/17/24 09:24 JF 0000 04/17/24 09:25 04/17/24 09:24 Wound Center Nurse 2 Left Medial LE -Time 09:24 -Correct Patient Yes -Correct Side, Site, Position Yes -Correct Procedure Yes -Procedure Performed Yes -Type of Procedure Debridement -Clinical Debridement Subcutaneous -Tissue Removed Subcutaneous -Tunneling No -Undermining/Tunneling No -Circular Undermining No -Wound/Ulcer Outcome Not Healed -Ulcer Cleansing Rinsed/ Irrigated with Saline -Foul Odor after Cleansing No -Bioengineered Tissue No -Bleeding Controlled with Pressure -Treatment Response Procedure Tolerated Well -Offloading No -Debridement - Subq, 1st 20sq cm Yes Pain Scale: 0-10 Numeric Is Patient Pain Free? Yes - Nurse 3 - General Ulcer D/C NN Start: 04/17/24 09:07 Freq: Status: Active Protocol: Activity Type Activity Date Activity User E-sign Co-sign Detail Recorded Client Recorded Date Recorded By Document 04/17/24 09:32 GM 04/17/24 09:33 04/17/24 09:32 Wound Care Center Nurse 3 Left Medial LE -Ulcer Cleansing Not Cleansed -Foul Odor after Cleansing No -Primary Dressing Applied Mepilex Border, Promogran Madeline Matter -Mepilex Border 1 -Promogran Madeline Matter 1 Left -Compression Wrap Kevin Wrap Pain Scale: 0-10 Numeric Is Patient Pain Free? Yes WC - Visit Discharge Discharge Condition Stable Ambulatory Status Ambulatory Transportation Private Auto Clinical Summary of Care Provided Yes Assessment/Plan Assessment/Plan (1) Non-pressure chronic ulcer of other part of left lower leg with fat layer exposed: CODE(S): L97.822 - Non-pressure chronic ulcer of other part of left lower leg with fat layer exposed PLAN: Patient was examined and evaluated. All findings were discussed with the patient. All questions were answered to the patient's satisfaction. Excisional debridement using a number 3 mm dermal curette down to and including subcutaneous tissue to the left medial full-thickness ulceration without incident. Predebridement measurement is 7.8 x 0.4 x 0.2 cm. Postdebridement measurement is 8.0 x 0.5 x 0.2 cm. Left lower extremities were cleaned and patted dry. Moist present was applied followed by dry sterile dressing and Kevin wrap. Patient will continue dressing changes every other day and will follow-up in 2 weeks. Will plan for possible Misonix at follow-up Follow-up at the wound care center with Dr. Cadena in 2 week. (2) Peripheral vascular disease: CODE(S): I73.9 - Peripheral vascular disease, unspecified
[2024-05-01 09:17] VITALS: BP 108/70; PULSE 75; RESP 18; TEMP 36.1; BMI 31.1
--- NOTE | 2024-05-01 12:19 | PCM.WC.PN ---
History of Present Illness Date of Service: 05/01/24 Chief Complaint: Bilateral leg ulcerations History of Wound: Mr. Ramirez is a 63-year-old male presenting to the wound care center today at [facility] with a chief complaint of bilateral leg ulcerations. Patient resides at a nursing facility where he is cared for 24 hours a day. Patient has a bit of cognitive dysfunction and is well medicated today with 2 mg of Ativan. Patient has seen wound care in the past but presents with worsening larger wound to the left leg/ankle area. Patient denies of any trauma. Patient denies any constitutional symptoms. No other pedal complaints at this time. Subjective Subjective Mr. Ramirez is a 63-year-old male presented wound care center today for follow-up evaluation of full-thickness wound to the left leg. Patient has been compliant with dressing changes and nursing staff. He admits to being compliant with everything that has been expected during his wound healing. He denies trauma. Denies constitutional symptoms. No other pedal complaints at this time. Objective Data Objective Data Vital Signs: Vital Signs Temp Pulse Resp BP O2 Del Method 97.0 F L 75 18 108/70 Room Air 05/01/24 09:17 05/01/24 09:17 05/01/24 09:17 05/01/24 09:17 05/01/24 09:17 Oxygen Delivery Method Room Air Weight: 107.048 kg Body Mass Index (BMI) 31.1 Physical Exam Narrative Vascular: DP and PT pulses are faintly palpable. CFT is brisk. Skin temperature is warm to warm from proximal ankle to distal digits. Blanchable erythema to periwound. No sign of infection. Neurological: Light touch intact. Patient responds to painful stimuli. Dermatological: Full-thickness ulceration appreciated to the left lateral ankle measuring 3.9 x 0.3 x 0.1 cm. Wound base is fibrogranular nature. No sign of infection. Wound show no evidence of tunneling or undermining. No evidence of probe to bone bilateral. Excisional debridement using a number 3 mm dermal curette down to and including subcutaneous tissue to the left medial full-thickness ulceration without incident. Predebridement measurement is callus. Postdebridement measurement is 3.9 x 0.3 x 0.1 cm Musculoskeletal: No pain to palpation of full-thickness ulceration with no pain with calf pressure Debridement Note Debridement Note Debridement Free Text: Excisional debridement using a number 3 mm dermal curette down to and including subcutaneous tissue to the left medial full-thickness ulceration without incident. Predebridement measurement is callus. Postdebridement measurement is 3.9 x 0.3 x 0.1 cm Post-Debridement Measurements and Additional Note: Post-Debridement Measurements/Treatment - Nurse 1 - General Ulcer Assessment Start: 04/17/24 09:07 Freq: Status: Active Protocol: SURY Activity Type Activity Date Activity User E-sign Co-sign Detail Recorded Client Recorded Date Recorded By Document 04/17/24 09:07 04/17/24 09:15 CP Document 05/01/24 09:17 [id number] 05/01/24 09:27 04/17/24 05/01/24 09:07 09:17 - Today's Visit Information Type of service Follow-up Visit Follow-up Visit (Physician/MAMMALOGIST (Physician/MAMMALOGIST ) ) Arrival Mode Ambulatory Ambulatory Accompanied by DE Staff Patient Identification Verified (Name & Yes ) Patient Requires Transmission-Based No Precautions Height and Weight Body Mass Index (BMI) 31.1 31.1 BMI Classification Obese Obese Vital Signs Temperature (97.8 F-99.1 F) 97.1 F L 97.0 F L Temperature Source Temporal Temporal Pulse Rate (60-100) 85 75 Pulse Location Monitor Monitor Respiratory Rate (12-18) 16 18 Respiratory rate source Observation Observation Oxygen Delivery Method Room Air Blood Pressure (90/60-120/80) 136/54 H 108/70 Blood Pressure Mean (mm Hg) 81 82 Source Monitor Monitor Position Semi-Fowlers Sitting Blood Pressure Location Right Arm Left Arm History Since Last Visit- (Skip if this is Patient's initial visit) Have you changed medications since your No No last visit? Any new allergies or adverse reactions No No Had a fall/change in ADL's that may No No increase risk of falls Signs or symptoms of abuse and/or No No neglect since last visit Have you been in the hospital since your No No last visit? Has dressing in place as prescribed Yes Yes Has compression in place as prescribed Yes Yes Has offloadiing in place as prescribed N/A N/A Experienced any changes in pain level or No No management Left Footwear Regular Shoe Right Footwear Regular Shoe Pain Scale: 0-10 Numeric Is Patient Pain Free? Yes Yes WC - Nurse 1 - General Ulcer Measurement Start: 04/17/24 09:07 Freq: Status: Active Protocol: Activity Type Activity Date Activity User E-sign Co-sign Detail Recorded Client Recorded Date Recorded By Document 04/17/24 09:07 CP 04/17/24 09:15 CP Document 05/01/24 09:17 GM [id number] 05/01/24 09:27 04/17/24 05/01/24 09:07 09:17 Wound Center Nurse 1 Left Medial LE -Current Size (cm) - Length 8 9.0 -Current Size (cm) - Width 0.4 0.3 -Current Size (cm) - Depth 0.2 0.1 -Total Square Cm 3.2 2.70 -Date of Last Picture (Recall this 05/01/24 field) -Photo Taken Yes -Epithelialization Small 1-33% Medium 34-66% -Tunneling No -Undermining/Tunneling No -Circular Undermining No -Exudate Amt Small Small -Exudate Type Serous Serous -Wound Margin Flat & Intact Distinct, Outline Attached -Granulation Amt Medium (34-66%) Small (1-33%) -Granulation Quality [place] -Slough/Fibrin Yes -Necrosis Amt Medium (34-66%) Small (1-33%) -Necrotic Tissue Type Adherent Slough Adherent Slough -Structure Exposed N/A -Texture (Reyna-wound Skin Appearance) No Abnormality Assessed -Moisture (Reyna-wound Skin Appearance) No Abnormality -Color (Reyna-wound Skin Appearance) No Abnormality Assessed -Temperature (Reyna-wound Skin No Abnormality Appearance) (Pt Warm) -Tenderness on Palpation (Reyna-wound No No Skin Appearance) -Ulcer Cleansing Soap and Water Soap and Water -Foul Odor after Cleansing No No -Anesthetic Used 4% Lidocaine 5% Lidocaine Solution Gel Left Calf (cm) 36 Left Ankle (cm) 22.5 WC - Nurse 2 - General Ulcer CM Notes Start: 04/17/24 09:07 Freq: Status: Active Protocol: Activity Type Activity Date Activity User E-sign Co-sign Detail Recorded Client Recorded Date Recorded By Document 04/17/24 09:24 JF 0000 04/17/24 09:25 JF Document 05/01/24 09:38 [id number] 05/01/24 09:41 04/17/24 05/01/24 09:24 09:38 Wound Center Nurse 2 Left Medial LE -Time 09: 09:39 -Correct Patient Yes Yes -Correct Side, Site, Position Yes Yes -Correct Procedure Yes Yes -Procedure Performed Yes Yes -Type of Procedure Debridement Debridement -Clinical Debridement Subcutaneous Subcutaneous -Tissue Removed Subcutaneous Subcutaneous -Post Debridement (cm) - Length 3.9 -Post Debridement (cm) - Width 0.3 -Post Debridement (cm) - Depth 0.1 -Total Square (Post) (cm) 1.17 -Area of Debridement (cm) - Length 3.9 -Area of Debridement (cm) - Width 0.3 -Total Square (Area) (cm) 1.17 -Tunneling No No -Undermining/Tunneling No No -Circular Undermining No No -Wound/Ulcer Outcome Not Healed Not Healed -Ulcer Cleansing Rinsed/ Rinsed/ Irrigated with Irrigated with Saline Saline -Foul Odor after Cleansing No No -Bioengineered Tissue No No -Bleeding Controlled with Pressure Pressure -Treatment Response Procedure Procedure Tolerated Well Tolerated Well -Offloading No No -Debridement - Subq, 1st 20sq cm Yes Yes Pain Scale: 0-10 Numeric Is Patient Pain Free? Yes Yes - Nurse 3 - General Ulcer D/C NN Start: 04/17/24 09:07 Freq: Status: Active Protocol: Activity Type Activity Date Activity User E-sign Co-sign Detail Recorded Client Recorded Date Recorded By Document 04/17/24 09:32 [facility] 04/17/24 09:33 Document 05/01/24 09:48 JF [id number] 05/01/24 09:48 04/17/24 05/01/24 09:32 09:48 Wound Care Center Nurse 3 Left Medial LE -Ulcer Cleansing Not Cleansed Not Cleansed -Foul Odor after Cleansing No No -Primary Dressing Applied Mepilex Border, Mepilex Border, Promogran Promogran Sheri Matter -Mepilex Border 1 1 -Promogran 1 -Promogran Sheri Matter 1 Left -Compression Wrap Kevin Wrap Kevin Wrap Pain Scale: 0-10 Numeric Is Patient Pain Free? Yes Yes - Visit Discharge Discharge Condition Stable Stable Ambulatory Status Ambulatory Ambulatory Transportation Private Auto Private Auto Clinical Summary of Care Provided Yes Yes Assessment/Plan Assessment/Plan (1) Non-pressure chronic ulcer of other part of left lower leg with fat layer exposed: CODE(S): L97.822 - Non-pressure chronic ulcer of other part of left lower leg with fat layer exposed PLAN: Patient was examined and evaluated. All findings were discussed with the patient. All questions were answered to the patient's satisfaction. Excisional debridement using a number 3 mm dermal curette down to and including subcutaneous tissue to the left medial full-thickness ulceration without incident. Predebridement measurement is callus. Postdebridement measurement is 3.9 x 0.3 x 0.1 cm. Left lower extremities were cleaned and patted dry. Moist sheri was applied followed by dry sterile dressing and Kevin wrap. Patient will continue dressing changes every other day and will follow-up in 2 weeks. Follow-up at the wound care center with Dr. Cadena in 2 week. (2) Peripheral vascular disease: CODE(S): I73.9 - Peripheral vascular disease, unspecified
--- NOTE | 2024-05-02 08:57 | WC ---
PHOTO 05/01/24 LEFT MEDIAL LEG
== END 2024-05-04 23:59 | disposition home or self-care (01) ==
LOC: WC 09:00
PROVIDERS: PCP Internal Medicine Infectious Disease; Referring Provider Internal Medicine Infectious Disease; Visit Provider Podiatrist Foot & Ankle Surgery
DX: L97.822 Non-pressure chronic ulcer of other part of left lower leg with fat layer exposed (principal); I73.9 Peripheral vascular disease, unspecified
CPT/HCPCS: 11042

== ENCOUNTER 2024-05-29 09:15 | Outpatient (RCR) | payer MEDICARE, MEDICAID, SELFPAY ==
[2024-05-05 00:23] VITALS: BP 126/75; PULSE 78; RESP 18; TEMP 36.6; BMI 31.1
[2024-05-15 10:06] VITALS: BP 99/73; PULSE 71; RESP 16; TEMP 36.9; BMI 31.1
--- NOTE | 2024-05-15 13:03 | PN.PCM_ITS ---
History of Present Illness Date of Service: 05/15/24 Chief Complaint: Bilateral leg ulcerations History of Wound: Mr. Ramirez is a 63-year-old male presenting to the wound care center today at [facility] with a chief complaint of bilateral leg ulcerations. Patient resides at a nursing facility where he is cared for 24 hours a day. Patient has a bit of cognitive dysfunction and is well medicated today with 2 mg of Ativan. Patient has seen wound care in the past but presents with worsening larger wound to the left leg/ankle area. Patient denies of any trauma. Patient denies any constitutional symptoms. No other pedal complaints at this time. Progress of Wound: Mr. Ramirez is a 64-year-old male presenting to the wound care center today for follow-up evaluation of full-thickness wound to left leg. Patient has been getting dressing changes in the SNF with some noticeable irritation to the surrounding skin secondary to tight dressing. No additional new wounds present. Denies trauma. Denies constitutional symptoms. No other pedal complaints at this time. Objective Data Objective Data Vital Signs: Vital Signs Temp Pulse Resp BP O2 Del Method 98.4 F 71 16 99/73 Room Air 05/15/24 10:06 05/15/24 10:06 05/15/24 10:06 05/15/24 10:06 05/15/24 10:06 Oxygen Delivery Method Room Air Weight: 107.048 kg Body Mass Index (BMI) 31.1 Physical Exam Narrative Vascular: DP and PT pulses are faintly palpable. CFT is brisk. Skin temperature is warm to warm from proximal ankle to distal digits. Blanchable erythema to periwound. No sign of infection. Neurological: Light touch intact. Patient responds to painful stimuli. Dermatological: Full-thickness ulceration appreciated to the left lateral ankle measuring 2.1 x 0.3 x 0.1 cm. Wound base is granular nature. No sign of infection. Wound show no evidence of tunneling or undermining. No evidence of probe to bone bilateral. Excisional debridement using a number 3 mm dermal curette down to and including subcutaneous tissue to the left medial full-thickness ulceration without incident. Predebridement measurement is callus. Postdebridement measurement is 2.1 x 0.3 x 0.1 cm Musculoskeletal: No pain to palpation of full-thickness ulceration with no pain with calf pressure Debridement Note Debridement Note Debridement Free Text: Excisional debridement using a number 3 mm dermal curette down to and including subcutaneous tissue to the left medial full-thickness ulceration without incident. Predebridement measurement is callus. Postdebridement measurement is 2.1 x 0.3 x 0.1 cm Post-Debridement Measurements and Additional Note: Post-Debridement Measurements/Treatment MARTA - Nurse 1 - General Ulcer Assessment Start: 05/15/24 10:05 Freq: Status: Active Protocol: SURY Activity Type Activity Date Activity User E-sign Co-sign Detail Recorded Client Recorded Date Recorded By Document 05/15/24 10:06 [id number] 05/15/24 10:12 05/15/24 10:06 - Today's Visit Information Type of service Initial Visit Arrival Mode Ambulatory Transfer Assistance None Patient Identification Verified (Name & Yes ) Height and Weight Body Mass Index (BMI) 31.1 BMI Classification Obese Vital Signs Temperature (97.8 F-99.1 F) 98.4 F Temperature Source Temporal Pulse Rate (60-100) 71 Pulse Location Monitor Respiratory Rate (12-18) 16 Respiratory rate source Observation Oxygen Delivery Method Room Air Blood Pressure (90/60-120/80) 99/73 Blood Pressure Mean (mm Hg) 81 Source Monitor Position Sitting Blood Pressure Location Left Arm History Since Last Visit- (Skip if this is Patient's initial visit) Have you changed medications since your No last visit? Any new allergies or adverse reactions No Had a fall/change in ADL's that may No increase risk of falls Signs or symptoms of abuse and/or No neglect since last visit Have you been in the hospital since your No last visit? Has dressing in place as prescribed Yes Has compression in place as prescribed Yes Has offloadiing in place as prescribed N/A Experienced any changes in pain level or No management Left Footwear Regular Shoe Right Footwear Regular Shoe Pain Scale: 0-10 Numeric Is Patient Pain Free? Yes MARTA - Nurse 1 - General Ulcer Measurement Start: 05/15/24 10:05 Freq: Status: Active Protocol: Activity Type Activity Date Activity User E-sign Co-sign Detail Recorded Client Recorded Date Recorded By Document 05/15/24 10:06 [id number] 05/15/24 10:12 05/15/24 10:06 Wound Center Nurse 1 Left Medial LE -Current Size (cm) - Length 8.0 -Current Size (cm) - Width 0.6 -Current Size (cm) - Depth 0.3 -Total Square Cm 4.80 -Photo Taken No -Epithelialization Medium 34-66% -Tunneling No -Undermining/Tunneling No -Circular Undermining No -Exudate Amt None Present -Wound Margin Distinct, Outline Attached -Granulation Amt Medium (34-66%) -Granulation Quality [place] -Slough/Fibrin No -Texture (Reyna-wound Skin Appearance) Assessed -Moisture (Reyna-wound Skin Appearance) Assessed -Color (Reyna-wound Skin Appearance) Assessed -Temperature (Reyna-wound Skin No Abnormality Appearance) (Pt Warm) -Ulcer Cleansing Rinsed/ Irrigated with Saline -Foul Odor after Cleansing No -Anesthetic Used 5% Lidocaine Gel MARTA - Nurse 2 - General Ulcer CM Notes Start: 05/15/24 10:05 Freq: Status: Active Protocol: Activity Type Activity Date Activity User E-sign Co-sign Detail Recorded Client Recorded Date Recorded By Document 05/15/24 10:20 [email or web address] [id number] 05/15/24 10:22 MERLIN 05/15/24 10:20 Wound Center Nurse 2 -Time 10:21 -Correct Patient Yes -Correct Side, Site, Position Yes -Correct Procedure Yes -Procedure Performed Yes -Type of Procedure Debridement -Clinical Debridement Subcutaneous -Tissue Removed Subcutaneous -Post Debridement (cm) - Length 2.1 -Post Debridement (cm) - Width 0.3 -Post Debridement (cm) - Depth 0.2 -Total Square (Post) (cm) 0.63 -Area of Debridement (cm) - Length 2.1 -Area of Debridement (cm) - Width 0.3 -Total Square (Area) (cm) 0.63 -Tunneling No -Undermining/Tunneling No -Circular Undermining No -Wound/Ulcer Outcome Not Healed -Ulcer Cleansing Rinsed/ Irrigated with Saline -Foul Odor after Cleansing No -Bioengineered Tissue No -Bleeding Controlled with Pressure -Treatment Response Procedure Tolerated Well -Offloading No -Debridement - Subq, 1st 20sq cm Yes Pain Scale: 0-10 Numeric Is Patient Pain Free? Yes MARTA - Nurse 3 - General Ulcer D/C NN Start: 05/15/24 10:05 Freq: Status: Active Protocol: Activity Type Activity Date Activity User E-sign Co-sign Detail Recorded Client Recorded Date Recorded By Document 05/15/24 10:34 KW [id number] 05/15/24 10:34 KW 05/15/24 10:34 Wound Care Center Nurse 3 Left Medial LE -Primary Dressing Applied Promogran Madeline Matter -Primary Dressing Covered/Secured with Dry Gauze & Roll Gauze, Secured with Tape -Promogran Madeline Matter 1 Left -Compression Wrap Kevin Wrap Pain Scale: 0-10 Numeric Is Patient Pain Free? 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 All findings were discussed with the patient. All questions were answered to the patient's satisfaction. Excisional debridement using a number 3 mm dermal curette down to and including subcutaneous tissue to the left medial full-thickness ulceration without incident. Predebridement measurement is callus. Postdebridement measurement is 2.1 x 0.3 x 0.1 cm. Left lower extremities are clean and patted dry. Moist Madeline is applied ulceration with dry sterile dressing and compression wrap. Orders given for every other day dressing changes. Educated the nursing facility not to put on a tight wrap as it can breakdown his skin. Follow-up at the wound care center with Dr. Cadena in 2 week.
[2024-05-29 09:08] VITALS: BP 100/66; PULSE 85; RESP 16; TEMP 36; BMI 31.1
--- NOTE | 2024-05-29 09:24 | PN.PCM_ITS ---
History of Present Illness Date of Service: 05/29/24 Chief Complaint: Bilateral leg ulcerations History of Wound: Mr. Ramirez is a 63-year-old male presenting to the wound care center today at [facility] with a chief complaint of bilateral leg ulcerations. Patient resides at a nursing facility where he is cared for 24 hours a day. Patient has a bit of cognitive dysfunction and is well medicated today with 2 mg of Ativan. Patient has seen wound care in the past but presents with worsening larger wound to the left leg/ankle area. Patient denies of any trauma. Patient denies any constitutional symptoms. No other pedal complaints at this time. Progress of Wound: Mr. Ramirez is a 64-year-old male presenting to the wound care center today for follow-up evaluation of full-thickness wound to left leg. Patient has been getting dressing changes in the SNF with some noticeable irritation to the surrounding skin secondary to tight dressing. No additional new wounds present. Denies trauma. Denies constitutional symptoms. No other pedal complaints at this time. Subjective Subjective Mr. Ramirez is a 64-year-old male presenting to the wound care center today for follow-up evaluation of left full-thickness ulceration. Patient's caregiver states that he was scratching the anterior ankle and has partial-thickness wounds that are present today as well. There is no drainage to the left ankle or new wounds. The medial wound to the left lower extremity is now healed. He denies trauma. Denies constitutional symptoms. Other pedal complaints at this time. Objective Data Objective Data Vital Signs: Vital Signs Temp Pulse Resp BP O2 Del Method 96.8 F L 85 16 100/66 Room Air 05/29/24 09:08 05/29/24 09:08 05/29/24 09:08 05/29/24 09:08 05/15/24 10:06 Oxygen Delivery Method Room Air Weight: 107.048 kg Body Mass Index (BMI) 31.1 Physical Exam Narrative Vascular: DP and PT pulses are faintly palpable. CFT is brisk. Skin temperature is warm to warm from proximal ankle to distal digits. Blanchable erythema to periwound. No sign of infection. Neurological: Light touch intact. Patient responds to painful stimuli. Dermatological: Full-thickness ulceration to the left ankle is now healed. There is evidence of partial breakdown of skin to the anterior left ankle measuring 9.0 x 3.5 x 0.1 cm. Wound base is granular with no sign of infection. Selective debridement using a number 5 mm dermal curette down to and including dermal tissue of the left anterior wound. Predebridement measurement is 8.9 x 3.4 x 0.1 cm. Postdebridement measurement is 9.0 x 3.5 x 0.1 cm. Musculoskeletal: No pain to palpation of full-thickness ulceration with no pain with calf pressure Debridement Note Debridement Note Debridement Free Text: Selective debridement using a number 5 mm dermal curette down to and including dermal tissue of the left anterior wound. Predebridement measurement is 8.9 x 3.4 x 0.1 cm. Postdebridement measurement is 9.0 x 3.5 x 0.1 cm. 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 ) Arrival Mode Ambulatory Ambulatory Transfer Assistance None Accompanied by caregiver Patient Identification Verified (Name & Yes Yes ) Patient Requires Transmission-Based No Precautions Height and Weight Body Mass Index (BMI) 31.1 31.1 BMI Classification Obese Obese Vital Signs Temperature (97.8 F-99.1 F) 98.4 F 96.8 F L Temperature Source Temporal Temporal Pulse Rate (60-100) 71 85 Pulse Location Monitor Monitor Respiratory Rate (12-18) 16 16 Respiratory rate source Observation Observation Oxygen Delivery Method Room Air Blood Pressure (90/60-120/80) 99/73 100/66 Blood Pressure Mean (mm Hg) 81 77 Source Monitor Monitor Position Sitting Semi-Fowlers Blood Pressure Location Left Arm Left Arm History Since Last Visit- (Skip if this is Patient's initial visit) Have you changed medications since your No No last visit? Any new allergies or adverse reactions No No Had a fall/change in ADL's that may No No increase risk of falls Signs or symptoms of abuse and/or No No neglect since last visit Have you been in the hospital since your No No last visit? Has dressing in place as prescribed Yes Yes Has compression in place as prescribed Yes Yes Has offloadiing in place as prescribed N/A N/A Experienced any changes in pain level or No No management Left Footwear Regular Shoe Regular Shoe Right Footwear Regular Shoe Regular Shoe Pain Scale: 0-10 Numeric Is Patient Pain Free? Yes Yes - Nurse 1 - General Ulcer Measurement Start: 05/15/24 10:05 Freq: Status: Active Protocol: Activity Type Activity Date Activity User E-sign Co-sign Detail Recorded Client Recorded Date Recorded By Document 05/15/24 10:06 [id number] 05/15/24 10:12 Document 05/29/24 09:08 [id number] 05/29/24 09:13 05/15/24 05/29/24 10:06 09:08 Wound Center Nurse 1 Left Medial LE -Combined with other wound No -Current Size (cm) - Length 8.0 0.1 -Current Size (cm) - Width 0.6 0.1 -Current Size (cm) - Depth 0.3 0.1 -Total Square Cm 4.80 0.01 -Photo Taken No No -Epithelialization Medium 34-66% Large 67-100% -Tunneling No No -Undermining/Tunneling No No -Circular Undermining No No -Exudate Amt None Present None Present -Wound Margin Distinct, Indistinct, Non Outline -Visible Attached -Granulation Amt Medium (34-66%) None Present (0 %) -Granulation Quality [place] -Slough/Fibrin No Yes -Necrosis Amt Large (67-100%) -Necrotic Tissue Type Adherent Slough -Structure Exposed N/A -Texture (Reyna-wound Skin Appearance) Assessed Assessed, Localized Edema -Moisture (Reyna-wound Skin Appearance) Assessed Assessed, Weeping -Color (Reyna-wound Skin Appearance) Assessed Assessed -Temperature (Reyna-wound Skin No Abnormality No Abnormality Appearance) (Pt Warm) (Pt Warm) -Tenderness on Palpation (Reyna-wound No Skin Appearance) -Ulcer Cleansing Rinsed/ Rinsed/ Irrigated with Irrigated with Saline Saline -Foul Odor after Cleansing No No -Anesthetic Used 5% Lidocaine 5% Lidocaine Gel Gel Lower Limb Edema Present NA WC - Nurse 2 - General Ulcer CM Notes Start: 05/15/24 10:05 Freq: Status: Active Protocol: Activity Type Activity Date Activity User E-sign Co-sign Detail Recorded Client Recorded Date Recorded By Document 05/15/24 10:20 [id number] 05/15/24 10:22 Document 05/29/24 09:16 [id number] 05/29/24 09:21 05/15/24 05/29/24 10:20 09:16 Wound Center Nurse 2 Left Medial LE -Time 10:21 -Correct Patient Yes No -Correct Side, Site, Position Yes No -Correct Procedure Yes No -Procedure Performed Yes No -Type of Procedure Debridement -Clinical Debridement Subcutaneous -Tissue Removed Subcutaneous -Post Debridement (cm) - Length 2.1 0 -Post Debridement (cm) - Width 0.3 0 -Post Debridement (cm) - Depth 0.2 0 -Total Square (Post) (cm) 0.63 0 -Area of Debridement (cm) - Length 2.1 0 -Area of Debridement (cm) - Width 0.3 0 -Total Square (Area) (cm) 0.63 0 -Tunneling No -Undermining/Tunneling No -Circular Undermining No -Wound/Ulcer Outcome Not Healed Healed- Epithelialized -Ulcer Cleansing Rinsed/ Irrigated with Saline -Foul Odor after Cleansing No -Bioengineered Tissue No -Bleeding Controlled with Pressure -Treatment Response Procedure Tolerated Well -Offloading No -Debridement - Subq, 1st 20sq cm Yes 2-left anterior ankle -Time 09:20 -Correct Patient Yes -Correct Side, Site, Position Yes -Correct Procedure Yes -Procedure Performed Yes -Type of Procedure Debridement -Clinical Debridement Epidermis / Dermis -Tissue Removed Epidermis, Dermis -Post Debridement (cm) - Length 9.0 -Post Debridement (cm) - Width 3.5 -Post Debridement (cm) - Depth 0.1 -Total Square (Post) (cm) 31.50 -Area of Debridement (cm) - Length 9.0 -Area of Debridement (cm) - Width 3.5 -Total Square (Area) (cm) 31.50 -Tunneling No -Undermining/Tunneling No -Circular Undermining No -Wound/Ulcer Outcome Not Healed -Ulcer Cleansing Rinsed/ Irrigated with Saline -Foul Odor after Cleansing No -Bioengineered Tissue No -Bleeding Controlled with Pressure -Treatment Response Procedure Tolerated Well -Offloading No -Debridement - Open, 1st 20sq cm Yes -Debridement, Open, ea addt'l 20sq cm 1 or part thereof Pain Scale: 0-10 Numeric Is Patient Pain Free? Yes Yes WC - Nurse 3 - General Ulcer D/C NN Start: 05/15/24 10:05 Freq: Status: Active Protocol: Activity Type Activity Date Activity User E-sign Co-sign Detail Recorded Client Recorded Date Recorded By Document 05/15/24 10:34 [id number] 05/15/24 10:34 05/15/24 10:34 Wound Care Center Nurse 3 Left Medial LE -Primary Dressing Applied Promogran Madeline Matter -Primary Dressing Covered/Secured with Dry Gauze & Roll Gauze, Secured with Tape -Promogran Madeline Matter 1 Left -Compression Wrap Kevin Wrap Pain Scale: 0-10 Numeric Is Patient Pain Free? Yes Assessment/Plan Assessment/Plan (1) Non-pressure chronic ulcer of other part of left lower leg limited to breakdown of skin: CODE(S): L97.821 - Non-pressure chronic ulcer of other part of left lower leg limited to breakdown of skin PLAN: Patient was examined and evaluated. All findings were discussed with the patient. All questions were answered to the patient's satisfaction. Selective debridement using a number 5 mm dermal curette down to and including dermal tissue of the left anterior wound. Predebridement measurement is 8.9 x 3.4 x 0.1 cm. Postdebridement measurement is 9.0 x 3.5 x 0.1 cm. Left lower extremities are clean and patted dry. Adaptic followed by dry sterile dressing and compression wrap was applied to left lower extremity. Nursing staff will change every 2 days. The patient's left ankle wound on the medial aspect is now healed. Follow-up at the wound care center with Dr. Cadena in 1 week.
--- NOTE | 2024-05-31 08:31 | WC ---
PHOTO 05/29/24 LEFT LENI ANKLE
--- NOTE | 2024-05-31 08:37 | WC ---
PHOTO 05/29/24 LEFT ANTERIOR ANKLE
== END 2024-06-03 23:59 | disposition home or self-care (01) ==
LOC: WC 09:15
PROVIDERS: PCP Internal Medicine Infectious Disease; Referring Provider Internal Medicine Infectious Disease; Visit Provider Podiatrist Foot & Ankle Surgery
DX: L97.822 Non-pressure chronic ulcer of other part of left lower leg with fat layer exposed (principal); L97.821 Non-pressure chronic ulcer of other part of left lower leg limited to breakdown of skin
CPT/HCPCS: 11042; 97597; 97598

== ENCOUNTER 2024-06-19 09:00 | Outpatient (RCR) | payer MEDICARE, MEDICAID, SELFPAY ==
[2024-06-04 00:12] VITALS: BP 126/75; PULSE 78; RESP 18; TEMP 36.6; BMI 31.1
[2024-06-05 09:05] VITALS: BP 122/67; PULSE 81; RESP 18; TEMP 36.7; BMI 31.1
--- NOTE | 2024-06-05 20:25 | PCM.WC.PN ---
History of Present Illness Date of Service: 06/05/24 Chief Complaint: Bilateral leg ulcerations History of Wound: Mr. Ramirez is a 64-year-old male presenting to the wound care center today at [facility] with a chief complaint of bilateral leg ulcerations. Patient resides at a nursing facility where he is cared for 24 hours a day. Patient has a bit of cognitive dysfunction and is well medicated today with 2 mg of Ativan. Patient has seen wound care in the past but presents with worsening larger wound to the left leg/ankle area. Patient denies of any trauma. Patient denies any constitutional symptoms. No other pedal complaints at this time. Subjective Subjective Mr. Ramirez is a 64-year-old male presented with her son today to follow-up evaluation left medial ankle full-thickness wound. Patient has been compliant with dressing changes. Her partial-thickness wound to the anterior ankle is now healed. He does show evidence of thickened tissue to the medial ankle wound. No new open lesions or abrasions. Denies trauma. Denies constitutional symptoms. No other pedal complaints at this time. Objective Data Objective Data Vital Signs: Vital Signs Temp Pulse Resp BP O2 Del Method 98.1 F 81 18 122/67 H Room Air 06/05/24 09:05 06/05/24 09:05 06/05/24 09:05 06/05/24 09:05 06/05/24 09:05 Oxygen Delivery Method Room Air Weight: 107.048 kg Body Mass Index (BMI) 31.1 Physical Exam Narrative Vascular: DP and PT pulses are faintly palpable. CFT is brisk. Skin temperature is warm to warm from proximal ankle to distal digits. Blanchable erythema to periwound. No sign of infection. Neurological: Light touch intact. Patient responds to painful stimuli. Dermatological: Full-thickness ulceration to the left ankle measuring 1.2 x 0.2 x 0.1 cm. Partial breakdown of skin to the anterior left ankle is now healed. No sign of infection. Excisional debridement using a number 5 mm dermal curette down to and including dermal tissue of the left medial wound. Predebridement measurement is callus. Postdebridement measurement is 1.2 x 0.2 x 0.1 cm. Musculoskeletal: No pain to palpation of full-thickness ulceration with no pain with calf pressure Debridement Note Debridement Note Debridement Free Text: Excisional debridement using a number 5 mm dermal curette down to and including dermal tissue of the left medial wound. Predebridement measurement is callus. Postdebridement measurement is 1.2 x 0.2 x 0.1 cm. Post-Debridement Measurements and Additional Note: Post-Debridement Measurements/Treatment MARTA - Nurse 1 - General Ulcer Assessment Start: 06/05/24 09:04 Freq: Status: Active Protocol: SURY Activity Type Activity Date Activity User E-sign Co-sign Detail Recorded Client Recorded Date Recorded By Document 06/05/24 09:05 [id number] 06/05/24 09:08 06/05/24 09:05 - Today's Visit Information Type of service Follow-up Visit (Physician/HOSPITALITY RECRUITER ) Arrival Mode Ambulatory Transfer Assistance None Accompanied by [facility] staff Patient Identification Verified (Name & Yes ) Patient Requires Transmission-Based No Precautions Height and Weight Body Mass Index (BMI) 31.1 BMI Classification Obese Vital Signs Temperature (97.8 F-99.1 F) 98.1 F Temperature Source Temporal Pulse Rate (60-100) 81 Pulse Location Monitor Respiratory Rate (12-18) 18 Respiratory rate source Observation Oxygen Delivery Method Room Air Blood Pressure (90/60-120/80) 122/67 H Blood Pressure Mean (mm Hg) 85 Source Monitor Position Sitting Blood Pressure Location Left Arm History Since Last Visit- (Skip if this is Patient's initial visit) Have you changed medications since your No last visit? Any new allergies or adverse reactions No Had a fall/change in ADL's that may No increase risk of falls Signs or symptoms of abuse and/or No neglect since last visit Have you been in the hospital since your No last visit? Has dressing in place as prescribed Yes Has compression in place as prescribed Yes Has offloadiing in place as prescribed N/A Experienced any changes in pain level or No management Left Footwear Regular Shoe Right Footwear Regular Shoe Pain Scale: 0-10 Numeric Is Patient Pain Free? Yes - Nurse 1 - General Ulcer Measurement Start: 06/05/24 09:04 Freq: Status: Active Protocol: Activity Type Activity Date Activity User E-sign Co-sign Detail Recorded Client Recorded Date Recorded By Document 06/05/24 09:05 [id number] 06/05/24 09:08 06/05/24 09:05 Wound Center Nurse 1 2-left anterior ankle -Current Size (cm) - Length 7.5 -Current Size (cm) - Width 0.5 -Current Size (cm) - Depth 0.1 -Total Square Cm 3.75 -Date of Last Picture (Recall this 06/05/24 field) -Photo Taken Yes -Epithelialization Large 67-100% -Tunneling No -Undermining/Tunneling No -Circular Undermining No -Exudate Amt Small -Exudate Type Serosanguineous -Wound Margin Distinct, Outline Attached -Texture (Reyna-wound Skin Appearance) Assessed -Moisture (Reyna-wound Skin Appearance) Assessed -Color (Reyna-wound Skin Appearance) Assessed -Temperature (Reyna-wound Skin No Abnormality Appearance) (Pt Warm) -Tenderness on Palpation (Reyna-wound No Skin Appearance) -Ulcer Cleansing Soap and Water -Foul Odor after Cleansing No -Anesthetic Used 5% Lidocaine Gel MARTA - Nurse 2 - General Ulcer CM Notes Start: 06/05/24 09:04 Freq: Status: Active Protocol: Activity Type Activity Date Activity User E-sign Co-sign Detail Recorded Client Recorded Date Recorded By Document 06/05/24 09:14 MERLIN [id number] 06/05/24 09:17 MERLIN 06/05/24 09:14 Wound Center Nurse 2 -Time 09:15 -Correct Patient Yes -Correct Side, Site, Position Yes -Correct Procedure Yes -Procedure Performed Yes -Type of Procedure Debridement -Clinical Debridement Subcutaneous -Tissue Removed Subcutaneous -Post Debridement (cm) - Length 1.2 -Post Debridement (cm) - Width 0.2 -Post Debridement (cm) - Depth 0.1 -Total Square (Post) (cm) 0.24 -Area of Debridement (cm) - Length 1.2 -Area of Debridement (cm) - Width 0.2 -Total Square (Area) (cm) 0.24 -Tunneling No -Undermining/Tunneling No -Circular Undermining No -Wound/Ulcer Outcome Not Healed -Ulcer Cleansing Rinsed/ Irrigated with Saline -Foul Odor after Cleansing No -Bioengineered Tissue No -Bleeding Controlled with Pressure -Treatment Response Procedure Tolerated Well -Offloading No -Debridement - Subq, 1st 20sq cm Yes Pain Scale: 0-10 Numeric Is Patient Pain Free? Yes MARTA - Nurse 3 - General Ulcer D/C NN Start: 06/05/24 09:04 Freq: Status: Active Protocol: Activity Type Activity Date Activity User E-sign Co-sign Detail Recorded Client Recorded Date Recorded By Document 06/05/24 09:24 KW [id number] 06/05/24 09:25 KW 06/05/24 09:24 Wound Care Center Nurse 3 2-left anterior ankle -Primary Dressing Applied Promogran Madeline Matter -Primary Dressing Covered/Secured with Dry Gauze & Roll Gauze, Secured with Tape -Promogran Madeline Matter 1 Left -Tubular Bandage Single Layer -Size of Tubigrip Used Size E -Size E ($) 1 Pain Scale: 0-10 Numeric Is Patient Pain Free? 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 All findings were discussed with the patient. All questions were answered to the patient's satisfaction. Excisional debridement using a number 5 mm dermal curette down to and including dermal tissue of the left medial wound. Predebridement measurement is callus. Postdebridement measurement is 1.2 x 0.2 x 0.1 cm. Left lower extremities are clean and patted dry. Ulceration was dressed with Madeline dry sterile dressing compression wrap. Nursing staff will change it every 2 days. Follow-up at the wound care center with Dr. Cadena in 2 week.
--- NOTE | 2024-06-06 08:07 | WC ---
PHOTO 06/05/24 LEFT MED LEG
[2024-06-19 09:00] VITALS: BP 108/48; PULSE 110; RESP 18; TEMP 36.1; BMI 31.1
--- NOTE | 2024-06-19 10:48 | PCM.WC.PN ---
History of Present Illness Date of Service: 06/19/24 Chief Complaint: Bilateral leg ulcerations History of Wound: Mr. Ramirez is a 64-year-old male presenting to the wound care center today at [facility] with a chief complaint of bilateral leg ulcerations. Patient resides at a nursing facility where he is cared for 24 hours a day. Patient has a bit of cognitive dysfunction and is well medicated today with 2 mg of Ativan. Patient has seen wound care in the past but presents with worsening larger wound to the left leg/ankle area. Patient denies of any trauma. Patient denies any constitutional symptoms. No other pedal complaints at this time. Subjective Subjective Mr. Ramirez is a 64-year-old male presenting to clinic today for follow-up evaluation of left full-thickness wound at the level of the ankle. Patient states the wound is now healed. He has been very grateful for his care. He is wearing compression as instructed in as well as tolerated. Denies trauma. Denies constitutional symptoms. No other pedal complaints at this time. Objective Data Objective Data Vital Signs: Vital Signs Temp Pulse Resp BP O2 Del Method 97.0 F L 110 H 18 108/48 L Room Air 06/19/24 09:00 06/19/24 09:00 06/19/24 09:00 06/19/24 09:00 06/19/24 09:00 Oxygen Delivery Method Room Air Weight: 107.048 kg Body Mass Index (BMI) 31.1 Physical Exam Narrative Vascular: DP and PT pulses are faintly palpable. CFT is brisk. Skin temperature is warm to warm from proximal ankle to distal digits. No erythema. No sign of infection. Neurological: Light touch intact. Patient responds to painful stimuli. Dermatological: Full-thickness wound to left ankle is now healed. No sign of infection. Musculoskeletal: No pain to palpation of full-thickness ulceration with no pain with calf pressure Debridement Note Debridement Note Post-Debridement Measurements and Additional Note: Post-Debridement Measurements/Treatment WC - Nurse 1 - General Ulcer Assessment Start: 06/05/24 09:04 Freq: Status: Active Protocol: RAINAEXConstanza Activity Type Activity Date Activity User E-sign Co-sign Detail Recorded Client Recorded Date Recorded By Document 06/05/24 09:05 GM [id number] 06/05/24 09:08 GM Document 06/19/24 09:00 [id number] 06/19/24 09:05 06/05/24 06/19/24 09:05 09:00 - Today's Visit Information Type of service Follow-up Visit Follow-up Visit (Physician/SUPERVISOR CUTTING AND SEWING ROOM (Physician/SUPERVISOR CUTTING AND SEWING ROOM ) ) Arrival Mode Ambulatory Ambulatory Transfer Assistance None Accompanied by custodial caregiver staff Patient Identification Verified (Name & Yes Yes ) Patient Requires Transmission-Based No Precautions Height and Weight Body Mass Index (BMI) 31.1 31.1 BMI Classification Obese Obese Vital Signs Temperature (97.8 F-99.1 F) 98.1 F 97.0 F L Temperature Source Temporal Temporal Pulse Rate (60-100) 81 110 H Pulse Location Monitor Monitor Respiratory Rate (12-18) 18 18 Respiratory rate source Observation Observation Oxygen Delivery Method Room Air Room Air Blood Pressure (90/60-120/80) 122/67 H 108/48 L Blood Pressure Mean (mm Hg) 85 68 Source Monitor Monitor Position Sitting Semi-Fowlers Blood Pressure Location Left Arm Left Forearm History Since Last Visit- (Skip if this is Patient's initial visit) Have you changed medications since your No No last visit? Any new allergies or adverse reactions No No Had a fall/change in ADL's that may No No increase risk of falls Signs or symptoms of abuse and/or No No neglect since last visit Have you been in the hospital since your No No last visit? Has dressing in place as prescribed Yes Yes Has compression in place as prescribed Yes Yes Has offloadiing in place as prescribed N/A N/A Experienced any changes in pain level or No No management Left Footwear Regular Shoe Regular Shoe Right Footwear Regular Shoe Regular Shoe Pain Scale: 0-10 Numeric Is Patient Pain Free? Yes Yes - Nurse 1 - General Ulcer Measurement Start: 06/05/24 09:04 Freq: Status: Active Protocol: Activity Type Activity Date Activity User E-sign Co-sign Detail Recorded Client Recorded Date Recorded By Document 06/05/24 09:05 [id number] 06/05/24 09:08 Document 06/19/24 09:00 KW [id number] 06/19/24 09:05 06/05/24 06/19/24 09:05 09:00 Wound Center Nurse 1 2-left anterior ankle -Current Size (cm) - Length 7.5 3 -Current Size (cm) - Width 0.5 0.2 -Current Size (cm) - Depth 0.1 0.1 -Total Square Cm 3.75 0.6 -Date of Last Picture (Recall this 06/05/24 field) -Photo Taken Yes -Epithelialization Large 67-100% -Tunneling No -Undermining/Tunneling No -Circular Undermining No -Exudate Amt Small None Present -Exudate Type Serosanguineous -Wound Margin Distinct, Distinct, Outline Outline Attached Attached -Texture (Reyna-wound Skin Appearance) Assessed Assessed -Moisture (Reyna-wound Skin Appearance) Assessed Assessed -Color (Reyna-wound Skin Appearance) Assessed Assessed -Temperature (Reyna-wound Skin No Abnormality No Abnormality Appearance) (Pt Warm) (Pt Warm) -Tenderness on Palpation (Reyna-wound No No Skin Appearance) -Ulcer Cleansing Soap and Water Rinsed/ Irrigated with Saline -Foul Odor after Cleansing No No -Anesthetic Used 5% Lidocaine 5% Lidocaine Gel Gel WC - Nurse 2 - General Ulcer CM Notes Start: 06/05/24 09:04 Freq: Status: Active Protocol: Activity Type Activity Date Activity User E-sign Co-sign Detail Recorded Client Recorded Date Recorded By Document 06/05/24 09:14 JF [id number] 06/05/24 09:17 JF Document 06/19/24 09:11 JF [id number] 06/19/24 09:13 JF 06/05/24 06/19/24 09:14 09:11 Wound Center Nurse 2 2-left anterior ankle -Time 09:15 -Correct Patient Yes No -Correct Side, Site, Position Yes No -Correct Procedure Yes No -Procedure Performed Yes No -Type of Procedure Debridement -Clinical Debridement Subcutaneous -Tissue Removed Subcutaneous -Post Debridement (cm) - Length 1.2 0 -Post Debridement (cm) - Width 0.2 0 -Post Debridement (cm) - Depth 0.1 0 -Total Square (Post) (cm) 0.24 0 -Area of Debridement (cm) - Length 1.2 0 -Area of Debridement (cm) - Width 0.2 0 -Total Square (Area) (cm) 0.24 0 -Tunneling No -Undermining/Tunneling No -Circular Undermining No -Wound/Ulcer Outcome Not Healed Healed- Epithelialized -Ulcer Cleansing Rinsed/ Irrigated with Saline -Foul Odor after Cleansing No -Bioengineered Tissue No -Bleeding Controlled with Pressure -Treatment Response Procedure Tolerated Well -Offloading No -Debridement - Subq, 1st 20sq cm Yes Pain Scale: 0-10 Numeric Is Patient Pain Free? Yes Yes - Nurse 3 - General Ulcer D/C NN Start: 06/05/24 09:04 Freq: Status: Active Protocol: Activity Type Activity Date Activity User E-sign Co-sign Detail Recorded Client Recorded Date Recorded By Document 06/05/24 09:24 KW [id number] 06/05/24 09:25 KW Document 06/19/24 09:15 JF [id number] 06/19/24 09:19 JF 06/05/24 06/19/24 09:24 09:15 Wound Care Center Nurse 3 2-left anterior ankle -Primary Dressing Applied Promogran Madeline Matter -Primary Dressing Covered/Secured with Dry Gauze & Roll Gauze, Secured with Tape -Promogran Madeline Matter 1 Left -Tubular Bandage Single Layer -Size of Tubigrip Used Size E -Size E ($) 1 -Stockings Yes Pain Scale: 0-10 Numeric Is Patient Pain Free? 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 All findings were discussed with the patient. All questions were answered to the patient's satisfaction. Left full-thickness wound to the ankle is now healed. Patient will continue to apply lotion twice per day and wear compression as instructed. Patient is very grateful for his plan. He will be discharged from the wound care center and can follow-up as needed.
== END 2024-06-19 16:07 | disposition home or self-care (01) ==
LOC: WC 09:00
PROVIDERS: PCP Internal Medicine Infectious Disease; Referring Provider Internal Medicine Infectious Disease; Visit Provider Podiatrist Foot & Ankle Surgery
DX: L97.322 Non-pressure chronic ulcer of left ankle with fat layer exposed (principal)
CPT/HCPCS: 11042; 99213; G0463

== ENCOUNTER → 2024-11-01 | Outpatient (CLI) | payer MEDICARE, MEDICAID, SELFPAY ==
--- NOTE | 2024-11-01 07:59 | AAVD_ITS ---
Reason For Study Reason For Study: S/P right iliac vein stent Inferior Vena Cava Proximal inferior vena cava measures 1.26 x 1.84 cm. in the cross-sectional axis. Proximal inferior vena cava measures 1.16 cm. in the longitudinal axis. Mid inferior vena cava measures 1.28 x 2.85 cm. in the cross-sectional axis. Mid inferior vena cava measures 1.41 cm. in the longitudinal axis. Distal inferior vena cava measures 1.43 x 2.07 cm. in the cross-sectional axis. Distal inferior vena cava measures 1.59 cm. in the longitudinal axis. The inferior vena cava has spontaneous, phasic flow throughout. Left Common Iliac Vein Left common iliac vein measures 0.91 x 1.29 cm. in the cross-sectional axis. Left common iliac vein measures 0.65 cm. in the longitudinal axis. The left common iliac vein has spontaneous, phasic flow throughout. Right Common Iliac Vein Right common iliac vein measures 1.29 x 1.26 cm. in the cross-sectional axis. Right common iliac vein measures 1.31 cm. in the longitudinal axis. The right common iliac vein has spontaneous, phasic flow throughout. Stent noted in the right CIV. Procedure Aorta IVC Iliac vasculature or bypass grafts [id number]. Exam performed in department. VL/Abd Aortic/IVC Duplex scan Interpretation Summary Inferior vena cava and left iliac vein patent with normal venous flow pattern Right iliac vein stent patent with normal venous flow pattern. Ordering Physician: Bianca Schmitz Referring Physician: Raj Dykes Performed By: Nirali Carr RVT
== END | disposition home or self-care (01) ==
PROVIDERS: PCP Internal Medicine Infectious Disease; Referring Provider Physician Assistant; Visit Provider Physician Assistant
DX: Z48.812 Encounter for surgical aftercare following surgery on the circulatory system (principal); I87.2 Venous insufficiency (chronic) (peripheral)
CPT/HCPCS: 93978